=== PATIENT | female | born 1980 | race Caucasian/White ===

== ENCOUNTER 2019-04-22 10:36 | Inpatient (IN) ==
--- OUTSIDE RECORDS SUMMARY | 2019-04-22 10:40 | External Medical Summary | Continuity of Care Document ---
:1980 Author Name Diaz Law, Provider Address Unavailable Unavailable , Care Team Providers Name Role Phone Unavailable Unavailable Unavailable CHARMAINE ACRTAGENA Unavailable Unavailable Unavailable Unavailable Unavailable Assessments Assessed Problems:Atrial septal defect Problems Atrial septal defect (745.5) (Q21.1) Hypothyroidism (244.9) (E03.9) Allergies and Adverse Reactions PHENobarbital TABS (Allergy) Medications Levothyroxine Sodium 25 MCG Oral Tablet; TAKE 1 TABLET Every other day , M.D. Refills: 0 Keppra 500 MG Oral Tablet; 1250MG TWICE A DAY , M.D. Refills: 0 Levothyroxine Sodium 50 MCG Oral Tablet; 1 TABLET EVERYOTHER DAY ALTERNATING WITH THE 25MG , M.D. Refills: 0 Procedures History of Hernia Repair Status: Complet ed History of Brain Surgery Status: Complet ed Immunizations Immunizations not documented Family History Unknown Family Member Family history of Breast Cancer (V16.3) Status: Active Comments: Family History Family history of Skin Cancer (V16.8) Status: Active Co mments: Family History Family history of Pacemaker Placement Status: Active Co mments: Family History Family history of CABG Status: Active Comments: Family History Family history of Dyslipidemia Status: Active Comments: Family History Family history of Stroke Syndrome (V17.1) Status: Active Comments: Family History Family history of Asthma (V17.5) Status: Active Comment s: Family History Family history of Diabetes Mellitus (V18.0) Status: Active Comments: Family History Social History - Smoking Status Never smoker Interventions Follow-ups/ReferralsFollow-up visit in 3 months Plan of Treatment Planned Observations Planned Goals not documented Results No Known Results Results not documented
--- NOTE | 2019-04-22 12:33 | Emergency Department Note ---
History of Present Illness General Chief complaint: Neuro Symptoms/Deficit Stated complaint: LOSSING HER BALANCE, FALLING- HX BRAIN TUMOR Time Seen by Provider: 04/22/19 11:03 History of Present Illness Maximum Pain Intensity: 0 This patient is a 39-year-old female who presents to the emergency department for evaluation of multiple falls over the last several weeks. The patient has a history of a brain tumor and mental delay. Most of the history is taken from the patient's parents were present at the bedside. They report that she has had intermittent difficulty with her gait. She had a fall 4 days ago. The patient was evaluated by her doctor. She was told that she had one rib fracture. At that visit, they also checked blood work, which was reportedly normal. The patient's parents note some increased agitated behavior where the patient has bitten herself. They also explained that she has been very manipulative, and acts out when she does not want to do something such as chores. They voiced concerns about her safety at home as they have multiple steps and are concerned that she may have a significant fall. The patient currently has no complaints. Home Medications Home Medications Medication Instructions Recorded Confirmed Type ascorbic acid (vitamin C) 500 mg PO DAILY 04/22/19 04/22/19 History gemfibrozil 600 mg PO BID 04/22/19 04/22/19 History lamotrigine 25 mg PO BID 04/22/19 04/22/19 History lamotrigine 150 mg PO BID 04/22/19 04/22/19 History levothyroxine 25 mcg PO DAILYBB 04/22/19 04/22/19 History magnesium oxide 400 mg PO DAILY 04/22/19 04/22/19 History megestrol 20 mg PO DAILY 04/22/19 04/22/19 History sodium chloride 1,000 mg PO BID 04/22/19 04/22/19 History Allergies Allergy/AdvReac Type Severity Reaction Status Date / Time phenobarbital Allergy Mild . Verified 04/22/19 11:16 omeprazole AdvReac Unknown red face Verified 04/22/19 11:16 Past Med/Surg History Medical History Brain tumor Cognitive developmental delay H/O astrocytoma Laceration of trachea Seizure disorder Surgical History H/O brain surgery History of umbilical hernia repair S/P cholecystectomy Family History Mother Diabetes Grandfather (Paternal) Coronary heart disease Uncle Coronary heart disease Social History Preferred Language: Bengali Communication Ability: Effective Hearing Ability: Normal Loan Review Officer Required: No Beliefs That Will Affect Care: Restorationism Restorationism Beliefs: Mandaen marital status: Single Current Living Situation: Family Other Information That Helps Us Care for You: Yes (wobbly when walking) Feels Safe at Home: Yes Safety Concerns: Feels Safe At This Time Smoking Status: Never smoker Hx Alcohol Use: No Hx Substance Use: No Review of Systems A total of 10 systems reviewed and were otherwise negative Physical Exam Vital Signs Vital Signs - 24 hr 04/22/19 10:43 04/22/19 13:04 04/22/19 14:30 Temperature 36.7 C Temperature Source Oral Sepsis Recent Fever Within 48 Hours No Sepsis Action Taken by Nursing No Action Required Pulse Rate 96 H Pulse Rate [Left Finger] 80 66 Respiratory Rate 20 20 18 Respiratory Effort / Characteristics Non-Labored Non-Labored Non-Labored Respiratory Depth Normal Normal Normal Respiratory Pattern Regular Regular Blood Pressure 106/66 Blood Pressure [Right Arm] 123/69 98/59 L Blood Pressure Mean 79 Blood Pressure Mean [Right Arm] 87 72 Pulse Oximetry 100 99 99 Oxygen Delivery Method Room Air Room Air Room Air 04/22/19 15:00 04/22/19 16:02 Temperature Temperature Source Sepsis Recent Fever Within 48 Hours Sepsis Action Taken by Nursing Pulse Rate Pulse Rate [Left Finger] 78 90 Respiratory Rate 18 20 Respiratory Effort / Characteristics Non-Labored Non-Labored Respiratory Depth Normal Normal Respiratory Pattern Regular Regular Blood Pressure Blood Pressure [Right Arm] 126/69 116/63 Blood Pressure Mean Blood Pressure Mean [Right Arm] 88 80 Pulse Oximetry 100 99 Oxygen Delivery Method Room Air Room Air Constitutional WD/WN, vitals as above Eyes EOM intact bilaterally ENMT external ear and nose normal, oropharynx normal Neck trachea midline Respiratory normal respiratory effort, lungs clear to auscultation Cardiovascular Systolic murmur noted. Regular rate. Gastrointestinal (Abdomen) normal bowel sounds, soft, nontender, no hepatosplenomegaly Musculoskeletal no cyanosis or clubbing, extremities motor strength 5/5 Skin no rashes, warm and dry Neurologic Alert and oriented x3. No focal motor deficits. Psychiatric Acting appropriately. No suicidal or homicidal thoughts. Course Patient was seen and examined Vital signs including blood pressure were reviewed medications list was verified with patient Labs were obtained, and a saline lock was established We attempted to get records from [facility] where the patient was seen yesterday. Imaging was performed and reviewed The patient was evaluated by the psychiatric liaison. The case was discussed with my supervising physician who personally reviewed her records. I reviewed the patient's records from [facility]. The patient was reassessed and sleeping. I discussed the results of the work-up with the patient's parents. They voiced understanding. I spoke with neurosurgery at [facility] The case was subsequently discussed with case management and [place] [facility] [place]. They kindly agreed to evaluate the patient for possible inpatient management. The patient's family was updated numerous times at the bedside. They were in agreement with the plan. Consultations Consultation #1: Dr. Ness-neurosurgery [facility] Consultation #2: Dr. Arreola Medical Decision Making Medical Records Attestation: I reviewed the patient's medical records. Home Medications Current Medication List: was personally reviewed by me Laboratory Data Attestation: I reviewed the patient's lab results. Result diagrams: 04/22/19 17:14 04/22/19 12:35 Lab Results 04/22/19 04/22/19 04/22/19 Range/Units 11:59 12:35 12:55 WBC (4.8-10.8) K/uL RBC (4.2-5.4) M/uL Hgb (12.0-16.0) g/dL Hct (37-47) % MCV (80-100) fL MCH (25-34) pg MCHC (32-36) g/dL RDW Std Deviation (36.4-46.3) fL RDW Coeff of [place] (11.5-14.5) % Plt Count (130-400) K/uL Immature Gran % (Auto) % Neut % (Auto) % Lymph % (Auto) % [place] % (Auto) % Eos % (Auto) % Baso % (Auto) % Immature Gran # (Auto) (0.00-0.02) K/uL Neut # (Auto) (1.4-6.5) K/uL Lymph # (Auto) (1.2-3.4) K/uL [place] # (Auto) (0.11-0.59) K/uL Eos # (Auto) (0-0.5) K/uL Baso # (Auto) (0-0.2) K/uL Platelet Estimate (Normal) Echinocytes Sodium 140 (136-145) mmol/L Potassium 3.7 (3.5-5.1) mmol/L Chloride 105 (98-107) mmol/L Carbon Dioxide 30 (21-32) mmol/L Anion Gap 5.0 (3-11) BUN 23 H (7-18) mg/dl Creatinine 1.34 H (0.6-1.2) mg/dl Est Cr Clr Drug Dosing Not Reportable Est GFR ( Amer) 57.3 Est GFR (Non-Af Amer) 49.4 BUN/Creatinine Ratio 17.0 (10-20) Glucose 84 (70-99) mg/dl POC Glucose 89 (70-99) Calcium 9.6 (8.5-10.1) mg/dl TSH 0.271 L (0.300-4.500) uIu/ml Urine Color Urine Appearance (Clear) Urine pH (4.5-7.5) Ur Specific [place] (1.000-1.030) Urine Protein (Negative) Urine Glucose (UA) (Negative) Urine Ketones (Negative) Urine Blood (Negative) Urine Nitrite (Negative) Urine Bilirubin (Negative) Urine Urobilinogen (Negative) Ur Leukocyte Esterase (Negative) Urine WBC (Auto) (0-5) /hpf Urine RBC (Auto) (0-4) /hpf U Hyaline Cast (Auto) (0-5) /lpf U Epithel Cells (Auto) (0-5) /lpf Urine Bacteria (Auto) (Negative) Ur Renal Epithelial Cell Urine Test (Negative) Urine Opiates Screen Neg (Neg) Ur Methadone, Qual Neg (Neg) Urine Barbiturates Neg (Neg) Ur Phencyclidine (PCP) Neg (Neg) U Amphetamin/Meth Scrn Neg (Neg) MDMA (Ecstasy) Screen Neg (Neg) U Benzodiazepines Scrn Neg (Neg) Ur Cocaine Metabolite Neg (Neg) U Marijuana (THC) Screen Neg (Neg) 04/22/19 04/22/19 04/22/19 Range/Units 12:55 12:55 14:51 WBC 3.13 L (4.8-10.8) K/uL RBC 3.49 L (4.2-5.4) M/uL Hgb 10.3 L (12.0-16.0) g/dL Hct 31.1 L (37-47) % MCV 89.1 (80-100) fL MCH 29.5 (25-34) pg MCHC 33.1 (32-36) g/dL RDW Std Deviation 47.9 H (36.4-46.3) fL RDW Coeff of [place] 14.8 H (11.5-14.5) % Plt Count 3 L* (130-400) K/uL Immature Gran % (Auto) 1.0 % Neut % (Auto) 40.3 % Lymph % (Auto) 52.7 % [place] % (Auto) 3.8 % Eos % (Auto) 1.9 % Baso % (Auto) 0.3 % Immature Gran # (Auto) 0.03 H (0.00-0.02) K/uL Neut # (Auto) 1.26 L (1.4-6.5) K/uL Lymph # (Auto) 1.65 (1.2-3.4) K/uL [place] # (Auto) 0.12 (0.11-0.59) K/uL Eos # (Auto) 0.06 (0-0.5) K/uL Baso # (Auto) 0.01 (0-0.2) K/uL Platelet Estimate SIGNIFIC DECREASED (Normal) Echinocytes 1+ Sodium (136-145) mmol/L Potassium (3.5-5.1) mmol/L Chloride (98-107) mmol/L Carbon Dioxide (21-32) mmol/L Anion Gap (3-11) BUN (7-18) mg/dl Creatinine (0.6-1.2) mg/dl Est Cr Clr Drug Dosing Est GFR ( Amer) Est GFR (Non-Af Amer) BUN/Creatinine Ratio (10-20) Glucose (70-99) mg/dl POC Glucose (70-99) Calcium (8.5-10.1) mg/dl TSH (0.300-4.500) uIu/ml Urine Color Yellow Urine Appearance Clear (Clear) Urine pH 8.0 H (4.5-7.5) Ur Specific [place] 1.022 (1.000-1.030) Urine Protein Negative (Negative) Urine Glucose (UA) Negative (Negative) Urine Ketones Negative (Negative) Urine Blood Negative (Negative) Urine Nitrite Negative (Negative) Urine Bilirubin Negative (Negative) Urine Urobilinogen Negative (Negative) Ur Leukocyte Esterase Trace H (Negative) Urine WBC (Auto) 5-10 H (0-5) /hpf Urine RBC (Auto) 0-4 (0-4) /hpf U Hyaline Cast (Auto) 1-5 (0-5) /lpf U Epithel Cells (Auto) >30 H (0-5) /lpf Urine Bacteria (Auto) Negative (Negative) Ur Renal Epithelial Cell Not Reportable Urine Test Negative (Negative) Urine Opiates Screen (Neg) Ur Methadone, Qual (Neg) Urine Barbiturates (Neg) Ur Phencyclidine (PCP) (Neg) U Amphetamin/Meth Scrn (Neg) MDMA (Ecstasy) Screen (Neg) U Benzodiazepines Scrn (Neg) Ur Cocaine Metabolite (Neg) U Marijuana (THC) Screen (Neg) Imaging Data Attestation: I personally reviewed and interpreted this imaging study as follows: Radiologist's Impression: CT head without contrast IMPRESSION: 1. Increasing small bifrontal extra-axial fluid collections consistent with chronic bilateral subdural hygromas/hematomas 2. The examination remains otherwise unchanged from the preceding study. Electronically signed by: Manolo Francois M.D. 04/22/2019 1:05 PM Dictated: 04/22/19 1256 Transcribed: 04/22/19 1256 Blood Pressure Blood Pressure Findings: Normal blood pressure MDM Narrative Differential diagnosis: Intracranial abnormality, electrolyte abnormality, adverse drug reaction, psychiatric disorder, dehydration, among others This patient is a 39-year-old female presents to the emergency department for evaluation of gait dysfunction. On exam, she was neurologically intact. The patient has a history of mental delay. The patient's parents were concerned that this is possibly a psychiatric disorder, and they did not feel comfortable taking the patient home. They were highly concerned about her fall risk. I reviewed outpatient records. She had blood work performed at [facility] yesterday. There were no significant abnormalities noted. A CT scan was performed. This was concerning for an increasing hematoma/hygroma in the frontal area. The case was discussed with neurosurgery at [place]. They felt that her symptoms were likely chronic in nature and unrelated to her CT findings. [facility]. Due to her gait dysfunction, she was a significant fall risk. For this reason, she will likely stay in the hospital for inpatient management and disposition planning. The patient's parents were in agreement with the plan. Impression & Plan Ambulatory dysfunction, Acute kidney insufficiency Discharge Plan Visit Data *Final* Discharge Date/Time: 04/22/19 17:12 Chief Complaint: Neuro Symptoms/Deficit Stated Complaint: LOSSING HER BALANCE, FALLING- HX BRAIN TUMOR ED Provider: Lito Rojas ED Midlevel Provider: Liana Chin Discharge Problem: Ambulatory dysfunction, Acute kidney insufficiency Patient Disposition: Admitted As Inpatient Condition: Fair Discharge Instructions Interventions: ED Discharge Assessment Last Done: 04/22/19 17:12
--- NOTE | 2019-04-22 13:06 | CT Scan Report ---
CT head/brain wo con CLINICAL HISTORY: frequent falls COMPARISON STUDY: 08/31/2015 TECHNIQUE: Axial CT of the brain is performed from the vertex to the skull base. IV contrast was not administered for this examination. A dose lowering technique was utilized adhering to the principles of ALARA. CT DOSE: 537.48 mGy.cm FINDINGS: There are postsurgical changes involving the right temporal lobe with right temporal lobe encephaloma lacia. There is no CT evidence of acute cortical infarction. There is no midline shift. There is no a cute hemorrhage. There are patchy white matter hypodensities. There is a cyst versus old lacunar infarct within the le ft frontal lobe and right basal ganglia. 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 There is basal ganglia and cerebellar calcification. This could indicate a metabolic disorder or lan erasmo familial brain calcification. There is no evidence of pathologic ventricular dilatation. There are increasing bifrontal extra-axial fluid collections, consistent with chronic bilateral subdu ral hygromas/hematomas. There is a chronic right mastoid effusion. IMPRESSION: 1. Increasing small bifrontal extra-axial fluid collections consistent with chronic bilateral subdura l hygromas/hematomas 2. The examination remains otherwise unchanged from the preceding study. Electronically signed by: Manolo Francois M.D. 04/22/2019 1:05 PM
[2019-04-22 13:22] LABS: Appearance Urine Clear (Clear); Bacteria Urine Automated Negative (Negative); Bilirubin Urine Negative (Negative); Blood Urine Negative (Negative); Color Urine Yellow; Epithelial Cell Urine Auto >30 /lpf (0-5); Glucose Urine UA Negative (Negative); Ketones Urine Negative (Negative); Leukocyte Esterase Urine Trace (Negative); Nitrite Urine Negative (Negative); RBC Urine Automated 0-4 /hpf (0-4); Specific Gravity Urine 1.022 (1.000-1.030); Urobilinogen Urine Negative (Negative)
[2019-04-22 13:33] LABS: Pregnancy Test, Urine Negative (Negative)
[2019-04-22 13:37] LABS: Amphetamines+Metham, Urine Neg (Neg); Barbiturates, Urine Neg (Neg); Benzodiazepine, Urine Neg (Neg); Cocaine, Urine Neg (Neg); MDMA (Ecstacy), Urine Neg (Neg); Methadone, Urine Neg (Neg); Opiate, Urine Neg (Neg); Phencyclidine, Urine Neg (Neg)
[2019-04-22 13:48] LABS: Protein Urine Negative (Negative); Sulfosalicylic Acid Urine Negative (Negative)
[2019-04-22 15:31] LABS: Blood Urea Nitrogen 23 mg/dl (7-18); Calcium 9.6 mg/dl (8.5-10.1); Carbon Dioxide 30 mmol/L (21-32); Chloride 105 mmol/L (98-107); Est GFR (African American) 57.3; Est GFR (Non-African American) 49.4; Glucose 84 mg/dl (70-99); Potassium 3.7 mmol/L (3.5-5.1); Sodium 140 mmol/L (136-145)
[2019-04-22 15:40] LABS: Thyroid Stimulating Hormone 0.271 uIu/ml (0.300-4.500)
--- NOTE | 2019-04-22 15:55 | History & Physical Report ---
Date of Service April 22, 2019 Assessment & Plan (1) Multiple falls: Uncertain etiology with possibilities including but not limited to somatic manifestation of stress as timing of ambulatory dysfunction coincided perfectly with parents leaving town and leaving her behind with a friend, possible seizure activity, new stroke with known h/o vascular disease (she is notably not on aspirin or statin therapy for secondary prophylaxis, however, ASA likely contraindicated in setting of hygromas), return of brain tumor (less likely with no new tumor seen on CT imaging), adverse medication reaction to increased dose of lamictal-increased 4 weeks ago, or other underlying metabolic cause that is not clear. Urine tox screen and UPT are negative. CXR pending. CT head reveals chronic strokes and chronic hygromas with no acute intracranial event. Labwork reveals an CYNTHIA which may be contributing and she has missed at least two days of her Lamictal last week when staying with a friend. Parents describe patient's behaviors as consistent with "having attitude" about the possibility of moving into a longterm situation. She was sent to stay with a friend last week where there was another teenager in the house, and defiant behaviors were observed, including missing medications. Parents deny that she uses alcohol. Will order MRI brain with and without contrast and consult Neurology to evaluate. PT/OT also consulted. IVF now and repeat BMP in am. Encourage PO intake and nutrition consult. Monitor on telemetry to ensure no underlying arrythmia as a cause for falls. Echo to evaluate heart murmur. (2) Epilepsy: Seizure precautions, cont lamictal at 175mg PO BID (3) H/O astrocytoma: MRI pending (4) Thrush: Likely from poor oral hygiene with dentures in place, Nystatin QID. Teach/encourage proper denture maintenance. (5) CYNTHIA (acute kidney injury): Uncertain baseline as records are unavailable. Parents report poor PO intake and dehydration regularly. IVF overnight and repeat in am. (6) Hypothyroidism: TSH is low. Would repeat when she is feeling better. She has been on a stable dose of Synthroid for a long time. (7) Cognitive developmental delay: 2/2 brain surgery at young age. Patient cannot live independently. Recent ongoing conversations between patient and her parents who are looking into a longterm situation, to which she is currently opposed. (8) Subdural hygroma: Images reviewed by Neurosurgery who would like her to follow-up in the office with them next week for evaluation. No acute changes resulting from falls seen on imaging. (9) Heart murmur: Echo-uncertain chronicity. (10) DVT prophylaxis: SCDs-chemoprophylaxis contraindicated in setting of hygromas Full Code Dispo-uncertain at this time. Pending further Neuro workup and recommendations. Pending PT/OT input. Eri Arreola DO [facility] Hospitalist History of Present Illness Chief Complaint: multiple falls at home Primary Care Provider: Randy Begum 39 yo F with h/o astrocytoma removal around age 4 and subsequent mental delay presented with her parents out of concern for multiple falls at home. Her parents are concerned about managing her at home as in the last two weeks, she has fallen multiple times and cannot tell anyone why she is falling. Two weeks ago her parents went out of town and left her with a friend who has a teenager. Eliane's developmental age is thought to be around the same age as the teenager living in this home. Parents report that there was an uptick in behavioral issues during this time and the falls began happening around then. There have been behavioral issues noted with Eliane in the past, especially while she was on Keppra for control of her epilepsy. But this resolved when her neurologist switched her to Lamictal. She was seen in the Neurology office on 03/17/19 and her Lamictal was increased from 150 BID to 175 BID. Parents say that she was doing well on this increased dosage. Eliane denies any lightheadedness, dizziness, headaches, changes in her vision, difficulty swallowing. She does report difficulty walking but doesn't know why. She cannot recall if she is passing out, and answers that her dad typically finds her and picks her up off the floor. She reports a broken rib recently after falling in the bathtub, but states it doesn't hurt her. Mom says she has been giving her Aleve pretty consistently. Eliane is described as defiant and "having attitude" by her parents recently. She gives me no issues on my interview with her and is compliant with all answers and examination instructions. Her parents are concerned about their own mortality and the care and welfare of their daughter who is unable to live independently. They presented to [facility] yesterday and were offered placement in a assisted and assistance with home health for nursing, both of which were declined by her parents. Xrays were performed of her chest revealing a healed posterior right 5th rib fracture, and a possible new right 8th rib fracture without complication. A CT head revealed atrophy, and chronic infarcts in the left frontal lobe, right basal ganglia, and right temporal lobe. There are basal ganglia and dentate nuclei calcifications present bilaterally. No acute intracranial hemorrhage or infarct was seen. A maxillofacial CT was also performed revealing no evidence of fracture and some opacification of the mastoid cells. Today, she continues to have ambulatory dysfunction, needing assistance to get around. ER nurse, notes two person assist when ambulating to the bathroom today. Workup reveals increased small bifrontal extra-axial fluid collections consistent with chronic bilateral subdural hygromas/hematomas. Neurosurgery in [facility] reviewed the images and agreed with the chronic hygromas. Allergies Allergy/AdvReac Type Severity Reaction Status Date / Time phenobarbital Allergy Mild . Verified 04/22/19 11:16 omeprazole AdvReac Unknown red face Verified 04/22/19 11:16 Home Medications Home Medications Medication Instructions Recorded Confirmed Type ascorbic acid (vitamin C) 500 mg PO DAILY 04/22/19 04/22/19 History gemfibrozil 600 mg PO BID 04/22/19 04/22/19 History lamotrigine 25 mg PO BID 04/22/19 04/22/19 History lamotrigine 150 mg PO BID 04/22/19 04/22/19 History levothyroxine 25 mcg PO DAILYBB 04/22/19 04/22/19 History magnesium oxide 400 mg PO DAILY 04/22/19 04/22/19 History megestrol 20 mg PO DAILY 04/22/19 04/22/19 History sodium chloride 1,000 mg PO BID 04/22/19 04/22/19 History Past Med/Surg History Medical History Brain tumor Cognitive developmental delay H/O astrocytoma Laceration of trachea Seizure disorder Surgical History H/O brain surgery History of umbilical hernia repair S/P cholecystectomy Family History Mother Diabetes Grandfather (Paternal) Coronary heart disease Uncle Coronary heart disease Social History Preferred Language: Macedonian Communication Ability: Effective Hearing Ability: Normal marital status: Single Current Living Situation: Family Feels Safe at Home: Yes Smoking Status: Never smoker Hx Alcohol Use: No Hx Substance Use: No Review of Systems Review of Systems: All systems reviewed & are unremarkable except as noted in HPI & below Physical Exam Physical Exam: CONSTITUTIONAL: WNWD, vitals as above, generally well- appearing EYES: EOMI bilaterally, PERRL, normal conjunctivae, no scleral icterus ENT: external ear and nose normal, oropharynx clear, whitish plaque noted on lateral edges of tongue, dentures in place. TM clear-no effusion. NECK: trachea midline RESPIRATORY: clear to auscultation bilaterally, no crackles, rales or wheezes, normal respiratory effort CARDIOVASCULAR: regular rate and rhythm, 3/6 DREA, no gallops or rubs, no JVD, no peripheral edema GASTROINTESTINAL: normal bowel sounds, soft, nontender, nondistended MUSCULOSKELETAL: strength 5/5 throughout, head is normocephalic and atraumatic, gait not assessed SKIN: warm and dry NEUROLOGIC: patellar DTR 2+ bilat. PERRL, EOMI, no facial palsy, no dysarthria. CN 2-12 grossly intact, no sensory deficit, normal cognition, normal speech, no tremor PSYCHIATRIC: alert cooperative and oriented to person, place and time. Euthymic mood, makes good eye contact, language grossly intact Results & Data Vital Signs (Past 12 Hours) Vital Signs Temp Pulse Pulse Resp BP BP Pulse Ox 04/22/19 15:00 78 18 126/69 100 04/22/19 14:30 66 18 98/59 L 99 04/22/19 13:04 80 20 123/69 99 04/22/19 10:43 36.7 C 96 H 20 106/66 100 Laboratory Results Short CBC 04/22/19 Range/Units 14:51 WBC 3.13 L (4.8-10.8) K/uL Hgb 10.3 L (12.0-16.0) g/dL Hct 31.1 L (37-47) % Plt Count 3 L* (130-400) K/uL BMP 04/22/19 12:35 Sodium 140 Potassium 3.7 Chloride 105 Carbon Dioxide 30 BUN 23 H Creatinine 1.34 H Glucose 84 Calcium 9.6 Urine 04/22/19 Range/Units 12:55 Urine Color Yellow Urine Appearance Clear (Clear) Urine pH 8.0 H (4.5-7.5) Ur Specific [place] 1.022 (1.000-1.030) Urine Protein Negative (Negative) Urine Glucose (UA) Negative (Negative) Diagnostic Findings CT head/brain wo con FINDINGS: There are postsurgical changes involving the right temporal lobe with right temporal lobe encephalomalacia. There is no CT evidence of acute cortical infarction. There is no midline shift. There is no acute hemorrhage. There are patchy white matter hypodensities. There is a cyst versus old lacunar infarct within the left frontal lobe and right basal ganglia. 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 There is basal ganglia and cerebellar calcification. This could indicate a metabolic disorder or primary familial brain calcification. There is no evidence of pathologic ventricular dilatation. There are increasing bifrontal extra-axial fluid collections, consistent with chronic bilateral subdural hygromas/hematomas. There is a chronic right mastoid effusion. IMPRESSION: 1. Increasing small bifrontal extra-axial fluid collections consistent with chronic bilateral subdural hygromas/hematomas 2. The examination remains otherwise unchanged from the preceding study. Medications Administered NO MEDS GIVEN IN THE ER Code Status & VTE Plan Code Status Full VTE Prophylaxis Plan VTE Prophylaxis will be ordered: Yes Reason for no VTE drug order: Contraindicated Critical Care Time Critical Care Time: No
[2019-04-22 16:31] LABS: Platelet Count 3 K/uL (130-400)
[2019-04-22 16:34] LABS: Hematocrit (blood only) 31.1 % (37-47); Hemoglobin 10.3 g/dL (12.0-16.0); Mean Corpuscular Hemoglobin 29.5 pg (25-34); Mean Corpuscular Hgb Conc 33.1 g/dL (32-36); Mean Corpuscular Volume 89.1 fL (80-100); RDW Coefficient of Variation 14.8 % (11.5-14.5); RDW Standard Deviation 47.9 fL (36.4-46.3); Red Blood Count 3.49 M/uL (4.2-5.4); White Blood Count 3.13 K/uL (4.8-10.8)
[2019-04-22 16:35] LABS: Basophils # (auto) 0.01 K/uL (0-0.2); Basophils % (auto) 0.3 %; Echinocytes 1+; Eosinophils # (auto) 0.06 K/uL (0-0.5); Eosinophils % (auto) 1.9 %; Immature Granulocytes # (auto) 0.03 K/uL (0.00-0.02); Lymphocytes # (auto) 1.65 K/uL (1.2-3.4); Lymphocytes % (auto) 52.7 %; Monocytes # (auto) 0.12 K/uL (0.11-0.59); Monocytes % (auto) 3.8 %; Neutrophils # (auto) 1.26 K/uL (1.4-6.5); Neutrophils % (auto) 40.3 %; Platelet Estimate SIGNIFIC DECREASED (Normal)
[2019-04-22 17:38] LABS: Hematocrit (blood only) 31.3 % (37-47); Hemoglobin 10.5 g/dL (12.0-16.0); Mean Corpuscular Hemoglobin 29.6 pg (25-34); Mean Corpuscular Hgb Conc 33.5 g/dL (32-36); Mean Corpuscular Volume 88.2 fL (80-100); Mean Platelet Volume 10.5 fL (7.4-10.4); Platelet Count 318 K/uL (130-400); RDW Coefficient of Variation 14.5 % (11.5-14.5); RDW Standard Deviation 47.1 fL (36.4-46.3); Red Blood Count 3.55 M/uL (4.2-5.4); White Blood Count 5.36 K/uL (4.8-10.8)
[2019-04-22 17:39] LABS: Basophils # (auto) 0.05 K/uL (0-0.2); Basophils % (auto) 0.9 %; Eosinophils # (auto) 0.17 K/uL (0-0.5); Eosinophils % (auto) 3.2 %; Immature Granulocytes # (auto) 0.14 K/uL (0.00-0.02); Immature Granulocytes % (auto) 2.6 %; Lymphocytes # (auto) 1.88 K/uL (1.2-3.4); Lymphocytes % (auto) 35.1 %; Monocytes # (auto) 0.37 K/uL (0.11-0.59); Monocytes % (auto) 6.9 %; Neutrophils # (auto) 2.75 K/uL (1.4-6.5); Neutrophils % (auto) 51.3 %
[2019-04-22] MEDS ORDERED: ACETAMINOPHEN 325 MG TAB PO PRN (18:25)
[2019-04-22] MEDS ORDERED: ONDANSETRON INJ 2 MG/ML 2 ML VIAL IV PRN (18:25)
[2019-04-22] MEDS: SODIUM CHLORIDE 0.9% 1000ML 1,000 ML IV SCH (18:57)
[2019-04-22] MEDS: lamoTRIgine 100 MG TAB PO SCH (20:55)
[2019-04-22] MEDS: NYSTATIN SUSP 500,000 U/5 ML UDC PO SCH (20:58)
[2019-04-22] MEDS: lamoTRIgine 25 MG TAB PO SCH (20:58)
[2019-04-22] MEDS: SODIUM CHLORIDE 1 GM TABLET PO SCH (20:59)
[2019-04-22] MEDS: GEMFIBROZIL 600 MG TAB PO SCH (20:59)
[2019-04-23] MEDS: SODIUM CHLORIDE 0.9% 1000ML 1,000 ML IV SCH (02:45)
[2019-04-23] MEDS: LEVOTHYROXINE SODIUM 25 MCG TABLET PO SCH (06:24)
[2019-04-23 07:06] LABS: Hematocrit (blood only) 30.6 % (37-47); Hemoglobin 10.2 g/dL (12.0-16.0); Mean Corpuscular Hemoglobin 29.6 pg (25-34); Mean Corpuscular Hgb Conc 33.3 g/dL (32-36); Mean Corpuscular Volume 88.7 fL (80-100); Mean Platelet Volume 10.4 fL (7.4-10.4); Platelet Count 288 K/uL (130-400); RDW Coefficient of Variation 14.8 % (11.5-14.5); RDW Standard Deviation 47.6 fL (36.4-46.3); Red Blood Count 3.45 M/uL (4.2-5.4); White Blood Count 4.09 K/uL (4.8-10.8)
[2019-04-23 07:37] LABS: BUN Creatinine Ratio 19.2 (10-20); Calcium 8.1 mg/dl (8.5-10.1); Creatinine Clr Calc Pharmacy 34.7 ml/min; Est GFR (African American) 71.9; Est GFR (Non-African American) 62.1; Magnesium 2.4 mg/dl (1.8-2.4); Potassium 3.6 mmol/L (3.5-5.1)
--- NOTE | 2019-04-23 07:43 | Hospitalist Progress Note ---
Date of Service April 23, 2019 Assessment & Plan (1) Multiple falls: Patient is a 39-year-old female with history of astrocytoma removal around 4, subsequent mental delay, came with her parents out of concern for multiple falls at home for last 2 weeks since she was left at a friend's home with the teenagers daughter. Did have some behavioral issues recently which resolved with increase in Lamictal dose from 150 twice daily to 175 twice daily. Reports difficulty walking, does not know why, no loss of consciousness. Per patient, she admitted in front of her mother that few falls were on purpose to catch their attention and fact that she is upset about them thinking of [place]. Parents describe patient's behaviors as consistent with "having attitude" about the possibility of moving [place] a [place] situation. She was sent to stay with a friend last week where there was another teenager in the house, and defiant behaviors were observed, including missing medications. She is known to have manipulative behavior. -Recently dose of Lamictal increased from 150 twice daily to 175 twice daily for behavioral issues which has helped, No signs of infection -Work up - CT headincreasing small bifrontal extra axial fluid collections consistent with chronic bilateral subdural hygromas/hematomas. 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 No acute intracranial hemorrhage. Basal ganglia and dentate nuclei calcifications present bilaterally. CT maxillofacial shows no fracture and some opacification of mastoid cells. -MRI Brain -interval progression of bilateral subdural hygromas of cerebral hemispheres bilaterally, stable right temporal encephalomalacia, stable bilateral chronic small vessel change, no acute changes. -Urine tox screen and UPT are negative. Labwork reveals an CYNTHIA which may be contributing and she has missed at least two days of her Lamictal last week when staying with a friend. Parents deny that she uses alcohol. -PT/OT ordered -IV fluids --> ok to discontinue -Neurology consulted (2) Epilepsy: -Seizure precautions, cont lamictal at 175mg PO BID (recently increased as had some behavioral issues) (3) H/O astrocytoma: -Removed at the age of 4 -MRI brain- No new tumor (4) Thrush: -Likely from poor oral hygiene with dentures in place, Nystatin QID. -Teach/encourage proper denture maintenance. (5) CYNTHIA (acute kidney injury): -Uncertain baseline as records are unavailable. Presented with creatinine of 1.34, now trending down -Parents report poor PO intake and dehydration regularly. -IVF fluids--> Ok to discontinue -Monitor trend (6) Hypothyroidism: TSH is low. -Would repeat when she is feeling better. She has been on a stable dose of Synthroid for a long time. (7) Cognitive developmental delay: -2/2 brain surgery at young age. Patient cannot live independently. Recent ongoing conversations between patient and her parents who are [place] situation, to which she is currently opposed. (8) Subdural hygroma: -Images reviewed by Neurosurgery- [facility] who would like her to follow-up in the office with them next week for evaluation. -MRI Brain-interval progression of bilateral subdural hygromas of cerebral hemispheres -No acute changes resulting from falls seen on imaging. (9) Heart murmur: -Echo-uncertain chronicity. (10) DVT prophylaxis: SCDs-chemoprophylaxis contraindicated in setting of hygromas Full Code Disposition -uncertain at this time. Pending further Neuro workup and recommendations. Pending PT/OT input. Updated mother at bedside Subjective Patient came back from MRI. She is having her lunch. Mother by bedside. Having a conversation with her about going [place] the [place] which is making her upset and emotional. She admits that at times she falls on purpose to catch their attention and the fact that she is upset about them [place]. Last fall in the bathroom was an accident as she slipped in the tub and fractured her rib. Denies any pain, headache, dizziness, nausea, vomiting, chest pain, shortness of breath, cough, fever, chills. Physical Exam Physical Exam: CONSTITUTIONAL: Awake, alert, oriented to place, person. Not in acute distress, delayed mental development RESPIRATORY: clear to auscultation bilaterally, no crackles, rales or wheezes, normal respiratory effort CARDIOVASCULAR: regular rate and rhythm, 3/6 DREA, no gallops or rubs, no JVD, no peripheral edema GASTROINTESTINAL: normal bowel sounds, soft, nontender, nondistended NEUROLOGIC: Awake, alert, oriented to place, person, cranial nerves intact, power5/5 all extremities. Normal speech. PSYCHIATRIC: alert cooperative and oriented to person, place and time. Euthymic mood, makes good eye contact, language grossly intact Results & Data Vital Signs (Past 12 Hours) Vital Signs Temp Pulse Pulse Resp BP Pulse Ox 04/23/19 06:59 36.8 C 78 18 108/69 98 04/23/19 03:29 36.2 C L 79 18 94/60 L 95 04/23/19 00:42 78 04/22/19 23:00 37.3 C 75 18 104/69 100
[2019-04-23] MEDS: ASCORBIC ACID 500 MG TAB PO SCH (07:57)
[2019-04-23] MEDS: MEGESTROL ACETATE 40 MG TAB PO SCH (07:57)
[2019-04-23] MEDS: NYSTATIN SUSP 500,000 U/5 ML UDC PO SCH ×4 (07:57→21:01)
[2019-04-23] MEDS: SODIUM CHLORIDE 1 GM TABLET PO SCH ×2 (07:58→21:07)
[2019-04-23] MEDS: MAGNESIUM OXIDE 400 MG TAB PO SCH (07:58)
[2019-04-23] MEDS: GEMFIBROZIL 600 MG TAB PO SCH ×2 (08:21→21:06)
[2019-04-23] MEDS: lamoTRIgine 100 MG TAB PO SCH ×2 (08:21→21:02)
[2019-04-23] MEDS: lamoTRIgine 25 MG TAB PO SCH (08:22)
[2019-04-23] MEDS ORDERED: GADOBUTROL 7.5ML VIAL IV PRN (12:54)
--- NOTE | 2019-04-23 13:10 | Magnetic Resonance Report ---
MR brain seizure wo/w con CLINICAL HISTORY: multiple recent falls, h/o astrocytoma mental status change COMPARISON STUDY: 09/05/2015 TECHNIQUE: Utilizing a 1.5 Karime magnet and dedicated coil, multiplanar, multiecho imaging of the br ain was performed pre and postcontrast administration. IV administration of 4 mL of Gadavist contras t was uneventful. Thin cut coronal T2 imaging was performed according to seizure protocol. FINDINGS: Slightly progressive atrophy and prominent CSF spaces compared to the prior study. Right temporal encephalomalacia similar. Foci of increased signal in the cerebral hemispheres bilaterally are stable. The ventricular system remains midline. There is a component of chronic small vessel change. The incr ease in CSF space over the cerebral hemispheres is suggestive of small bilateral subdural hygromas. T his is slightly increased from the prior exam. There is moderate mucosal thickening and/or opacification of the right mastoid air cells. IMPRESSION: 1. Stable right temporal encephalomalacia. 2. interval progression of bilateral subdural hygromas of the cerebral hemispheres bilaterally. 3. No evidence for abnormal postcontrast enhancement. 4. Stable bilateral chronic small vessel change 5. No evidence for an acute ischemic event. The above report was generated using voice recognition software. It may contain grammatical, syntax or spelling errors. Electronically signed by: Marques Benitez M.D. 04/23/2019 1:09 PM
--- NOTE | 2019-04-23 15:20 | Consultation Report ---
DATE OF CONSULTATION: 04/23/2019 REASON FOR CONSULTATION: Falls. HISTORY OF PRESENT ILLNESS: Eliane is a 39-year-old female with a history of what is said to be an astrocytoma removal at age 4. This presented with seizure. She had a subsequent full developmental disabilities related to the resection and radiation. Her mother indicates that her only bout with seizures which sound as if they were partial complex or when she presented, she did require intubation which ruptured her trachea. She apparently had seizures several years ago as well, but they were partial complex. There have been issues related to irritability from anticonvulsants, and several years ago Keppra was discontinued and Lamictal started. By report in February, the Lamictal dose was increased to 175 b.i.d. because of behaviors. There have been some ongoing behavioral issues that have been well documented in Dr. Damon's note. She has been on appetite stimulants in the past. She has had admissions for severe dehydration. As a baseline, the patient is said to have a mentation of approximately 13-year-old. The patient's mother indicates that she stayed with her family friends last week and was very resistant and seemed to mimic the behavior of a disabled teenager. This included some self-injurious behavior with biting, refusal to walk. On two days, apparently, she missed her Lamictal dosing. The patient typically self administers. Mother has been monitoring that more closely since and no medications have been missed. They have noted that she has fallen approximately 5 times over the last 1 month. One event occurred while she was getting out of the shower and she fractured ribs on the left side. The other episodes have been witnessed by a mother and her mother indicates that she just seems to crumble. She almost looked up at her mother first and then fall. There is no real commonality with the falls. There is no relationship to meals, medications. She is not sweaty, shaky, pale. She does not have any complaints of lightheadedness. No seizures have been noted. As far as her mother knows, her weight has been stable. She has been more irritable and resistant over the last several weeks. She does note that she tends to have lost her balance when walking forward. In terms of how she has done globally over the last number of months, there may have been some mild decline in gait. Cognitive function appears intact. She is very independent and that she does chores around the house, bakes, and is able to do those things readily. Radiographically, her CT of the head shows increasing but small bifrontal extraaxial fluid collections consistent with chronic bilateral subdural hygromas. There are post-surgical changes in the right temporal lobe with right temporal lobe encephalomalacia. There are patchy white matter hypodensities, cyst versus old lacunar infarction, left frontal, right basal ganglia and old deep white matter infarct in the left frontal lobe, basal ganglia and cerebellar calcification. This could represent a metabolic disorder from ileal brain calcification. Her blood work was notable for mild anemia with white count being mildly low. Her chemistry profile is notable for chloride of 114, BUN 21, calcium 8.1. Toxicology negative. Lamictal pending. TSH mildly low at 0.271. PAST MEDICAL HISTORY: Astrocytoma, status post radiation and spinal irradiation as the patient and mother indicates they were metastases. Status post chemotherapy. History of thrush, hypothyroidism, developmental delay, subdural hygroma. Parenthetically images reviewed by neurosurgery, would like to followup in the office. History of murmur. Laceration of the trachea. SURGICAL HISTORY: Repair of laceration of the trachea, resection of astrocytoma, umbilical hernia repair, cholecystectomy. FAMILY HISTORY: Noncontributory. SOCIAL HISTORY: Does not smoke or drink. ALLERGIES: PHENOBARBITAL, OMEPRAZOLE. PHYSICAL EXAMINATION: VITAL SIGNS: 109/72, 82, 18, 36.7, 97%. GENERAL: The patient is awake and alert. She is mildly impulsive. NECK: There are no carotid bruits. HEART: There is a systolic murmur heard best over the aortic area. NEUROLOGIC: The patient appears to be mildly cushingoid. There is micrognathia Her pupils are equal. Optic nerves are difficult to visualize. There is normal motility. There is mild flattening of the left nasolabial fold and voices, both mildly high pitched and mildly dysarthric. No facial anesthesia is noted. Tongue is midline. There is no resting tremor or cogwheel rigidity. There is full strength, decreased left rapid alternating movements. Symmetric reflexes. Downgoing toes. [id number] is mildly clumsy on the left. [id number] is normal. She is mildly impulsive. No obvious hemiparesis. Gait is mildly wide based, it is not parkinsonian. There is some minor postural instability. IMPRESSION: This patient is status post resection of by report astrocytoma, status post chemotherapy and radiation therapy. She has experienced a functional decline, query anticonvulsant toxicity, I have decreased.Lamictal back to baseline dose, query post radiation encephalopathy. Labs for other treatable causes of imbalance. No obvious evidence of seizure; however, prior seizures sounds as if they have been subtle, recommend EEG, MRI, labs including B12, folate, thiamine. We will check orthostatics as well as labs for pituitary function including cortisol. We will follow with you. MTDD
[2019-04-23] MEDS ORDERED: Nursing to Pharmacy Communication ONE (16:48)
[2019-04-24] MEDS: LEVOTHYROXINE SODIUM 25 MCG TABLET PO SCH (06:30)
[2019-04-24] MEDS: GEMFIBROZIL 600 MG TAB PO SCH (08:58)
[2019-04-24] MEDS: MAGNESIUM OXIDE 400 MG TAB PO SCH (08:58)
[2019-04-24] MEDS: SODIUM CHLORIDE 1 GM TABLET PO SCH (08:58)
[2019-04-24] MEDS: MEGESTROL ACETATE 40 MG TAB PO SCH (08:59)
[2019-04-24] MEDS: ASCORBIC ACID 500 MG TAB PO SCH (08:59)
[2019-04-24] MEDS: NYSTATIN SUSP 500,000 U/5 ML UDC PO SCH ×2 (08:59→12:18)
[2019-04-24] MEDS: lamoTRIgine 100 MG TAB PO SCH (09:00)
[2019-04-24 09:56] LABS: Folate (Folic Acid) 20.64 ng/ml (>5.38)
--- NOTE | 2019-04-24 12:00 | Hospitalist Progress Note ---
Date of Service April 24, 2019 Assessment & Plan (1) Multiple falls: Patient is a 39-year-old female with history of astrocytoma removal around 4, subsequent mental delay, came with her parents out of concern for multiple falls at home for last 2 weeks since she was left at a friend's home with the teenagers daughter. Did have some behavioral issues recently which resolved with increase in Lamictal dose from 150 twice daily to 175 twice daily. Reports difficulty walking, does not know why, no loss of consciousness. Per patient, she admitted in front of her mother that few falls were on purpose to catch their attention and fact that she is upset about them thinking of sending her to a fpc. Parents describe patient's behaviors as consistent with "having attitude" about the possibility of moving into a fpc situation. She was sent to stay with a friend last week where there was another teenager in the house, and defiant behaviors were observed, including missing medications. She is known to have manipulative behavior. -Recently dose of Lamictal increased from 150 twice daily to 175 twice daily for behavioral issues which has helped but could be contributing. Lamictal dose was decreased to 150 mg BID by neurology -Work up - CT headincreasing small bifrontal extra axial fluid collections consistent with chronic bilateral subdural hygromas/hematomas. 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 No acute intracranial hemorrhage. Basal ganglia and dentate nuclei calcifications present bilaterally. CT maxillofacial shows no fracture and some opacification of mastoid cells. -MRI Brain -interval progression of bilateral subdural hygromas of cerebral hemispheres bilaterally, stable right temporal encephalomalacia, stable bilateral chronic small vessel change, no acute changes. -Urine tox screen and UPT are negative. 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 -Teach/encourage proper denture maintenance. (5) CYNTHIA (acute kidney injury): -Uncertain baseline as records are unavailable. Presented with creatinine of 1.34, now trending down -Parents report poor PO intake and dehydration regularly. -IVF fluids--> Discontinued -Monitor trend (6) Hypothyroidism: TSH is low. -Would repeat when she is feeling better. She has been on a stable dose of Synthroid for a long time. -Monitor TSH (7) Cognitive developmental delay: -2/2 brain surgery at young age. Patient cannot live independently. Recent ongoing conversations between patient and her parents who are looking into a fpc situation, to which she is currently opposed. (8) Subdural hygroma: -Images reviewed by Neurosurgery- [facility] who would like her to follow-up in the office with them next week for evaluation. -MRI Brain-interval progression of bilateral subdural hygromas of cerebral hemispheres -No acute changes resulting from falls seen on imaging. (9) Heart murmur: -Echo-uncertain chronicity. (10) DVT prophylaxis: SCDs-chemoprophylaxis contraindicated in setting of hygromas Full Code Disposition - PT/OT recommends rehab Ok to discharge from medical point of view, awaiting rehab placement. Updated mother at bedside Subjective Patient is feeling better. Denies any new complaints She admits that at times she falls on purpose to catch their attention and the fact that she is upset about them thinking about sending her to fpc. Last fall in the bathroom was an accident as she slipped in the tub and fractured her rib. Denies any pain, headache, dizziness, nausea, vomiting, chest pain, shortness of breath, cough, fever, chills. Physical Exam Physical Exam: CONSTITUTIONAL: Awake, alert, oriented to place, person. Not in acute distress, delayed mental development RESPIRATORY: clear to auscultation bilaterally, no crackles, rales or wheezes, normal respiratory effort CARDIOVASCULAR: regular rate and rhythm, 3/6 DREA, no gallops or rubs, no JVD, no peripheral edema GASTROINTESTINAL: normal bowel sounds, soft, nontender, nondistended NEUROLOGIC: Awake, alert, oriented to place, person, cranial nerves intact, power5/5 all extremities. Normal speech. PSYCHIATRIC: alert cooperative and oriented to person, place and time. Euthymic mood, makes good eye contact, language grossly intact
--- NOTE | 2019-04-24 12:47 | Discharge Summary ---
Date of Service April 24, 2019 Admission HPI Per Admitting Provider 39 yo F with h/o astrocytoma removal around age 4 and subsequent mental delay presented with her parents out of concern for multiple falls at home. Her parents are concerned about managing her at home as in the last two weeks, she has fallen multiple times and cannot tell anyone why she is falling. Two weeks ago her parents went out of town and left her with a friend who has a teenager. Eliane's developmental age is thought to be around the same age as the teenager living in this home. Parents report that there was an uptick in behavioral issues during this time and the falls began happening around then. There have been behavioral issues noted with Eliane in the past, especially while she was on Keppra for control of her epilepsy. But this resolved when her neurologist switched her to Lamictal. She was seen in the Neurology office on 03/17/19 and her Lamictal was increased from 150 BID to 175 BID. Parents say that she was doing well on this increased dosage. Eliane denies any lightheadedness, dizziness, headaches, changes in her vision, difficulty swallowing. She does report difficulty walking but doesn't know why. She cannot recall if she is passing out, and answers that her dad typically finds her and picks her up off the floor. She reports a broken rib recently after falling in the bathtub, but states it doesn't hurt her. Mom says she has been giving her Aleve pretty consistently. Eliane is described as defiant and "having attitude" by her parents recently. She gives me no issues on my interview with her and is compliant with all answers and examination instruct ions. Her parents are concerned about their own mortality and the care and welfare of their daughter who is unable to live independently. They presented to [facility] yesterday and were offered placement in a alf and assistance with home health for nursing, both of which were declined by her parents. Xrays were performed of her chest revealing a healed posterior right 5th rib fracture, and a possible new right 8th rib fracture without complication. A CT head revealed atrophy, and chronic infarcts in the left frontal lobe, right basal ganglia, and right temporal lobe. There are basal ganglia and dentate nuclei calcifications present bilaterally. No acute intracranial hemorrhage or infarct was seen. A maxillofacial CT was also performed revealing no evidence of fracture and some opacification of the mastoid cells. Today, she continues to have ambulatory dysfunction, needing assistance to get around. ER nurse, notes two person assist when ambulating to the bathroom today. Workup reveals increased small bifrontal extra-axial fluid collections consistent with chronic bilateral subdural hygromas/hematomas. Neurosurgery in [facility] reviewed the images and agreed with the chronic hygromas. Principal Diagnosis 1. Multiple falls 2. Mild CYNTHIA 3. Thrush Secondary diagnoses on discharge 1. Epilepsy 2. History of astrocytoma status post removal 3. Hypothyroidism 4. Cognitive developmental delay 5. Chronic subdural hygromas, interval progression Discharge Exam CONSTITUTIONAL: Awake, alert, oriented to place, person. Not in acute distress, delayed mental development RESPIRATORY: clear to auscultation bilaterally, no crackles, rales or wheezes, normal respiratory effort CARDIOVASCULAR: regular rate and rhythm, 3/6 DREA, no gallops or rubs, no JVD, no peripheral edema GASTROINTESTINAL: normal bowel sounds, soft, nontender, nondistended NEUROLOGIC: Awake, alert, oriented to place, person, cranial nerves intact, power5/5 all extremities. Normal speech. PSYCHIATRIC: alert cooperative and oriented to person, place and time. Euthymic mood, makes good eye contact, language grossly intact Discharge Data Allergies Allergy/AdvReac Type Severity Reaction Status Date / Time phenobarbital Allergy Mild . Verified 04/22/19 11:16 omeprazole AdvReac Unknown red face Verified 04/22/19 11:16 Consultations 04/22/19 16:13 ED Decision to Admit Stat 04/22/19 18:25 Consult Case Management - Discharge Planning Routine Consult Health Information Management Routine Consult Neurology Routine Ordered Studies 04/22/19 11:36 CT head/brain wo con Stat 04/23/19 18:25 MR brain seizure wo/w con Urgent Hospital Course (1) Multiple falls: Patient is a 39-year-old female with history of astrocytoma removal around 4, subsequent mental delay, came with her parents out of concern for multiple falls at home for last 2 weeks since she was left at a friend's home with the teenagers daughter. Did have some behavioral issues recently which resolved with increase in Lamictal dose from 150 twice daily to 175 twice daily. Reports difficulty walking, does not know why, no loss of consciousness. Per patient, she admitted in front of her mother that few falls were on purpose to catch their attention and fact that she is upset about them thinking of sending her to a fdc. Parents describe patient's behaviors as consistent with "having attitude" about the possibility of moving into a fdc situation. She was sent to stay with a friend last week where there was another teenager in the house, and defiant behaviors were observed, including missing medications. She is known to have manipulative behavior. -Recently dose of Lamictal increased from 150 twice daily to 175 twice daily for behavioral issues which has helped but could be contributing. Lamictal dose was decreased to 150 mg BID by neurology -Work up - CT headincreasing small bifrontal extra axial fluid collections consistent with chronic bilateral subdural hygromas/hematomas. 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 No acute intracranial hemorrhage. Basal ganglia and dentate nuclei calcifications present bilaterally. CT maxillofacial shows no fracture and some opacification of mastoid cells. -MRI Brain -interval progression of bilateral subdural hygromas of cerebral hemispheres bilaterally, stable right temporal encephalomalacia, stable bilateral chronic small vessel change, no acute changes. -Urine tox screen and UPT are negative. 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 -Teach/encourage proper denture maintenance. (5) CYNTHIA (acute kidney injury): -Uncertain baseline as records are unavailable. Presented with creatinine of 1.34, now trending down -Parents report poor PO intake and dehydration regularly. -IVF fluids--> Discontinued -Monitor trend (6) Hypothyroidism: TSH is low. -Would repeat when she is feeling better. She has been on a stable dose of Synthroid for a long time. -Monitor TSH (7) Cognitive developmental delay: -2/2 brain surgery at young age. Patient cannot live independently. Recent ongoing conversations between patient and her parents who are looking into a fdc situation, to which she is currently opposed. (8) Subdural hygroma: -Images reviewed by Neurosurgery- [facility] who would like her to follow-up in the office with them next week for evaluation. -MRI Brain-interval progression of bilateral subdural hygromas of cerebral hemispheres -No acute changes resulting from falls seen on imaging. (9) Heart murmur: -Echo-EF 55 to 60%, moderate focal calcification of right coronary cusp of aortic valve with resultant reduced excursion, mild valvular left ear, mild MR (10) DVT prophylaxis: SCDs-chemoprophylaxis contraindicated in setting of hygromas Full Code Disposition - PT/OT recommends rehab Okay to discharge to [facility]. Mother will be transporting her. Updated mother at bedside Total Time Total Time Spent Total Time Spent (In Minutes): 38 minutes Discharge Plan Discharge Items Patient Disposition: Transfer Inpatient Rehab Fac Reason For Visit: MULTIPLE FALLS Discharge Diagnosis: Multiple falls, acute conditions ruled out Condition: Fair Discharge Goals: Decrease discomfort Activity: Resume your previous activity Activity Comment: PT/OT recommended Non-emergency contact: Primary Care Provider Call non-emergency contact if: your symptoms worsen Follow-up/Referrals: Randy Begum [Primary Care Provider] - Diet: Regular Addtl Provider Instructions: MEDICATION CHANGES Decreased dose of Lamictal to 150 mg p.o. twice daily from 175 mg p.o. twice daily. Follow up : Vitamin B1 levels (sent out) Prescriptions: New nystatin 100,000 unit/mL Suspension 5 ml PO QID 12 Days Qty: 240 RF: 0 Continued lamotrigine 150 mg tablet 150 mg PO BID RF: 0 ascorbic acid (vitamin C) 500 mg Tablet 500 mg PO DAILY RF: 0 gemfibrozil 600 mg tablet 600 mg PO BID RF: 0 megestrol 20 mg tablet 20 mg PO DAILY RF: 0 sodium chloride 1 gram Tablet 1,000 mg PO BID RF: 0 levothyroxine 25 mcg Tablet 25 mcg PO DAILYBB RF: 0 magnesium oxide 400 mg magnesium Tablet 400 mg PO DAILY RF: 0 Discontinued lamotrigine 25 mg tablet 25 mg PO BID RF: 0 Stand-Alone Forms: [facility] Discharge Orders: Discharge Order (Routine); Ordered 04/24/19 Ordered By: Patricia Schmitz Skilled Items Patient informed of condition?: Yes DNR: No Discharge Level of Care: Acute rehab Communicable Disease: No Discharge Prognosis: Stable Admission Data Admit Date/Time: 04/22/19 16:23 Attending Provider: Patricia Schmitz Admit Provider: Eri Arreola Primary Care Provider: Randy Begum Other Providers: Eri Arreola ; Lucila Thomson Service: Medical Other Pending Studies at Discharge: Yes (Follow up Vitamin B1 levels)
--- NOTE | 2019-04-24 16:23 | Electroencephalogram ---
EEG Procedure Note Date of Service April 24, 2019 Start / End Times Start Time: 0800 End Time: 830 Referring Physician Lucila Thomson MD History Seizure disorder Home Medication List Home Medications Medication Instructions Recorded Confirmed Type ascorbic acid (vitamin C) 500 mg PO DAILY 04/22/19 04/22/19 History gemfibrozil 600 mg PO BID 04/22/19 04/22/19 History lamotrigine 150 mg PO BID 04/22/19 04/22/19 History levothyroxine 25 mcg PO DAILYBB 04/22/19 04/22/19 History magnesium oxide 400 mg PO DAILY 04/22/19 04/22/19 History megestrol 20 mg PO DAILY 04/22/19 04/22/19 History sodium chloride 1,000 mg PO BID 04/22/19 04/22/19 History nystatin 5 ml PO QID 12 Days #240 ml 04/24/19 Rx Inpatient Medication List Discontinued Medications Ascorbic Acid (Vitamin C) 500 mg PO DAILY GABI Stop: 05/23/19 08:59 Last Admin: 04/24/19 08:59 Dose: 500 mg Documented by: [id number] Admin: 04/23/19 07:57 Dose: 500 mg Documented by: [id number] Gadobutrol (Gadavist 7.5ml) 4 ml IV ONCE PRN PRN Reason: Interaction Checking Stop: 04/27/19 12:53 Last Admin: 04/23/19 12:54 Dose: 4 ml Documented by: [id number] Gemfibrozil (Lopid) 600 mg PO BID GABI Stop: 05/22/19 20:59 Last Admin: 04/24/19 08:58 Dose: 600 mg Documented by: [id number] Admin: 04/23/19 21:06 Dose: 600 mg Documented by: [id number] Admin: 04/23/19 08:21 Dose: 600 mg Documented by: [id number] Admin: 04/22/19 20:59 Dose: 600 mg Documented by: [id number] Sodium Chloride (Nss 1000ml) 1,000 mls @ 125 mls/hr IV .Q8H GABI Stop: 04/23/19 10:24 Last Infusion: 04/23/19 10:49 Dose: 0 mls/hr Documented by: [id number] Admin: 04/23/19 02:45 Dose: 125 mls/hr Documented by: [id number] Infusion: 04/23/19 02:45 Dose: 125 mls/hr Documented by: [id number] Admin: 04/22/19 18:57 Dose: 125 mls/hr Documented by: [id number] Lamotrigine (Lamictal) 150 mg PO BID GABI Stop: 05/22/19 20:59 Last Admin: 04/24/19 09:00 Dose: 150 mg Documented by: [id number] Admin: 04/23/19 21:02 Dose: 150 mg Documented by: [id number] Admin: 04/23/19 08:21 Dose: 150 mg Documented by: [id number] Admin: 04/22/19 20:55 Dose: 150 mg Documented by: [id number] Lamotrigine (Lamictal) 25 mg PO BID GABI Stop: 05/22/19 20:59 Last Admin: 04/23/19 08:22 Dose: 25 mg Documented by: [id number] Admin: 04/22/19 20:58 Dose: 25 mg Documented by: [id number] Levothyroxine Sodium (Synthroid) 25 mcg PO DAILYBB GABI Stop: 05/23/19 06:29 Last Admin: 04/24/19 06:30 Dose: 25 mcg Documented by: [id number] Admin: 04/23/19 06:24 Dose: 25 mcg Documented by: [id number] Magnesium Oxide (Mag-Ox) 400 mg PO DAILY GABI Stop: 05/23/19 08:59 Last Admin: 04/24/19 08:58 Dose: 400 mg Documented by: [id number] Admin: 04/23/19 07:58 Dose: 400 mg Documented by: [id number] Megestrol Acetate (Megace) 20 mg PO DAILY GABI Stop: 05/23/19 08:59 Last Admin: 04/24/19 08:59 Dose: 20 mg Documented by: [id number] Admin: 04/23/19 07:57 Dose: 20 mg Documented by: [id number] Nystatin (Mycostatin) 5 ml PO QID GABI Stop: 05/02/19 20:59 Last Admin: 04/24/19 12:18 Dose: 5 ml Documented by: [id number] Admin: 04/24/19 08:59 Dose: 5 ml Documented by: [id number] Admin: 04/23/19 21:01 Dose: 5 ml Documented by: [id number] Admin: 04/23/19 17:35 Dose: 5 ml Documented by: [id number] Admin: 04/23/19 13:00 Dose: 5 ml Documented by: [id number] Admin: 04/23/19 07:57 Dose: 5 ml Documented by: [id number] Admin: 04/22/19 20:58 Dose: 5 ml Documented by: [id number] Sodium Chloride (Sodium Chloride) 1 gm PO BID GABI Stop: 05/22/19 20:59 Last Admin: 04/24/19 08:58 Dose: 1 gm Documented by: [id number] Admin: 04/23/19 21:07 Dose: 1 gm Documented by: [id number] Admin: 04/23/19 07:58 Dose: 1 gm Documented by: [id number] Admin: 04/22/19 20:59 Dose: 1 gm Documented by: [id number] Description This is a 21 electrode EEG with a single channel dedicated to limited EKG. The electrodes were placed in accordance with the International 10-20 system. This eeg is done at the bedside during wakefulness with photic stimulation only There is a background alpha rhythm in posterior head regions which si symmetrical and of low normal voltage and of up to 9 hz in frequency Theta activity is seen in the central regions whihc is of modest voltage but is in the very lower limits of normal in terms of frequency Beta activity is seen bifrontally Photic stimulation induces no significant changes No potentially epileptigonic activity is seen Interpretation This eeg is essentially normal during wakefulness Clinical Correlation Normal eeg during wakefulness with no evidence for potentially epileptiogenic activity Lito Damon MD
--- NOTE | 2019-04-26 11:50 | Coding Query ---
CODING QUERY To promote full compliance with coding requirements relating to patient care, provider participation is requested in all cases of game author uncertainty. Please assist us with the question(s) below: Coding Question(s): Patient admitted after repeated falls. History of astrocytoma removal at age 4. Subdural hygroma present. Please document, if known or suspected, the diagnosis responsible for repeat falls. Thank you ! Sergio Wellington SEWING MACHINE OPERATOR [facility] Physician's Response(s): Principal Diagnosis: "that condition established after study, to be chiefly responsible for occasioning the admission of the patient to the hospital for care." Co-Existing Principal Diagnosis: "when two or more diagnoses equally meet the criteria for principal diagnosis as determined by the circumstances of admission, diagnostic work up, and/or therapy provided, and the Alphabetic Index, Tabular List, or another coding guideline does not provide sequencing direction, any one of the diagnoses may be sequenced first." "When the physician has documented what appears to be a current diagnosis in the body of the record, but has not included the diagnosis in the final diagnostic statement, the physician should be asked whether the diagnosis should be added." (Source Coding [facility] 2 QTR90. p3-4) FERNANDO
--- NOTE | 2019-06-12 14:48 | Coding Query ---
CODING QUERY To promote full compliance with coding requirements relating to patient care, provider participation is requested in all cases of capital equipment specialist uncertainty. Please assist us with the question(s) below: Coding Question(s): Patient admitted after Repeat Falls. History of astrocytoma, removal at age 4. Subdural hygromas present. Please document, if known or suspected, the diagnosis responsible for the Repeat Falls. Thanks for your help! Sergio Wellington ALUMINUM POOL INSTALLER [facility] Physician's Response(s): Principal Diagnosis: "that condition established after study, to be chiefly responsible for occasioning the admission of the patient to the hospital for care." Co-Existing Principal Diagnosis: "when two or more diagnoses equally meet the criteria for principal diagnosis as determined by the circumstances of admission, diagnostic work up, and/or therapy provided, and the Alphabetic Index, Tabular List, or another coding guideline does not provide sequencing direction, any one of the diagnoses may be sequenced first." "When the physician has documented what appears to be a current diagnosis in the body of the record, but has not included the diagnosis in the final diagnostic statement, the physician should be asked whether the diagnosis should be added." (Source Coding Clinic 2 QTR90. p3-4) FERNANDO
== END 2019-04-24 15:00 | DRG 92 ==
LOC: ED 10:36 → SUATTDRO 16:23 → 2N 16:23

== ENCOUNTER 2020-02-08 13:29 | Inpatient (IN) ==
--- NOTE | 2020-02-08 14:12 | Emergency Department Note ---
Impression & Plan Dizziness, Subdural hygroma, Subdural hematoma, Hyponatremia ED Provider Note NAME: THOMAS MCLAIN AGE: 39 SEX: F ARRIVES VIA: Walk-In INFORMANT: [Patient] mother ED PROVIDER(S): Lito Rojas MD CHIEF COMPLAINT: Abnormal lab PLAN: Disposition: Admitted Condition: [Good] MEDICAL DECISION MAKING: The patient presented with concerns for abnormal labs. She had laboratory testing performed. Due to her history of subdural hematoma CT imaging was performed as well because of the dizziness complaints. She had subtle hyponatremia noted but there was resolution of the significant hyponatremia noted on outpatient labs. The patient was hydrated. CT imaging of the head revealed possible mixed attenuation appearance to the left subdural. No significant change in size. Radiology cannot exclude interval bleed from last imaging. I did discuss the case with Dr. Talley of [facility] neurosurgery. He recommended 6-hour CT imaging and observation. If the patient does well she can be discharged for outpatient follow-up. If there are any issues with the imaging or patient's condition they would be happy to accept her in transfer. The mother preferred to stay here and I discussed being watched by our hospital service and repeat imaging. The mother felt very comfortable with this plan. I did discuss the case with Dr. Grigsby of the [facility] hospitalist service. He evaluated the patient in the ER admit her for further treatment. Triage Nursing notes reviewed and agree them. [Additional history obtained from] patient's mother [Prior medical records reviewed] prior visit was for a subdural hematoma. Patient was transferred to [facility]. Vital Signs: reviewed and remarkable for [no significant abnormalities] Differential diagnosis: Infection, dehydration, metabolic abnormality, hypo/hyperglycemia, electrolyte disturbance, anemia, hypoxia, cardiac sources, intracerebral event, toxicologic, neurologic, as well as other pathologies. ER treatment provided: Saline hydration Diagnostics interpreted by me: Laboratory studies: [See below] unremarkable CBC chemistry panel for very subtle hyponatremia. Imaging studies: Comparison: 11/11/2019 Findings: The paranasal sinuses and mastoid air cells are clear. Unchanged fracture of the right temporal parietal bone region. 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 This may indicate a minimal partial rebleed given the time interval from the prior exam. A right subdural hygroma is unchanged. Ventricular system is midline. Calcification of the basal ganglia as well as te ntorium. Findings of postoperative encephalomalacia and/or posttraumatic encephalomalacia primarily the right temporal lobes appear similar. Impression: 1. No major change compared to the prior study. 2. Mixed density left subdural collection unchanged in overall volume although the persistent increase in density potentially suggest a partial interval rebleed. 3. All remaining components of the study are unchanged Consultation(s): Dr. Talley [facility] neurosurgery [place] Dr. Grigsby, [facility] service HPI: 39/F arrives for evaluation of abnormal labs. The patient has a history of hyponatremia and has been on salt supplementation. Mother notes the PCP recently decreased her salt tablets and had lab work done 2 days ago. Vani arently the patient had a sodium of 129. The patient has a history of seizures as well brain tumor. 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 She also had a traumatic subdural hematoma this year from a fall. Mother was concerned as she has had seizures with hyponatremia before. Mother does note the child has been more off balance. Patient denies any pain. She had a minor fall but mother does not think that she struck her head. Mother has been orally hydrating the patient but states the patient has been taking less than usual. The patient/parent denies LOC, headache, fevers, chills, visual complaints, neck pain/limited ROM, sore throat, difficulty with swallowing, chest pain, breathing difficulties, vomiting, back pain, abdominal pain, melena, hematochezia, urinary symptoms, lymphadenopathy, rash, joint tenderness/swelling, mood/behavioral disturbances, or other complaints.. ROS: See above HPI for pertinent positives & negatives. A total of [10] systems reviewed and were otherwise negative. PAST MEDICAL HISTORY:[See Below] subdural hematoma, tracheal laceration, astrocytoma PAST SURGICAL HISTORY:[See Below]brain tumor resection FAMILY HISTORY:[See Below] SOCIAL HISTORY:[See Below] lives with family HOME MEDICATIONS:[See Below] ALLERGIES:[See Below] VITALS:[See Below] PHYSICAL EXAMINATION: GENERAL: Awake, alert, tired appearing, in no distress HENT: Atraumatic. Oropharynx unremarkable. EYES: Normal conjunctiva. Sclera non-icteric. PERRLA. EOMI. NECK: Inspection normal. Non-tender. Supple. No nuchal rigidity. FROM. No masses. RESPIRATORY: Clear to auscultation. No wheezes. No rales. Normal respiratory effort. CARDIAC: Normal rate. Normal rhythm. No murmurs. No rubs. Extremities warm and well perfused. Pulses equal. No JVD. GI: Soft, non-distended. No tenderness to palpation. No rebound or guarding. No masses. RECTAL: Deferred. MUSCULOSKELETAL: Atraumatic. Chest examination reveals no tenderness. The back is symmetrical on inspection without obvious abnormality. There is no CVA tenderness to palpation. No joint edema. LOWER EXTREMITIES: Calves are equal size bilaterally and non-tender. No edema. No discoloration. NEURO: Cognitive delay but otherwise sensorium. No focal sensory or motor deficits noted. SKIN: No rash or jaundice noted. ED COURSE: [Critical Care:] [None] Lito Rojas MD Past Med/Surg History Social History Preferred Language: Latvian Communication Ability: Effective Hearing Ability: Normal Vp Client Services Required: No Beliefs That Will Affect Care: Congregation Congregation Beliefs: Cheondoism marital status: Single Current Living Situation: Family Feels Safe at Home: Yes Smoking Status: Never smoker Hx Alcohol Use: No Hx Substance Use: No Allergies Allergies Allergy/AdvReac Type Severity Reaction Status Date / Time phenobarbital Allergy Mild . Verified 02/08/20 14:58 omeprazole AdvReac Unknown red face Verified 02/08/20 14:58 Home Meds Home Medications Medication Instructions Recorded Confirmed ascorbic acid (vitamin C) 500 mg PO BID 04/22/19 02/08/20 lamotrigine 150 mg PO Q12H 04/22/19 02/08/20 levothyroxine 37.5 mcg PO QAM 04/22/19 02/08/20 magnesium oxide 400 mg PO BID 04/22/19 02/08/20 megestrol 20 mg PO QAM 02/08/20 02/08/20 polysaccharide iron complex 150 mg PO QAM 02/08/20 02/08/20 [iFerex 150] sodium chloride 1 g PO BID 02/08/20 02/08/20 Results & Data (ED) Vital Signs Vital Signs - 24 hr 02/08/20 13:34 02/08/20 14:00 02/08/20 16:00 Temperature 36.8 C Temperature Source Oral Pulse Rate 97 H 98 H Pulse Rate [Apical] 98 H 85 Pulse Rhythm Regular Pulse Rhythm [Apical] Regular Pulse Strength [Apical] Normal Respiratory Rate 20 20 20 Respiratory Effort / Characteristics Non-Labored Spontaneous Respiratory Depth Normal Respiratory Pattern Regular Blood Pressure 123/76 Blood Pressure [Right Arm] 125/77 129/74 Blood Pressure Mean 91 Blood Pressure Mean [Right Arm] 93 92 Blood Pressure Position [Right Arm] Lying Pulse Oximetry 99 98 Oxygen Delivery Method Room Air Room Air Sepsis Recent Fever Within 48 Hours No Sepsis New/Unexplained Change in Mental Status No Sepsis Action Taken by Nursing No Action Required 02/08/20 18:00 Temperature Temperature Source Pulse Rate Pulse Rate [Apical] 88 Pulse Rhythm Pulse Rhythm [Apical] Pulse Strength [Apical] Respiratory Rate 24 Respiratory Effort / Characteristics Respiratory Depth Respiratory Pattern Blood Pressure Blood Pressure [Right Arm] 131/83 Blood Pressure Mean Blood Pressure Mean [Right Arm] 99 Blood Pressure Position [Right Arm] Pulse Oximetry 100 Oxygen Delivery Method Room Air Sepsis Recent Fever Within 48 Hours Sepsis New/Unexplained Change in Mental Status Sepsis Action Taken by Nursing Laboratory Data Result diagrams: 02/08/20 15:30 02/08/20 17:12 Lab Results 02/08/20 02/08/20 02/08/20 Range/Units 15:30 15:30 17:12 WBC 5.96 (4.8-10.8) K/uL RBC 4.20 (4.2-5.4) M/uL Hgb 12.3 (12.0-16.0) g/dL Hct 35.8 L (37-47) % MCV 85.2 (80-100) fL MCH 29.3 (25-34) pg MCHC 34.4 (32-36) g/dL RDW Std Deviation 39.9 (36.4-46.3) fL RDW Coeff of [place] 13.0 (11.5-14.5) % Plt Count 318 (130-400) K/uL MPV 9.0 (7.4-10.4) fL Immature Gran % (Auto) 0.5 % Neut % (Auto) 51.1 % Lymph % (Auto) 34.1 % [place] % (Auto) 9.4 % Eos % (Auto) 4.4 % Baso % (Auto) 0.5 % Immature Gran # (Auto) 0.03 H (0.00-0.02) K/uL Neut # (Auto) 3.05 (1.4-6.5) K/uL Lymph # (Auto) 2.03 (1.2-3.4) K/uL [place] # (Auto) 0.56 (0.11-0.59) K/uL Eos # (Auto) 0.26 (0-0.5) K/uL Baso # (Auto) 0.03 (0-0.2) K/uL Sodium 133 L (136-145) mmol/L Potassium 4.3 (3.5-5.1) mmol/L Chloride 100 (98-107) mmol/L Carbon Dioxide 27 (21-32) mmol/L Anion Gap 6.0 (3-11) BUN 10 (7-18) mg/dl Creatinine 0.90 (0.6-1.2) mg/dl Est Cr Clr Drug Dosing Not Reportable Est GFR ( Amer) 92.7 Est GFR (Non-Af Amer) 80.0 BUN/Creatinine Ratio 11.4 (10-20) Glucose 80 (70-99) mg/dl Calcium 9.2 (8.5-10.1) mg/dl Total Bilirubin 0.4 (0.2-1) mg/dl AST 28 (15-37) U/L ALT 25 (12-78) U/L Alkaline Phosphatase 90 (45-117) U/L Total Protein 7.4 (6.4-8.2) gm/dl Albumin 3.7 (3.4-5.0) gm/dl Globulin 3.7 (2.5-4.0) gm/dl Albumin/Globulin Ratio 1.0 (0.9-2) Lipase 82 (73-393) U/L Administered Medications Sodium Chloride (Nss) 500 mls @ 80 mls/hr IV .Q6H15M GABI Stop: 03/09/20 13:59 Last Infusion: 02/08/20 18:14 Dose: 0 mls/hr Documented by: [id number] Admin: 02/08/20 15:40 Dose: 80 mls/hr Documented by: [id number] Discharge Plan Visit Data Chief Complaint: Abnormal Labs/Diagnostic Testing Stated Complaint: BRAIN INJURY IN DEC,ABNORMAL LAB ED Provider: Lito Rojas Discharge Problem: Dizziness, Subdural hygroma, Subdural hematoma, Hyponatremia Discharge Instructions Interventions: ED Discharge Assessment Last Done: 02/08/20 19:08
[2020-02-08] MEDS: SODIUM CHLORIDE 0.9% 500 ML IV SCH ×2 (15:40→20:15)
[2020-02-08 15:43] LABS: Basophils # (auto) 0.03 K/uL (0-0.2); Basophils % (auto) 0.5 %; Eosinophils # (auto) 0.26 K/uL (0-0.5); Eosinophils % (auto) 4.4 %; Hematocrit (blood only) 35.8 % (37-47); Hemoglobin 12.3 g/dL (12.0-16.0); Immature Granulocytes # (auto) 0.03 K/uL (0.00-0.02); Immature Granulocytes % (auto) 0.5 %; Lymphocytes # (auto) 2.03 K/uL (1.2-3.4); Lymphocytes % (auto) 34.1 %; Mean Corpuscular Hemoglobin 29.3 pg (25-34); Mean Corpuscular Hgb Conc 34.4 g/dL (32-36); Mean Corpuscular Volume 85.2 fL (80-100); Monocytes # (auto) 0.56 K/uL (0.11-0.59); Monocytes % (auto) 9.4 %; Neutrophils # (auto) 3.05 K/uL (1.4-6.5); Neutrophils % (auto) 51.1 %; Platelet Count 318 K/uL (130-400); RDW Standard Deviation 39.9 fL (36.4-46.3); White Blood Count 5.96 K/uL (4.8-10.8)
--- NOTE | 2020-02-08 16:07 | CT Scan Report ---
CT head/brain wo con CT DOSE: 1277.12 mGycm HISTORY: Mental status change balance disturbance, hx of SDH, brain surgery TECHNIQUE: Multiaxial CT images of the head were performed without the use of intravenous contrast. A dose lowering technique was utilized adhering to the principles of ALARA. Comparison: 11/11/2019 Findings: The paranasal sinuses and mastoid air cells are clear. Unchanged fracture of the right temp oral parietal bone region. 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 This may indicate a minimal partial rebleed given the time interval from the prior exam. A right subdural hygroma is unchanged. Ventricular system is midline. Calcification of the basal ganglia as well as tentorium. Findings of p ostoperative encephalomalacia and/or posttraumatic encephalomalacia primarily the right temporal lobe s appear similar. Impression: 1. No major change compared to the prior study. 2. Mixed density left subdural collection unchanged in overall volume although the persistent increas e in density potentially suggest a partial interval rebleed. 3. All remaining components of the study are unchanged ACT 112: Negative or not required by law. The above report was generated using voice recognition software. It may contain grammatical, syntax or spelling errors. Electronically signed by: Marques Benitez M.D. 02/08/2020 4:05 PM
[2020-02-08 16:19] LABS: Alanine Aminotransferase 25 U/L (12-78); Albumin Level 3.7 gm/dl (3.4-5.0); Alkaline Phosphatase 90 U/L (45-117); BUN Creatinine Ratio 11.4 (10-20); Bilirubin,Total 0.4 mg/dl (0.2-1); Blood Urea Nitrogen 10 mg/dl (7-18); Calcium 9.2 mg/dl (8.5-10.1); Carbon Dioxide 27 mmol/L (21-32); Chloride 100 mmol/L (98-107); Est GFR (African American) 92.7; Globulin 3.7 gm/dl (2.5-4.0); Glucose 80 mg/dl (70-99); Lipase 82 U/L (73-393); Sodium 133 mmol/L (136-145); Total Protein 7.4 gm/dl (6.4-8.2)
[2020-02-08 17:32] LABS: Potassium 4.3 mmol/L (3.5-5.1)
[2020-02-08 20:09] LABS: Appearance Urine Cloudy (Clear); Bacteria Urine Automated 4+ (Negative); Bilirubin Urine Negative (Negative); Blood Urine Trace (Negative); Color Urine Yellow; Glucose Urine UA Negative (Negative); Ketones Urine Negative (Negative); Leukocyte Esterase Urine 3+ (Negative); Nitrite Urine Negative (Negative); Protein Urine Negative (Negative); Specific Gravity Urine 1.012 (1.000-1.030); Urobilinogen Urine Negative (Negative); WBC Urine Automated >30 /hpf (0-5); pH Urine 8.5 (4.5-7.5)
[2020-02-08 20:21] LABS: RBC Urine Automated 0-4 /hpf (0-4)
[2020-02-08] MEDS: lamoTRIgine 100 MG TAB PO SCH (20:24)
[2020-02-08] MEDS: SODIUM CHLORIDE 1 GM TABLET PO SCH (20:25)
[2020-02-08] MEDS: MAGNESIUM OXIDE 400 MG TAB PO SCH (20:26)
[2020-02-08] MEDS: ASCORBIC ACID 500 MG TAB PO SCH (20:26)
--- NOTE | 2020-02-08 23:19 | History & Physical Report ---
Date of Service February 08, 2020 Assessment & Plan (1) Hyponatremia: 39-year-old female with history of astrocytoma, status post resection, developmental delay, Epilepsy, chronic hyponatremia, recent subdural hemorrhage, presenting with low sodium level and weakness. Acute on chronic hyponatremia Sodium level drawn last Wednesday was 129, today is 133 Per patient's mother, sodium tablet was decreased from 2 g twice a day to 1 g twice a day recently Also, patient apparently has breakthrough seizures if sodium level is below 130 Baseline sodium is usually 135 according to patient's mother For now, increase sodium tablets to 2 g twice a day Repeat sodium level tomorrow Beauty Operator Apprentice consulted Weakness and fall Likely secondary to #1 Patient's mother, the patient walks with 1 person assistance Recent subdural hematoma, skull fracture Was admitted to [facility] last November, managed conservatively Emergency room physician discussed with [facility] neurosurgery service, CT head done on admission felt to be similar to the ones from her admission last November Repeat CT head this evening recommended by [facility] neurosurgery service, pending Epilepsy Continue Lamictal History of astrocytoma resection DVT prophylaxis SCDs for now Disposition Anticipate discharge to home medically stable Plan of care discussed in detail and at length with patient's mother Bonnie at the bedside Fall questions were answered She is understanding, agreeable, comfortable with the plan of care Admission and Anticipated Discharge Date Admission Date: February 08, 2020 History of Present Illness 39-year-old female with history of astrocytoma, status post resection, Chronic hyponatremia, epilepsy, recent subdural hemorrhage, presenting with Low sodium level and weakness. History obtained from patient's mother Bonnie in light of patient's cognitive status. Patient was recently admitted to [facility] last November for subdural hemorrhage and parietal skull fracture after a fall. She was managed conservatively and ultimately was discharged to home. Mother Bonnie is her primary caregiver. According to Bonnie, the patient has chronic hyponatremia and her primary care physician has been managing her salt tablets. Recently her salt tablets were decreased from 2 g twice a day to 1 g twice a day. She had a repeat blood work on Wednesday and today she was told that it is 129. She was also noticing that her daughter has been weak the past few days, and was also noted to have fallen last Wednesday, landing on her buttocks, because she was unsteady while walking. Her mother is concerned that when patient sodium level is below 130, she develops breakthrough seizures. At the ER, patient's sodium is 133. CT head was also performed which showed possible interval increase in the subdural hematoma on the left side. ER physician discussed the case with [facility]'s neurosurgical service, CT head or compared from previous ones and was felt that the subdural hematoma is stable. They do recommend that the patient have a repeat CT head this evening around 9 PM to follow-up and to rule out progression of the subdural hematoma. On exam, patient's mother was at the bedside throughout encounter. Patient's mother reports that the patient is mostly back to her baseline. Patient denies having any headache, dizziness, nausea, shortness of breath, chest pain, abdominal pain or any other symptoms. She is eager to go back home. Primary Care Provider: Randy Begum Allergies Allergy/AdvReac Type Severity Reaction Status Date / Time phenobarbital Allergy Mild . Verified 02/08/20 14:58 omeprazole AdvReac Unknown red face Verified 02/08/20 14:58 Home Medications Home Medications Medication Instructions Recorded Confirmed Type ascorbic acid (vitamin C) 500 mg PO BID 04/22/19 02/08/20 History lamotrigine 150 mg PO Q12H 04/22/19 02/08/20 History levothyroxine 37.5 mcg PO QAM 04/22/19 02/08/20 History magnesium oxide 400 mg PO BID 04/22/19 02/08/20 History megestrol 20 mg PO QAM 02/08/20 02/08/20 History polysaccharide iron complex 150 mg PO QAM 02/08/20 02/08/20 History [iFerex 150] sodium chloride 1 g PO BID 02/08/20 02/08/20 History Past Med/Surg History Social History Preferred Language: Irish Communication Ability: Impaired Hearing Ability: Normal Laminate Floor Installer Required: No Beliefs That Will Affect Care: None marital status: Single Current Living Situation: Family Other Information That Helps Us Care for You: No Feels Safe at Home: Yes Safety Concerns: Feels Safe At This Time Smoking Status: Never smoker Hx Alcohol Use: No Hx Substance Use: No Review of Systems Review of Systems: All systems reviewed & are unremarkable except as noted in HPI & below Physical Exam Physical Exam: General- oriented x 2, not in distress, speaks in sentences with no effort or accessory muscle use Head- atraumatic Eyes- PERRL, EOMI, anicteric ENT- oropharynx clear Neck- supple, no JVD, no adenopathy, no thyromegaly; carotids +2/2, no bruits appreciated Lungs- clear to auscultation bilaterally, no rales/wheezes Heart- normal rate, regular rhythm; no murmur, no gallop, no rub appreciated Abdomen- normal bowel sounds, nondistended, soft, nontender, no masses or hepatosplenomegaly Extremities- no pretibial edema, no calf tenderness; peripheral pulses intact Neuro- alert, oriented x 2; CN 2-12 grossly intact; motor 5/5 bilaterally;sensation 100% on all extremities; no other gross focal neurologic deficits Skin- warm & dry Results & Data Results & Data ([facility]) Vital Signs (Past 12 Hours) Vital Signs Temp Pulse Pulse Resp BP BP Pulse Ox 02/08/20 20:06 96 H 02/08/20 19:59 36.9 C 99 H 20 135/35 L 100 02/08/20 19:08 85 18 113/67 02/08/20 18:00 88 24 131/83 100 02/08/20 16:00 85 20 129/74 02/08/20 14:00 98 H 98 H 20 125/77 98 02/08/20 13:34 36.8 C 97 H 20 123/76 99 Laboratory Results Laboratory Results - last 24 hr 02/08/20 02/08/20 02/08/20 15:30 15:30 17:12 WBC 5.96 RBC 4.20 Hgb 12.3 Hct 35.8 L MCV 85.2 MCH 29.3 MCHC 34.4 RDW Std Deviation 39.9 RDW Coeff of [place] 13.0 Plt Count 318 MPV 9.0 Immature Gran % (Auto) 0.5 Neut % (Auto) 51.1 Lymph % (Auto) 34.1 [place] % (Auto) 9.4 Eos % (Auto) 4.4 Baso % (Auto) 0.5 Immature Gran # (Auto) 0.03 H Neut # (Auto) 3.05 Lymph # (Auto) 2.03 [place] # (Auto) 0.56 Eos # (Auto) 0.26 Baso # (Auto) 0.03 Sodium 133 L Potassium 4.3 Chloride 100 Carbon Dioxide 27 Anion Gap 6.0 BUN 10 Creatinine 0.90 Est Cr Clr Drug Dosing Not Reportable Est GFR ( Amer) 92.7 Est GFR (Non-Af Amer) 80.0 BUN/Creatinine Ratio 11.4 Glucose 80 Calcium 9.2 Total Bilirubin 0.4 AST 28 ALT 25 Alkaline Phosphatase 90 Total Protein 7.4 Albumin 3.7 Globulin 3.7 Albumin/Globulin Ratio 1.0 Lipase 82 Urine Color Urine Appearance Urine pH Ur Specific [place] Urine Protein Urine Glucose (UA) Urine Ketones Urine Blood Urine Nitrite Urine Bilirubin Urine Urobilinogen Ur Leukocyte Esterase Urine WBC (Auto) Urine RBC (Auto) U Hyaline Cast (Auto) U Epithel Cells (Auto) Urine Bacteria (Auto) Urine Yeast 02/08/20 Unknown WBC RBC Hgb Hct MCV MCH MCHC RDW Std Deviation RDW Coeff of [place] Plt Count MPV Immature Gran % (Auto) Neut % (Auto) Lymph % (Auto) [place] % (Auto) Eos % (Auto) Baso % (Auto) Immature Gran # (Auto) Neut # (Auto) Lymph # (Auto) [place] # (Auto) Eos # (Auto) Baso # (Auto) Sodium Potassium Chloride Carbon Dioxide Anion Gap BUN Creatinine Est Cr Clr Drug Dosing Est GFR ( Amer) Est GFR (Non-Af Amer) BUN/Creatinine Ratio Glucose Calcium Total Bilirubin AST ALT Alkaline Phosphatase Total Protein Albumin Globulin Albumin/Globulin Ratio Lipase Urine Color Yellow Urine Appearance Cloudy A Urine pH 8.5 H Ur Specific [place] 1.012 Urine Protein Negative Urine Glucose (UA) Negative Urine Ketones Negative Urine Blood Trace H Urine Nitrite Negative Urine Bilirubin Negative Urine Urobilinogen Negative Ur Leukocyte Esterase 3+ H Urine WBC (Auto) >30 H Urine RBC (Auto) 0-4 U Hyaline Cast (Auto) 1-5 U Epithel Cells (Auto) 5-10 H Urine Bacteria (Auto) 4+ H Urine Yeast Not Reportable Code Status & VTE Plan Code Status Full code VTE Prophylaxis Plan VTE Prophylaxis will be ordered: Yes
[2020-02-09] MEDS: SODIUM CHLORIDE 0.9% 500 ML IV SCH ×2 (02:36→08:47)
[2020-02-09] MEDS: LEVOTHYROXINE SODIUM 25 MCG TABLET PO SCH (05:47)
--- NOTE | 2020-02-09 07:20 | CT Scan Report ---
HEAD CT NONCONTRAST CT DOSE: 537.48 mGy.cm HISTORY: ff up, r/o progression of subdural hematoma TECHNIQUE: Multiaxial CT images of the head were performed without the use of intravenous contrast. A utomated exposure control was utilized for this study. A dose lowering technique was utilized adheri ng to the principles of ALARA. Comparison: Head CT 02/08/2020. Findings: The paranasal sinuses and mastoid air cells are clear. No significant change compared to th e prior study. Bilateral subdural hematomas are again noted. No change in the right temporoparietal n ondisplaced skull fracture. Calcifications within the basal ganglia and cerebellum persist. Minimal l eft midline shift remains unchanged. Encephalomalacia within the right temporal lobe is stable. The v entricles remain normal in size. Mild mass effect along the frontal lobes from the subdural hematomas . 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 Impression: No significant change in the mixed density bilateral subdural hematomas. Right temporoparietal nondis placed skull fracture is also unchanged. ACT 112: Negative or not required by law. Electronically signed by: Surjit Malik M.D. 02/09/2020 7:19 AM
[2020-02-09 07:59] LABS: Basophils # (auto) 0.02 K/uL (0-0.2); Basophils % (auto) 0.4 %; Eosinophils # (auto) 0.28 K/uL (0-0.5); Eosinophils % (auto) 5.3 %; Hematocrit (blood only) 32.3 % (37-47); Immature Granulocytes # (auto) 0.02 K/uL (0.00-0.02); Immature Granulocytes % (auto) 0.4 %; Lymphocytes # (auto) 1.88 K/uL (1.2-3.4); Lymphocytes % (auto) 35.5 %; Mean Corpuscular Hemoglobin 29.2 pg (25-34); Mean Corpuscular Hgb Conc 34.1 g/dL (32-36); Mean Corpuscular Volume 85.7 fL (80-100); Mean Platelet Volume 9.2 fL (7.4-10.4); Monocytes # (auto) 0.37 K/uL (0.11-0.59); Neutrophils # (auto) 2.72 K/uL (1.4-6.5); Neutrophils % (auto) 51.4 %; Platelet Count 337 K/uL (130-400); RDW Standard Deviation 40.6 fL (36.4-46.3); Red Blood Count 3.77 M/uL (4.2-5.4); White Blood Count 5.29 K/uL (4.8-10.8)
[2020-02-09 08:30] LABS: BUN Creatinine Ratio 11.7 (10-20); Calcium 8.8 mg/dl (8.5-10.1); Creatinine Clr Calc Pharmacy 52.8 ml/min; Est GFR (African American) 115.6; Est GFR (Non-African American) 99.7; Potassium 3.8 mmol/L (3.5-5.1)
[2020-02-09] MEDS: cefTRIAXone SODIUM 1,000 MG in DEXTROSE 5% 50 ML IV SCH (08:38)
[2020-02-09] MEDS: IRON POLYSACCHARIDE COMPLEX 150 MG CAPSULE PO SCH (08:39)
[2020-02-09] MEDS: lamoTRIgine 100 MG TAB PO SCH ×2 (08:39→20:39)
[2020-02-09] MEDS: MEGESTROL ACETATE 40 MG TAB PO SCH (08:39)
[2020-02-09] MEDS: ASCORBIC ACID 500 MG TAB PO SCH ×2 (08:40→20:40)
[2020-02-09] MEDS: SODIUM CHLORIDE 1 GM TABLET PO SCH ×2 (08:40→20:40)
[2020-02-09] MEDS: MAGNESIUM OXIDE 400 MG TAB PO SCH ×2 (08:40→20:39)
--- NOTE | 2020-02-09 10:57 | Nephrology Consultation ---
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 She appears euvolemic. We do not have urine studies. I discussed the pathophysiology of hyponatremia with the mother. Fortunately sodium has improv ed to 134. Recommend -Stop IV fluids -Fluid restriction of 40 ounces daily. -Continue salt tablets 2 g twice daily -We will check urine osmolality, urine sodium and serum osmolality. -Monitor sodium daily (2) UTI (urinary tract infection): Due to gram-negative bacilli. Continue ceftriaxone per primary team. 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 Patient does not give much history but the mother who is a full-time caregiver providing history. Patient has had multiple hospitalizations since August 2019 when she had falls and subdural hematomas status post drainage. At the time she developed hyponatremia and has been taking salt tablets 2 g twice daily. Baseline sodium in the low 130s. Mother reports that patient gets seizures if her sodium drops below 130. 2 weeks ago her salt tablets were reduced to 1 g twice daily by the PCP. Sodium checked on Wednesday was 129. On admission sodium was 133. Patient was on normal saline overnight and sodium was 134 this morning. Patient also found to have gram-negative UTI and receiving ceftriaxone. She reports to be feeling fine. She drinks about 64 ounces of fluids daily at home. She has urinary frequency. Allergies Allergy/AdvReac Type Severity Reaction Status Date / Time phenobarbital Allergy Mild . Verified 02/08/20 14:58 omeprazole AdvReac Unknown red face Verified 02/08/20 14:58 Home Medications Home Medications Medication Instructions Recorded Confirmed Type ascorbic acid (vitamin C) 500 mg PO BID 04/22/19 02/08/20 History lamotrigine 150 mg PO Q12H 04/22/19 02/08/20 History levothyroxine 37.5 mcg PO QAM 04/22/19 02/08/20 History magnesium oxide 400 mg PO BID 04/22/19 02/08/20 History megestrol 20 mg PO QAM 02/08/20 02/08/20 History polysaccharide iron complex 150 mg PO QAM 02/08/20 02/08/20 History [iFerex 150] sodium chloride 1 g PO BID 02/08/20 02/08/20 History Patient History Social History Preferred Language: Nepali Communication Ability: Impaired Hearing Ability: Normal 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 Beliefs That Will Affect Care: None marital status: Single Current Living Situation: Family Other Information That Helps Us Care for You: No Feels Safe at Home: Yes Safety Concerns: Feels Safe At This Time Smoking Status: Never smoker Hx Alcohol Use: No Hx Substance Use: No Review of Systems Review of Systems: All systems reviewed & are unremarkable except as noted in HPI & below Physical Exam Physical Exam: General exam: Appears comfortable, no acute distress HEENT: Pupils are equal and reactive to light Neck: No JVD, neck is supple trachea is midline Respiratory system: Clear breath sounds bilaterally. Gastrointestinal: Abdomen is soft, non distended, non tender, bowel sounds are p resent CVS: Regular rate and rhythm. No murmurs, rubs or gallops Musculoskeletal: No joint or muscle tenderness Extremities: Non tender, no edema, peripheral pulses are present Neuro: Oriented, no tremors Skin: No rashes Results & Data Vital Signs (Past 12 Hours) Vital Signs Temp Pulse Pulse Resp BP BP Pulse Ox 02/09/20 07:56 36.7 C 86 18 128/68 96 02/09/20 07:04 84 02/09/20 03:12 37.3 C 88 18 101/67 95 02/08/20 23:50 88 02/08/20 23:20 37 C 85 16 106/62 98 Laboratory Results 02/09/20 07:08 02/08/20 02/08/20 02/09/20 15:30 15:30 07:08 WBC 5.96 5.29 RBC 4.20 3.77 L MCV 85.2 85.7 MCH 29.3 29.2 MCHC 34.4 34.1 RDW Std Deviation 39.9 40.6 RDW Coeff of [place] 13.0 13.0 Plt Count 318 337 MPV 9.0 9.2 Albumin 3.7
--- NOTE | 2020-02-09 17:17 | Hospitalist Progress Note ---
Date of Service February 09, 2020 Assessment & Plan (1) Hyponatremia: Patient is a 39 yr female with H/O Astrocytoma S/P resection, developmental delay, Epilepsy, chronic hyponatremia, recent subdural hemorrhage, presenting with low sodium level and weakness. Acute on chronic hyponatremia Likely SIADH Serum osmolality 278 Urine osmolality, urine sodium pending Sodium levels: 129 (outpatient)>>133>>134 Received gentle IV fluids Continue salt tablets Appreciate nephrology input Continue fluid restriction: 40 ounces daily. Monitor sodium levels UTI:POA Urine Cx: Gram-negative Continue Rocephin empirically Day #1 Weakness and fall Likely secondary to UTI/Hyponatremia Fall precautions Recent subdural hematoma, skull fracture Was admitted to [facility] last November, managed conservatively No head trauma prior to admission as per family CT head reviewed with [facility] Neurosurgery Dr.Andrew [address] on 02/09/20 No surgical intervention or further investigations needed as per Neurosurgery Epilepsy Continue Lamictal H/O Astrocytoma S/P resection DVT Px: SCDs Disposition Anticipate discharge to home medically stable Admission and Anticipated Discharge Date Admission Date: February 08, 2020 Subjective Patient is seen and examined at bedside Most of the history is obtained from patient's mother History is limited secondary to history of short-term memory issues Denies any chest pain, shortness of breath, dizziness, nausea, abdominal pain Sodium levels improved Urine culture growing gram-negative bacilli Family at bedside Review of Systems Review of Systems: All systems reviewed & are unremarkable except as noted in HPI & below Physical Exam Physical Exam: Physical Exam: Vitals signs as noted above General Appearance:Moderately built and nourished, no apparent distress Head: normocephalic, Atraumatic Eyes: normal inspection, EOMI Neck: supple, Trachea midline Respiratory/Chest: Normal breath sounds, CTA Cardiovascular: S1, S2, +Systolic murmur Abdomen/GI:Soft, Non tender, Bowel sounds present Extremities/Musculoskelatal:normal inspection, no edema Neurologic/Psych:AAOX2, grossly no focal neurological deficits Skin: normal color, warm Results & Data Results & Data ([facility]) Vital Signs (Past 12 Hours) Vital Signs Temp Pulse Pulse Pulse Resp BP Pulse Ox 02/09/20 15:50 83 02/09/20 15:45 93 H 102/68 99 02/09/20 11:50 37.0 C 87 16 115/70 99 02/09/20 07:56 36.7 C 86 18 128/68 96 02/09/20 07:04 84 Laboratory Results Short CBC 02/09/20 Range/Units 07:08 WBC 5.29 (4.8-10.8) K/uL Hgb 11.0 L (12.0-16.0) g/dL Hct 32.3 L (37-47) % Plt Count 337 (130-400) K/uL BMP 02/08/20 02/09/20 17:12 07:08 Sodium 134 L Potassium 4.3 3.8 Chloride 105 Carbon Dioxide 22 BUN 9 Creatinine 0.75 Glucose 80 Calcium 8.8 Liver Function 02/08/20 Range/Units 17:12 AST 28 (15-37) U/L Urine 02/08/20 Range/Units Unknown Urine Color Yellow Urine Appearance Cloudy A (Clear) Urine pH 8.5 H (4.5-7.5) Ur Specific [place] 1.012 (1.000-1.030) Urine Protein Negative (Negative) Urine Glucose (UA) Negative (Negative)
[2020-02-10] MEDS: LEVOTHYROXINE SODIUM 25 MCG TABLET PO SCH (05:43)
[2020-02-10] MEDS: cefTRIAXone SODIUM 1,000 MG in DEXTROSE 5% 50 ML IV SCH (07:40)
[2020-02-10] MEDS: ASCORBIC ACID 500 MG TAB PO SCH (07:41)
[2020-02-10] MEDS: IRON POLYSACCHARIDE COMPLEX 150 MG CAPSULE PO SCH (07:41)
[2020-02-10] MEDS: MEGESTROL ACETATE 40 MG TAB PO SCH (07:41)
[2020-02-10] MEDS: SODIUM CHLORIDE 1 GM TABLET PO SCH (07:42)
[2020-02-10] MEDS: lamoTRIgine 100 MG TAB PO SCH (07:42)
[2020-02-10] MEDS: MAGNESIUM OXIDE 400 MG TAB PO SCH (07:42)
[2020-02-10 08:03] LABS: BUN Creatinine Ratio 10.8 (10-20); Calcium 9.1 mg/dl (8.5-10.1); Creatinine Clr Calc Pharmacy 48.9 ml/min; Est GFR (African American) 105.3; Est GFR (Non-African American) 90.8; Potassium 3.9 mmol/L (3.5-5.1)
[2020-02-10] MEDS ORDERED: FUROSEMIDE 20 MG TAB PO SCH (09:15)
--- NOTE | 2020-02-10 13:11 | Hospitalist Progress Note ---
Date of Service February 10, 2020 Assessment & Plan (1) Hyponatremia: Patient is a 39 yr female with H/O Astrocytoma S/P resection, developmental delay, Epilepsy, chronic hyponatremia, recent subdural hemorrhage, presenting with low sodium level and weakness. Acute on chronic hyponatremia Likely SIADH Serum osmolality 278 Urine osmolality, urine sodium pending Sodium levels: 129 (outpatient)>>133>>134 Received gentle IV fluids Continue salt tablets Appreciate nephrology input Continue fluid restriction: 40 ounces daily. Monitor sodium levels Added lasix 20mg daily UTI:POA Urine Cx: Klebsiella Continue Rocephin Day #2 Plan to discharge oral Abx Weakness and fall Likely secondary to UTI/Hyponatremia Fall precautions Recent subdural hematoma, skull fracture Was admitted to [facility] last November, managed conservatively No head trauma prior to admission as per family CT head reviewed with [facility] Neurosurgery Dr.Andrew [address] on 02/09/20 No surgical intervention or further investigations needed as per Neurosurgery Epilepsy Continue Lamictal H/O Astrocytoma S/P resection DVT Px: SCDs Disposition Plan to discharge home today Admission and Anticipated Discharge Date Admission Date: February 08, 2020 Subjective Patient is seen and examined at bedside States feeling tired No other complaints History is limited secondary to history of short-term memory issues Denies any chest pain, shortness of breath, dizziness, nausea, abdominal pain Sodium levels improved Urine culture growing Klebsiella Family at bedside Review of Systems Review of Systems: All systems reviewed & are unremarkable except as noted in HPI & below Physical Exam Physical Exam: Physical Exam: Vitals signs as noted above General Appearance:Moderately built and nourished, no apparent distress Head: normocephalic, Atraumatic Eyes: normal inspection, EOMI Neck: supple, Trachea midline Respiratory/Chest: Normal breath sounds, CTA Cardiovascular: S1, S2, +Systolic murmur Abdomen/GI:Soft, Non tender, Bowel sounds present Extremities/Musculoskelatal:normal inspection, no edema Neurologic/Psych:AAOX2, grossly no focal neurological deficits Skin: normal color, warm Results & Data Results & Data ([facility]) Vital Signs (Past 12 Hours) Vital Signs Temp Pulse Resp BP BP Pulse Ox 02/10/20 07:28 36.9 C 81 16 109/73 99 02/10/20 04:15 36.5 C 80 18 122/66 95 Laboratory Results [facility] 02/10/20 06:41 Sodium 134 L Potassium 3.9 Chloride 101 Carbon Dioxide 25 BUN 9 Creatinine 0.81 Glucose 78 Calcium 9.1
--- NOTE | 2020-02-10 13:40 | Discharge Summary ---
Date of Service February 10, 2020 Admission HPI Per Admitting Provider 39-year-old female with history of astrocytoma, status post resection, Chronic hyponatremia, epilepsy, recent subdural hemorrhage, presenting with Low sodium level and weakness. History obtained from patient's mother Bonnie in light of patient's cognitive status. Patient was recently admitted to [facility] last November for subdural hemorrhage and parietal skull fracture after a fall. She was managed conservatively and ultimately was discharged to home. Mother Bonnie is her primary caregiver. According to Bonnie, the patient has chronic hyponatremia and her primary care physician has been managing her salt tablets. Recently her salt tablets were decreased from 2 g twice a day to 1 g twice a day. She had a repeat blood work on Wednesday and today she was told that it is 129. She was also noticing that her daughter has been weak the past few days, and was also noted to have fallen last Wednesday, landing on her buttocks, because she was unsteady while walking. Her mother is concerned that when patient sodium level is below 130, she develops breakthrough seizures. At the ER, patient's sodium is 133. CT head was also performed which showed possible interval increase in the subdural hematoma on the left side. ER physician discussed the case with [facility]'s neurosurgical service, CT head or compared from previous ones and was felt that the subdural hematoma is stable. They do recommend that the patient have a repeat CT head this evening around 9 PM to follow-up and to rule out progression of the subdural hematoma. On exam, patient's mother was at the bedside throughout encounter. Patient's mother reports that the patient is mostly back to her baseline. Patient denies having any headache, dizziness, nausea, shortness of breath, chest pain, abdominal pain or any other symptoms. She is eager to go back home. Admission Exam Per Admitting Provider Physical Exam Physical Exam: General- oriented x 2, not in distress, speaks in sentences with no effort or accessory muscle use Head- atraumatic Eyes- PERRL, EOMI, anicteric ENT- oropharynx clear Neck- supple, no JVD, no adenopathy, no thyromegaly; carotids +2/2, no bruits appreciated Lungs- clear to auscultation bilaterally, no rales/wheezes Heart- normal rate, regular rhythm; no murmur, no gallop, no rub appreciated Abdomen- normal bowel sounds, nondistended, soft, nontender, no masses or hepatosplenomegaly Extremities- no pretibial edema, no calf tenderness; peripheral pulses intact Neuro- alert, oriented x 2; CN 2-12 grossly intact; motor 5/5 bilaterally;sensation 100% on all extremities; no other gross focal neurologic deficits Skin- warm & dry Principal Diagnosis Hyponatremia Urinary tract infection Discharge Data Allergies Allergy/AdvReac Type Severity Reaction Status Date / Time phenobarbital Allergy Mild . Verified 02/08/20 14:58 omeprazole AdvReac Unknown red face Verified 02/08/20 14:58 Consultations 02/08/20 18:01 ED Decision to Admit Stat 02/08/20 20:02 Consult Nephrology Routine Procedures Performed CT head: 1. No major change compared to the prior study. 2. Mixed density left subdural collection unchanged in overall volume although the persistent increase in density potentially suggest a partial interval rebleed. 3. All remaining components of the study are unchanged Ordered Studies 02/08/20 13:55 CT head/brain wo con Stat 02/08/20 22:50 CT head/brain wo con Urgent Hospital Course (1) Hyponatremia: Patient is a 39 yr female with H/O Astrocytoma S/P resection, developmental delay, Epilepsy, chronic hyponatremia, recent subdural hemorrhage, presenting with low sodium level and weakness. Acute on chronic hyponatremia Likely SIADH Serum osmolality 278 Urine osmolality, urine sodium pending Sodium levels: 129 (outpatient)>>133>>134 Received gentle IV fluids Continue salt tablets Appreciate nephrology input Continue fluid restriction: 40 ounces daily. Monitor sodium levels Added lasix 20mg daily UTI:POA Urine Cx: Klebsiella Continue Rocephin Day #2 Plan to discharge oral Abx Weakness and fall Likely secondary to UTI/Hyponatremia Fall precautions Recent subdural hematoma, skull fracture Was admitted to [facility] last November, managed conservatively No head trauma prior to admission as per family CT head reviewed with [facility] Neurosurgery Dr.Andrew Way on 02/09/20 No surgical intervention or further investigations needed as per Neurosurgery Epilepsy Continue Lamictal H/O Astrocytoma S/P resection DVT Px: SCDs Disposition Plan to discharge home today Total Time Total Time Spent Total Time Spent (In Minutes): 39 minutes Total Time Includes: Examination of the Patient, Discharge Planning, Medication Reconciliation, Communication With Other Providers and Other Discharge Plan Discharge Items Patient Disposition: Home - Self-Care Reason For Visit: HYPONATREMIA Discharge Diagnosis: Hyponatremia Urinary tract infection Activity: Resume your previous activity Exercise/Sports: Gradually increase as tolerated Non-emergency contact: Primary Care Provider and Nuclear Criticality Safety Engineer Call non-emergency contact if: you have any medication questions, your symptoms worsen, your pain is not controlled, your pain is worsening, your pain is unusual for you, your pain is concerning for you and you have a fever Follow-up/Referrals: Randy Begum [Primary Care Provider] - Diet: Regular Fluids: 1200ml (5 cups) Diet Texture: Mechanical soft (ground) Ambulatory Orders: Basic Metabolic Panel (Routine) Timeframe: 1 Week Location: Determined by Patient Ordered By: Angel Crawley Attending Provider Instructions: Follow up with your PCP in 1 week Follow up with your Nuclear Criticality Safety Engineer as needed Get blood test( Basic Metabolic panel) in 1 week and follow up with your physician. Complete the antibiotic course Cefdinir 300mg Twice a day for 5 days to complete antibiotic course for urinary tract infection. Seek immediate medical attention if your symptoms reoccur or worsen Pending Studies at Discharge: No Stand-Alone Forms: My [email or web address], Smoking Cessation Medications and DC Order Prescriptions: New sodium chloride 1 gram Tablet 2 g PO BID 30 Days Qty: 120 RF: 0 furosemide 20 mg Tablet 20 mg PO QAM Qty: 30 RF: 0 cefdinir 300 mg capsule 300 mg PO BID 5 Days Qty: 10 RF: 0 Continued lamotrigine 150 mg tablet 150 mg PO Q12H RF: 0 ascorbic acid (vitamin C) 500 mg Tablet 500 mg PO BID RF: 0 levothyroxine 25 mcg Tablet 37.5 mcg PO QAM RF: 0 magnesium oxide 400 mg magnesium Tablet 400 mg PO BID RF: 0 polysaccharide iron complex [iFerex 150] 150 mg iron capsule 150 mg PO QAM RF: 0 megestrol 20 mg tablet 20 mg PO QAM RF: 0 Discontinued sodium chloride 1 gram tablet 1 g PO BID RF: 0 Discharge Orders: Discharge Order (Routine); Ordered 02/10/20 Ordered By: Angel Gray Admission Data Admit Date/Time: 02/08/20 18:30 Attending Provider: Angel Gray Admit Provider: Chas Grigsby Primary Care Provider: Randy Begum Other Providers: Chas Grigsby ; Wood Santiago Other Interventions: Discharge Summary Assessment (RN) Last Done: 02/10/20 13:50 DC Date/Time DO NOT enter until pt leaves facility: 02/10/20 14:20
--- NOTE | 2020-02-10 16:10 | Nephrology Progress Note ---
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 She appears euvolemic. We do not have urine studies. I discussed the pathophysiology of hyponatremia with the mother. Fortunately sodium has improved to 134. Recommend -Lasix 20mg po daily -Fluid restriction of 40 ounces daily. -Continue salt tablets 2 g twice daily -If discharged will need BMP next week and PCP follow up. PCP can refer to nephrology if needed (2) UTI (urinary tract infection): Due to gram-negative bacilli. Continue ceftriaxone per primary team. Admission and Anticipated Discharge Date Admission Date: February 08, 2020 Subjective Seen in the morning with mother at bed side. No complaints. Na better at 134. Review of Systems Review of Systems: All systems reviewed & are unremarkable except as noted in HPI & below Physical Exam Physical Exam: General exam: Appears comfortable, no acute distress HEENT: Pupils are equal and reactive to light Neck: No JVD, neck is supple trachea is midline Respiratory system: Clear breath sounds bilaterally. Gastrointestinal: Abdomen is soft, non distended, non tender, bowel sounds are present CVS: Regular rate and rhythm. No murmurs, rubs or gallops Musculoskeletal: No joint or muscle tenderness Extremities: Non tender, no edema, peripheral pulses are present Neuro: Oriented, no tremors, Skin: No rashes Results & Data ([facility]) Vital Signs (Past 12 Hours) Vital Signs Temp Pulse Pulse Resp BP BP Pulse Ox 02/10/20 13:50 36.9 C 87 81 16 109/73 122/66 99 02/10/20 07:28 36.9 C 81 16 109/73 99 02/10/20 04:15 36.5 C 80 18 122/66 95 Laboratory Results 02/10/20 06:41
== END 2020-02-10 14:20 | disposition home or self-care (01) | DRG 644 ==
LOC: ED 13:29 → 2N 18:30 → SUATTDRO 18:30 → 2N 19:08

== ENCOUNTER 2020-10-31 13:05 | Inpatient (IN) ==
[2020-10-31] MEDS ORDERED: SODIUM CHLORIDE 0.9% 1000ML 500 ML IV ONE (14:07)
--- NOTE | 2020-10-31 14:41 | Emergency Department Note ---
Impression & Plan Weakness, Subdural hygroma, Acute hyponatremia, Hypomagnesemia ED Provider Note NAME: THOMAS MCLAIN AGE: 40 SEX: F : 1980 ARRIVES VIA: Walk-In INFORMANT: Patient, the patient's mother ED PROVIDER(S): Vinay Gonzales DO CHIEF COMPLAINT: Dehydration HPI: The patient is a 40-year-old female who presented to the emergency department with her mother for an evaluation of dehydration. The patient apparently has a history of dehydration in the past. She dehydrates very quickly because she sometimes will stop eating and drinking. She also has a history of a head injury in the past. She was seen in our facility after a fall at a personal [place] [facility] and did have a brain bleed. She also has a history of a brain tumor at a very early age which was treated surgically. According to her mother she has had no episodes of chest pain nausea or vomiting. She does have a chronic cough that is been evaluated previously and apparently the cough is been ongoing for approximately 1 year. There is been no fever. The patient recently was treated for urinary tract infection with Keflex and finish the entire antibiotic regimen. She has had no cloudy urine over the last 24 hours. She is had no back pain. She has no abdominal pain. She is had no lower extremity swelling more than usual. She was seen at the primary care physician's office and then sent to the emergency department for laboratory studies and treatment of dehydration. ROS: See above HPI for pertinent positives & negatives. A total of 10 systems reviewed and were otherwise negative. PAST MEDICAL HISTORY: See Below PAST SURGICAL HISTORY: See Below FAMILY HISTORY: See Below SOCIAL HISTORY: See Below HOME MEDICATIONS: See Below ALLERGIES: See Below VITALS: See Below PHYSICAL EXAMINATION: GENERAL: The patient is awake and alert. She is nonanxious appearing. EYES: The conjunctivae are clear. Left pupil slightly larger than the right. Both are reactive. EARS, NOSE, MOUTH AND THROAT: The nose is without any evidence of any deformity. Mucous membranes are moist. NECK: The neck is nontender and supple. RESPIRATORY: Diminished breath sounds are noted in the left lung field. There were no rales rhonchi or wheezing. There was no tachypnea or conversational dyspnea. CARDIOVASCULAR: Regular rate and rhythm noted there no murmurs rubs or gallops normal S1 normal S2. GASTROINTESTINAL: The abdomen is soft. Abdomen is nontender. MUSCULOSKELETAL/EXTREMITIES: There is no evidence of gross deformity full range of motion is noted in the hips and shoulders. SKIN: There is no obvious evidence of any rash. Skin is warm and dry. Trace pedal edema was noted bilaterally. NEUROLOGIC: Patient is awake alert and oriented to person place and situation. She recognizes her mother. She moves all extremities well. MEDICAL DECISION MAKING: The patient is a 40-year-old female who presented to the emergency department with her mother for an evaluation of generalized weakness. The patient has had decreased p.o. intake over the course the last few weeks. The patient's mother states that the patient recently was treated for urinary tract infection. She did have an entire course of antibiotic and according to her mother symptoms seem to improve. She was following up today with the primary care physician and was referred to the emergency department for further evaluation of generalized weakness and with the mother was describing as "just not acting right". The p atient is a history of hyponatremia. Her mother has been trying to get her to eat and drink more because she feels she is dehydrated but I do not feel this is psychogenic in nature. The patient was treated with a small fluid bolus as well as magnesium replacement. I discussed the patient's laboratory and radiographic studies with her and her mother. Given the patient's findings I discussed this case with the on-call [facility] group. They have agreed to evaluate the patient in the emergency department for further management and disposition. Triage Nursing notes reviewed. Prior medical records reviewed Vital Signs: reviewed and remarkable for no significant abnormalities Differential diagnosis: Infection, dehydration, metabolic abnormality, hypo/hyperglycemia, electrolyte disturbance, anemia, hypoxia, cardiac sources, intracerebral event, toxicologic, neurologic, as well as other pathologies. ER treatment provided: See below Diagnostics interpreted by me: ECG: EKG was obtained in the emergency department. My interpretation is normal sinus rhythm at 91 bpm. There was no ectopy. Anterior T wave inversions were noted. This was compared to a tracing from May 122019. No significant changes were noted. Cardiac Monitoring: An order was placed for continuous cardiac monitoring. The monitor shows a rate of 85 bpm with sinus rhythm. Laboratory studies: As stated above and show below. Imaging studies: See below Consultation(s): I discussed this case with Alicja Matthews who is on-call for the [facility] hospitalist group. Past Med/Surg History Medical History (Updated 10/31/20 @ 19:22 by Vinay Gonzales DO) Brain tumor Cognitive developmental delay H/O astrocytoma Laceration of trachea Seizure disorder Surgical History H/O brain surgery History of umbilical hernia repair S/P cholecystectomy Family History Mother Diabetes Grandfather (Paternal) Coronary heart disease Uncle Coronary heart disease Social History Smoking Status: Never smoker Hx Alcohol Use: No Hx Substance Use: No Preferred Language: Greek Communication Ability: Impaired Hearing Ability: Normal Supervisor [place] Department Required: No Beliefs That Will Affect Care: None marital status: Single Current Living Situation: Family Feels Safe at Home: Yes Assistive Devices: Denture - Upper and Denture - Lower Allergies Allergies Allergy/AdvReac Type Severity Reaction Status Date / Time phenobarbital Allergy Mild . Verified 10/31/20 14:51 omeprazole AdvReac Unknown red face Verified 10/31/20 14:51 Home Meds Home Medications Medication Instructions Recorded Confirmed lamotrigine 150 mg PO Q12H 04/22/19 10/31/20 levothyroxine 37.5 mcg PO QAM 04/22/19 10/31/20 magnesium oxide 400 mg PO BID 04/22/19 10/31/20 megestrol 20 mg PO QAM 02/08/20 10/31/20 polysaccharide iron complex 150 mg PO HS 02/08/20 10/31/20 [iFerex 150] cefuroxime axetil 250 mg PO BID 10/31/20 10/31/20 sennosides [Senna Lax] 8.6 mg PO DAILY PRN 10/31/20 10/31/20 sodium chloride 1 g PO BID 10/31/20 10/31/20 Results & Data (ED) Vital Signs Vital Signs - 24 hr 10/31/20 13:19 10/31/20 13:44 10/31/20 14:05 Temperature 36.3 C L Temperature Source Temporal Artery Scan Pulse Rate 66 94 H Pulse Rate from SpO2 Sensor 95 H Respiratory Rate 16 21 Respiratory Effort / Characteristics Non-Labored Spontaneous Respiratory Depth Normal Blood Pressure 137/61 152/74 H Blood Pressure Mean 86 100 Blood Pressure Position Sitting Pulse Oximetry 97 99 98 Oxygen Delivery Method Room Air Room Air Sepsis Recent Fever Within 48 Hours No Sepsis New/Unexplained Change in Mental Status No Sepsis Action Taken by Nursing No Action Required 10/31/20 15:22 10/31/20 15:43 10/31/20 16:00 Temperature Temperature Source Pulse Rate 101 H 83 Pulse Rate from SpO2 Sensor 101 H 83 Respiratory Rate 22 19 Respiratory Effort / Characteristics Respiratory Depth Blood Pressure 144/81 H 148/69 H Blood Pressure Mean 102 95 Blood Pressure Position Pulse Oximetry 100 100 Oxygen Delivery Method Room Air Sepsis Recent Fever Within 48 Hours Sepsis New/Unexplained Change in Mental Status Sepsis Action Taken by Nursing 10/31/20 16:30 10/31/20 17:00 10/31/20 17:30 Temperature Temperature Source Pulse Rate 82 87 84 Pulse Rate from SpO2 Sensor 81 88 84 Respiratory Rate 20 21 20 Respiratory Effort / Characteristics Respiratory Depth Blood Pressure 131/74 145/89 H 121/71 Blood Pressure Mean 93 107 87 Blood Pressure Position Pulse Oximetry 100 100 99 Oxygen Delivery Method Sepsis Recent Fever Within 48 Hours Sepsis New/Unexplained Change in Mental Status Sepsis Action Taken by Nursing 10/31/20 18:00 10/31/20 18:30 10/31/20 19:00 Temperature Temperature Source Pulse Rate 83 79 78 Pulse Rate from SpO2 Sensor 83 79 79 Respiratory Rate 24 19 17 Respiratory Effort / Characteristics Respiratory Depth Blood Pressure 129/79 117/74 128/85 Blood Pressure Mean 95 88 99 Blood Pressure Position Pulse Oximetry 98 98 98 Oxygen Delivery Method Sepsis Recent Fever Within 48 Hours Sepsis New/Unexplained Change in Mental Status Sepsis Action Taken by [facility] Medications Current Medication List: was personally reviewed by me Laboratory Data Attestation: I reviewed the patient's lab results. Result diagrams: 10/31/20 14:29 10/31/20 14:29 Lab Results 10/31/20 10/31/20 10/31/20 Range/Units 14:20 14:29 14:29 WBC 6.63 (4.8-10.8) K/uL RBC 3.55 L (4.2-5.4) M/uL Hgb 11.2 L (12.0-16.0) g/dL Hct 31.4 L (37-47) % MCV 88.5 (80-100) fL MCH 31.5 (25-34) pg MCHC 35.7 (32-36) g/dL RDW Std Deviation 42.6 (36.4-46.3) fL RDW Coeff of [place] 13.1 (11.5-14.5) % Plt Count 340 (130-400) K/uL MPV 10.1 (7.4-10.4) fL Immature Gran % (Auto) 1.7 % Neut % (Auto) 61.0 % Lymph % (Auto) 29.1 % Nolan % (Auto) 3.2 % Eos % (Auto) 4.5 % Baso % (Auto) 0.5 % Neut # (Auto) 4.05 (1.4-6.5) K/uL Lymph # (Auto) 1.93 (1.2-3.4) K/uL Nolan # (Auto) 0.21 (0.11-0.59) K/uL Eos # (Auto) 0.30 (0-0.5) K/uL Baso # (Auto) 0.03 (0-0.2) K/uL Immature Gran # (Auto) 0.11 H (0.00-0.02) K/uL PT 10.3 (9.0-12.0) Seconds INR 1.0 (0.9-1.1) APTT 29.3 (21.0-31.0) Seconds PTT Ratio 1.1 Sodium (136-145) mmol/L Potassium (3.5-5.1) mmol/L Chloride (98-107) mmol/L Carbon Dioxide (21-32) mmol/L Anion Gap (3-11) BUN (7-18) mg/dl Creatinine (0.6-1.2) mg/dl Est Cr Clr Drug Dosing ml/min Est GFR ( Amer) Est GFR (Non-Af Amer) BUN/Creatinine Ratio (10-20) Glucose (70-99) mg/dl Osmolality 268 L (280-300) mOsm/kg Calcium (8.5-10.1) mg/dl Magnesium (1.8-2.4) mg/dl Total Bilirubin (0.2-1) mg/dl AST (15-37) U/L ALT (12-78) U/L Alkaline Phosphatase (45-117) U/L Troponin I (0-0.045) ng/ml Total Protein (6.4-8.2) gm/dl Albumin (3.4-5.0) gm/dl Globulin (2.5-4.0) gm/dl Albumin/Globulin Ratio (0.9-2) TSH (0.300-4.500) uIu/ml Free T4 (0.8-1.6) ng/dl Urine Color Urine Appearance (Clear) Urine pH (4.5-7.5) Ur Specific [place] (1.000-1.030) Urine Protein (Negative) Urine Glucose (UA) (Negative) Urine Ketones (Negative) Urine Blood (Negative) Urine Nitrite (Negative) Urine Bilirubin (Negative) Urine Urobilinogen (Negative) Ur Leukocyte Esterase (Negative) Urine Osmolality (500-800) mOsm/kg Ur Random Sodium mmol/L COVID-19 Eval Order SARS-CoV-2, RNA, NAAT (NEGATIVE) 10/31/20 10/31/20 10/31/20 Range/Units 14:29 14:29 15:45 WBC (4.8-10.8) K/uL RBC (4.2-5.4) M/uL Hgb (12.0-16.0) g/dL Hct (37-47) % MCV (80-100) fL MCH (25-34) pg MCHC (32-36) g/dL RDW Std Deviation (36.4-46.3) fL RDW Coeff of [place] (11.5-14.5) % Plt Count (130-400) K/uL MPV (7.4-10.4) fL Immature Gran % (Auto) % Neut % (Auto) % Lymph % (Auto) % Nolan % (Auto) % Eos % (Auto) % Baso % (Auto) % Neut # (Auto) (1.4-6.5) K/uL Lymph # (Auto) (1.2-3.4) K/uL Nolan # (Auto) (0.11-0.59) K/uL Eos # (Auto) (0-0.5) K/uL Baso # (Auto) (0-0.2) K/uL Immature Gran # (Auto) (0.00-0.02) K/uL PT (9.0-12.0) Seconds INR (0.9-1.1) APTT (21.0-31.0) Seconds PTT Ratio Sodium 128 L (136-145) mmol/L Potassium 3.3 L (3.5-5.1) mmol/L Chloride 92 L (98-107) mmol/L Carbon Dioxide 30 (21-32) mmol/L Anion Gap 6.0 (3-11) BUN 11 (7-18) mg/dl Creatinine 0.87 (0.6-1.2) mg/dl Est Cr Clr Drug Dosing 54.9 ml/min Est GFR ( Amer) 95.9 Est GFR (Non-Af Amer) 82.7 BUN/Creatinine Ratio 12.5 (10-20) Glucose 103 H (70-99) mg/dl Osmolality (280-300) mOsm/kg Calcium 9.8 (8.5-10.1) mg/dl Magnesium 1.6 L (1.8-2.4) mg/dl Total Bilirubin 0.4 (0.2-1) mg/dl AST 174 H (15-37) U/L ALT 88 H (12-78) U/L Alkaline Phosphatase 107 (45-117) U/L Troponin I < 0.015 (0-0.045) ng/ml Total Protein 7.8 (6.4-8.2) gm/dl Albumin 4.1 (3.4-5.0) gm/dl Globulin 3.7 (2.5-4.0) gm/dl Albumin/Globulin Ratio 1.1 (0.9-2) TSH 7.680 H (0.300-4.500) uIu/ml Free T4 0.40 L (0.8-1.6) ng/dl Urine Color Yellow Urine Appearance Clear (Clear) Urine pH >= 9.0 H (4.5-7.5) Ur Specific [place] 1.018 (1.000-1.030) Urine Protein Negative (Negative) Urine Glucose (UA) Negative (Negative) Urine Ketones Negative (Negative) Urine Blood Negative (Negative) Urine Nitrite Negative (Negative) Urine Bilirubin Negative (Negative) Urine Urobilinogen Negative (Negative) Ur Leukocyte Esterase Negative (Negative) Urine Osmolality 454 L (500-800) mOsm/kg Ur Random Sodium mmol/L COVID-19 Eval Order SARS-CoV-2, RNA, NAAT (NEGATIVE) 10/31/20 10/31/20 10/31/20 Range/Units 15:45 16:55 16:55 WBC (4.8-10.8) K/uL RBC (4.2-5.4) M/uL Hgb (12.0-16.0) g/dL Hct (37-47) % MCV (80-100) fL MCH (25-34) pg MCHC (32-36) g/dL RDW Std Deviation (36.4-46.3) fL RDW Coeff of [place] (11.5-14.5) % Plt Count (130-400) K/uL MPV (7.4-10.4) fL Immature Gran % (Auto) % Neut % (Auto) % Lymph % (Auto) % Nolan % (Auto) % Eos % (Auto) % Baso % (Auto) % Neut # (Auto) (1.4-6.5) K/uL Lymph # (Auto) (1.2-3.4) K/uL Nolan # (Auto) (0.11-0.59) K/uL Eos # (Auto) (0-0.5) K/uL Baso # (Auto) (0-0.2) K/uL Immature Gran # (Auto) (0.00-0.02) K/uL PT (9.0-12.0) Seconds INR (0.9-1.1) APTT (21.0-31.0) Seconds PTT Ratio Sodium (136-145) mmol/L Potassium (3.5-5.1) mmol/L Chloride (98-107) mmol/L Carbon Dioxide (21-32) mmol/L Anion Gap (3-11) BUN (7-18) mg/dl Creatinine (0.6-1.2) mg/dl Est Cr Clr Drug Dosing ml/min Est GFR ( Amer) Est GFR (Non-Af Amer) BUN/Creatinine Ratio (10-20) Glucose (70-99) mg/dl Osmolality (280-300) mOsm/kg Calcium (8.5-10.1) mg/dl Magnesium (1.8-2.4) mg/dl Total Bilirubin (0.2-1) mg/dl AST (15-37) U/L ALT (12-78) U/L Alkaline Phosphatase (45-117) U/L Troponin I (0-0.045) ng/ml Total Protein (6.4-8.2) gm/dl Albumin (3.4-5.0) gm/dl Globulin (2.5-4.0) gm/dl Albumin/Globulin Ratio (0.9-2) TSH (0.300-4.500) uIu/ml Free T4 (0.8-1.6) ng/dl Urine Color Urine Appearance (Clear) Urine pH (4.5-7.5) Ur Specific [place] (1.000-1.030) Urine Protein (Negative) Urine Glucose (UA) (Negative) Urine Ketones (Negative) Urine Blood (Negative) Urine Nitrite (Negative) Urine Bilirubin (Negative) Urine Urobilinogen (Negative) Ur Leukocyte Esterase (Negative) Urine Osmolality (500-800) mOsm/kg Ur Random Sodium 171 mmol/L COVID-19 Eval [facility] SARS-CoV-2, RNA, NAAT NEGATIVE (NEGATIVE) Administered Medications Discontinued Medications Sodium Chloride (Nss 1000ml) 500 mls @ 999 mls/hr IV .Q31M ONE Stop: 10/31/20 14:37 Last Infusion: 10/31/20 15:35 Dose: 0 mls/hr Documented by: [id number] Admin: 10/31/20 14:39 Dose: 999 mls/hr Documented by: [id number] Magnesium Sulfate/Dextrose (Magnesium Sulfate / D5w) 1 gm in 100 mls @ 100 mls/hr IV Q1H GABI Stop: 10/31/20 17:14 Last Infusion: 10/31/20 19:00 Dose: 0 mls/hr Documented by: [id number] Admin: 10/31/20 17:31 Dose: 100 mls/hr Documented by: [id number] Infusion: 10/31/20 16:49 Dose: 100 mls/hr Documented by: [id number] Admin: 10/31/20 15:49 Dose: 100 mls/hr Documented by: [id number] Promethazine HCl (Phenergan) 12.5 mg in 50.5 mls @ 202 mls/hr IV NOW STA Stop: 10/31/20 18:50 Last Admin: 10/31/20 19:00 Dose: Not Given Documented by: [id number] Potassium Chloride (Potassium Chloride Crtab 20 Meq Tabcr) 40 meq PO NOW STA Stop: 10/31/20 18:00 Last Admin: 10/31/20 19:00 Dose: Not Given Documented by: [id number] Potassium Chloride (Potassium Chloride Pwd 20 Meq Pack) 40 meq PO ONE ONE Stop: 10/31/20 18:46 Last Admin: 10/31/20 19:00 Dose: 40 meq Documented by: [id number] Imaging Data Radiologist's Impression: Patient: THOMAS MCLAIN Admit Date: 10/31/20 MR#: [id number] Address1: [address] Acct ID:[id number] Address2: Date: 1980 [facility] Zip: [place] [address] Age: 40 Location: ED Sex: F Room/Bed: Att Phy: Diagnosis: DEHYDRATED, NOT FEELING WELL Chrystal Phy: Randy Begum M.D. Service Date: 10/31/20 Fam Phy: Interpreting Phy: Manolo Francois MD Admit Phy: Ordering Phy: Vinay Gonzales DO cc: ~ CT head/brain wo con CLINICAL HISTORY: weakness DIFFICULTY AMBULATING. COMPARISON STUDY: 02/08/2020 TECHNIQUE: Axial CT of the brain is performed from the vertex to the skull base. IV contrast was not administered for this examination. A dose lowering technique was utilized adhering to the principles of ALARA. CT DOSE: 537.48 mGy.cm FINDINGS: The study is mildly compromised due to motion artifact. There are stable basal ganglia and cerebellar calcifications. This a nonspecific finding which can be seen in Fahr syndrome area There is right temporal encephalomalacia. There are mixed attenuation bilateral subdural hematomas measuring approximately 1 cm bilaterally. There is an old 1 cm deep white matter left frontal infarct. There are patchy white matter hypodensities likely on a small vessel basis. There is no evidence of pathologic ventricular dilatation. There is a chronic right mastoid effusion. There is an old right parietal skull fracture. The study is mildly motion compromised IMPRESSION: 1. Bilateral mixed attenuation subdural hematomas similar to the preceding study 2. No change in the appearance of the nondepressed right parietal skull fracture 3. 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 4. Stable right temporal lobe encephalomalacia 5. Stable basal ganglia and cerebellar calcifications 6. Chronic right mastoid effusion ACT 112: Negative or not required by law. Electronically signed by: Manolo Francois M.D. 10/31/2020 3:39 PM Dictated: 10/31/20 153 Transcribed: 10/31/201530 Patient: THOMAS MCLAIN Admit Date: 10/31/20 MR#: [id number] Address1: [address] Acct ID:[id number] Address2: Date: 1980 [facility] Zip: [place] [id number] Age: 40 Location: ED Sex: F Room/Bed: Att Phy: Diagnosis: DEHYDRATED, NOT FEELING WELL Chrystal Phy: Randy Begum M.D. Service Date: 10/31/20 [facility] Phy: Interpreting Phy: Peng Escobar MD Admit Phy: Ordering Phy: Vinay Gonzales, cc: ~ SINGLE VIEW CHEST CLINICAL HISTORY: Generalized weakness. FINDINGS: An AP, portable, upright chest radiograph is compared to study dated 05/12/2020. The cardiomediastinal silhouette is unremarkable noting atherosclerotic calcification of the thoracic aorta. There are low lung volumes with bibasilar atelectasis. No airspace consolidation or large pleural effusion is identified. No pneumothorax is seen. There are healed right-sided rib fractures. Cholecystectomy clips are noted in the right upper quadrant. IMPRESSION: No active disease in the chest. ACT 112: Negative or not required by law. Electronically signed by: Peng Escobar M.D. 10/31/2020 4:19 PM Dictated: 10/31/201617 Transcribed: 10/31/201617 Blood Pressure Blood Pressure Findings: Normal blood pressure Discharge Plan Visit Data Chief Complaint: Dehydration Stated Complaint: DEHYDRATED, NOT FEELING WELL ED Provider: Vinay Gonzales Discharge Problem: Weakness, Subdural hygroma, Acute hyponatremia, Hypomagnesemia Patient Disposition: Being Evaluated by Hospitalist Condition: Good Forms Stand Alone Forms: My [facility] [employer] Prescriptions Prescriptions: No Action lamotrigine 150 mg tablet 150 mg PO Q12H RF: 0 levothyroxine 25 mcg Tablet 37.5 mcg PO QAM RF: 0 magnesium oxide 400 mg magnesium Tablet 400 mg PO BID RF: 0 polysaccharide iron complex [iFerex 150] 150 mg iron capsule 150 mg PO HS RF: 0 megestrol 20 mg tablet 20 mg PO QAM RF: 0 cefuroxime axetil 250 mg tablet 250 mg PO BID RF: 0 sodium chloride 1 gram tablet 1 g PO BID RF: 0 sennosides [Senna Lax] 8.6 mg tablet 8.6 mg PO DAILY PRN (Reason: Constipation) RF: 0 Referrals Referrals: Randy Begum [Primary Care Provider] -
[2020-10-31 15:00] LABS: Appearance Urine Clear (Clear); Bilirubin Urine Negative (Negative); Blood Urine Negative (Negative); Color Urine Yellow; Glucose Urine UA Negative (Negative); Ketones Urine Negative (Negative); Leukocyte Esterase Urine Negative (Negative); Nitrite Urine Negative (Negative); Protein Urine Negative (Negative); Specific Gravity Urine 1.018 (1.000-1.030); Urobilinogen Urine Negative (Negative); pH Urine >= 9.0 (4.5-7.5)
[2020-10-31 15:03] LABS: Basophils # (auto) 0.03 K/uL (0-0.2); Basophils % (auto) 0.5 %; Eosinophils % (auto) 4.5 %; Hematocrit (blood only) 31.4 % (37-47); Hemoglobin 11.2 g/dL (12.0-16.0); Immature Granulocytes # (auto) 0.11 K/uL (0.00-0.02); Immature Granulocytes % (auto) 1.7 %; Lymphocytes # (auto) 1.93 K/uL (1.2-3.4); Lymphocytes % (auto) 29.1 %; Mean Corpuscular Hemoglobin 31.5 pg (25-34); Mean Corpuscular Hgb Conc 35.7 g/dL (32-36); Mean Corpuscular Volume 88.5 fL (80-100); Mean Platelet Volume 10.1 fL (7.4-10.4); Monocytes # (auto) 0.21 K/uL (0.11-0.59); Monocytes % (auto) 3.2 %; Neutrophils # (auto) 4.05 K/uL (1.4-6.5); Platelet Count 340 K/uL (130-400); RDW Coefficient of Variation 13.1 % (11.5-14.5); RDW Standard Deviation 42.6 fL (36.4-46.3); Red Blood Count 3.55 M/uL (4.2-5.4); White Blood Count 6.63 K/uL (4.8-10.8)
[2020-10-31 15:12] LABS: Alanine Aminotransferase 88 U/L (12-78); Albumin Level 4.1 gm/dl (3.4-5.0); Aspartate Aminotransferase 174 U/L (15-37); BUN Creatinine Ratio 12.5 (10-20); Blood Urea Nitrogen 11 mg/dl (7-18); Calcium 9.8 mg/dl (8.5-10.1); Carbon Dioxide 30 mmol/L (21-32); Chloride 92 mmol/L (98-107); Creatinine Clr Calc Pharmacy 54.9 ml/min; Est GFR (African American) 95.9; Est GFR (Non-African American) 82.7; Glucose 103 mg/dl (70-99); Magnesium 1.6 mg/dl (1.8-2.4); Partial Thromboplastin Ratio 1.1; Partial Thromboplastin Time 29.3 Seconds (21.0-31.0); Potassium 3.3 mmol/L (3.5-5.1); Prothrombin Time 10.3 Seconds (9.0-12.0); Sodium 128 mmol/L (136-145)
[2020-10-31 15:22] LABS: Albumin Globulin Ratio 1.1 (0.9-2); Alkaline Phosphatase 107 U/L (45-117); Bilirubin,Total 0.4 mg/dl (0.2-1); Globulin 3.7 gm/dl (2.5-4.0); Total Protein 7.8 gm/dl (6.4-8.2); Troponin I < 0.015 ng/ml (0-0.045)
--- NOTE | 2020-10-31 15:40 | CT Scan Report ---
CT head/brain wo con CLINICAL HISTORY: weakness DIFFICULTY AMBULATING. COMPARISON STUDY: 02/08/2020 TECHNIQUE: Axial CT of the brain is performed from the vertex to the skull base. IV contrast was not administered for this examination. A dose lowering technique was utilized adhering to the principles of ALARA. CT DOSE: 537.48 mGy.cm FINDINGS: The study is mildly compromised due to motion artifact. There are stable basal ganglia and cerebellar calcifications. This a nonspecific finding which can be seen in Fahr syndrome area There is right te mporal encephalomalacia. There are mixed attenuation bilateral subdural hematomas measuring approxima tely 1 cm bilaterally. There is an old 1 cm deep white matter left frontal infarct. There are patchy white matter hypodensities likely on a small vessel basis. There is no evidence of pathologic ventricular dilatation. There is a chronic right mastoid effusion. There is an old right parietal skull fracture. The study is mildly motion compromised IMPRESSION: 1. Bilateral mixed attenuation subdural hematomas similar to the preceding study 2. No change in the appearance of the nondepressed right parietal skull fracture 3. 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 4. Stable right temporal lobe encephalomalacia 5. Stable basal ganglia and cerebellar calcifications 6. Chronic right mastoid effusion ACT 112: Negative or not required by law. Electronically signed by: Manolo Francois M.D. 10/31/2020 3:39 PM
[2020-10-31] MEDS: MAGNESIUM SULFATE / D5W 1 GM/100 ML BAG IV SCH ×3 (15:49→23:13)
--- NOTE | 2020-10-31 16:20 | XRay Report ---
SINGLE VIEW CHEST CLINICAL HISTORY: Generalized weakness. FINDINGS: An AP, portable, upright chest radiograph is compared to study dated 05/12/2020. The cardiome diastinal silhouette is unremarkable noting atherosclerotic calcification of the thoracic aorta. Ther e are low lung volumes with bibasilar atelectasis. No airspace consolidation or large pleural effusio n is identified. No pneumothorax is seen. There are healed right-sided rib fractures. Cholecystectomy clips are noted in the right upper quadrant. IMPRESSION: No active disease in the chest. ACT 112: Negative or not required by law. Electronically signed by: Peng Escobar M.D. 10/31/2020 4:19 PM
--- NOTE | 2020-10-31 16:59 | Electrocardiogram Report ---
Test Reason : Blood Pressure : / mmHG Vent. Rate : 091 BPM Atrial Rate : 091 BPM P-R Int : 150 ms QRS Dur : 074 ms QT Int : 366 ms P-R-T Axes : 043 021 026 degrees QTc Int : 450 ms Poor data quality, interpretation may be adversely affected Normal sinus rhythm Normal ECG When compared with ECG of 12-MAY-2020 13:42, No significant change was found Confirmed by Shaheed Flanagan ([id number]) on 10/31/2020 4:58:57 PM Referred By: Randy Begum Confirmed By:Oleg Flanagan
--- NOTE | 2020-10-31 17:35 | History & Physical Report ---
Date of Service October 31, 2020 Assessment & Plan (1) Dehydration: Chronically poor PO intake. Recent antibiotic course for a UTI, last dose today and mom reports 3 episodes of loose stools today. Screen for c-diff if diarrhea continues as this is higher risk with recent cefuroxime use. Patient denies any nausea. No further UTI symptoms per patient. IVF overnight. She reports being hungry-encourage PO intake. (2) Acute hyponatremia: Hypovolemic, hypotonic hyponatremia likely related to dehydration from poor PO intake and recent infection. IVF overnight with close monitoring. (3) Weakness: Expect this to improve with fluids and lyte replacement. PT/OT ordered. (4) Electrolyte abnormality: Hypomagnesemia and Hypokalemia in addition to low sodium above. This is consistent with her picture of dehydration and some loose stools reported today. Replete and repeat in am. (5) Transaminitis: Recently stopped Lopid last week and also used cefuroxime which can cause elevated LFTs. She is off these now. Expect this to improve. (6) Heart murmur: known per history (7) Cognitive developmental delay: chronic post operative state since childhood. (8) Hypothyroidism: Cont Synthroid per home regimen. (9) DVT prophylaxis: Heparin Full Code Dispo-inpatient stay to correct electrolytes and help her convalesce after correcting her dehydration. Monitor for further diarrhea and encourage PO intake. Moisture Conditioner Operator to perform calorie assessments to better identify what she may be lacking. Eri Arreola DO [place] [facility]ist History of Present Illness Chief Complaint: fatigue, lethargy Primary Care Provider: Randy Begum This is a 40yo F with a PMH of childhood astrocytoma s/p resection, chronic hyponatremia, epilepsy, history of subdural hemorrhage and skull fracture after fall in 2019 presenting with weakness, dehydration and concern for low sodium. History primarily obtained from patient's mother Bonnie at bedside due to patient's cognitive status. Patient recently completed 7-day course of cefuroxime for UTI. Took last dose of antibiotic this morning. Has been having decreased urinary output and incontinence for the past 3 weeks, which is not her baseline. Over the past few days, patient has seemed listless with more significant staggering with walking (has some abnormality to gait at baseline). Has also noticed more pronounced swelling of face over the past 2 days than usual. Patient taking all medications as prescribed, including sodium chloride pills twice a day. Recently underwent hematology work-up for abnormal CBC and immune sure granulocytes with Dr. Crocker. Peripheral blood smear from 10/25/20 with few myelocytes that are likely reactive. No blasts. Red cells normocytic and normochromic without anemia. Recent CBC from 10/23/20 with sodium of 141. Allergies Allergy/AdvReac Type Severity Reaction Status Date / Time phenobarbital Allergy Mild . Verified 10/31/20 14:51 omeprazole AdvReac Unknown red face Verified 10/31/20 14:51 Home Medications Medication Instructions Recorded Confirmed Type lamotrigine 150 mg PO Q12H 04/22/19 10/31/20 History levothyroxine 37.5 mcg PO QAM 04/22/19 10/31/20 History magnesium oxide 400 mg PO BID 04/22/19 10/31/20 History megestrol 20 mg PO QAM 02/08/20 10/31/20 History polysaccharide iron complex 150 mg PO HS 02/08/20 10/31/20 History [iFerex 150] cefuroxime axetil 250 mg PO BID 10/31/20 10/31/20 History sennosides [Senna Lax] 8.6 mg PO DAILY PRN 10/31/20 10/31/20 History sodium chloride 1 g PO BID 10/31/20 10/31/20 History Past Med/Surg History Medical History (Updated 10/31/20 @ 21:11 by Eri Arreola, ) Brain tumor Cognitive developmental delay H/O astrocytoma Laceration of trachea Seizure disorder Surgical History H/O brain surgery History of umbilical hernia repair S/P cholecystectomy Family History Mother Diabetes Grandfather (Paternal) Coronary heart disease Uncle Coronary heart disease Social History Smoking Status: Never smoker Hx Alcohol Use: No Hx Substance Use: No Preferred Language: Azeri Communication Ability: Effective Hearing Ability: Normal Cadd Drafter Required: No Beliefs That Will Affect Care: None marital status: Single Current Living Situation: Parent and Family Other Information That Helps Us Care for You: No Feels Safe at Home: Yes Safety Concerns: Feels Safe At This Time Assistive Devices: Denture - Upper, Denture - Lower, Walker and Wheelchair Review of Systems Review of Systems: At least ten systems reviewed and negative except as noted in the HPI. Physical Exam Physical Exam: General Appearance: WD/WN, vitals as above, NAD, sitting up in bed, pleasant, appears younger than stated age Head: normocephalic, atraumatic, + symmetric facial edema Eyes: normal inspection, PERRL, conjunctivae normal, anicteric sclerae ENT: external ear and nose normal, oropharynx normal, dentures in place Neck: normal visual inspection, trachea midline, no thyromegaly Respiratory: normal respiratory effort, lungs clear to auscultation, no wheeze, rales, rhonchi. No accessory muscle use Cardiovascular: regular rate, rhythm, + systolic murmur, normal peripheral pulses, trace BLE edema. Vessels: no JVD Chest: normal inspection of chest Abdomen/GI: normal bowel sounds, soft, nontender, no hepatosplenomegaly Extremities/Musculoskeletal: no cyanosis or clubbing, extremities motor strength 5/5 Neurologic: PERRL, EOMI, accommodation nl, no face palsy, no dysarthria, CN's II-XI intact bilaterally and moves all extremities Psychiatric: A+Ox3, euthymic affect Skin: no rashes, normal color, warm/dry Results & Data Results & Data ([facility]) Vital Signs (Past 12 Hours) Vital Signs Temp Pulse Resp BP Pulse Ox 10/31/20 16:00 83 19 148/69 H 100 10/31/20 15:43 101 H 22 144/81 H 100 10/31/20 14:05 98 10/31/20 13:44 94 H 21 152/74 H 99 10/31/20 13:19 36.3 C L 66 16 137/61 97 Laboratory Results Short CBC 10/31/20 Range/Units 14:29 WBC 6.63 (4.8-10.8) K/uL Hgb 11.2 L (12.0-16.0) g/dL Hct 31.4 L (37-47) % Plt Count 340 (130-400) K/uL BMP 10/31/20 14:29 Sodium 128 L Potassium 3.3 L Chloride 92 L Carbon Dioxide 30 BUN 11 Creatinine 0.87 Glucose 103 H Calcium 9.8 Cardiac Enzymes 10/31/20 Range/Units 14:29 Troponin I < 0.015 (0-0.045) ng/ml Liver Function 10/31/20 Range/Units 14:29 Total Bilirubin 0.4 (0.2-1) mg/dl AST 174 H (15-37) U/L ALT 88 H (12-78) U/L Alkaline Phosphatase 107 (45-117) U/L Albumin 4.1 (3.4-5.0) gm/dl Urine 10/31/20 Range/Units 14:29 Urine Color Yellow Urine Appearance Clear (Clear) Urine pH >= 9.0 H (4.5-7.5) Ur Specific [place] 1.018 (1.000-1.030) Urine Protein Negative (Negative) Urine Glucose (UA) Negative (Negative) Diagnostic Findings Head CT: IMPRESSION: 1. Bilateral mixed attenuation subdural hematomas similar to the preceding study 2. No change in the appearance of the nondepressed right parietal skull fracture 3. 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 4. Stable right temporal lobe encephalomalacia 5. Stable basal ganglia and cerebellar calcifications 6. Chronic right mastoid effusion CXR: IMPRESSION: No active disease in the chest.
[2020-10-31] MEDS ORDERED: POTASSIUM CHLORIDE CRTAB 20 MEQ TABCR PO STA ×2 (17:59→19:16)
[2020-10-31] MEDS ORDERED: SENNA 8.6 MG TAB PO PRN (18:13)
[2020-10-31] MEDS ORDERED: PROMETHAZINE 12.5 MG/50.5 ML BAG IV STA (18:36)
[2020-10-31] MEDS ORDERED: POTASSIUM CHLORIDE PWD 20 MEQ PACK PO ONE (18:45)
[2020-10-31] MEDS ORDERED: ONDANSETRON INJ 2 MG/ML 2 ML VIAL IV PRN (21:52)
[2020-10-31] MEDS ORDERED: ACETAMINOPHEN 325 MG TAB PO PRN (21:52)
[2020-10-31] MEDS ORDERED: POLYETHYLENE (MIRALAX) 17 GM PACK PO PRN (21:52)
[2020-10-31] MEDS ORDERED: ONDANSETRON INJ 2 MG/ML 2 ML VIAL IV ONE (21:52)
[2020-10-31] MEDS: SODIUM CHLORIDE 0.9% 1000ML 1,000 ML IV SCH (22:02)
[2020-10-31] MEDS: lamoTRIgine 100 MG TAB PO SCH (22:03)
[2020-10-31] MEDS: lamoTRIgine 25 MG TAB PO SCH (22:04)
[2020-10-31] MEDS: MAGNESIUM OXIDE 400 MG TAB PO SCH (22:05)
[2020-10-31 22:48] LABS: BUN Creatinine Ratio 11.9 (10-20); Calcium 9.2 mg/dl (8.5-10.1); Creatinine Clr Calc Pharmacy 71.6 ml/min; Est GFR (African American) 116.6; Est GFR (Non-African American) 100.6; Potassium 3.7 mmol/L (3.5-5.1)
[2020-10-31] MEDS: HEPARIN SOD 5,000 UNIT/0.5 ML VIAL SQ SCH (23:35)
[2020-10-31] MEDS: IRON POLYSACCHARIDE COMPLEX 150 MG CAPSULE PO SCH (23:35)
[2020-11-01] MEDS: MAGNESIUM SULFATE / D5W 1 GM/100 ML BAG IV SCH (01:20)
[2020-11-01] MEDS: LEVOTHYROXINE SODIUM 25 MCG TABLET PO SCH (05:36)
[2020-11-01 07:33] LABS: Basophils # (auto) 0.03 K/uL (0-0.2); Basophils % (auto) 0.4 %; Eosinophils % (auto) 4.5 %; Hemoglobin 10.3 g/dL (12.0-16.0); Immature Granulocytes % (auto) 1.5 %; Lymphocytes # (auto) 1.69 K/uL (1.2-3.4); Lymphocytes % (auto) 25.3 %; Mean Corpuscular Hemoglobin 31.1 pg (25-34); Mean Corpuscular Hgb Conc 35.5 g/dL (32-36); Mean Corpuscular Volume 87.6 fL (80-100); Mean Platelet Volume 9.8 fL (7.4-10.4); Monocytes # (auto) 0.35 K/uL (0.11-0.59); Monocytes % (auto) 5.2 %; Neutrophils # (auto) 4.22 K/uL (1.4-6.5); Neutrophils % (auto) 63.1 %; Platelet Count 344 K/uL (130-400); RDW Coefficient of Variation 13.3 % (11.5-14.5); RDW Standard Deviation 43.2 fL (36.4-46.3); Red Blood Count 3.31 M/uL (4.2-5.4); White Blood Count 6.69 K/uL (4.8-10.8)
[2020-11-01 07:58] LABS: Albumin Level 3.5 gm/dl (3.4-5.0); BUN Creatinine Ratio 9.6 (10-20); Calcium 8.9 mg/dl (8.5-10.1); Est GFR (African American) 106.1; Est GFR (Non-African American) 91.6; Magnesium 2.9 mg/dl (1.8-2.4); Potassium 3.4 mmol/L (3.5-5.1)
[2020-11-01 08:01] LABS: Albumin Globulin Ratio 1.1 (0.9-2); Bilirubin,Total 0.4 mg/dl (0.2-1); Globulin 3.2 gm/dl (2.5-4.0); Total Protein 6.7 gm/dl (6.4-8.2)
[2020-11-01] MEDS: lamoTRIgine 100 MG TAB PO SCH ×2 (08:12→20:59)
[2020-11-01] MEDS: lamoTRIgine 25 MG TAB PO SCH ×2 (08:12→20:58)
[2020-11-01] MEDS: MAGNESIUM OXIDE 400 MG TAB PO SCH ×2 (08:13→20:59)
[2020-11-01] MEDS: HEPARIN SOD 5,000 UNIT/0.5 ML VIAL SQ SCH ×2 (08:14→20:57)
[2020-11-01] MEDS: SODIUM CHLORIDE 0.9% 1000ML 1,000 ML IV SCH ×2 (09:11→22:31)
[2020-11-01] MEDS: MEGESTROL ACETATE 40 MG TAB PO SCH (12:55)
[2020-11-01] MEDS: SODIUM CHLORIDE 1 GM TABLET PO SCH ×2 (12:55→20:58)
--- NOTE | 2020-11-01 18:04 | Hospitalist Progress Note ---
Date of Service November 01, 2020 Assessment & Plan (1) Dehydration: Chronically poor PO intake. Recently completed antibiotic course for UTI, no further urinary symptoms. Still with some loose stools but not jeff diarrhea. Patient denies any nausea. cont IVF, encourage PO intake. (2) Acute hyponatremia: Hypovolemic, hypotonic hyponatremia likely related to dehydration from poor PO intake and recent infection. Cont IVF, restart home salt tabs. (3) Weakness: Expect this to improve with fluids and lyte replacement. PT/OT ordered. (4) Electrolyte abnormality: Improved with replacement. BMP in am. (5) Transaminitis: Recently stopped Lopid last week and also used cefuroxime which can cause elevated LFTs. She is off these now. Expect this to improve. (6) Heart murmur: known per history (7) Cognitive developmental delay: chronic post operative state since childhood. (8) Hypothyroidism: Cont Synthroid per home regimen. (9) DVT prophylaxis: Heparin Full Code Dispo-to home in next few days Eri Arreola DO [facility] Hospitalist Admission and Anticipated Discharge Date Admission Date: October 31, 2020 Subjective 40 yo F presented with fatigue and dehydration Eliane is fatigued and sleepy today, reporting that she hasn't had much sleep overnight Mom corroborates that she hasn't slept much in recent days and she knows she needs the sleep She is eating but not much. She is denying nausea and reports overall feeling better today. Review of Systems Review of Systems: All systems reviewed & are unremarkable except as noted in Subjective Physical Exam Physical Exam: CONSTITUTIONAL: WNWD, vitals as above, generally well-a ppearing EYES: normal conjunctivae, no scleral icterus ENT: external ear and nose normal, oropharynx clear, MMM RESPIRATORY: clear to auscultation bilaterally, no crackles, rales or wheezes, normal respiratory effort CARDIOVASCULAR: regular rate and rhythm, S1 and 2 heard without murmurs, gallops or rubs, no JVD, no peripheral edema GASTROINTESTINAL: soft, nontender, nondistended, no guarding MUSCULOSKELETAL: generalized weakness, head is normocephalic and atraumatic, SKIN: warm and dry NEUROLOGIC: CN 2-12 grossly intact, no sensory deficit, normal cognition, normal speech, no tremor. No gross focal deficits. PSYCHIATRIC: alert cooperative and oriented to person, place and time. Results & Data Results & Data ([facility]) Vital Signs (Past 12 Hours) Vital Signs Temp Pulse Pulse Resp BP Pulse Ox 11/01/20 17:20 80 11/01/20 15:20 37.1 C 86 18 106/71 95 11/01/20 14:47 78 11/01/20 07:00 36.8 C 79 20 122/77 99 Laboratory Results Short CBC 11/01/20 Range/Units 06:34 WBC 6.69 (4.8-10.8) K/uL Hgb 10.3 L (12.0-16.0) g/dL Hct 29.0 L (37-47) % Plt Count 344 (130-400) K/uL BMP 10/31/20 11/01/20 22:13 06:34 Sodium 128 L 128 L Potassium 3.7 3.4 L Chloride 94 L 93 L Carbon Dioxide 24 27 BUN 9 8 Creatinine 0.74 0.80 Glucose 94 84 Calcium 9.2 8.9 Liver Function 11/01/20 Range/Units 06:34 Total Bilirubin 0.4 (0.2-1) mg/dl AST 165 H (15-37) U/L ALT 80 H (12-78) U/L Alkaline Phosphatase 104 (45-117) U/L Albumin 3.5 (3.4-5.0) gm/dl Medications Administered Current Inpatient Medications Acetaminophen (Acetaminophen 325 Mg Tab) 650 mg PO Q4H PRN PRN Reason: Pain or Fever Stop: 11/30/20 21:51 Heparin Sodium (Porcine) (Heparin Sod 5,000 Unit/0.5 Ml Vial) 5,000 units SQ BID GABI Stop: 11/30/20 21:51 Last Admin: 11/01/20 08:14 Dose: 5,000 units Documented by: Sodium Chloride (Nss 1000ml) 1,000 mls @ 80 mls/hr IV .[id number] GABI Stop: 11/30/20 20:59 Last Admin: 11/01/20 09:11 Dose: 80 mls/hr Documented by: Lamotrigine (Lamotrigine 100 Mg Tab) 100 mg PO Q12 GABI Stop: 11/30/20 20:59 Last Admin: 11/01/20 08:12 Dose: 100 mg Documented by: Lamotrigine (Lamotrigine 25 Mg Tab) 50 mg PO Q12 GABI Stop: 11/30/20 20:59 Last Admin: 11/01/20 08:12 Dose: 50 mg Documented by: Levothyroxine Sodium (Levothyroxine Sodium 25 Mcg Tablet) 37.5 mcg PO DAILYBB GABI Stop: 12/01/20 06:29 Last Admin: 11/01/20 05:36 Dose: 37.5 mcg Documented by: Magnesium Oxide (Magnesium Oxide 400 Mg Tab) 400 mg PO BID GABI Stop: 11/30/20 20:59 Last Admin: 11/01/20 08:13 Dose: 400 mg Documented by: Megestrol Acetate (Megestrol Acetate 40 Mg Tab) 20 mg PO QAM [facility] Stop: 12/01/20 11:59 Last Admin: 11/01/20 12:55 Dose: 20 mg Documented by: Ondansetron HCl (Ondansetron Inj 2 Mg/Ml 2 Ml Vial) 4 mg IV Q6H PRN PRN Reason: Nausea Stop: 11/30/20 21:51 Polyethylene Glycol (Polyethylene (Miralax) 17 Gm Pack) 17 gm PO DAILY PRN PRN Reason: Constipation Stop: 11/30/20 21:51 Polysaccharide Iron Complex (Iron Polysaccharide Complex 150 Mg Capsule) 150 mg PO HS [facility] Stop: 11/30/20 20:59 Last Admin: 10/31/20 23:35 Dose: 150 mg Documented by: Sennosides (Senna 8.6 Mg Tab) 8.6 mg PO DAILY PRN PRN Reason: Constipation Stop: 11/30/20 18:12 Sodium Chloride (Sodium Chloride 1 Gm Tablet) 1 gm PO BID [facility] Stop: 12/01/20 11:59 Last Admin: 11/01/20 12:55 Dose: 1 gm Documented by:
[2020-11-01 19:25] LABS: Calcium 8.2 mg/dl (8.5-10.1); Creatinine Clr Calc Pharmacy 61.6 ml/min; Est GFR (African American) 95.9; Est GFR (Non-African American) 82.7; Potassium 3.4 mmol/L (3.5-5.1)
[2020-11-01] MEDS: IRON POLYSACCHARIDE COMPLEX 150 MG CAPSULE PO SCH (20:59)
[2020-11-02] MEDS: LEVOTHYROXINE SODIUM 25 MCG TABLET PO SCH (05:56)
[2020-11-02 06:15] LABS: BUN Creatinine Ratio 7.6 (10-20); Calcium 8.1 mg/dl (8.5-10.1); Creatinine Clr Calc Pharmacy 65.7 ml/min; Est GFR (African American) 101.5; Est GFR (Non-African American) 87.6; Potassium 4.6 mmol/L (3.5-5.1)
[2020-11-02] MEDS: SODIUM CHLORIDE 0.9% 1000ML 1,000 ML IV SCH (08:16)
[2020-11-02] MEDS: lamoTRIgine 100 MG TAB PO SCH ×2 (08:17→20:16)
[2020-11-02] MEDS: HEPARIN SOD 5,000 UNIT/0.5 ML VIAL SQ SCH ×2 (08:17→20:16)
[2020-11-02] MEDS: lamoTRIgine 25 MG TAB PO SCH ×2 (08:17→20:17)
[2020-11-02] MEDS: SODIUM CHLORIDE 1 GM TABLET PO SCH ×2 (08:17→20:18)
[2020-11-02] MEDS: MAGNESIUM OXIDE 400 MG TAB PO SCH ×2 (08:17→20:17)
[2020-11-02] MEDS: MEGESTROL ACETATE 40 MG TAB PO SCH (08:17)
--- NOTE | 2020-11-02 08:59 | Hospitalist Progress Note ---
Date of Service November 02, 2020 Assessment & Plan (1) Dehydration: Appears to be rescheduled. Chronically poor PO intake. Recently completed antibiotic course for UTI, no further urinary symptoms. Still with some loose stools. Checking cdiff and stool culture (2) Acute hyponatremia: Hypovolemic, hypotonic hyponatremia likely related to dehydration from poor PO intake and recent infection. Cont IVF, restart home salt tabs. (3) Weakness: resolved. She ambulated independently around the roldan with PT this morning. (4) Electrolyte abnormality: Repleted. (5) Transaminitis: Recently stopped Lopid last week and also used cefuroxime which can cause elevated LFTs. She is off these now. Expect this to improve. Would recheck as outpatient. (6) Heart murmur: known per history (7) Cognitive developmental delay: chronic post operative state since childhood. (8) Hypothyroidism: Cont Synthroid per home regimen. (9) DVT prophylaxis: Heparin Full Code Dispo-as long as cdiff is negative and diarrhea is not profuse putting her at continued risk for severe dehydration with her tendency to poor PO intake, she can go home today. Will await stool studies and continue to watch for diarrhea trend. Eri [facility] and Anticipated Discharge Date Admission Date: October 31, 2020 Subjective 40 yo F presented with fatigue and dehydration Eliane is sitting in her chair at bedside and is upset about not having her bed made because she is tired and wants to lay down. She appears brighter today but she is very focused on getting back into bed Her answers to questions continue to go back to that. Nurse reports frequent loose BMs this morning Review of Systems Review of Systems: All systems reviewed & are unremarkable except as noted in Subjective Physical Exam Physical Exam: CONSTITUTIONAL: WNWD, vitals as above, generally well- appearing EYES: normal conjunctivae, no scleral icterus ENT: external ear and nose normal, oropharynx clear, MMM RESPIRATORY: clear to auscultation bilaterally, no crackles, rales or wheezes, normal respiratory effort CARDIOVASCULAR: regular rate and rhythm, S1 and 2 heard, 3/6 DREA, gallops or rubs, no JVD, no peripheral edema GASTROINTESTINAL: soft, nontender, nondistended, no guarding MUSCULOSKELETAL: generalized weakness, head is normocephalic and atraumatic SKIN: warm and dry NEUROLOGIC: CN 2-12 grossly intact, no sensory deficit, normal cognition, n ormal speech, no tremor. No gross focal deficits. PSYCHIATRIC: alert cooperative and oriented to person, place and time. Results & Data Results & Data ([facility]) Vital Signs (Past 12 Hours) Vital Signs Temp Pulse Pulse Resp BP Pulse Ox 11/02/20 07:00 37 C 78 20 131/77 95 11/02/20 04:00 37.5 C 81 18 135/80 96 11/02/20 00:00 83 11/01/20 23:00 37.5 C 89 18 142/85 H 96 Laboratory Results BMP 11/01/20 11/02/20 18:40 05:25 Sodium 129 L 135 L Potassium 3.4 L 4.6 D Chloride 97 L 105 Carbon Dioxide 25 25 BUN 9 6 L Creatinine 0.87 0.83 Glucose 135 H 88 Calcium 8.2 L 8.1 L Medications Administered Current Inpatient Medications Acetaminophen (Acetaminophen 325 Mg Tab) 650 mg PO Q4H PRN PRN Reason: Pain or Fever Stop: 11/30/20 21:51 Heparin Sodium (Porcine) (Heparin Sod 5,000 Unit/0.5 Ml Vial) 5,000 units SQ BID GABI Stop: 11/30/20 21:51 Last Admin: 11/02/20 08:17 Dose: 5,000 units Documented by: Sodium Chloride (Nss 1000ml) 1,000 mls @ 80 mls/hr IV .[id number] GABI Stop: 11/30/20 20:59 Last Admin: 11/02/20 08:16 Dose: 80 mls/hr Documented by: Lamotrigine (Lamotrigine 100 Mg Tab) 100 mg PO Q12 GABI Stop: 11/30/20 20:59 Last Admin: 11/02/20 08:17 Dose: 100 mg Documented by: Lamotrigine (Lamotrigine 25 Mg Tab) 50 mg PO Q12 GABI Stop: 11/30/20 20:59 Last Admin: 11/02/20 08:17 Dose: 50 mg Documented by: Levothyroxine Sodium (Levothyroxine Sodium 25 Mcg Tablet) 37.5 mcg PO DAILYBB [facility] Stop: 12/01/20 06:29 Last Admin: 11/02/20 05:56 Dose: 37.5 mcg Documented by: Magnesium Oxide (Magnesium Oxide 400 Mg Tab) 400 mg PO BID GABI Stop: 11/30/20 20:59 Last Admin: 11/02/20 08:17 Dose: 400 mg Documented by: Megestrol Acetate (Megestrol Acetate 40 Mg Tab) 20 mg PO QAM [facility]ABI Stop: 12/01/20 11:59 Last Admin: 11/02/20 08:17 Dose: 20 mg Documented by: Ondansetron HCl (Ondansetron Inj 2 Mg/Ml 2 Ml Vial) 4 mg IV Q6H PRN PRN Reason: Nausea Stop: 11/30/20 21:51 Polyethylene Glycol (Polyethylene (Miralax) 17 Gm Pack) 17 gm PO DAILY PRN PRN Reason: Constipation Stop: 11/30/20 21:51 Polysaccharide Iron Complex (Iron Polysaccharide Complex 150 Mg Capsule) 150 mg PO HS GABI Stop: 11/30/20 20:59 Last Admin: 11/01/20 20:59 Dose: 150 mg Documented by: Sennosides (Senna 8.6 Mg Tab) 8.6 mg PO DAILY PRN PRN Reason: Constipation Stop: 11/30/20 18:12 Sodium Chloride (Sodium Chloride 1 Gm Tablet) 1 gm PO BID GABI Stop: 12/01/20 11:59 Last Admin: 11/02/20 08:17 Dose: 1 gm Documented by:
[2020-11-02 12:47] LABS: Cdiff Antigen Positive
[2020-11-02 12:48] LABS: Cdiff Toxin A+B Positive Cdiff Toxin (Negative)
[2020-11-02] MEDS: VANCOMYCIN HCL 125 MG/2.5ML SOLN PO SCH ×2 (17:37→23:45)
[2020-11-02] MEDS: RASPBERRY SYRUP 5 ML UDP PO SCH ×2 (17:38→23:44)
[2020-11-02] MEDS: IRON POLYSACCHARIDE COMPLEX 150 MG CAPSULE PO SCH (20:18)
[2020-11-03] MEDS: VANCOMYCIN HCL 125 MG/2.5ML SOLN PO SCH ×4 (05:48→23:03)
[2020-11-03] MEDS: RASPBERRY SYRUP 5 ML UDP PO SCH ×4 (05:48→23:03)
[2020-11-03] MEDS: LEVOTHYROXINE SODIUM 25 MCG TABLET PO SCH (05:49)
[2020-11-03] MEDS: lamoTRIgine 100 MG TAB PO SCH ×2 (07:22→20:15)
[2020-11-03] MEDS: lamoTRIgine 25 MG TAB PO SCH ×2 (07:22→20:15)
[2020-11-03] MEDS: SODIUM CHLORIDE 1 GM TABLET PO SCH ×2 (07:23→20:15)
[2020-11-03] MEDS: MAGNESIUM OXIDE 400 MG TAB PO SCH ×2 (07:24→20:15)
[2020-11-03] MEDS: MEGESTROL ACETATE 40 MG TAB PO SCH (07:24)
[2020-11-03] MEDS: HEPARIN SOD 5,000 UNIT/0.5 ML VIAL SQ SCH ×2 (07:25→20:15)
[2020-11-03 09:23] LABS: BUN Creatinine Ratio 9.1 (10-20); Creatinine Clr Calc Pharmacy 54.5 ml/min; Est GFR (Non-African American) 69.9; Magnesium 1.8 mg/dl (1.8-2.4); Potassium 3.7 mmol/L (3.5-5.1)
--- NOTE | 2020-11-03 12:15 | Hospitalist Progress Note ---
Date of Service November 03, 2020 Assessment & Plan (1) C. difficile diarrhea: recent abx use. Diarrhea improved/resolved overnight with vancomycin started yesterday. Cont supportive care. (2) Dehydration: Appears to be rescheduled. Chronically poor PO intake. Recently completed antibiotic course for UTI, no further urinary symptoms. Found to be c-diff positive. Cont vancomycin started 11/02. Patient tolerating well and appears to be responding well to therapy. (3) Acute hyponatremia: Hypovolemic, hypotonic hyponatremia likely related to dehydration from poor PO intake and diarrhea. Intermittent IVF as needed for poor PO intake. (4) Weakness: resolved. She is ambulating independently. (5) Electrolyte abnormality: Repleted. Cont to monitor BMp with ongoing c-diff infection. (6) Transaminitis: Recently stopped Lopid last week and also used cefuroxime which can cause elevated LFTs. She is off these now. Expect this to improve. Would recheck as outpatient. (7) Heart murmur: known per history (8) Cognitive developmental delay: chronic post operative state since childhood. (9) Hypothyroidism: Cont Synthroid per home regimen. (10) DVT prophylaxis: Heparin Full Code Dispo-likely to home in am as long as diarrhea is still not present (seems to have resolved overnight) and electrolytes are stable. Eri Arreola DO [facility] Hospitalist Admission and Anticipated Discharge Date Admission Date: October 31, 2020 Subjective 40 yo F presented with fatigue and dehydration, found to have c-difficile diarrhea infection Pt tolerating vancomycin and diarrhea has subsided She is tolerating food better and appears to be improved She is reporting fatigue and is again focused on getting back into bed. I updated mother on her labwork and the plan at bedside. Review of Systems Review of Systems: All systems reviewed & are unremarkable except as noted in Subjective Physical Exam Physical Exam: CONSTITUTIONAL: WNWD, vitals as above, generally well- appearing EYES: normal conjunctivae, no scleral icterus ENT: external ear and nose normal, oropharynx clear, MMM RESPIRATORY: clear to auscultation bilaterally, no crackles, rales or wheezes, normal respiratory effort CARDIOVASCULAR: regular rate and rhythm, S1 and 2 heard, 3/6 DREA, gallops or rubs, no JVD, no peripheral edema GASTROINTESTINAL: soft, nontender, nondistended, no guarding MUSCULOSKELETAL: generalized weakness, head is normocephalic and atraumatic SKIN: warm and dry NEUROLOGIC: CN 2-12 grossly intact, no sensory deficit, normal cognition, normal speech, no tremor. No gross focal deficits. PSYCHIATRIC: alert cooperative and oriented to person, place and time. Results & Data Results & Data ([facility]) Vital Signs (Past 12 Hours) Vital Signs Temp Pulse Resp BP Pulse Ox 11/03/20 07:31 37.3 C 80 20 118/74 98 Laboratory Results [facility] 11/03/20 08:50 Sodium 132 L Potassium 3.7 D Chloride 100 Carbon Dioxide 26 BUN 9 Creatinine 1.00 Glucose 104 H Calcium 10.0 D Medications Administered Current Inpatient Medications Acetaminophen (Acetaminophen 325 Mg Tab) 650 mg PO Q4H PRN PRN Reason: Pain or Fever Stop: 11/30/20 21:51 Heparin Sodium (Porcine) (Heparin Sod 5,000 Unit/0.5 Ml Vial) 5,000 units SQ BID [facility]I Stop: 11/30/20 21:51 Last Admin: 11/03/20 07:25 Dose: 5,000 units Documented by: Lamotrigine (Lamotrigine 100 Mg Tab) 100 mg PO Q12 GABI Stop: 11/30/20 20:59 Last Admin: 11/03/20 07:22 Dose: 100 mg Documented by: Lamotrigine (Lamotrigine 25 Mg Tab) 50 mg PO Q12 [facility]I Stop: 11/30/20 20:59 Last Admin: 11/03/20 07:22 Dose: 50 mg Documented by: Levothyroxine Sodium (Levothyroxine Sodium 25 Mcg Tablet) 37.5 mcg PO DAILYBB [facility] Stop: 12/01/20 06:29 Last Admin: 11/03/20 05:49 Dose: 37.5 mcg Documented by: Magnesium Oxide (Magnesium Oxide 400 Mg Tab) 400 mg PO BID [facility]I Stop: 11/30/20 20:59 Last Admin: 11/03/20 07:24 Dose: 400 mg Documented by: Megestrol Acetate (Megestrol Acetate 40 Mg Tab) 20 mg PO QAM [facility]I Stop: 12/01/20 11:59 Last Admin: 11/03/20 07:24 Dose: 20 mg Documented by: Ondansetron HCl (Ondansetron Inj 2 Mg/Ml 2 Ml Vial) 4 mg IV Q6H PRN PRN Reason: Nausea Stop: 11/30/20 21:51 Polyethylene Glycol (Polyethylene (Miralax) 17 Gm Pack) 17 gm PO DAILY PRN PRN Reason: Constipation Stop: 11/30/20 21:51 Polysaccharide Iron Complex (Iron Polysaccharide Complex 150 Mg Capsule) 150 mg PO HS [facility] Stop: 11/30/20 20:59 Last Admin: 11/02/20 20:18 Dose: 150 mg Documented by: Raspberry (Raspberry Syrup 5 Ml Udp) 5 ml PO Q6 GABI Stop: 11/16/20 17:59 Last Admin: 11/03/20 05:48 Dose: 5 ml Documented by: Sennosides (Senna 8.6 Mg Tab) 8.6 mg PO DAILY PRN PRN Reason: Constipation Stop: 11/30/20 18:12 Sodium Chloride (Sodium Chloride 1 Gm Tablet) 1 gm PO BID [facility] Stop: 12/01/20 11:59 Last Admin: 11/03/20 07:23 Dose: 1 gm Documented by: Vancomycin HCl (Vancomycin Hcl 125 Mg/2.5ml Soln) 125 mg PO Q6 [facility]ABI Stop: 11/12/20 17:59 Last Admin: 11/03/20 05:48 Dose: 125 mg Documented by:
[2020-11-03] MEDS: IRON POLYSACCHARIDE COMPLEX 150 MG CAPSULE PO SCH (20:15)
[2020-11-04] MEDS: RASPBERRY SYRUP 5 ML UDP PO SCH ×4 (06:42→23:57)
[2020-11-04] MEDS: LEVOTHYROXINE SODIUM 25 MCG TABLET PO SCH (06:42)
[2020-11-04] MEDS: VANCOMYCIN HCL 125 MG/2.5ML SOLN PO SCH ×4 (06:42→23:57)
[2020-11-04] MEDS: HEPARIN SOD 5,000 UNIT/0.5 ML VIAL SQ SCH ×2 (08:08→20:45)
[2020-11-04] MEDS: MAGNESIUM OXIDE 400 MG TAB PO SCH ×2 (08:08→20:47)
[2020-11-04] MEDS: lamoTRIgine 25 MG TAB PO SCH ×2 (08:08→20:47)
[2020-11-04] MEDS: SODIUM CHLORIDE 1 GM TABLET PO SCH ×2 (08:08→20:49)
[2020-11-04] MEDS: lamoTRIgine 100 MG TAB PO SCH ×2 (08:08→20:46)
[2020-11-04] MEDS: MEGESTROL ACETATE 40 MG TAB PO SCH (08:08)
[2020-11-04 09:24] LABS: BUN Creatinine Ratio 11.8 (10-20); Calcium 9.5 mg/dl (8.5-10.1); Creatinine Clr Calc Pharmacy 59.9 ml/min; Est GFR (African American) 90.8; Est GFR (Non-African American) 78.4; Potassium 3.9 mmol/L (3.5-5.1)
--- NOTE | 2020-11-04 12:42 | Hospitalist Progress Note ---
Date of Service November 04, 2020 Assessment & Plan (1) C. difficile diarrhea: Did have recent antibiotic use. Continues to have diarrhea though at bedside. Hemodynamically doing okay appetite is improving with p.o. vancomycin. Continue with supportive management. Mother requesting to stay for 1 more day as she does not have any help available today. (2) Dehydration: Doing okay. Did have her breakfast today. Renal function at baseline and gap of 12, encouraged p.o. intake. (3) Acute hyponatremia: Resolved Milo secondary to decreased p.o. intake (4) Weakness: Resolved (5) Electrolyte abnormality: Resolved (6) Transaminitis: Recently stopped Lopid last week and also used cefuroxime which can cause elevated LFTs. She is off these now. Expect this to improve. Would recheck as outpatient. (7) Heart murmur: known per history (8) Cognitive developmental delay: chronic state since childhood. (9) Hypothyroidism: Cont Synthroid per home regimen. (10) DVT prophylaxis: Heparin full Code Mother does not have any help available today. Given ongoing diarrhea and mother situation, will keep her here for the night. Admission and Anticipated Discharge Date Admission Date: October 31, 2020 Subjective Patient is resting comfortably this morning. Just finished her breakfast. Mother is at bedside. She did have multiple bowel movements overnight. Does not appear to be in any distress. Admitted review of system given her mental status. Denies any chest pain, abdominal pain or any nausea and vomiting. Review of Systems Review of Systems: All systems reviewed & are unremarkable except as noted in HPI & below Physical Exam Physical Exam: General: Awake and alert, does not appear to be in any distress HENT: NCAT, MMM, EOMI Eyes: PERRLA Neck: Supple, normal range of motion CVS: normal rate and rhythm Resp: b/l breath sounds Abdomen: Soft, nontender Extremities: No c/c/e Neuro: Limited, patient is resting comfortably Skin: warm and dry, no rashes/lesions/errythema MSK: no joint swelling/erythema Results & Data Results & Data ([facility]) Vital Signs (Past 12 Hours) Vital Signs Temp Pulse Resp BP Pulse Ox 11/04/20 07:15 37.1 C 89 16 114/73 98
[2020-11-04] MEDS: IRON POLYSACCHARIDE COMPLEX 150 MG CAPSULE PO SCH (20:48)
[2020-11-05] MEDS: RASPBERRY SYRUP 5 ML UDP PO SCH ×2 (06:09→12:12)
[2020-11-05] MEDS: LEVOTHYROXINE SODIUM 25 MCG TABLET PO SCH (06:09)
[2020-11-05] MEDS: VANCOMYCIN HCL 125 MG/2.5ML SOLN PO SCH ×2 (06:09→12:12)
[2020-11-05 08:23] LABS: BUN Creatinine Ratio 16.9 (10-20); Calcium 9.5 mg/dl (8.5-10.1); Creatinine Clr Calc Pharmacy 53.5 ml/min; Est GFR (African American) 79.1; Est GFR (Non-African American) 68.3; Potassium 3.6 mmol/L (3.5-5.1)
[2020-11-05 08:26] LABS: Albumin Globulin Ratio 1.2 (0.9-2); Bilirubin,Total 0.5 mg/dl (0.2-1); Globulin 3.5 gm/dl (2.5-4.0); Total Protein 7.5 gm/dl (6.4-8.2)
[2020-11-05] MEDS: HEPARIN SOD 5,000 UNIT/0.5 ML VIAL SQ SCH (08:32)
[2020-11-05] MEDS: SODIUM CHLORIDE 1 GM TABLET PO SCH (08:33)
[2020-11-05] MEDS: lamoTRIgine 25 MG TAB PO SCH (08:33)
[2020-11-05] MEDS: MAGNESIUM OXIDE 400 MG TAB PO SCH (08:33)
[2020-11-05] MEDS: MEGESTROL ACETATE 40 MG TAB PO SCH (08:33)
[2020-11-05] MEDS: lamoTRIgine 100 MG TAB PO SCH (08:33)
--- NOTE | 2020-11-05 12:30 | Discharge Summary ---
Date of Service November 05, 2020 Admission HPI Per Admitting Provider This is a 40yo F with a PMH of childhood astrocytoma s/p resection, chronic hyponatremia, epilepsy, history of subdural hemorrhage and skull fracture after fall in 2019 presenting with weakness, dehydration and concern for low sodium. History primarily obtained from patient's mother Bonnie at bedside due to patient's cognitive status. Patient recently completed 7-day course of cefuroxime for UTI. Took last dose of antibiotic this morning. Has been having decreased urinary output and incontinence for the past 3 weeks, which is not her baseline. Over the past few days, patient has seemed listless with more signi ficant staggering with walking (has some abnormality to gait at baseline). Has also noticed more pronounced swelling of face over the past 2 days than usual. Patient taking all medications as prescribed, including sodium chloride pills twice a day. Recently underwent hematology work-up for abnormal CBC and immune sure granulocytes with Dr. Crocker. Peripheral blood smear from 10/25/20 with few myelocytes that are likely reactive. No blasts. Red cells normocytic and normochromic without anemia. Recent CBC from 10/23/20 with sodium of 141. Admission Exam Per Admitting Provider General Appearance: WD/WN, vitals as above, NAD, sitting up in bed, pleasant, appears younger than stated age Head: normocephalic, atraumatic, + symmetric facial edema Eyes: normal inspection, PERRL, conjunctivae normal, anicteric sclerae ENT: external ear and nose normal, oropharynx normal, dentures in place Neck: normal visual inspection, trachea midline, no thyromegaly Respiratory: normal respiratory effort, lungs clear to auscultation, no wheeze, rales, rhonchi. No accessory muscle use Cardiovascular: regular rate, rhythm, + systolic murmur, normal peripheral pulses, trace BLE edema. Vessels: no JVD Chest: normal inspection of chest Abdomen/GI: normal bowel sounds, soft, nontender, no hepatosplenomegaly Extremities/Musculoskeletal: no cyanosis or clubbing, extremities motor strength 5/5 Neurologic: PERRL, EOMI, accommodation nl, no face palsy, no dysarthria, CN's II-XI intact bilaterally and moves all extremities Psychiatric: A+Ox3, euthymic affect Skin: no rashes, normal color, warm/dry Principal Diagnosis c. diff acute hyponatremia Discharge Exam General: Awake and alert, does not appear to be in any distress HENT: NCAT, MMM, EOMI Eyes: PERRLA Neck: Supple, normal range of motion CVS: normal rate and rhythm Resp: b/l breath sounds Abdomen: Soft, nontender Extremities: No c/c/e Neuro: Limited, patient is resting comfortably Skin: warm and dry, no rashes/lesions/errythema MSK: no joint swelling/erythema Discharge Data Allergies Allergy/AdvReac Type Severity Reaction Status Date / Time phenobarbital Allergy Mild . Verified 10/31/20 14:51 omeprazole AdvReac Unknown red face Verified 10/31/20 14:51 Consultations 10/31/20 17:00 ED Decision to Admit Stat Ordered Studies 10/31/20 14:07 CT head/brain wo con Stat Hospital Course (1) C. difficile diarrhea: Presented with diarrhea in the setting of recent antibiotic use. Patient was found to be C. difficile positive. Patient started on vancomycin p.o. zulema ent was discharged on regimen to be completed for total of 14 days. Discharge patient was doing okay. Tolerating diet. Diarrhea improved. (2) Dehydration: Doing okay, good p.o. intake prior to discharge. (3) Acute hyponatremia: Resolved Milo secondary to decreased P.O. intake (4) Weakness: Resolved (5) Electrolyte abnormality: Resolved (6) Transaminitis: Recently stopped Lopid last week and also used cefuroxime which can cause elevated LFTs. Recommend CMP as an outpatient for follow-up. (7) Heart murmur: known per history (8) Cognitive developmental delay: chronic state since childhood. (9) Hypothyroidism: Cont Synthroid per home regimen. Total Time Total Time Spent Total Time Spent (In Minutes): 35 Discharge Plan Discharge Items Patient Disposition: Home - Home Health Services Reason For Visit: ELECTROLYTE ABN, THYROID ABD Discharge Diagnosis: c. Diff Condition on Discharge: Good Activity: Resume your previous activity Non-emergency contact: Primary Care Provider Call non-emergency contact if: your symptoms worsen Follow-up/Referrals: Randy Begum [Primary Care Provider] - 11/08/20 10:00 am (Appoint[facility] [place]. If you need to change the appointment, please call ) Diet: Regular Pending Studies at Discharge: No Stand-Alone Forms: My [facility], Smoking Cessation Medications and DC Order Prescriptions: New vancomycin 1,000 mg Recon Soln 125 mg PO Q6 Qty: 5 RF: 0 Continued lamotrigine 150 mg tablet 150 mg PO Q12H RF: 0 levothyroxine 25 mcg Tablet 37.5 mcg PO QAM RF: 0 magnesium oxide 400 mg magnesium Tablet 400 mg PO BID RF: 0 polysaccharide iron complex [iFerex 150] 150 mg iron capsule 150 mg PO HS RF: 0 megestrol 20 mg tablet 20 mg PO QAM RF: 0 sodium chloride 1 gram tablet 1 g PO BID RF: 0 sennosides [Senna Lax] 8.6 mg tablet 8.6 mg PO DAILY PRN (Reason: Constipation) RF: 0 Discontinued cefuroxime axetil 250 mg tablet 250 mg PO BID RF: 0 Discharge Orders: Discharge Order (Routine); Ordered 11/05/20 Ordered By: Nitza Alegre Admission Data Admit Date/Time: 10/31/20 17:49 Attending Provider: Nitza Alegre Admit Provider: Eri Arreola Primary Care Provider: Randy Begum Other Providers: Eri Arreola
== END 2020-11-05 13:30 | disposition home health service (06) ==
LOC: ED 13:05 → 2W 17:49 → SUATTDRO 17:49 → 2W 19:45

== ENCOUNTER 2020-12-26 00:30 | Inpatient (IN) ==
[2020-12-26] MEDS ORDERED: SODIUM CHLORIDE 0.9% 1000ML 1,000 ML IV ONE ×2 (00:42→10:11)
--- NOTE | 2020-12-26 01:02 | Emergency Department Note ---
Impression & Plan Fever ED Provider Note NAME: THOMAS MCLAIN AGE: 40 SEX: F ARRIVES VIA: Walk-In INFORMANT: Patient and patient's mother ED PROVIDER(S): Shilpi Allen DO CHIEF COMPLAINT: Weakness; urinary incontinence PLAN: Disposition: Admitted to the [facility] service Condition: Stable MEDICAL DECISION MAKING: This is a 40-year-old female patient who presents to the emergency department with weakness, ambulatory dysfunction and urinary incontinence. The patient was found to be tachycardic, tachypneic and febrile with an elevated D-dimer. We had difficulty obtaining IV access on this patient so we were unable to get a CT angiogram to rule out PE. There was no specific obvious source for the fever as the CT was negative for pulmonary consolidation and the urine was negative for infection. The patient had no significant signs of dehydration or hyponatremia as she does have a history of these. COVID-19 testing was negative. The patient does not complaining of any abdominal pain but we will need to rule out sepsis. Currently she has no significant leukocytosis and lactate was negative. [facility] for [facility] management. Triage Nursing notes reviewed and agree with them. Additional history obtained from mom who was at the bedside Prior medical records reviewed Vital Signs: reviewed and remarkable for tachycardia Differential diagnosis: UTI, dehydration, hyponatremia, anxiety, COVID-19, sepsis, pneumonia ER treatment provided: IV normal saline bolus Diagnostics interpreted by me: ECG: Sinus tachycardia at a rate of 127. There is no ST segment elevation or signs of ischemia. There is no ectopy. QTC is 427 ms. Cardiac Monitoring: Sinus tachycardia at 116 Laboratory studies: See below Radiographic studies: Chest x-ray: As interpreted by me-questionable opacities in the left lung with some hilar lymphadenopathy. No obvious pleural effusions or cardiomegaly. CT chest without contrast: As per stat rad -thoracic inlet, bilateral axilla, mediastinal and subhilar stations with no significant lymphadenopathy. Peripheral calcification of the aortic root. Upper abdomen: Mild diffuse fatty infiltration of liver. Status post cholecystectomy. Right posterior pleural plaque. Mild basilar atelectasis. Patent bilateral lung base calcifications HPI: 40/F arrives for evaluation of weakness and urinary incontinence. This is a 40-year-old female patient who presents to the emergency department with her mother for possible dehydration. The patient has an extensive history of dehydration, hyponatremia and UTIs. The family noticed she became increasingly weak throughout the day, seemed confused and mumbling and had some urinary incontinence. The mother states that she is not been drinking like she normally does. ROS: See above HPI for pertinent positives & negatives. A total of 10 systems reviewed and were otherwise negative. PAST MEDICAL HISTORY:See Below PAST SURGICAL HISTORY:See Below FAMILY HISTORY:See Below SOCIAL HISTORY:See Below HOME MEDICATIONS:See list ALLERGIES:See list VITALS:See Below PHYSICAL EXAMINATION: HEENT: Head - normocephalic and atraumatic Pupils are equal, round, and reactive to light. Extraocular eye muscles are intact, and sclera are anic teric. Nose - moist nasal mucosa without discharge. Mouth - moist buccal mucosa. Oropharynx is nonerythematous and there is no tonsillar exudate or edema noted. Neck: Supple; no JVD, nuchal rigidity, cervical lymphadenopathy. Heart: Tachycardic rate and regular. There is a normal S1 and S2 with no murmurs, clicks, or gallops appreciated. Lungs: Clear to auscultation bilaterally with no wheezes, rales, or rhonchi. Abdomen: Soft, completely nontender, nondistended, with good bowel sounds. Th ere are no palpable pulsatile masses or hepatosplenomegaly. There is no guarding, rigidity, or rebound noted. Extremities: No evidence of cyanosis, clubbing, or edema. There are easily palpable peripheral pulses. Skin: warm and dry with good turgor and no rashes. ED COURSE: Times/Reassessments: 0040: The patient was evaluated in room C9. A complete history and physical was performed. Previous electronic medical records were reviewed. An order was placed for continuous cardiac monitoring. The patient was in a sinus tachycardia at a rate of 116. An IV lock was initiated and labs were drawn as above. A twelve-lead EKG was obtained as described above. The patient was bolused with IV normal saline solution. She was catheterized for urine specimen and had a chest x-ray. She will go for CT scan of her chest. Unfortunately the patient's IV line blew and we were unable to get a CT angiogram to rule out PE. This patient was reevaluated on multiple occasions throughout her emergency department stay. Staff was able to get another small IV catheter and the patient to complete her IV normal saline bolus. She did spike a fever while here in the emergency department and was given oral Tylenol. A septic protocol was performed including blood cultures and a lactic acid. He remained tachycardic. A D-dimer was obtained and was significantly elevated. The patient will require lower extremity ultrasounds and further work-up to rule out a pulmonary embolus. [facility] and [facility] will [facility] for further management. Shilpi Allen, Past Med/Surg History Medical History Brain tumor Cognitive developmental delay Epilepsy H/O astrocytoma Hypothyroidism Laceration of trachea Seizure disorder Subdural hematoma Weakness Surgical History H/O brain surgery History of umbilical hernia repair S/P cholecystectomy Family History Mother Diabetes Grandfather (Paternal) Coronary heart disease Uncle Coronary heart disease Social History Smoking Status: Never smoker Hx Alcohol Use: No Hx Substance Use: No Preferred Language: Vietnamese Communication Ability: Impaired Communication Ability Comment: mother at bedside Hearing Ability: Normal [employer]er Required: No Beliefs That Will Affect Care: None marital status: Single Current Living Situation: Parent and Family Current Living Situation Comment: with mother and father How many Children do You have: 0 Other Information That Helps Us Care for You: No Feels Safe at Home: Yes Assistive Devices: Denture - Upper and Denture - Lower Allergies Allergies Allergy/AdvReac Type Severity Reaction Status Date / Time phenobarbital Allergy Mild Unknown Verified 12/26/20 00:57 omeprazole AdvReac Unknown red face Verified 12/26/20 00:57 Home Meds Home Medications Medication Instructions Recorded Confirmed lamotrigine 150 mg PO Q12H 04/22/19 12/26/20 levothyroxine 37.5 mcg PO QAM 04/22/19 12/26/20 megestrol 20 mg PO QAM 02/08/20 12/26/20 polysaccharide iron complex 150 mg PO DAILY 02/08/20 12/26/20 [iFerex 150] magnesium oxide 400 mg PO HS 12/02/20 12/26/20 furosemide 20 mg PO DAILY PRN 12/26/20 12/26/20 sodium chloride 1 g PO TID 12/26/20 12/26/20 Results & Data (ED) Vital Signs Vital Signs - 24 hr 12/26/20 02:45 12/26/20 03:00 12/26/20 03:21 Temperature Temperature Source Pulse Rate 129 H 125 H 110 H Pulse Rate from SpO2 Sensor 129 H 126 H Respiratory Rate 29 H 30 H Blood Pressure Blood Pressure Mean Pulse Oximetry 98 98 12/26/20 03:22 12/26/20 03:30 12/26/20 03:45 Temperature Temperature Source Pulse Rate 128 H 122 H 117 H Pulse Rate from SpO2 Sensor 127 H 122 H 117 H Respiratory Rate 29 H 33 H 31 H Blood Pressure 109/63 Blood Pressure Mean 78 Pulse Oximetry 98 98 97 12/26/20 04:00 12/26/20 04:15 12/26/20 04:23 Temperature 38.2 C H Temperature Source Oral Pulse Rate 118 H 119 H Pulse Rate from SpO2 Sensor 118 H 119 H Respiratory Rate 29 H 31 H Blood Pressure 118/63 Blood Pressure Mean 81 Pulse Oximetry 97 95 12/26/20 04:30 12/26/20 04:42 12/26/20 04:45 Temperature Temperature Source Pulse Rate 120 H 127 H 123 H Pulse Rate from SpO2 Sensor 120 H 128 H 125 H Respiratory Rate 30 H 29 H 32 H Blood Pressure 108/90 Blood Pressure Mean 96 Pulse Oximetry 96 98 97 12/26/20 05:00 12/26/20 05:11 12/26/20 05:15 Temperature Temperature Source Pulse Rate 120 H 120 H 117 H Pulse Rate from SpO2 Sensor 120 H 120 H 118 H Respiratory Rate 31 H 31 H 30 H Blood Pressure 104/63 Blood Pressure Mean 76 Pulse Oximetry 97 97 97 12/26/20 05:30 12/26/20 05:45 12/26/20 06:00 Temperature Temperature Source Pulse Rate 114 H 121 H 117 H Pulse Rate from SpO2 Sensor 114 H 121 H 117 H Respiratory Rate 30 H 22 30 H Blood Pressure 108/59 L Blood Pressure Mean 75 Pulse Oximetry 96 97 95 12/26/20 06:13 12/26/20 06:15 12/26/20 06:30 Temperature 37.5 C Temperature Source Oral Pulse Rate 113 H 116 H Pulse Rate from SpO2 Sensor 114 H 116 H Respiratory Rate 29 H 28 H Blood Pressure Blood Pressure Mean Pulse Oximetry 95 96 Laboratory Data Result diagrams: 12/26/20 01:21 12/26/20 02:59 Lab Results 12/26/20 12/26/20 12/26/20 Range/Units 01:20 01:21 01:21 WBC 9.67 (4.8-10.8) K/uL RBC 3.83 L (4.2-5.4) M/uL Hgb 12.0 (12.0-16.0) g/dL Hct 34.8 L (37-47) % MCV 90.9 (80-100) fL MCH 31.3 (25-34) pg MCHC 34.5 (32-36) g/dL RDW Std Deviation 48.0 H (36.4-46.3) fL RDW Coeff of [place] 14.4 (11.5-14.5) % Plt Count 283 (130-400) K/uL MPV 10.4 (7.4-10.4) fL Immature Gran % (Auto) 0.7 % Neut % (Auto) 82.1 % Lymph % (Auto) 11.4 % [place] % (Auto) 3.9 % Eos % (Auto) 1.6 % Baso % (Auto) 0.3 % Neut # (Auto) 7.94 H (1.4-6.5) K/uL Lymph # (Auto) 1.10 L (1.2-3.4) K/uL [place] # (Auto) 0.38 (0.11-0.59) K/uL Eos # (Auto) 0.15 (0-0.5) K/uL Baso # (Auto) 0.03 (0-0.2) K/uL Immature Gran # (Auto) 0.07 H (0.00-0.02) K/uL APTT (21.0-31.0) Seconds PTT Ratio D-Dimer (0-500) ug/L FEU Sodium 139 (136-145) mmol/L Potassium (3.5-5.1) mmol/L Chloride 106 (98-107) mmol/L Carbon Dioxide 29 (21-32) mmol/L Anion Gap 4.0 (3-11) BUN 13 (7-18) mg/dl Creatinine 0.90 (0.6-1.2) mg/dl Est Cr Clr Drug Dosing 53.1 ml/min Est GFR ( Amer) 92.0 Est GFR (Non-Af Amer) 79.4 BUN/Creatinine Ratio 14.9 (10-20) Glucose 122 H (70-99) mg/dl Lactate (0.4-2.0) mmol/L Calcium 8.9 (8.5-10.1) mg/dl Magnesium (1.8-2.4) mg/dl Total Bilirubin 0.8 (0.2-1) mg/dl AST (15-37) U/L ALT 77 (12-78) U/L Alkaline Phosphatase 182 H (45-117) U/L Total Protein 7.7 (6.4-8.2) gm/dl Albumin 3.8 (3.4-5.0) gm/dl Globulin 3.9 (2.5-4.0) gm/dl Albumin/Globulin Ratio 1.0 (0.9-2) Procalcitonin (0-0.5) ng/ml TSH 1.500 (0.300-4.500) uIu/ml Urine Color Yellow Urine Appearance Clear (Clear) Urine pH 5.0 (4.5-7.5) Ur Specific [place] 1.027 (1.000-1.030) Urine Protein Negative (Negative) Urine Glucose (UA) Negative (Negative) Urine Ketones Negative (Negative) Urine Blood Negative (Negative) Urine Nitrite Negative (Negative) Urine Bilirubin Negative (Negative) Urine Urobilinogen Negative (Negative) Ur Leukocyte Esterase Negative (Negative) Lyme Disease IgG Ab (Negative) Lyme Disease IgM Ab (Negative) COVID-19 Eval Order SARS-CoV-2 (PCR) (Negative) Influenza Type A (PCR) (Neg) Influenza Type B (PCR) (Neg) RSV (RT-PCR) (Neg) 12/26/20 12/26/20 12/26/20 Range/Units 02:59 03:00 03:00 WBC (4.8-10.8) K/uL RBC (4.2-5.4) M/uL Hgb (12.0-16.0) g/dL Hct (37-47) % MCV (80-100) fL MCH (25-34) pg MCHC (32-36) g/dL RDW Std Deviation (36.4-46.3) fL RDW Coeff of [place] (11.5-14.5) % Plt Count (130-400) K/uL MPV (7.4-10.4) fL Immature Gran % (Auto) % Neut % (Auto) % Lymph % (Auto) % [place] % (Auto) % Eos % (Auto) % Baso % (Auto) % Neut # (Auto) (1.4-6.5) K/uL Lymph # (Auto) (1.2-3.4) K/uL [place] # (Auto) (0.11-0.59) K/uL Eos # (Auto) (0-0.5) K/uL Baso # (Auto) (0-0.2) K/uL Immature Gran # (Auto) (0.00-0.02) K/uL APTT (21.0-31.0) Seconds PTT Ratio D-Dimer (0-500) ug/L FEU Sodium (136-145) mmol/L Potassium 3.8 (3.5-5.1) mmol/L Chloride (98-107) mmol/L Carbon Dioxide (21-32) mmol/L Anion Gap (3-11) BUN (7-18) mg/dl Creatinine (0.6-1.2) mg/dl Est Cr Clr Drug Dosing ml/min Est GFR ( Amer) Est GFR (Non-Af Amer) BUN/Creatinine Ratio (10-20) Glucose (70-99) mg/dl Lactate (0.4-2.0) mmol/L Calcium (8.5-10.1) mg/dl Magnesium (1.8-2.4) mg/dl Total Bilirubin (0.2-1) mg/dl AST 61 H (15-37) U/L ALT (12-78) U/L Alkaline Phosphatase (45-117) U/L Total Protein (6.4-8.2) gm/dl Albumin (3.4-5.0) gm/dl Globulin (2.5-4.0) gm/dl Albumin/Globulin Ratio (0.9-2) Procalcitonin (0-0.5) ng/ml TSH (0.300-4.500) uIu/ml Urine Color Urine Appearance (Clear) Urine pH (4.5-7.5) Ur Specific [place] (1.000-1.030) Urine Protein (Negative) Urine Glucose (UA) (Negative) Urine Ketones (Negative) Urine Blood (Negative) Urine Nitrite (Negative) Urine Bilirubin (Negative) Urine Urobilinogen (Negative) Ur Leukocyte Esterase (Negative) Lyme Disease IgG Ab (Negative) Lyme Disease IgM Ab (Negative) COVID-19 Eval Order CovFluRsv at [facility] SARS-CoV-2 (PCR) NEGATIVE (Negative) Influenza Type A (PCR) Negative (Neg) Influenza Type B (PCR) Negative (Neg) RSV (RT-PCR) Negative (Neg) 12/26/20 12/26/20 12/26/20 Range/Units 04:50 04:50 04:50 WBC (4.8-10.8) K/uL RBC (4.2-5.4) M/uL Hgb (12.0-16.0) g/dL Hct (37-47) % MCV (80-100) fL MCH (25-34) pg MCHC (32-36) g/dL RDW Std Deviation (36.4-46.3) fL RDW Coeff of [place] (11.5-14.5) % Plt Count (130-400) K/uL MPV (7.4-10.4) fL Immature Gran % (Auto) % Neut % (Auto) % Lymph % (Auto) % [place] % (Auto) % Eos % (Auto) % Baso % (Auto) % Neut # (Auto) (1.4-6.5) K/uL Lymph # (Auto) (1.2-3.4) K/uL [place] # (Auto) (0.11-0.59) K/uL Eos # (Auto) (0-0.5) K/uL Baso # (Auto) (0-0.2) K/uL Immature Gran # (Auto) (0.00-0.02) K/uL APTT 28.0 (21.0-31.0) Seconds PTT Ratio 1.1 D-Dimer 1910 H* (0-500) ug/L FEU Sodium (136-145) mmol/L Potassium (3.5-5.1) mmol/L Chloride (98-107) mmol/L Carbon Dioxide (21-32) mmol/L Anion Gap (3-11) BUN (7-18) mg/dl Creatinine (0.6-1.2) mg/dl Est Cr Clr Drug Dosing ml/min Est GFR ( Amer) Est GFR (Non-Af Amer) BUN/Creatinine Ratio (10-20) Glucose (70-99) mg/dl Lactate 1.3 (0.4-2.0) mmol/L Calcium (8.5-10.1) mg/dl Magnesium (1.8-2.4) mg/dl Total Bilirubin (0.2-1) mg/dl AST (15-37) U/L ALT (12-78) U/L Alkaline Phosphatase (45-117) U/L Total Protein (6.4-8.2) gm/dl Albumin (3.4-5.0) gm/dl Globulin (2.5-4.0) gm/dl Albumin/Globulin Ratio (0.9-2) Procalcitonin (0-0.5) ng/ml TSH (0.300-4.500) uIu/ml Urine Color Urine Appearance (Clear) Urine pH (4.5-7.5) Ur Specific [place] (1.000-1.030) Urine Protein (Negative) Urine Glucose (UA) (Negative) Urine Ketones (Negative) Urine Blood (Negative) Urine Nitrite (Negative) Urine Bilirubin (Negative) Urine Urobilinogen (Negative) Ur Leukocyte Esterase (Negative) Lyme Disease IgG Ab (Negative) Lyme Disease IgM Ab (Negative) COVID-19 Eval Order SARS-CoV-2 (PCR) (Negative) Influenza Type A (PCR) (Neg) Influenza Type B (PCR) (Neg) RSV (RT-PCR) (Neg) 12/26/20 12/26/20 12/26/20 Range/Units 04:50 04:50 04:50 WBC (4.8-10.8) K/uL RBC (4.2-5.4) M/uL Hgb (12.0-16.0) g/dL Hct (37-47) % MCV (80-100) fL MCH (25-34) pg MCHC (32-36) g/dL RDW Std Deviation (36.4-46.3) fL RDW Coeff of [place] (11.5-14.5) % Plt Count (130-400) K/uL MPV (7.4-10.4) fL Immature Gran % (Auto) % Neut % (Auto) % Lymph % (Auto) % [place] % (Auto) % Eos % (Auto) % Baso % (Auto) % Neut # (Auto) (1.4-6.5) K/uL Lymph # (Auto) (1.2-3.4) K/uL [place] # (Auto) (0.11-0.59) K/uL Eos # (Auto) (0-0.5) K/uL Baso # (Auto) (0-0.2) K/uL Immature Gran # (Auto) (0.00-0.02) K/uL APTT (21.0-31.0) Seconds PTT Ratio D-Dimer (0-500) ug/L FEU Sodium (136-145) mmol/L Potassium (3.5-5.1) mmol/L Chloride (98-107) mmol/L Carbon Dioxide (21-32) mmol/L Anion Gap (3-11) BUN (7-18) mg/dl Creatinine (0.6-1.2) mg/dl Est Cr Clr Drug Dosing ml/min Est GFR ( Amer) Est GFR (Non-Af Amer) BUN/Creatinine Ratio (10-20) Glucose (70-99) mg/dl Lactate (0.4-2.0) mmol/L Calcium (8.5-10.1) mg/dl Magnesium 1.8 (1.8-2.4) mg/dl Total Bilirubin (0.2-1) mg/dl AST (15-37) U/L ALT (12-78) U/L Alkaline Phosphatase (45-117) U/L Total Protein (6.4-8.2) gm/dl Albumin (3.4-5.0) gm/dl Globulin (2.5-4.0) gm/dl Albumin/Globulin Ratio (0.9-2) Procalcitonin 0.42 (0-0.5) ng/ml TSH (0.300-4.500) uIu/ml Urine Color Urine Appearance (Clear) Urine pH (4.5-7.5) Ur Specific [place] (1.000-1.030) Urine Protein (Negative) Urine Glucose (UA) (Negative) Urine Ketones (Negative) Urine Blood (Negative) Urine Nitrite (Negative) Urine Bilirubin (Negative) Urine Urobilinogen (Negative) Ur Leukocyte Esterase (Negative) Lyme Disease IgG Ab Negative (Negative) Lyme Disease IgM Ab Negative (Negative) COVID-19 Eval Order SARS-CoV-2 (PCR) (Negative) Influenza Type A (PCR) (Neg) Influenza Type B (PCR) (Neg) RSV (RT-PCR) (Neg) Administered Medications Acetaminophen (Acetaminophen 325 Mg Tab) 650 mg PO Q6H PRN PRN Reason: Fever Stop: 01/25/21 08:54 Last Admin: 12/26/20 13:22 Dose: 650 mg Documented by: [id number] Sodium Chloride (Nss 1000ml) 1,000 mls @ 75 mls/hr IV .[id number] [facility] Stop: 12/27/20 18:24 Last Admin: 12/27/20 00:48 Dose: 75 mls/hr Documented by: [id number] Lactobacillus Acidophilus (Lactobacillus Acidophilus 1 Gm Pack) 1 gm PO TIDM GABI Stop: 01/25/21 16:59 Last Admin: 12/26/20 17:35 Dose: 1 gm Documented by: [id number] Lamotrigine (Lamotrigine 100 Mg Tab) 150 mg PO BID [facility] Stop: 01/25/21 09:29 Last Admin: 12/26/20 20:16 Dose: 150 mg Documented by: [id number] Admin: 12/26/20 09:43 Dose: 150 mg Documented by: [id number] Levothyroxine Sodium (Levothyroxine Sodium 75 Mcg Tablet) 37.5 mcg PO DAILYBB GABI Stop: 01/25/21 09:29 Last Admin: 12/26/20 09:42 Dose: 37.5 mcg Documented by: [id number] Polysaccharide Iron Complex (Iron Polysaccharide Complex 150 Mg Capsule) 150 mg PO DAILY GABI Stop: 01/25/21 08:59 Last Admin: 12/26/20 09:43 Dose: 150 mg Documented by: [id number] Raspberry (Raspberry Syrup 5 Ml Udp) 5 ml PO Q6 GABI Stop: 01/09/21 11:59 Last Admin: 12/27/20 00:02 Dose: 5 ml Documented by: [id number] Admin: 12/26/20 17:35 Dose: 5 ml Documented by: [id number] Admin: 12/26/20 11:10 Dose: 5 ml Documented by: [id number] Sodium Chloride (Sodium Chloride 1 Gm Tablet) 1 gm PO TID GABI Stop: 01/25/21 08:59 Last Admin: 12/26/20 20:16 Dose: 1 gm Documented by: [id number] Admin: 12/26/20 13:22 Dose: 1 gm Documented by: [id number] Admin: 12/26/20 09:43 Dose: 1 gm Documented by: [id number] Vancomycin HCl (Vancomycin Hcl 125 Mg/2.5ml Soln) 125 mg PO Q6 GABI Stop: 01/05/21 11:59 Last Admin: 12/27/20 00:03 Dose: 125 mg Documented by: [id number] Admin: 12/26/20 17:36 Dose: 125 mg Documented by: [id number] Admin: 12/26/20 11:10 Dose: 125 mg Documented by: [id number] Discontinued Medications Acetaminophen (Acetaminophen Susp 325 Mg/10.15 Ml Udc) 650 mg PO NOW STA Stop: 12/26/20 04:25 Last Admin: 12/26/20 05:16 Dose: Not Given Documented by: [id number] Acetaminophen (Acetaminophen Susp 160 Mg/5 Ml Udc) Confirm Administered Dose 800 mg .ROUTE .STK-MED ONE Stop: 12/26/20 04:28 Last Admin: 12/26/20 04:32 Dose: 650 mg Documented by: [id number] Acetaminophen (Acetaminophen 325 Mg Tab) 650 mg PO NOW STA Stop: 12/26/20 04:29 Last Admin: 12/26/20 05:16 Dose: Not Given Documented by: [id number] Sodium Chloride (Nss 1000ml) 1,000 mls @ 999 mls/hr IV .[id number] ONE Stop: 12/26/20 01:42 Last Infusion: 12/26/20 02:52 Dose: 0 mls/hr Documented by: [id number] Admin: 12/26/20 01:22 Dose: 999 mls/hr Documented by: [id number] Sodium Chloride (Nss) 500 mls @ 125 mls/hr IV .Q4H GABI Stop: 01/25/21 05:59 Last Infusion: 12/26/20 09:29 Dose: 0 mls/hr Documented by: [id number] Infusion: 12/26/20 06:28 Dose: 125 mls/hr Documented by: [id number] Admin: 12/26/20 06:01 Dose: 125 mls/hr Documented by: [id number] Lactated Ringer's (Lr) 1,000 mls @ 250 mls/hr IV .Q4H ONE Stop: 12/26/20 10:08 Last Infusion: 12/26/20 11:16 Dose: 0 mls/hr Documented by: [id number] Admin: 12/26/20 06:27 Dose: 250 mls/hr Documented by: [id number] Magnesium Sulfate/Dextrose (Magnesium Sulfate / D5w) 1 gm in 100 mls @ 50 mls/hr IV ONE ONE Stop: 12/26/20 11:29 Last Infusion: 12/26/20 11:39 Dose: 0 mls/hr Documented by: [id number] Admin: 12/26/20 09:41 Dose: 50 mls/hr Documented by: [id number] Sodium Chloride (Nss 1000ml) 1,000 mls @ 75 mls/hr IV .[id number] ONE Stop: 12/26/20 23:30 Last Admin: 12/26/20 11:07 Dose: 75 mls/hr Documented by: [id number] Piperacillin Sod/Tazobactam (Sod 3.375 gm/ Dextrose) 115 mls @ 230 mls/hr IV NOW ONE; Protocol Stop: 12/26/20 10:59 Last Infusion: 12/26/20 11:39 Dose: 0 mls/hr Documented by: [id number] Admin: 12/26/20 11:11 Dose: 230 mls/hr Documented by: [id number] Potassium Chloride (Potassium Chloride Crtab 20 Meq Tabcr) 20 meq PO NOW STA Stop: 12/26/20 06:11 Last Admin: 12/26/20 06:27 Dose: 20 meq Documented by: [id number] Sodium Chloride (Sodium Chloride 0.9% Nebu Soln 3 Ml) 3 ml NEB NOW STA Stop: 12/26/20 08:56 Last Admin: 12/26/20 15:09 Dose: Not Given Documented by: [id number] Imaging Data Radiologist's Impression: Chest X-Ray 12/26/20 00:42 XR chest 1V portable CLINICAL HISTORY: weakness COMPARISON STUDY: Chest radiograph December 02, 2020. FINDINGS: Patient is mildly rotated. Old bilateral rib fractures are incidentally noted. Lung volumes are normal. Lungs are clear. There is no pneumothorax or pleural effusion. Cardiac size is normal. Mediastinal contours are normal. There is no evidence for pulmonary edema. IMPRESSION: No acute cardiopulmonary findings. ACT 112: Negative or not required by law. Electronically signed by: Jose Juan Troncoso M.D. 12/26/2020 6:[address] 12/26/20 02:19 CT chest diagnostic wo con CT DOSE: 237.89 mGy.cm HISTORY: Shortness of breath. TECHNIQUE: Multiaxial CT images of the chest were performed without contrast. A dose lowering technique was utilized adhering to the principles of ALARA. COMPARISON: None. FINDINGS: Respiratory motion artifact results in suboptimal evaluation of the chest. No pleural effusions. No pneumothorax. The central airways appear patent. No focal lung consolidations to suggest pneumonia. No evidence for pulmonary edema. Multiple healing left anterolateral rib fractures. There are old, healed right rib fractures. No mediastinal hilar lymphadenopathy. Small amount of debris within the distal esophagus which is nondilated. Hepatic steatosis. The visualized spleen and adrenal glands unremarkable. Prior cholecystectomy. No pericardial effusions. The heart is top normal in size. Mild calcified plaque within the normal caliber thoracic aorta. Right upper posterior calcified pleu ral plaque IMPRESSION: 1. No focal lung consolidations to suggest pneumonia. 2. Healing left-sided rib fractures. No pneumothorax. 3. Right upper calcified pleural plaque. 4. Hepatic steatosis.. 5. Prior cholecystectomy. ACT 112: Negative or not required by law. Electronically signed by: Surjit Malik M.D. 12/26/2020 7:37 AM Discharge Plan Visit Data Chief Complaint: Dehydration Stated Complaint: DEHYDRATION ED Provider: Shilpi Allen Discharge Problem: Fever Patient Disposition: Admitted As Inpatient Discharge Instructions Interventions: ED Discharge Assessment Last Done: 12/26/20 08:19 Discharge Problem: Fever Qualifiers: Fever type: unspecified Qualified Code(s): R50.9 - Fever, unspecified
[2020-12-26 01:48] LABS: Appearance Urine Clear (Clear); Bilirubin Urine Negative (Negative); Blood Urine Negative (Negative); Color Urine Yellow; Glucose Urine UA Negative (Negative); Ketones Urine Negative (Negative); Leukocyte Esterase Urine Negative (Negative); Nitrite Urine Negative (Negative); Protein Urine Negative (Negative); Specific Gravity Urine 1.027 (1.000-1.030); Urobilinogen Urine Negative (Negative)
[2020-12-26 02:10] LABS: Albumin Level 3.8 gm/dl (3.4-5.0); BUN Creatinine Ratio 14.9 (10-20); Calcium 8.9 mg/dl (8.5-10.1); Creatinine Clr Calc Pharmacy 53.1 ml/min; Est GFR (Non-African American) 79.4
[2020-12-26 02:28] LABS: Basophils # (auto) 0.03 K/uL (0-0.2); Basophils % (auto) 0.3 %; Eosinophils # (auto) 0.15 K/uL (0-0.5); Eosinophils % (auto) 1.6 %; Hematocrit (blood only) 34.8 % (37-47); Immature Granulocytes # (auto) 0.07 K/uL (0.00-0.02); Immature Granulocytes % (auto) 0.7 %; Lymphocytes % (auto) 11.4 %; Mean Corpuscular Hemoglobin 31.3 pg (25-34); Mean Corpuscular Hgb Conc 34.5 g/dL (32-36); Mean Corpuscular Volume 90.9 fL (80-100); Mean Platelet Volume 10.4 fL (7.4-10.4); Monocytes # (auto) 0.38 K/uL (0.11-0.59); Monocytes % (auto) 3.9 %; Neutrophils # (auto) 7.94 K/uL (1.4-6.5); Neutrophils % (auto) 82.1 %; Platelet Count 283 K/uL (130-400); RDW Coefficient of Variation 14.4 % (11.5-14.5); Red Blood Count 3.83 M/uL (4.2-5.4); White Blood Count 9.67 K/uL (4.8-10.8)
[2020-12-26 02:45] LABS: Bilirubin,Total 0.8 mg/dl (0.2-1); Globulin 3.9 gm/dl (2.5-4.0); Thyroid Stimulating Hormone 1.5 uIu/ml (0.300-4.500); Total Protein 7.7 gm/dl (6.4-8.2)
[2020-12-26 03:17] LABS: Potassium 3.8 mmol/L (3.5-5.1)
[2020-12-26 03:55] LABS: Influenza A virus by PCR Negative (Neg); Influenza B virus by PCR Negative (Neg); RSV by PCR Negative (Neg); SARS CoV2 RNA(COVID-19) InHosp NEGATIVE (Negative)
[2020-12-26] MEDS ORDERED: ACETAMINOPHEN SUSP 325 MG/10.15 ML UDC PO STA (04:24)
[2020-12-26] MEDS ORDERED: ACETAMINOPHEN SUSP 160 MG/5 ML UDC ONE (04:27)
[2020-12-26] MEDS ORDERED: ACETAMINOPHEN 325 MG TAB PO STA (04:28)
[2020-12-26 05:42] LABS: D Dimer 1910 ug/L FEU (0-500)
[2020-12-26] MEDS ORDERED: SODIUM CHLORIDE 0.9% 500 ML IV SCH (06:00)
[2020-12-26] MEDS ORDERED: LACTATED RINGER'S 1,000 ML IV ONE (06:09)
[2020-12-26] MEDS ORDERED: POTASSIUM CHLORIDE CRTAB 20 MEQ TABCR PO STA (06:10)
[2020-12-26 06:33] LABS: Partial Thromboplastin Ratio 1.1
--- NOTE | 2020-12-26 06:40 | XRay Report ---
XR chest 1V portable CLINICAL HISTORY: weakness COMPARISON STUDY: Chest radiograph December 02, 2020. FINDINGS: Patient is mildly rotated. Old bilateral rib fractures are incidentally noted. Lung volumes are normal. Lungs are clear. There is no pneumothorax or pleural effusion. Cardiac size is normal. M ediastinal contours are normal. There is no evidence for pulmonary edema. IMPRESSION: No acute cardiopulmonary findings. ACT 112: Negative or not required by law. Electronically signed by: Jose Juan Troncoso M.D. 12/26/2020 6:39 AM
--- NOTE | 2020-12-26 07:02 | History & Physical Report ---
Date of Service December 26, 2020 Assessment & Plan (1) Tachypnea: Secondary to fever secondary to mild clinical dehydration, ? Aspiration pneumonitis, history aspiration risk secondary to history of tracheal injury Rule out pulmonary thromboembolism given abnormal D-dimer astrocytoma status post surgery, chemoradiation hx traumatic subdural hematoma seizure disorder, stable as per patient mother mild aortic stenosis (TTE 2019) hypothyroidism, euthyroid as of recent TSH chronic hyponatremia, stable on sodium tablet regimen chronic anemia, hemoglobin better than baseline secondary to hemoconcentration (baseline hemoglobin 11) Medical telemetry IVF, hold off on antibiotics for possible aspiration pneumonitis unless with recurrent/persistent fever VQ scan, LE Dopplers for PE work-up (unable to do CT angio study given IV access issues ) May need vascular surgery consultation if PE work-up positive (anticoagulation contraindicated with history brain tumor, ICH) DVT prophylaxis. SCDs if no DVT on ultrasound RE hx traumatic ICH Full code Patient mother requesting updates for providers. Last Reyes, contact #[phone]. Text document was generated using [employer] voice recognition software. It may contain grammatical or spelling errors. Kindly contact undersigned for clarification of any documentation item in question. History of Present Illness Chief Complaint: Tired as per patient Primary Care Provider: Randy Begum History obtained from patient, family, and records. Patient is a fair historian. Medical history significant for astrocytoma status post surgery, chemoradiation, traumatic subdural hematoma, seizure disorder, mild aortic stenosis (TTE 2019), hypothyroidism, chronic hyponatremia, chronic anemia (baseline hemoglobin 11), history of tracheal injury, history of C. difficile, learning disability as per records. Last confinement November 2020 for hyponatremia and C. difficile diarrhea. Yesterday patient noted by mother to be increasingly weak and tired throughout the day. Some urinary incontinence. No witnessed seizures. As per mother. Mentation at baseline as per mother. Patient denies headache, chest pain, S OB, cough. History possible aspiration a few days ago as per mother. Patient brought to the ER for evaluation for possible dehydration as per mother. Medical History as above Surgical History : Tracheostomy, myocutaneous flap reconstruction, cholecystectomy, thoracotomy with exploration Family History : Asthma Personal/Social history : Non-smoker, no EtOH intake, disabled Allergies Allergy/AdvReac Type Severity Reaction Status Date / Time phenobarbital Allergy Mild Unknown Verified 12/26/20 00:57 omeprazole AdvReac Unknown red face Verified 12/26/20 00:57 Home Medications Medication Instructions Recorded Confirmed Type lamotrigine 150 mg PO Q12H 04/22/19 12/26/20 History levothyroxine 37.5 mcg PO QAM 04/22/19 12/26/20 History megestrol 20 mg PO QAM 02/08/20 12/26/20 History polysaccharide iron complex 150 mg PO DAILY 02/08/20 12/26/20 History [iFerex 150] magnesium oxide 400 mg PO HS 12/02/20 12/26/20 History furosemide 20 mg PO DAILY PRN 12/26/20 12/26/20 History sodium chloride 1 g PO TID 12/26/20 12/26/20 History Past Med/Surg History Medical History Brain tumor Cognitive developmental delay Epilepsy H/O astrocytoma Hypothyroidism Laceration of trachea Seizure disorder Subdural hematoma Weakness Surgical History H/O brain surgery History of umbilical hernia repair S/P cholecystectomy Family History Mother Diabetes Grandfather (Paternal) Coronary heart disease Uncle Coronary heart disease Social History Smoking Status: Never smoker Hx Alcohol Use: No Hx Substance Use: No Preferred Language: Turkish Communication Ability: Impaired Hearing Ability: Normal Image Editor Required: No Beliefs That Will Affect Care: None marital status: Single Current Living Situation: Parent Current Living Situation Comment: father Tino and mother How many Children do You have: 0 Feels Safe at Home: Yes Assistive Devices: Denture - Upper and Denture - Lower Review of Systems Review of Systems: As per HPI, all 10 systems reviewed, all other ROS negative Physical Exam Physical Exam: GENERAL: uncomfortable, some growth stunting, follows some commands, minimal respiratory distress SKIN: Pallor , warm HEENT: Pale palpebral conjunctivae, no ptosis, dry buccal mucosa NECK : Supple, short neck, no tenderness CHEST : Scattered expiratory wheezes, no tenderness HEART : Tachycardic, systolic murmur loudest over left sternal border ABDOMEN: Some distention, nontender EXTREMITIES : No LE swelling/tenderness, no other conspicuous deformities noted NEUROLOGIC : Coherent, follows some commands, no facial asymmetry, gait and stance not assessed Results & Data Results & Data ([facility]) Vital Signs (Past 12 Hours) Vital Signs Temp Pulse Resp BP Pulse Ox 12/26/20 06:30 116 H 28 H 96 12/26/20 06:15 113 H 29 H 95 12/26/20 06:13 37.5 C 12/26/20 06:00 117 H 30 H 108/59 L 95 12/26/20 05:45 121 H 22 97 12/26/20 05:30 114 H 30 H 96 12/26/20 05:15 117 H 30 H 97 12/26/20 05:11 120 H 31 H 104/63 97 12/26/20 05:00 120 H 31 H 97 12/26/20 04:45 123 H 32 H 97 12/26/20 04:42 127 H 29 H 108/90 98 12/26/20 04:30 120 H 30 H 96 12/26/20 04:23 38.2 C H 12/26/20 04:15 119 H 31 H 95 12/26/20 04:00 118 H 29 H 118/63 97 12/26/20 03:45 117 H 31 H 97 12/26/20 03:30 122 H 33 H 98 12/26/20 03:22 128 H 29 H 109/63 98 12/26/20 03:21 110 H 12/26/20 03:00 125 H 30 H 98 12/26/20 02:45 129 H 29 H 98 12/26/20 02:30 131 H 24 98 12/26/20 02:20 133 H 28 H 133/86 96 12/26/20 02:15 125 H 31 H 99 12/26/20 02:00 127 H 31 H 98 12/26/20 01:45 128 H 29 H 97 12/26/20 01:30 123 H 19 98 12/26/20 01:26 26 H 99 12/26/20 01:15 134 H 20 98 12/26/20 01:07 122 H 22 130/83 97 12/26/20 01:00 121 H 26 H 97 12/26/20 00:33 36.8 C 116 H 20 113/61 99 Laboratory Results Laboratory Results WBC 9.67 K/uL (4.8-10.8) 12/26/20 01: RBC 3.83 M/uL (4.2-5.4) L 12/26/20 01:21 Hgb 12.0 g/dL (12.0-16.0) 12/26/20 01: Hct 34.8 % (37-47) L 12/26/20 01: MCV 90.9 fL (80-100) 12/26/20 01: MCH 31.3 pg (25-34) 12/26/20 01: MCHC 34.5 g/dL (32-36) 12/26/20 01: RDW Std Deviation 48.0 fL (36.4-46.3) H 12/26/20 01: RDW Coeff of [place] 14.4 % (11.5-14.5) 12/26/20 01: Plt Count 283 K/uL (130-400) 12/26/20 01: MPV 10.4 fL (7.4-10.4) 12/26/20 01: Immature Gran % (Auto) 0.7 % 12/26/20 01: Neut % (Auto) 82.1 % 12/26/20 01: Lymph % (Auto) 11.4 % 12/26/20 01: [place] % (Auto) 3.9 % 12/26/20 01: Eos % (Auto) 1.6 % 12/26/20 01: Baso % (Auto) 0.3 % 12/26/20 01: Neut # (Auto) 7.94 K/uL (1.4-6.5) H 12/26/20 01: Lymph # (Auto) 1.10 K/uL (1.2-3.4) L 12/26/20 01: [place] # (Auto) 0.38 K/uL (0.11-0.59) 12/26/20 01: Eos # (Auto) 0.15 K/uL (0-0.5) 12/26/20 01: Baso # (Auto) 0.03 K/uL (0-0.2) 12/26/20 01: Immature Gran # (Auto) 0.07 K/uL (0.00-0.02) H 12/26/20 01:21 APTT 28.0 Seconds (21.0-31.0) 12/26/20 04:50 PTT Ratio 1.1 12/26/20 04:50 D-Dimer 1910 ug/L FEU (0-500) H* 12/26/20 04:50 Sodium 139 mmol/L (136-145) 12/26/20 01:21 Potassium 3.8 mmol/L (3.5-5.1) 12/26/20 02:59 Chloride 106 mmol/L (98-107) 12/26/20 01:21 Carbon Dioxide 29 mmol/L (21-32) 12/26/20 01:21 Anion Gap 4.0 (3-11) 12/26/20 01:21 BUN 13 mg/dl (7-18) 12/26/20 01:21 Creatinine 0.90 mg/dl (0.6-1.2) 12/26/20 01:21 Est Cr Clr Drug Dosing 53.1 ml/min 12/26/20 01:21 Est GFR ( Amer) 92.0 12/26/20 01:21 Est GFR (Non-Af Amer) 79.4 12/26/20 01:21 BUN/Creatinine Ratio 14.9 (10-20) 12/26/20 01:21 Glucose 122 mg/dl (70-99) H 12/26/20 01:21 Lactate 1.3 mmol/L (0.4-2.0) 12/26/20 04:50 Calcium 8.9 mg/dl (8.5-10.1) 12/26/20 01:21 Magnesium 1.8 mg/dl (1.8-2.4) 12/26/20 04:50 Total Bilirubin 0.8 mg/dl (0.2-1) 12/26/20 01:21 AST 61 U/L (15-37) H 12/26/20 02:59 ALT 77 U/L (12-78) 12/26/20 01:21 Alkaline Phosphatase 182 U/L (45-117) H 12/26/20 01:21 Total Protein 7.7 gm/dl (6.4-8.2) 12/26/20 01:21 Albumin 3.8 gm/dl (3.4-5.0) 12/26/20 01:21 Globulin 3.9 gm/dl (2.5-4.0) 12/26/20 01:21 Albumin/Globulin Ratio 1.0 (0.9-2) 12/26/20 01:21 TSH 1.500 uIu/ml (0.300-4.500) 12/26/20 01:21 Urine Color Yellow 12/26/20 01:20 Urine Appearance Clear (Clear) 12/26/20 01:20 Urine pH 5.0 (4.5-7.5) 12/26/20 01:20 Ur Specific [place] 1.027 (1.000-1.030) 12/26/20 01:20 Urine Protein Negative (Negative) 12/26/20 01:20 Urine Glucose (UA) Negative (Negative) 12/26/20 01:20 Urine Ketones Negative (Negative) 12/26/20 01:20 Urine Blood Negative (Negative) 12/26/20 01:20 Urine Nitrite Negative (Negative) 12/26/20 01:20 Urine Bilirubin Negative (Negative) 12/26/20 01:20 Urine Urobilinogen Negative (Negative) 12/26/20 01:20 Ur Leukocyte Esterase Negative (Negative) 12/26/20 01:20 COVID-19 Eval Order CovFluRsv at [facility] 12/26/20 03:00 SARS-CoV-2 (PCR) NEGATIVE (Negative) 12/26/20 03:00 Influenza Type A (PCR) Negative (Neg) 12/26/20 03:00 Influenza Type B (PCR) Negative (Neg) 12/26/20 03:00 RSV (RT-PCR) Negative (Neg) 12/26/20 03:00 Impressions Chest X-Ray 12/26/20 00:42 XR chest 1V portable CLINICAL HISTORY: weakness COMPARISON STUDY: Chest radiograph December 02, 2020. FINDINGS: Patient is mildly rotated. Old bilateral rib fractures are incidentally noted. Lung volumes are normal. Lungs are clear. There is no pneumothorax or pleural effusion. Cardiac size is normal. Mediastinal contours are normal. There is no evidence for pulmonary edema. IMPRESSION: No acute cardiopulmonary findings. ACT 112: Negative or not required by law. Electronically signed by: Jose Juan Troncoso M.D. 12/26/2020 6:[address] chest: 1. No focal lung consolidations to suggest pneumonia. 2. Healing left-sided rib fractures. No pneumothorax. 3. Right upper calcified pleural plaque. 4. Hepatic steatosis.. 5. Prior cholecystectomy. EKG as per my interpretation : Rate 125, sinus tachycardia, normal axis, no ischemia
--- NOTE | 2020-12-26 07:39 | CT Scan Report ---
CT chest diagnostic wo con CT DOSE: 237.89 mGy.cm HISTORY: Shortness of breath. TECHNIQUE: Multiaxial CT images of the chest were performed without contrast. A dose lowering techni que was utilized adhering to the principles of ALARA. COMPARISON: None. FINDINGS: Respiratory motion artifact results in suboptimal evaluation of the chest. No pleural effus ions. No pneumothorax. The central airways appear patent. No focal lung consolidations to suggest pne umonia. No evidence for pulmonary edema. Multiple healing left anterolateral rib fractures. There are old, healed right rib fractures. No mediastinal hilar lymphadenopathy. Small amount of debris within the distal esophagus which is nondilated. Hepatic steatosis. The visualized spleen and adrenal gland s unremarkable. Prior cholecystectomy. No pericardial effusions. The heart is top normal in size. Mil d calcified plaque within the normal caliber thoracic aorta. Right upper posterior calcified pleural plaque IMPRESSION: 1. No focal lung consolidations to suggest pneumonia. 2. Healing left-sided rib fractures. No pneumothorax. 3. Right upper calcified pleural plaque. 4. Hepatic steatosis.. 5. Prior cholecystectomy. ACT 112: Negative or not required by law. Electronically signed by: Surjit Malik M.D. 12/26/2020 7:37 AM
--- NOTE | 2020-12-26 08:44 | Ultrasound Report ---
US venous doppler LE BI CLINICAL HISTORY: Elevated d-dimer COMPARISON STUDY: No previous studies for comparison. FINDINGS: Real-time and color flow Doppler imaging were performed. Flow was seen within the femoral, popliteal and calf veins with no intraluminal thrombus demonstrated. The saphenous vein is patent. IMPRESSION: No evidence of lower extremity DVT. ACT 112: Negative or not required by law. Electronically signed by: Manolo Francois M.D. 12/26/2020 8:42 AM
[2020-12-26] MEDS ORDERED: oxyCODONE HCL IR 5 MG TAB (IMMEDIATE RELEASE) PO PRN (08:55)
[2020-12-26] MEDS ORDERED: SODIUM CHLORIDE 0.9% NEBU SOLN 3 ML NEB STA (08:55)
[2020-12-26] MEDS ORDERED: ACETAMINOPHEN 325 MG TAB PO PRN (08:55)
[2020-12-26] MEDS ORDERED: PROMETHAZINE HCL 12.5 MG in SODIUM CHLORIDE 0.9% 50 ML IV PRN (08:55)
[2020-12-26 09:03] LABS: Lyme Ab IgG w/WB Rflx Negative (Negative); Lyme Ab IgM w/WB Rflx Negative (Negative)
[2020-12-26] MEDS ORDERED: MAGNESIUM SULFATE / D5W 1 GM/100 ML BAG IV ONE (09:30)
[2020-12-26] MEDS: LEVOTHYROXINE SODIUM 75 MCG TABLET PO SCH (09:42)
[2020-12-26] MEDS: IRON POLYSACCHARIDE COMPLEX 150 MG CAPSULE PO SCH (09:43)
[2020-12-26] MEDS: lamoTRIgine 100 MG TAB PO SCH ×2 (09:43→20:16)
[2020-12-26] MEDS: SODIUM CHLORIDE 1 GM TABLET PO SCH ×3 (09:43→20:16)
[2020-12-26] MEDS ORDERED: CONSULT PHARMACY ONE (10:09)
[2020-12-26] MEDS ORDERED: PIPERACILL/TAZOBAC CONSULT ACTIVE PRN (10:19)
[2020-12-26] MEDS ORDERED: PIPERACILLIN/TAZOBACTAM 3.375 GM in DEXTROSE 5% 100 ML IV ONE (10:30)
[2020-12-26] MEDS: VANCOMYCIN HCL 125 MG/2.5ML SOLN PO SCH ×2 (11:10→17:36)
[2020-12-26] MEDS: RASPBERRY SYRUP 5 ML UDP PO SCH ×2 (11:10→17:35)
[2020-12-26 12:09] LABS: Cdiff Antigen Positive
[2020-12-26 12:11] LABS: Cdiff Toxin A+B Positive Cdiff Toxin (Negative)
--- NOTE | 2020-12-26 12:16 | Electrocardiogram Report ---
Test Reason : Blood Pressure : / mmHG Vent. Rate : 127 BPM Atrial Rate : 127 BPM P-R Int : 170 ms QRS Dur : 070 ms QT Int : 294 ms P-R-T Axes : 026 009 027 degrees QTc Int : 427 ms Sinus tachycardia Nonspecific ST abnormality Otherwise normal ECG When compared with ECG of 02-DEC-2020 20:20, No significant change was found Confirmed by Shaheed Flanagan ([id number]) on 12/26/2020 12:16:36 PM Referred By: REFERRED SELF Confirmed By:Oleg Flanagan
--- NOTE | 2020-12-26 12:55 | Nuclear Medicine Report ---
NUCLEAR MEDICINE PERFUSION SCAN CLINICAL HISTORY: Elevated D dimer, tachypnea. COMPARISON STUDY: Chest radiograph and chest CT performed earlier today. TECHNIQUE: Ventilation imaging could not be performed given Covid restrictions. 5.4 mCi of technetium 99m MAA was injected IV at 12:15 PM on December 26, 2020. Following injection, imaging of the chest was carried out in the typical projections. FINDINGS: No segmental defects are identified within the lungs. No perfusion defects are noted. No ve ntilation imaging could be performed. However, this study is low probability for pulmonary embolus. IMPRESSION: Low probability for pulmonary embolus. ACT 112: Negative or not required by law. Electronically signed by: Jose Juan Troncoso M.D. 12/26/2020 12:53 PM
[2020-12-26] MEDS ORDERED: PIPERACILLIN/TAZOBACTAM 3.375 GM in DEXTROSE 5% 100 ML IV SCH (15:00)
--- NOTE | 2020-12-26 15:50 | Hospitalist Progress Note ---
Date of Service December 26, 2020 Assessment & Plan (1) Tachypnea: Recurrent C diff Colitis SIRS Possible Sepsis CT Chest:No focal lung consolidations to suggest pneumonia. Healing left-sided rib fractures. No pneumothorax. Right upper calcified pleural plaque. Hepatic steatosis.. Prior cholecystectomy. Blood cultures pending Stool positive for C diff UA: Normal Normal procalcitonin, lactate levels Stated on PO Vancomycin Continue IV fluids Consider CT abdomen if no improvement Need Prolonged PO Vancomycin course Elevated D dimer Likely secondary to above Perfusion Scan: Low probability for pulmonary embolus. Venous Doppler:No evidence of lower extremity DVT. Saturating well on room air Will monitor D dimer and consider CTA if necessary Possible Aspiration H/O Tracheal injury Aspiration precautions Speech eval requested H/O Astrocytoma S/P surgery, chemoradiation H/O Traumatic subdural hematoma Seizure disorder Continue Hypothyroidism Continue levothyroxine Chronic hyponatremia Continue salt tablets Sodium levels within normal limits Monitor DVT Px: SCDs RE H/O ICH Code Status Full code Admission and Anticipated Discharge Date Admission Date: December 26, 2020 Subjective Patient is seen and examined at bedside Poor historian Most of the history is obtained from patient's mother and bedside Febrile today Denies any abdominal pain, nausea, vomiting, chest pain, dyspnea Has diarrhea Also has generalized weakness Review of Systems Review of Systems: All systems reviewed & are unremarkable except as noted in HPI & below Physical Exam Physical Exam: Physical Exam: Vitals signs as noted above General Appearance:Moderately built and nourished, no apparent distress Head: normocephalic, Atraumatic Eyes: normal inspection, EOMI Neck: supple, Trachea midline Respiratory/Chest: Normal breath sounds, CTA Cardiovascular: S1, S2, No murmur Abdomen/GI:Soft, Non tender, Bowel sounds present Extremities/Musculoskeletal:normal inspection, no edema Neurologic/Psych:Alert, awake, oriented to person, place, grossly no focal neurological deficits, Growth retardation Skin: normal color, warm Results & Data Results & Data ([facility]) Vital Signs (Past 12 Hours) Vital Signs Temp Pulse Pulse Resp BP BP BP 12/26/20 15:44 38.6 C H 85 16 96/61 L 12/26/20 15:14 104 H 12/26/20 14:34 116 H 12/26/20 13:20 39.8 C H 12/26/20 11:19 37.5 C 119 H 18 107/67 12/26/20 10:01 38.7 C H 115 H 22 110/70 12/26/20 09:58 112 H 12/26/20 07:20 38.4 C H 128 H 22 110/64 12/26/20 06:30 116 H 28 H 12/26/20 06:15 113 H 29 H 12/26/20 06:13 37.5 C 12/26/20 06:00 117 H 30 H 108/59 L 12/26/20 05:45 121 H 22 12/26/20 05:30 114 H 30 H 12/26/20 05:15 117 H 30 H 12/26/20 05:11 120 H 31 H 104/63 12/26/20 05:00 120 H 31 H 12/26/20 04:45 123 H 32 H 12/26/20 04:42 127 H 29 H 108/90 12/26/20 04:30 120 H 30 H 12/26/20 04:23 38.2 C H 12/26/20 04:15 119 H 31 H 12/26/20 04:00 118 H 29 H 118/63 Pulse Ox 12/26/20 15:44 94 12/26/20 15:14 12/26/20 14:34 12/26/20 13:20 12/26/20 11:19 98 12/26/20 10:01 96 12/26/20 09:58 12/26/20 07:20 97 12/26/20 06:30 96 12/26/20 06:15 95 12/26/20 06:13 12/26/20 06:00 95 12/26/20 05:45 97 12/26/20 05:30 96 12/26/20 05:15 97 12/26/20 05:11 97 12/26/20 05:00 97 12/26/20 04:45 97 12/26/20 04:42 98 12/26/20 04:30 96 12/26/20 04:23 12/26/20 04:15 95 12/26/20 04:00 97 Laboratory Results Short CBC 12/26/20 Range/Units 01:21 WBC 9.67 (4.8-10.8) K/uL Hgb 12.0 (12.0-16.0) g/dL Hct 34.8 L (37-47) % Plt Count 283 (130-400) K/uL BMP 12/26/20 12/26/20 01:21 02:59 Sodium 139 Potassium 3.8 Chloride 106 Carbon Dioxide 29 BUN 13 Creatinine 0.90 Glucose 122 H Calcium 8.9 Liver Function 12/26/20 12/26/20 Range/Units 01:21 02:59 Total Bilirubin 0.8 (0.2-1) mg/dl AST 61 H (15-37) U/L ALT 77 (12-78) U/L Alkaline Phosphatase 182 H (45-117) U/L Albumin 3.8 (3.4-5.0) gm/dl Urine 12/26/20 Range/Units 01:20 Urine Color Yellow Urine Appearance Clear (Clear) Urine pH 5.0 (4.5-7.5) Ur Specific [place] 1.027 (1.000-1.030) Urine Protein Negative (Negative) Urine Glucose (UA) Negative (Negative)
[2020-12-26] MEDS: LACTOBACILLUS ACIDOPHILUS 1 GM PACK PO SCH (17:35)
[2020-12-27] MEDS: RASPBERRY SYRUP 5 ML UDP PO SCH ×5 (00:02→22:56)
[2020-12-27] MEDS: VANCOMYCIN HCL 125 MG/2.5ML SOLN PO SCH ×5 (00:03→22:57)
[2020-12-27] MEDS: SODIUM CHLORIDE 0.9% 1000ML 1,000 ML IV SCH ×2 (00:48→13:15)
[2020-12-27] MEDS: LEVOTHYROXINE SODIUM 75 MCG TABLET PO SCH (06:36)
[2020-12-27] MEDS: lamoTRIgine 100 MG TAB PO SCH ×2 (07:54→21:34)
[2020-12-27] MEDS: IRON POLYSACCHARIDE COMPLEX 150 MG CAPSULE PO SCH (07:54)
[2020-12-27] MEDS: SODIUM CHLORIDE 1 GM TABLET PO SCH ×3 (07:54→21:34)
[2020-12-27] MEDS: LACTOBACILLUS ACIDOPHILUS 1 GM PACK PO SCH ×3 (07:54→17:23)
[2020-12-27] MEDS ORDERED: Nursing to Pharmacy Communication SCH (08:45)
[2020-12-27 09:17] LABS: Basophils # (auto) 0.02 K/uL (0-0.2); Basophils % (auto) 0.2 %; Eosinophils # (auto) 0.23 K/uL (0-0.5); Eosinophils % (auto) 2.1 %; Hematocrit (blood only) 29.2 % (37-47); Hemoglobin 9.8 g/dL (12.0-16.0); Immature Granulocytes % (auto) 0.9 %; Lymphocytes # (auto) 1.52 K/uL (1.2-3.4); Lymphocytes % (auto) 13.7 %; Mean Corpuscular Hemoglobin 30.6 pg (25-34); Mean Corpuscular Hgb Conc 33.6 g/dL (32-36); Mean Corpuscular Volume 91.3 fL (80-100); Mean Platelet Volume 9.9 fL (7.4-10.4); Monocytes # (auto) 0.53 K/uL (0.11-0.59); Monocytes % (auto) 4.8 %; Neutrophils # (auto) 8.69 K/uL (1.4-6.5); Neutrophils % (auto) 78.3 %; Platelet Count 275 K/uL (130-400); RDW Standard Deviation 50.8 fL (36.4-46.3); White Blood Count 11.09 K/uL (4.8-10.8)
[2020-12-27 09:39] LABS: D Dimer 3350 ug/L FEU (0-500)
[2020-12-27 09:53] LABS: Calcium 8.1 mg/dl (8.5-10.1); Creatinine Clr Calc Pharmacy 48.3 ml/min; Est GFR (Non-African American) 70.8; Magnesium 2.1 mg/dl (1.8-2.4); Potassium 3.6 mmol/L (3.5-5.1)
--- NOTE | 2020-12-27 19:24 | Hospitalist Progress Note ---
Date of Service December 27, 2020 Assessment & Plan (1) Tachypnea: Recurrent C diff Colitis SIRS Possible Sepsis CT Chest:No focal lung consolidations to suggest pneumonia. Healing left-sided rib fractures. No pneumothorax. Right upper calcified pleural plaque. Hepatic steatosis.. Prior cholecystectomy. Blood cultures: Negative to date Stool positive for C diff UA: Normal Normal procalcitonin, lactate levels Continue PO Vancomycin Continue IV fluids Consider CT abdomen if no improvement Need Prolonged PO Vancomycin course Continue current management Afebrile today Elevated D dimer Likely secondary to above Perfusion Scan: Low probability for pulmonary embolus. Venous Doppler:No evidence of lower extremity DVT. Saturating well on room air Will obtain CTA Possible Aspiration H/O Tracheal injury Aspiration precautions Speech eval requested H/O Astrocytoma S/P surgery, chemoradiation H/O Traumatic subdural hematoma Seizure disorder Continue Hypothyroidism Continue levothyroxine Chronic hyponatremia Continue salt tablets Sodium levels within normal limits Monitor DVT Px: SCDs RE H/O ICH Code Status Full code Admission and Anticipated Discharge Date Admission Date: December 27, 2020 Subjective Patient is seen and examined at bedside Poor historian Most of the history is obtained from patient's mother and bedside States feeling a lot better today Had 4 loose bowel movements overnight Afebrile today Tolerating diet Denies any abdominal pain, nausea, vomiting, chest pain, dyspnea Review of Systems Review of Systems: All systems reviewed & are unremarkable except as noted in HPI & below Physical Exam Physical Exam: Physical Exam: Vitals signs as noted above General Appearance:Moderately built and nourished, no apparent distress Head: normocephalic, Atraumatic Eyes: normal inspection, EOMI Neck: supple, Trachea midline Respiratory/Chest: Normal breath sounds, CTA Cardiovascular: S1, S2, No murmur Abdomen/GI:Soft, Non tender, Bowel sounds present Extremities/Musculoskeletal:normal inspection, no edema Neurologic/Psych:Alert, awake, oriented to person, place, grossly no focal neurological deficits, Growth retardation Skin: normal color, warm Results & Data Results & Data ([facility]) Vital Signs (Past 12 Hours) Vital Signs Temp Pulse Pulse Resp BP Pulse Ox 12/27/20 16:00 100 H 12/27/20 12:05 36.9 C 104 H 18 109/68 94 12/27/20 08:46 107 H 12/27/20 07:48 37.3 C 105 H 18 101/68 96 Laboratory Results Short CBC 12/27/20 Range/Units 09:05 WBC 11.09 H (4.8-10.8) K/uL Hgb 9.8 L (12.0-16.0) g/dL Hct 29.2 L (37-47) % Plt Count 275 (130-400) K/uL BMP 12/27/20 09:05 Sodium 140 Potassium 3.6 Chloride 111 H Carbon Dioxide 22 BUN 12 Creatinine 0.99 Glucose 107 H Calcium 8.1 L
[2020-12-28] MEDS: VANCOMYCIN HCL 125 MG/2.5ML SOLN PO SCH ×4 (05:25→22:50)
[2020-12-28] MEDS: RASPBERRY SYRUP 5 ML UDP PO SCH ×4 (05:25→22:35)
[2020-12-28] MEDS: LEVOTHYROXINE SODIUM 75 MCG TABLET PO SCH (05:25)
[2020-12-28 06:33] LABS: Hematocrit (blood only) 27.3 % (37-47); Hemoglobin 9.2 g/dL (12.0-16.0); Mean Corpuscular Hemoglobin 30.8 pg (25-34); Mean Corpuscular Hgb Conc 33.7 g/dL (32-36); Mean Corpuscular Volume 91.3 fL (80-100); Mean Platelet Volume 9.6 fL (7.4-10.4); Platelet Count 288 K/uL (130-400); RDW Coefficient of Variation 14.9 % (11.5-14.5); RDW Standard Deviation 50.1 fL (36.4-46.3); Red Blood Count 2.99 M/uL (4.2-5.4); White Blood Count 9.83 K/uL (4.8-10.8)
[2020-12-28 07:14] LABS: BUN Creatinine Ratio 8.9 (10-20); Calcium 8.4 mg/dl (8.5-10.1); Creatinine Clr Calc Pharmacy 53.7 ml/min; Est GFR (African American) 93.3; Est GFR (Non-African American) 80.5; Magnesium 1.8 mg/dl (1.8-2.4); Potassium 3.3 mmol/L (3.5-5.1)
[2020-12-28] MEDS ORDERED: POTASSIUM CHLORIDE PWD 20 MEQ PACK PO ONE (10:45)
[2020-12-28] MEDS: lamoTRIgine 100 MG TAB PO SCH ×2 (12:16→22:34)
[2020-12-28] MEDS: IRON POLYSACCHARIDE COMPLEX 150 MG CAPSULE PO SCH (12:16)
[2020-12-28] MEDS: LACTOBACILLUS ACIDOPHILUS 1 GM PACK PO SCH ×3 (12:17→17:32)
[2020-12-28] MEDS: SODIUM CHLORIDE 1 GM TABLET PO SCH ×3 (12:17→22:35)
--- NOTE | 2020-12-28 19:54 | Hospitalist Progress Note ---
Date of Service December 28, 2020 Assessment & Plan (1) Tachypnea: Recurrent C diff Colitis SIRS Possible Sepsis CT Chest:No focal lung consolidations to suggest pneumonia. Healing left-sided rib fractures. No pneumothorax. Right upper calcified pleural plaque. Hepatic steatosis.. Prior cholecystectomy. Blood cultures: Negative to date Stool positive for C diff UA: Normal Normal procalcitonin, lactate levels Continue PO Vancomycin Received IV fluids Consider CT abdomen if no improvement Need Prolonged PO Vancomycin course Continue current management Elevated D dimer Likely secondary to above Perfusion Scan: Low probability for pulmonary embolus. Venous Doppler:No evidence of lower extremity DVT. Saturating well on room air Will obtain CTA as able--Has IV access issues Possible Aspiration H/O Tracheal injury Aspiration precautions Speech eval requested H/O Astrocytoma S/P surgery, chemoradiation H/O Traumatic subdural hematoma Seizure disorder Continue Hypothyroidism Continue levothyroxine Chronic hyponatremia Continue salt tablets Sodium levels within normal limits Monitor DVT Px: SCDs RE H/O ICH Code Status Full code Admission and Anticipated Discharge Date Admission Date: December 27, 2020 Subjective Patient is seen and examined at bedside Poor historian Most of the history is obtained from patient's mother and bedside Remains afebrile Diarrhea slowly improving No new complaints Tolerating diet Denies nausea, vomiting, abdominal pain, chest pain, dyspnea Review of Systems Review of Systems: All systems reviewed & are unremarkable except as noted in HPI & below Physical Exam Physical Exam: Physical Exam: Vitals signs as noted above General Appearance:Moderately built and nourished, no apparent distress Head: normocephalic, Atraumatic Eyes: normal inspection, EOMI Neck: supple, Trachea midline Respiratory/Chest: Normal breath sounds, CTA Cardiovascular: S1, S2, No murmur Abdomen/GI:Soft, Non tender, Bowel sounds present Extremities/Musculoskeletal:normal inspection, no edema Neurologic/Psych:Alert, awake, oriented to person, place, grossly no focal neurological deficits, Growth retardation Skin: normal color, warm Results & Data Results & Data ([facility]) Vital Signs (Past 12 Hours) Vital Signs Temp Pulse Pulse Resp BP Pulse Ox 12/28/20 19:48 36.8 C 101 H 18 116/72 97 12/28/20 15:56 91 H 12/28/20 14:55 36.8 C 97 H 20 100/63 96 12/28/20 11:12 36.9 C 104 H 20 110/73 93 12/28/20 07:57 37.1 C 105 H 20 114/73 93 Laboratory Results Short CBC 12/28/20 Range/Units 06:22 WBC 9.83 (4.8-10.8) K/uL Hgb 9.2 L (12.0-16.0) g/dL Hct 27.3 L (37-47) % Plt Count 288 (130-400) K/uL BMP 12/28/20 06:22 Sodium 140 Potassium 3.3 L Chloride 111 H Carbon Dioxide 22 BUN 8 Creatinine 0.89 Glucose 92 Calcium 8.4 L
[2020-12-29] MEDS: LEVOTHYROXINE SODIUM 75 MCG TABLET PO SCH (06:49)
[2020-12-29] MEDS: VANCOMYCIN HCL 125 MG/2.5ML SOLN PO SCH ×2 (06:50→14:00)
[2020-12-29] MEDS: RASPBERRY SYRUP 5 ML UDP PO SCH ×2 (06:50→14:00)
[2020-12-29] MEDS: lamoTRIgine 100 MG TAB PO SCH (08:01)
[2020-12-29] MEDS: SODIUM CHLORIDE 1 GM TABLET PO SCH ×2 (08:01→15:20)
[2020-12-29] MEDS: IRON POLYSACCHARIDE COMPLEX 150 MG CAPSULE PO SCH (08:02)
[2020-12-29] MEDS: LACTOBACILLUS ACIDOPHILUS 1 GM PACK PO SCH ×2 (08:02→12:00)
[2020-12-29 08:03] LABS: Hematocrit (blood only) 31.8 % (37-47); Hemoglobin 10.8 g/dL (12.0-16.0); Mean Corpuscular Hemoglobin 30.5 pg (25-34); Mean Corpuscular Volume 89.8 fL (80-100); Mean Platelet Volume 10.1 fL (7.4-10.4); Platelet Count 288 K/uL (130-400); RDW Coefficient of Variation 14.6 % (11.5-14.5); RDW Standard Deviation 48.7 fL (36.4-46.3); Red Blood Count 3.54 M/uL (4.2-5.4); White Blood Count 6.21 K/uL (4.8-10.8)
[2020-12-29 08:29] LABS: BUN Creatinine Ratio 12.4 (10-20); Calcium 9.4 mg/dl (8.5-10.1); Creatinine Clr Calc Pharmacy 48.8 ml/min; Est GFR (Non-African American) 71.6; Magnesium 1.6 mg/dl (1.8-2.4); Potassium 3.8 mmol/L (3.5-5.1)
[2020-12-29] MEDS ORDERED: MAGNESIUM SULFATE / D5W 1 GM/100 ML BAG IV ONE (10:30)
--- NOTE | 2020-12-29 14:16 | Hospitalist Progress Note ---
Date of Service December 29, 2020 Assessment & Plan (1) Tachypnea: Recurrent C diff Colitis SIRS Possible Sepsis CT Chest:No focal lung consolidations to suggest pneumonia. Healing left-sided rib fractures. No pneumothorax. Right upper calcified pleural plaque. Hepatic steatosis.. Prior cholecystectomy. Blood cultures: Negative to date Stool positive for C diff UA: Normal Normal procalcitonin, lactate levels Continue PO Vancomycin Received IV fluids Consider CT abdomen if no improvement Need Prolonged PO Vancomycin course Plan to discharge home today Elevated D dimer Likely secondary to above Perfusion Scan: Low probability for pulmonary embolus. Venous Doppler:No evidence of lower extremity DVT. Saturating well on room air Possible Aspiration H/O Tracheal injury Aspiration precautions Speech eval requested H/O Astrocytoma S/P surgery, chemoradiation H/O Traumatic subdural hematoma Seizure disorder Continue Hypothyroidism Continue levothyroxine Chronic hyponatremia Continue salt tablets Sodium levels within normal limits Monitor DVT Px: SCDs RE H/O ICH Code Status Full code Admission and Anticipated Discharge Date Admission Date: December 27, 2020 Subjective Patient is seen and examined at bedside Most of the history is obtained from patient's mother and bedside due to patient's mental condition Patient is doing much better today Minimal diarrhea No new complaints Saturating well on room air Denies nausea, vomiting, abdominal pain, chest pain, dyspnea Review of Systems Review of Systems: All systems reviewed & are unremarkable except as noted in HPI & below Physical Exam Physical Exam: Physical Exam: Vitals signs as noted above General Appearance:Moderately built and nourished, no apparent distress Head: normocephalic, Atraumatic Eyes: normal inspection, EOMI Neck: supple, Trachea midline Respiratory/Chest: Normal breath sounds, CTA Cardiovascular: S1, S2, No murmur Abdomen/GI:Soft, Non tender, Bowel sounds present Extremities/Musculoskeletal:normal inspection, no edema Neurologic/Psych:Alert, awake, oriented to person, place, grossly no focal neurological deficits, Growth retardation Skin: normal color, warm Results & Data Results & Data ([facility]) Vital Signs (Past 12 Hours) Vital Signs Temp Pulse Pulse Resp BP Pulse Ox 12/29/20 11:19 37.0 C 88 20 103/70 97 12/29/20 07:58 36.9 C 92 H 20 128/81 98 12/29/20 07:36 88 12/29/20 04:00 36.9 C 92 H 18 109/67 96 Laboratory Results Short CBC 12/29/20 Range/Units 07:41 WBC 6.21 (4.8-10.8) K/uL Hgb 10.8 L (12.0-16.0) g/dL Hct 31.8 L (37-47) % Plt Count 288 (130-400) K/uL BMP 12/29/20 07:41 Sodium 138 Potassium 3.8 D Chloride 108 H Carbon Dioxide 24 BUN 12 Creatinine 0.98 Glucose 92 Calcium 9.4
--- NOTE | 2020-12-29 15:16 | Discharge Summary ---
Date of Service December 29, 2020 Admission HPI Per Admitting Provider Chief Complaint: Tired as per patient Primary Care Provider: Randy Begum History obtained from patient, family, and records. Patient is a fair historian. Medical history significant for astrocytoma status post surgery, chemoradiation, traumatic subdural hematoma, seizure disorder, mild aortic stenosis (TTE 2019), hypothyroidism, chronic hyponatremia, chronic anemia (baseline hemoglobin 11), history of tracheal injury, history of C. difficile, learning disability as per records. Last confinement November 2020 for hyponatremia and C. difficile diarrhea. Yesterday patient noted by mother to be increasingly weak and tired throughout the day. Some urinary incontinence. No witnessed seizures. As per mother. Mentation at baseline as per mother. Patient denies headache, chest pain, S OB, cough. History possible aspiration a few days ago as per mother. Patient brought to the ER for evaluation for possible dehydration as per mother. Admission Exam Per Admitting Provider Physical Exam Physical Exam: GENERAL: uncomfortable, some growth stunting, follows some commands, minimal respiratory distress SKIN: Pallor , warm HEENT: Pale palpebral conjunctivae, no ptosis, dry buccal mucosa NECK : Supple, short neck, no tenderness CHEST : Scattered expiratory wheezes, no tenderness HEART : Tachycardic, systolic murmur loudest over left sternal border ABDOMEN: Some distention, nontender EXTREMITIES : No LE swelling/tenderness, no other conspicuous deformities noted NEUROLOGIC : Coherent, follows some commands, no facial asymmetry, gait and stance not assessed Principal Diagnosis Recurrent C. difficile colitis Elevated D-dimer Discharge Data Allergies Allergy/AdvReac Type Severity Reaction Status Date / Time phenobarbital Allergy Mild Unknown Verified 12/26/20 00:57 omeprazole AdvReac Unknown red face Verified 12/26/20 00:57 Consultations 12/26/20 05:54 ED Decision to Admit Stat Procedures Performed CT Chest:No focal lung consolidations to suggest pneumonia. Healing left-sided rib fractures. No pneumothorax. Right upper calcified pleural plaque. Hepatic steatosis.. Prior cholecystectomy. Ordered Studies 12/26/20 02:19 CT chest diagnostic wo con Urgent 12/26/20 07:02 US venous doppler LE Urgent Hospital Course (1) Tachypnea: Recurrent C diff Colitis SIRS Possible Sepsis CT Chest:No focal lung consolidations to suggest pneumonia. Healing left-sided rib fractures. No pneumothorax. Right upper calcified pleural plaque. Hepatic steatosis.. Prior cholecystectomy. Blood cultures: Negative to date Stool positive for C diff UA: Normal Normal procalcitonin, lactate levels Continue PO Vancomycin Received IV fluids Consider CT abdomen if no improvement Need Prolonged PO Vancomycin course Plan to discharge home today Elevated D dimer Likely secondary to above Perfusion Scan: Low probability for pulmonary embolus. Venous Doppler:No evidence of lower extremity DVT. Saturating well on room air Possible Aspiration H/O Tracheal injury Aspiration precautions Speech eval requested H/O Astrocytoma S/P surgery, chemoradiation H/O Traumatic subdural hematoma Seizure disorder Continue Hypothyroidism Continue levothyroxine Chronic hyponatremia Continue salt tablets Sodium levels within normal limits Monitor DVT Px: SCDs RE H/O ICH Code Status Full code I certify that this patient is under my care and that I, or a physicians store assistant working with me, had a face to-face encounter that meets the home health [id number] encounter requirements with this patient. The encounter with the patient was in whole, or in part, for the following medical condition, which is the primary reason for home health care (list medical condition): I certify that, based on my findings, the following services are medically necessary home health services: My clinical findings support the need for the above services because: Further, I certify that my clinical findings support that this patient is homebound (i.e. absences from home require considerable and taxing effort and are for medical reasons or tenriism services or infrequently or of short duration when for other reasons) because: Certification for Home Health Services: Based on the above findings, I certify that this patient is confined to the home and needs intermittent [facility] care, physical therapy and/or speech therapy or continues to need occupational therapy. The patient is under my care, and I have initiated the establishment of the plan of care. This patient will be followed by a physician who will periodically review the plan of care. Total Time Total Time Spent Total Time Spent (In Minutes): 48 minutes Total Time Includes: Examination of the Patient, Discharge Planning, Medication Reconciliation, Communication With Other Providers and Other Discharge Plan Discharge Items Patient Disposition: Home - Home Health Services Reason For Visit: TACHYPNEA Discharge Diagnosis: Recurrent C. difficile colitis Elevated D-dimer Activity: Per Instructions section Exercise/Sports: Gradually increase as tolerated Non-emergency contact: Primary Care Provider Call non-emergency contact if: you have any medication questions, your symptoms worsen, your pain is not controlled, your pain is concerning for you and you have a fever Follow-up/Referrals: Randy Begum [Primary Care Provider] - Diet: Regular Diet Texture: Mechanical soft (ground) Addtl Attending Provider Instructions: Follow-up with your primary care physician in 1 week Complete antibiotic course as advised. Start taking vancomycin 125mg orally every 6 hours for 2 weeks, and then twice a day for 1 week, then once daily for 1 week and then 1 capsule every 3 days for 2 weeks and STOP. Your final blood cultures are pending at the time of discharge. Follow-up with your physician for results. Seek immediate medical attention if your symptoms reoccur or worsen Pending Studies at Discharge: Yes Studies:: Blood Cultures Stand-Alone Forms: My [facility] [employer], Smoking Cessation Medications and DC Order Prescriptions: New Floranex 100 million cell Granules In Packet 1 g PO TIDM Qty: 90 RF: 0 vancomycin 125 mg capsule 125 mg PO UD Qty: 100 RF: 0 Continued lamotrigine 150 mg tablet 150 mg PO Q12H RF: 0 levothyroxine 25 mcg Tablet 37.5 mcg PO QAM RF: 0 polysaccharide iron complex [iFerex 150] 150 mg iron capsule 150 mg PO DAILY RF: 0 megestrol 20 mg tablet 20 mg PO QAM RF: 0 sodium chloride 1 gram tablet 1 g PO TID RF: 0 furosemide 20 mg tablet 20 mg PO DAILY PRN (Reason: Fluid Retention) RF: 0 magnesium oxide 400 mg magnesium tablet 400 mg PO HS RF: 0 Discharge Orders: Discharge Order (Routine); Ordered 12/29/20 Ordered By: Angel Gray Admission Data Admit Date/Time: 12/27/20 08:05 Attending Provider: Angel Gray Admit Provider: Roc Caldera Primary Care Provider: Randy Begum Other Providers: Roc Caldera Other Interventions: Discharge Summary Assessment (RN) Last Done: 12/29/20 15:00
== END 2020-12-29 17:30 | disposition home health service (06) | DRG 371 ==
LOC: 2N 00:30 → ED 00:30 → 2N 08:19 → 2W 14:23

== ENCOUNTER 2021-01-31 14:27 | Inpatient (IN) ==
[2021-01-31 15:35] LABS: Basophils # (auto) 0.03 K/uL (0-0.2); Basophils % (auto) 0.4 %; Eosinophils # (auto) 0.24 K/uL (0-0.5); Eosinophils % (auto) 3.5 %; Hematocrit (blood only) 33.7 % (37-47); Hemoglobin 11.4 g/dL (12.0-16.0); Immature Granulocytes # (auto) 0.04 K/uL (0.00-0.02); Immature Granulocytes % (auto) 0.6 %; Lymphocytes # (auto) 1.94 K/uL (1.2-3.4); Mean Corpuscular Hemoglobin 30.5 pg (25-34); Mean Corpuscular Hgb Conc 33.8 g/dL (32-36); Mean Corpuscular Volume 90.1 fL (80-100); Mean Platelet Volume 9.1 fL (7.4-10.4); Monocytes # (auto) 0.37 K/uL (0.11-0.59); Monocytes % (auto) 5.3 %; Neutrophils # (auto) 4.32 K/uL (1.4-6.5); Neutrophils % (auto) 62.2 %; Platelet Count 352 K/uL (130-400); RDW Coefficient of Variation 14.5 % (11.5-14.5); RDW Standard Deviation 48.2 fL (36.4-46.3); Red Blood Count 3.74 M/uL (4.2-5.4); White Blood Count 6.94 K/uL (4.8-10.8)
--- NOTE | 2021-01-31 15:36 | Emergency Department Note ---
Impression & Plan Hyponatremia ED Provider Note INFORMANT: Patient and mother ED PROVIDER(S): Lito Rojas MD CHIEF COMPLAINT: Abnormal labs PLAN: Disposition: Admitted Condition: Good Outpatient prescription management: none Referral: None MEDICAL DECISION MAKING: Patient presented because of hyponatremia. Mother notes that she does not do well when she is below the normal range. The patient had repeat blood work obtained. An IV was established. She was found to be mildly hyponatremic. Pre viously the mother notes in the past she has been admitted for these values and treated. The patient was hydrated with normal saline. Consultation was made with the [facility]. The patient was evaluated in the ER for further management. Triage Nursing notes reviewed and agree them. Vital Signs: reviewed and remarkable for no significant abnormalities Differential diagnosis: Hyponatremia, Infection, dehydration, metabolic abnormality, hypo/hyperglycemia, electrolyte disturbance, anemia, hypoxia, cardiac sources, intracerebral event, toxicologic, neurologic, as well as other pathologies. Diagnostics interpreted by me: ECG: Rate:91 Rhythm:Normal sinus [place]:Normal QRS:Normal ST segements:No elevation or depression Other:No PACs or PVCs Cardiac Monitoring: Cardiac monitoring ordered by me: The patient was placed on continuous cardiac monitoring and observed. It revealed a normal sinus rhythm at 93 beats per minute without ectopy or evidence of dysrhythmia. Imaging studies: Deferred HPI: The patient is a 40 year old female who presents to the Emergency Room with her mother noting abnormal labs. The patient has hyponatremia with a sodium of 131 on outpatient labs. The mother states that after she goes below 135-136 she becomes weak. She has balance issues. This was found today during routine hematology labs. The mother states that she frequently is admitted for sodium issues at this range. She is taking 3 salt tablets a day. Patient denies any pain pt denies LOC, headache, fevers, chills, diaphoresis, visual changes, neck pain, chest pain, breathing difficulties, nausea, vomiting, abdominal pain, back pain, diarrhea, urinary symptoms, numbness, lymphadenopathy, rash, or other complaints. ROS: See above HPI for pertinent positives & negatives. A total of 10 systems reviewed and were otherwise negative. PAST MEDICAL HISTORY:See Below , seizure disorder, C. difficile diarrhea, astrocytoma PAST SURGICAL HISTORY:See Below, FAMILY HISTORY:See Below SOCIAL HISTORY:See Below, lives with mother HOME MEDICATIONS:See Below ALLERGIES:See Below VITALS:See Below PHYSICAL EXAMINATION: GENERAL: Awake, alert, small for age appearing, in no distress HENT: atraumatic. Oropharynx unremarkable. EYES: Normal conjunctiva. Sclera non-icteric. NECK: Inspection normal. Non-tender. Supple. No nuchal rigidity. FROM. No masses. RESPIRATORY: Clear to auscultation. No wheezes. No rales. Normal respiratory effort. CARDIAC: Normal rate. Normal rhythm. Holosystolic murmur. No rubs. Extremities warm and well perfused. Pulses equal. No JVD. GI: Soft, non-distended. No tenderness to palpation. No rebound or guarding. No masses. MUSCULOSKELETAL: Atraumatic. Chest examination reveals no tenderness. The back is symmetrical on inspection without obvious abnormality. There is no CVA tenderness to palpation. No joint edema. LOWER EXTREMITIES: Calves are equal size bilaterally and non-tender. No edema. No discoloration. NEURO: Normal sensorium. No sensory or motor deficits noted. SKIN: No rash or jaundice noted. Lito Rojas MD Past Med/Surg History Medical History (Updated 01/31/21 @ 17:59 by Kateryna Craven PA-C) Brain tumor C. difficile diarrhea Cognitive developmental delay Epilepsy H/O astrocytoma Hypothyroidism Laceration of trachea Seizure disorder Subdural hematoma Weakness Surgical History H/O brain surgery History of umbilical hernia repair S/P cholecystectomy Family History Mother Diabetes Grandfather (Paternal) Coronary heart disease Uncle Coronary heart disease Social History Smoking Status: Never smoker Hx Alcohol Use: No Hx Substance Use: No Preferred Language: Malay Communication Ability: Impaired Hearing Ability: Normal Hospital Receptionist Required: No Beliefs That Will Affect Care: None marital status: Single Current Living Situation: Parent Current Living Situation Comment: Lives with mother who is caregiver How many Children do You have: 0 Other Information That Helps Us Care for You: No Feels Safe at Home: Yes Safety Concerns: Feels Safe At This Time Assistive Devices: Denture - Upper and Denture - Lower Allergies Allergies Allergy/AdvReac Type Severity Reaction Status Date / Time phenobarbital Allergy Mild Unknown Verified 01/31/21 17:15 omeprazole AdvReac Unknown red face Verified 01/31/21 17:15 Home Meds Home Medications Medication Instructions Recorded Confirmed lamotrigine 150 mg PO Q12H 04/22/19 01/31/21 levothyroxine 37.5 mcg PO QAM 04/22/19 01/31/21 megestrol 20 mg PO QAM 02/08/20 01/31/21 polysaccharide iron complex 150 mg PO DAILY 02/08/20 01/31/21 [iFerex 150] magnesium oxide 400 mg PO HS 12/02/20 01/31/21 furosemide 20 mg PO DAILY PRN 12/26/20 01/31/21 sodium chloride 1 g PO TID 12/26/20 01/31/21 Previous Rx's Medication Instructions Recorded vancomycin 125 mg PO UD #100 cap 12/29/20 Results & Data (ED) Vital Signs Vital Signs - 24 hr 01/31/21 14:32 01/31/21 16:58 Temperature 36.2 C L Temperature Source Temporal Artery Scan Pulse Rate 93 H 92 H Pulse Rate [Right Finger] 87 Respiratory Rate 20 16 Respiratory Effort / Characteristics Non-Labored Respiratory Depth Normal Blood Pressure 140/82 Blood Pressure [Right Arm] 125/86 Blood Pressure Mean 101 Blood Pressure Mean [Right Arm] 99 Pulse Oximetry 100 98 Oxygen Delivery Method Room Air Room Air Sepsis Recent Fever Within 48 Hours No Sepsis New/Unexplained Change in Mental Status N/A Sepsis Action Taken by Nursing No Action Required Laboratory Data Result diagrams: 01/31/21 15:28 01/31/21 15:28 Lab Results 01/31/21 01/31/21 01/31/21 Range/Units 15:28 15:28 15:40 WBC 6.94 (4.8-10.8) K/uL RBC 3.74 L (4.2-5.4) M/uL Hgb 11.4 L (12.0-16.0) g/dL Hct 33.7 L (37-47) % MCV 90.1 (80-100) fL MCH 30.5 (25-34) pg MCHC 33.8 (32-36) g/dL RDW Std Deviation 48.2 H (36.4-46.3) fL RDW Coeff of [place] 14.5 (11.5-14.5) % Plt Count 352 (130-400) K/uL MPV 9.1 (7.4-10.4) fL Immature Gran % (Auto) 0.6 % Neut % (Auto) 62.2 % Lymph % (Auto) 28.0 % [place] % (Auto) 5.3 % Eos % (Auto) 3.5 % Baso % (Auto) 0.4 % Neut # (Auto) 4.32 (1.4-6.5) K/uL Lymph # (Auto) 1.94 (1.2-3.4) K/uL [place] # (Auto) 0.37 (0.11-0.59) K/uL Eos # (Auto) 0.24 (0-0.5) K/uL Baso # (Auto) 0.03 (0-0.2) K/uL Immature Gran # (Auto) 0.04 H (0.00-0.02) K/uL Sodium 131 L (136-145) mmol/L Potassium 3.6 (3.5-5.1) mmol/L Chloride 95 L (98-107) mmol/L Carbon Dioxide 29 (21-32) mmol/L Anion Gap 7.0 (3-11) BUN 8 (7-18) mg/dl Creatinine 0.93 (0.6-1.2) mg/dl Est Cr Clr Drug Dosing Not Reportable Est GFR ( Amer) 88.5 ml/min Est GFR (Non-Af Amer) 76.3 ml/min BUN/Creatinine Ratio 8.6 L (10-20) Glucose 98 (70-99) mg/dl Calcium 9.5 (8.5-10.1) mg/dl Magnesium 1.6 L (1.8-2.4) mg/dl Total Bilirubin 0.5 (0.2-1) mg/dl AST 57 H (15-37) U/L ALT 46 (12-78) U/L Alkaline Phosphatase 118 H (45-117) U/L Total Protein 8.1 (6.4-8.2) gm/dl Albumin 4.2 (3.4-5.0) gm/dl Globulin 3.9 (2.5-4.0) gm/dl Albumin/Globulin Ratio 1.1 (0.9-2) TSH 2.490 (0.300-4.500) uIu/ml Urine Color Yellow Urine Appearance Clear (Clear) Urine pH 7.0 (4.5-7.5) Ur Specific [place] 1.008 (1.000-1.030) Urine Protein Negative (Negative) Urine Glucose (UA) Negative (Negative) Urine Ketones Negative (Negative) Urine Blood Negative (Negative) Urine Nitrite Negative (Negative) Urine Bilirubin Negative (Negative) Urine Urobilinogen Negative (Negative) Ur Leukocyte Esterase Negative (Negative) COVID-19 Eval Order SARS-CoV-2 (PCR) (Negative) 01/31/21 01/31/21 Range/Units 16:53 16:53 WBC (4.8-10.8) K/uL RBC (4.2-5.4) M/uL Hgb (12.0-16.0) g/dL Hct (37-47) % MCV (80-100) fL MCH (25-34) pg MCHC (32-36) g/dL RDW Std Deviation (36.4-46.3) fL RDW Coeff of [place] (11.5-14.5) % Plt Count (130-400) K/uL MPV (7.4-10.4) fL Immature Gran % (Auto) % Neut % (Auto) % Lymph % (Auto) % [place] % (Auto) % Eos % (Auto) % Baso % (Auto) % Neut # (Auto) (1.4-6.5) K/uL Lymph # (Auto) (1.2-3.4) K/uL [place] # (Auto) (0.11-0.59) K/uL Eos # (Auto) (0-0.5) K/uL Baso # (Auto) (0-0.2) K/uL Immature Gran # (Auto) (0.00-0.02) K/uL Sodium (136-145) mmol/L Potassium (3.5-5.1) mmol/L Chloride (98-107) mmol/L Carbon Dioxide (21-32) mmol/L Anion Gap (3-11) BUN (7-18) mg/dl Creatinine (0.6-1.2) mg/dl Est Cr Clr Drug Dosing Est GFR ( Amer) ml/min Est GFR (Non-Af Amer) ml/min BUN/Creatinine Ratio (10-20) Glucose (70-99) mg/dl Calcium (8.5-10.1) mg/dl Magnesium (1.8-2.4) mg/dl Total Bilirubin (0.2-1) mg/dl AST (15-37) U/L ALT (12-78) U/L Alkaline Phosphatase (45-117) U/L Total Protein (6.4-8.2) gm/dl Albumin (3.4-5.0) gm/dl Globulin (2.5-4.0) gm/dl Albumin/Globulin Ratio (0.9-2) TSH (0.300-4.500) uIu/ml Urine Color Urine Appearance (Clear) Urine pH (4.5-7.5) Ur Specific [place] (1.000-1.030) Urine Protein (Negative) Urine Glucose (UA) (Negative) Urine Ketones (Negative) Urine Blood (Negative) Urine Nitrite (Negative) Urine Bilirubin (Negative) Urine Urobilinogen (Negative) Ur Leukocyte Esterase (Negative) COVID-19 Eval Order Covid19 at [facility] SARS-CoV-2 (PCR) NEGATIVE (Negative) Administered Medications Sodium Chloride (Nss 1000ml) 1,000 mls @ 75 mls/hr IV .[id number] Stop: 02/01/21 08:45 Last Admin: 01/31/21 19:32 Dose: 75 mls/hr Documented by: [id number] Discontinued Medications Sodium Chloride (Nss 1000ml) 1,000 mls @ 75 mls/hr IV .[id number] Stop: 02/01/21 06:02 Last Infusion: 01/31/21 19:32 Dose: 0 mls/hr Documented by: [id number] Admin: 01/31/21 17:00 Dose: 75 mls/hr Documented by: [id number] Discharge Plan Visit Data Chief Complaint: Abnormal Labs/Diagnostic Testing Stated Complaint: SODIUM REALLY LOW ED Provider: Lito Rojas Discharge Problem: Hyponatremia Discharge Instructions Interventions: ED Discharge Assessment Last Done: 01/31/21 18:55
[2021-01-31 15:55] LABS: Alanine Aminotransferase 46 U/L (12-78); Albumin Level 4.2 gm/dl (3.4-5.0); Aspartate Aminotransferase 57 U/L (15-37); BUN Creatinine Ratio 8.6 (10-20); Blood Urea Nitrogen 8 mg/dl (7-18); Calcium 9.5 mg/dl (8.5-10.1); Carbon Dioxide 29 mmol/L (21-32); Chloride 95 mmol/L (98-107); Est GFR (African American) 88.5 ml/min; Est GFR (Non-African American) 76.3 ml/min; Glucose 98 mg/dl (70-99); Potassium 3.6 mmol/L (3.5-5.1); Sodium 131 mmol/L (136-145)
--- NOTE | 2021-01-31 15:56 | Electrocardiogram Report ---
Test Reason : Blood Pressure : / mmHG Vent. Rate : 091 BPM Atrial Rate : 091 BPM P-R Int : 168 ms QRS Dur : 082 ms QT Int : 364 ms P-R-T Axes : 026 008 019 degrees QTc Int : 447 ms Normal sinus rhythm Normal ECG When compared with ECG of 31-DEC-2020 18:25, No significant change was found Confirmed by Vinay Santillan ([id number]) on 01/31/2021 3:56:03 PM Referred By: ED Confirmed By:Vinay Santillan
[2021-01-31 15:58] LABS: Albumin Globulin Ratio 1.1 (0.9-2); Alkaline Phosphatase 118 U/L (45-117); Bilirubin,Total 0.5 mg/dl (0.2-1); Globulin 3.9 gm/dl (2.5-4.0); Total Protein 8.1 gm/dl (6.4-8.2)
[2021-01-31 16:26] LABS: Appearance Urine Clear (Clear); Bilirubin Urine Negative (Negative); Blood Urine Negative (Negative); Color Urine Yellow; Glucose Urine UA Negative (Negative); Ketones Urine Negative (Negative); Leukocyte Esterase Urine Negative (Negative); Nitrite Urine Negative (Negative); Protein Urine Negative (Negative); Specific Gravity Urine 1.008 (1.000-1.030); Urobilinogen Urine Negative (Negative)
[2021-01-31] MEDS ORDERED: SODIUM CHLORIDE 0.9% 1000ML 1,000 ML IV STA (16:43)
--- NOTE | 2021-01-31 17:55 | History & Physical Report ---
Date of Service January 31, 2021 Assessment & Plan (1) Hyponatremia: This is a 40 yr old F who has a significant PMH of history of childhood astrocytoma status post resection, chemo and radiation at age 4, status post fall with SDH and skull fracture in 2019, epilepsy with no known recent seizure, cognitive delay, hypothyroidism, frequent UTIs, history of recent C. difficile infection, hyponatremia who presents to ED secondary to abnormal labs drawn a hematology appointment today. Pt has been taking lasix 20mg daily x 1 per PCP with increased urinary outpt. Likely etiology of low sodium. Pt is not excessively drinking fluids ~ 4 ( 8-12oz daily). check urine osm, urine na, serum osm continue NACL tabs will consult nephrology continue NSS 75cc/hr x 1 L repeat bmp at 2200 and in am (2) History of Clostridioides difficile infection: formed stool, no need for isolation pt finishing vanco taper currently on 125mg daily until 02/04 then 125mg q72hr (3) Epilepsy: continue lamictal no recent seizure (4) Hypothyroidism: continue levothyroxine check tsh (5) Ambulatory dysfunction: consult PT/OT (6) H/O astrocytoma: (7) Cognitive developmental delay: s/p resection, chemo and XRT with resultant developmental delay continue lamotrigine (8) DVT prophylaxis: SQ Lovenox Dispo: med tele PCP: Dr. Randy Begum FULL CODE Pt was seen and examined in collaboration with Dr. Reddy, please see addendum History of Present Illness Chief Complaint: Abnormal labs/hyponatremia drawn at hematology appt today. Referred to ED. Primary Care Provider: Randy Begum This is a 40 yr old F who has a significant PMH of history of childhood astrocytoma status post resection, chemo and radiation at age 4, status post fall with SDH and skull fracture in 2019, epilepsy with no known recent seizure, cognitive delay, hypothyroidism, frequent UTIs, history of recent C. difficile infection, hyponatremia who presents to ED secondary to abnormal labs drawn a hematology appointment today. Mother is at bedside who provides history. She states yesterday she started staggering and having difficulty with gait as well as increasing weakness. Her normal serum sodium was approximately 1 35-1 36 and when it drops below that she becomes extremely symptomatic. In hematology clini c today lab work was drawn which revealed a serum sodium of 131 and she was referred to ED. Patient denies any current complaints except increased urinary frequency and states that she is "peeing herself all the time." Per patient's mother PCP started her on Lasix 20 mg daily approximately 1 week ago secondary to her being, "puffy." She also is currently receiving treatment for C. difficile. 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 She will finish up her 125 mg daily this week and then begin 125 mg every 72 hours. Her last bowel movement was today and although large was formed. Mother denies any melena or hematochezia. She further denies any fever, chills, sweats, lightheadedness, dizziness, recent fall, chest pain, shortness of breath, URI symptoms, nausea, vomiting, abdominal pain. She does complain of urinary frequency but denies any dysuria or hematuria. Overall patient's appetite has been improved per mother and she is actually gained 12 pounds in the past 4 months. She states she is currently drinking four 8 to 12 ounce liquid a day. Pt denies excessive thirst. History limited from pt. In ED patient made hemodynamically stable. BP 120s over 80s during my evaluation. Lab work confirms serum sodium of 131 and hypochloremia at 95, renal function WNL, AST 57. Urinalysis negative. Patient has not yet been vaccinated for COVID-19. Allergies Allergy/AdvReac Type Severity Reaction Status Date / Time phenobarbital Allergy Mild Unknown Verified 01/31/21 17:15 omeprazole AdvReac Unknown red face Verified 01/31/21 17:15 Home Medications Medication Instructions Recorded Confirmed Type lamotrigine 150 mg PO Q12H 04/22/19 01/31/21 History levothyroxine 37.5 mcg PO QAM 04/22/19 01/31/21 History megestrol 20 mg PO QAM 02/08/20 01/31/21 History polysaccharide iron complex 150 mg PO DAILY 02/08/20 01/31/21 History [iFerex 150] magnesium oxide 400 mg PO HS 12/02/20 01/31/21 History furosemide 20 mg PO DAILY PRN 12/26/20 01/31/21 History sodium chloride 1 g PO TID 12/26/20 01/31/21 History vancomycin 125 mg PO UD #100 cap 12/29/20 01/31/21 Rx Past Med/Surg History Medical History (Updated 01/31/21 @ 17:59 by Kateryna Craven PA-C) Brain tumor C. difficile diarrhea Cognitive developmental delay Epilepsy H/O astrocytoma Hypothyroidism Laceration of trachea Seizure disorder Subdural hematoma Weakness Surgical History H/O brain surgery History of umbilical hernia repair S/P cholecystectomy Family History Mother Diabetes Grandfather (Paternal) Coronary heart disease Uncle Coronary heart disease Social History Smoking Status: Never smoker Hx Alcohol Use: No Hx Substance Use: No Preferred Language: Pashto Communication Ability: Impaired Hearing Ability: Normal Bobbin Stripper Required: No Beliefs That Will Affect Care: None marital status: Single Current Living Situation: Parent Current Living Situation Comment: Lives with mother who is caregiver How many Children do You have: 0 Other Information That Helps Us Care for You: No Feels Safe at Home: Yes Safety Concerns: Feels Safe At This Time Assistive Devices: Denture - Upper and Denture - Lower Review of Systems Review of Systems: All systems reviewed & are unremarkable except as noted in HPI & below Physical Exam Physical Exam: Constitutional: Chronically ill appearing, petite, female, vitals as above, NAD, sitting up in bed, answer simple yes/no questions Head: Normocephalic, Atraumatic Eyes: PERRL, conjunctivae normal, anicteric sclerae ENMT: external ear and nose normal, oropharynx normal Neck: trachea midline, no thyromegaly normal visual inspection Respiratory: normal respiratory effort, lungs clear to auscultation, no wheeze, rales, rhonchi. Normal insp/exp effort, no accessory muscle use Cardiovascular: RRR, 2/6 DREA at RUSB, no edema Vessels: no JVD or carotid bruit Chest: normal inspection of chest Abdomen: normal bowel sounds, soft, nontender, no hepatosplenomegaly Musculoskeletal: no cyanosis or clubbing, active range of motion x4 Skin: no rashes, warm and dry normal turgor Neurologic: PERRL, EOMI, accommodation nl, no face palsy, no dysarthria CN's II-XI intact bilaterally and moves all extremities Psychiatric: A+O to self only, euthymic affect Lymphatic: no cervical or axillary lymphadenopathy : deferred Results & Data Results & Data ([facility]) Vital Signs (Past 12 Hours) Vital Signs Temp Pulse Pulse Resp BP BP Pulse Ox 01/31/21 17:04 87 20 171/119 H 97 01/31/21 16:58 92 H 87 16 125/86 98 01/31/21 14:32 36.2 C L 93 H 20 140/82 100 Medications Administered Medication List Sodium Chloride (Nss 1000ml) 1,000 mls @ 75 mls/hr IV .[id number] STA Stop: 02/01/21 06:02 Last Admin: 01/31/21 17:00 Dose: 75 mls/hr Documented by: [id number] ECG Rate (beats per minute): 91 Rhythm: normal sinus COVID-19 Results Results COVID-19 Adm Lab Results: RBC 3.69 M/uL (4.2-5.4) L 02/01/21 WBC 6.72 K/uL (4.8-10.8) 02/01/21 Hgb 11.2 g/dL (12.0-16.0) L 02/01/21 Hct 32.9 % (37-47) L 02/01/21 Plt Count 356 K/uL (130-400) 02/01/21 Neutrophils (%) (Auto) 62.2 % 01/31/21 Lymphocytes (%) (Auto) 28.0 % 01/31/21 Monocytes # (Auto) 0.37 K/uL (0.11-0.59) 01/31/21 Eosinophils # (Auto) 0.24 K/uL (0-0.5) 01/31/21 Immature Granulocyte % (Auto) 0.6 % 01/31/21 Neutrophils # (Auto) 4.32 K/uL (1.4-6.5) 01/31/21 Lymphocytes # (Auto) 1.94 K/uL (1.2-3.4) 01/31/21 Monocytes # (Auto) 0.37 K/uL (0.11-0.59) 01/31/21 Eosinophils # (Auto) 0.24 K/uL (0-0.5) 01/31/21 Basophils # (Auto) 0.03 K/uL (0-0.2) 01/31/21 Immature Granulocyte # (Auto) 0.04 K/uL (0.00-0.02) H 01/31/21 Na 132 mmol/L (136-145) L 02/01/21 K 3.9 mmol/L (3.5-5.1) 02/01/21 Cl 98 mmol/L (98-107) 02/01/21 CO2 26 mmol/L (21-32) 02/01/21 Anion Gap 7.0 (3-11) 02/01/21 BUN 8 mg/dl (7-18) 02/01/21 Creatinine 0.89 mg/dl (0.6-1.2) 02/01/21 BUN/Creatinine Ratio 9.1 (10-20) L 02/01/21 Glucose Level 80 mg/dl (70-99) 02/01/21 Ca 8.6 mg/dl (8.5-10.1) 02/01/21 Total Bilirubin 0.5 mg/dl (0.2-1) 01/31/21 AST/SGOT 57 U/L (15-37) H 01/31/21 ALT/SGPT 46 U/L (12-78) 01/31/21 Alkaline Phosphatase 118 U/L (45-117) H 01/31/21 Total Protein 8.1 gm/dl (6.4-8.2) 01/31/21 Albumin 4.2 gm/dl (3.4-5.0) 01/31/21 Globulin 3.9 gm/dl (2.5-4.0) 01/31/21 Albumin/Globulin Ratio 1.1 (0.9-2) 01/31/21 COVID-19 PCR NEGATIVE (Negative) 01/31/21 Code Status & VTE Plan Code Status FULL CODE VTE Prophylaxis Plan VTE Prophylaxis will be ordered: Yes Supervising Physician Co-Signing Physician Notes Attending addendum: 40-year-old female with history of astrocytoma on chemo treatment, history of chronic sedative on chronic taper vancomycin: Sent from heme-onc office for hyponatremia. Patient does not have any symptoms of weakness, lethargy, Recently started on Lasix for possible volume overload Hyponatremia: Possible secondary to Lasix, diuretics kept on hold Patient will be given gentle hydration Continue home medication of sodium chloride Repeat BMP in a.m., History of recurrent C. difficile infection: Continue on chronic taper vancomycin dose No ongoing diarrhea normal white count, no active issue Maine Reddy MD
[2021-01-31 18:28] LABS: Magnesium 1.6 mg/dl (1.8-2.4)
[2021-01-31 18:50] LABS: Pregnancy Test, Serum Negative (Negative)
[2021-01-31] MEDS ORDERED: ALUMINUM/MAGNESIUM SUSP 30 ML UDC PO PRN (19:26)
[2021-01-31] MEDS ORDERED: ONDANSETRON INJ 2 MG/ML 2 ML VIAL IV PRN (19:26)
[2021-01-31] MEDS ORDERED: ACETAMINOPHEN 325 MG TAB PO PRN (19:26)
[2021-01-31] MEDS ORDERED: POLYETHYLENE (MIRALAX) 17 GM PACK PO PRN (19:26)
[2021-01-31] MEDS ORDERED: MAGNESIUM HYDROXIDE SUSP 30 ML UDC PO PRN (19:26)
[2021-01-31] MEDS ORDERED: SODIUM CHLORIDE 0.9% 1000ML 1,000 ML IV SCH (19:26)
[2021-01-31] MEDS: MAGNESIUM OXIDE 400 MG TAB PO SCH (21:10)
[2021-01-31] MEDS: lamoTRIgine 100 MG TAB PO SCH (21:10)
[2021-01-31] MEDS: SODIUM CHLORIDE 1 GM TABLET PO SCH (21:11)
[2021-01-31] MEDS: ENOXAPARIN INJ 40 MG/0.4 ML SYR SQ SCH (21:11)
[2021-01-31 23:07] LABS: BUN Creatinine Ratio 8.9 (10-20); Calcium 8.8 mg/dl (8.5-10.1); Creatinine Clr Calc Pharmacy 53.7 ml/min; Est GFR (African American) 93.3 ml/min; Est GFR (Non-African American) 80.5 ml/min; Potassium 3.5 mmol/L (3.5-5.1)
[2021-02-01] MEDS: LEVOTHYROXINE SODIUM 25 MCG TABLET PO SCH (06:21)
[2021-02-01 08:30] LABS: Hematocrit (blood only) 32.9 % (37-47); Hemoglobin 11.2 g/dL (12.0-16.0); Mean Corpuscular Hemoglobin 30.4 pg (25-34); Mean Corpuscular Volume 89.2 fL (80-100); Platelet Count 356 K/uL (130-400); RDW Coefficient of Variation 14.4 % (11.5-14.5); RDW Standard Deviation 47.7 fL (36.4-46.3); Red Blood Count 3.69 M/uL (4.2-5.4); White Blood Count 6.72 K/uL (4.8-10.8)
[2021-02-01 08:45] LABS: BUN Creatinine Ratio 9.1 (10-20); Calcium 8.6 mg/dl (8.5-10.1); Creatinine Clr Calc Pharmacy 53.7 ml/min; Est GFR (African American) 93.3 ml/min; Est GFR (Non-African American) 80.5 ml/min; Magnesium 1.5 mg/dl (1.8-2.4); Potassium 3.9 mmol/L (3.5-5.1)
[2021-02-01] MEDS: lamoTRIgine 100 MG TAB PO SCH ×2 (08:46→21:27)
[2021-02-01] MEDS: RASPBERRY SYRUP 5 ML UDP PO SCH (08:47)
[2021-02-01] MEDS: IRON POLYSACCHARIDE COMPLEX 150 MG CAPSULE PO SCH (08:47)
[2021-02-01] MEDS: SODIUM CHLORIDE 1 GM TABLET PO SCH ×3 (08:47→21:28)
[2021-02-01] MEDS: MEGESTROL ACETATE 40 MG TAB PO SCH (08:47)
[2021-02-01] MEDS: VANCOMYCIN HCL 125 MG/2.5ML SOLN PO SCH (08:59)
--- NOTE | 2021-02-01 15:50 | Consultation Report ---
DATE OF CONSULTATION: 02/01/2021 NEPHROLOGY CONSULTATION NOTE REASON FOR CONSULT: Hyponatremia. HISTORY OF PRESENT ILLNESS: The patient is a 40-year-old female with history of childhood astrocytoma, status post resection, chemo and radiation at age 4, status post fall with subdural hematoma and skull fracture in 2019, longstanding history of seizure disorder as well as cognitive delay, frequent UTIs, history of recent C. diff infection and chronic hyponatremia. She presented to the Emergency Department yesterday because of abnormal and difficult gait as well as increasing weakness. She has a history of chronic hyponatremia and she gets very symptomatic when the serum sodium drops even a slightest amount; as per her mother who is at the bedside, when her serum sodium gets less than 132, the patient gets very symptomatic. It appears she was drinking a lot; based on the rough calculation, she is drinking at least 120 ounce per day. She was also on Lasix to avoid cerebral edema, but she has not seen a kidney doctor for the hyponatremia problem. The patient is unable to give me a history and it was obtained from the ____. ALLERGIES: Reviewed. HOME MEDICATIONS: List includes lamotrigine, levothyroxine, Megace, iron tablet, magnesium oxide, Lasix 20 mg daily as needed, sodium chloride 1 gram 3 times a day, vancomycin. PAST MEDICAL HISTORY: Brain tumor, cognitive development delay, ____, history of astrocytoma, hypothyroidism, seizure disorder, subdural hematoma, chronic hyponatremia. PAST SURGICAL HISTORY: Brain surgery, umbilical hernia repair, status post cholecystectomy. FAMILY HISTORY: Positive for diabetes in mother. SOCIAL HISTORY: She has significant cognitive delay. She is single. She lives with her parents. No smoking, no alcohol. REVIEW OF SYSTEMS: Unable to obtain secondary to her cognitive decline status, but no other acute symptoms noted as per her mother. PHYSICAL EXAMINATION: GENERAL: Chronically ill appearing, petite female who is not in any respiratory distress. HEENT: Mucous membrane is moist. NECK: Supple. No jugular venous distention. CHEST: Bilaterally clear to auscultation. CARDIOVASCULAR: S1, S2, regular. Soft systolic murmur heard. ABDOMEN: Soft, nontender. EXTREMITIES: Show no edema. VITAL SIGNS: Show blood pressure 97/65, pulse rate 76, temperature 37.1, 98% on room air. LABORATORY TESTS: Serum sodium this morning 132, potassium 3.9, chloride 98, BUN 8, creatinine 0.89, magnesium 1.5. Urine osmolality 383. Urine sodium 162. No imaging done. ASSESSMENT AND PLAN: A 40-year-old female with significant neurological issue including cognitive delay and chronic mild hyponatremia, presenting with hyponatremia. Hyponatremia: This is euvolemic hyponatremia caused by syndrome of inappropriate antidiuretic hormone. To make matters worse, the patient was drinking a lot more liquid to avoid episodes of dehydration, although there is no objective evidence that the patient actually is getting dehydrated. Also, it is very hard to believe that somebody can be so symptomatic with a serum sodium of 132. In any case, we will try to get the serum sodium more than 135. RECOMMENDATIONS: 1. BMP every 12 hours. 2. Free fluid restriction to 1500 mL per day. It appears she is drinking close to 120-140 ounce of liquid per day. 3. Continue salt tablet 1 gram t.i.d. 4. No need of Lasix at this time.
[2021-02-01] MEDS: MAGNESIUM SULFATE / D5W 1 GM/100 ML BAG IV SCH ×2 (16:30→18:25)
--- NOTE | 2021-02-01 17:00 | Hospitalist Progress Note ---
Date of Service February 01, 2021 Assessment & Plan (1) Hyponatremia: This is a 40 yr old F who has a significant PMH of history of childhood astrocytoma status post resection, chemo and radiation at age 4, status post fall with SDH and skull fracture in 2019, epilepsy with no known recent seizure, cognitive delay, hypothyroidism, frequent UTIs, history of recent C. difficile infection, hyponatremia who presents to ED secondary to abnormal labs drawn a hematology appointment today. Na level improved gradually appreciate input from Nephrology recommends to cont NACL tabs fluid restriction 1500ml/day repeat BMP in am Low mg : replaced (2) History of Clostridioides difficile infection: formed stool, no need for isolation pt finishing vanco taper currently on 125mg daily until 02/04 then 125mg q72hr (3) Epilepsy: continue lamictal no recent seizure (4) Hypothyroidism: continue levothyroxine (5) Ambulatory dysfunction: consult PT/OT (6) H/O astrocytoma: (7) Cognitive developmental delay: s/p resection, chemo and XRT with resultant developmental delay continue lamotrigine (8) DVT prophylaxis: SQ Lovenox PCP: Dr. Randy Begum FULL CODE Disposition : expected to be discharged home when medically stable plan of care updated to mother at bedside Admission and Anticipated Discharge Date Admission Date: January 31, 2021 Subjective Follow up visit for hyponatremia : seen at bedside , no sign of distress denies of any abdominal pain , no N/V no fever or chills Na level improving gradually Review of Systems Review of Systems: Unobtainable due to cognitive status Physical Exam Physical Exam: Physical exam: General: No acute distress, HEENT : non icteric sclera Heart: Regular S1-S2, Lungs: Clear to auscultate, no wheeze or rales Abdomen: Soft nontender, no organomegaly Extremity: Neuro: No focal neurological deficit normal speech,baseline intellectual disability Results & Data Results & [facility] ([facility]) Vital Signs (Past 12 Hours) Vital Signs Temp Pulse Pulse Resp BP Pulse Ox 02/01/21 16:09 36.8 C 87 18 106/70 02/01/21 11:53 37.1 C 76 20 97/65 L 98 02/01/21 08:30 89 02/01/21 07:53 36.9 C 83 20 113/73 96
[2021-02-01] MEDS: ENOXAPARIN INJ 40 MG/0.4 ML SYR SQ SCH (21:26)
[2021-02-01] MEDS: MAGNESIUM OXIDE 400 MG TAB PO SCH (21:28)
[2021-02-02] MEDS: LEVOTHYROXINE SODIUM 25 MCG TABLET PO SCH (05:58)
[2021-02-02 07:47] LABS: BUN Creatinine Ratio 12.3 (10-20); Calcium 9.3 mg/dl (8.5-10.1); Creatinine Clr Calc Pharmacy 55.6 ml/min; Est GFR (African American) 97.3 ml/min; Est GFR (Non-African American) 83.9 ml/min; Magnesium 2.2 mg/dl (1.8-2.4); Potassium 3.7 mmol/L (3.5-5.1)
[2021-02-02] MEDS: IRON POLYSACCHARIDE COMPLEX 150 MG CAPSULE PO SCH (08:56)
[2021-02-02] MEDS: lamoTRIgine 100 MG TAB PO SCH ×2 (08:56→21:27)
[2021-02-02] MEDS: SODIUM CHLORIDE 1 GM TABLET PO SCH ×3 (08:57→21:28)
[2021-02-02] MEDS: MEGESTROL ACETATE 40 MG TAB PO SCH (08:57)
[2021-02-02] MEDS: RASPBERRY SYRUP 5 ML UDP PO SCH (08:57)
[2021-02-02] MEDS: VANCOMYCIN HCL 125 MG/2.5ML SOLN PO SCH (09:00)
--- NOTE | 2021-02-02 14:00 | Hospitalist Progress Note ---
Date of Service February 02, 2021 Assessment & Plan (1) Hyponatremia: Improved, sodium 134 after fluid restriction Appreciate input from nephrology recommends to cont NACL tabs Continue fluid restriction 1500ml/day Low mg : Corrected (2) History of Clostridioides difficile infection: formed stool, no need for isolation pt finishing vanco taper currently on 125mg daily until 02/04 then 125mg q72hr (3) Epilepsy: continue lamictal no recent seizure (4) Hypothyroidism: continue levothyroxine (5) Ambulatory dysfunction: consult PT/OT (6) H/O astrocytoma: (7) Cognitive developmental delay: s/p resection, chemo and XRT with resultant developmental delay continue lamotrigine (8) DVT prophylaxis: SQ Lovenox PCP: Dr. Randy Begum FULL CODE Disposition : expected to be discharged home next 1 to 2 days if sodium remains stable To be discharged on fluid restriction, outpatient BMP every week to reassess electrolytes level plan of care updated to mother at bedside , in agreement with plan Admission and Anticipated Discharge Date Admission Date: February 02, 2021 Subjective Follow up visit for hyponatremia : Patient continues to do well, no confusion or lethargy, able to answer simple questions Mother present at bedside, No fever or chills vitals stable, no shortness of breath or cough no fever chills Review of Systems Review of Systems: Unobtainable due to cognitive status Physical Exam Physical Exam: Physical exam: General: No acute distress, HEENT : non icteric sclera Heart: Regular S1-S2, Lungs: Clear to auscultate, no wheeze or rales Abdomen: Soft nontender, no organomegaly Neuro: No focal neurological deficit normal speech,baseline intellectual disability Results & Data Results & Data ([facility]) Vital Signs (Past 12 Hours) Vital Signs Temp Pulse Pulse Pulse Resp BP BP 02/02/21 11:00 36.7 C 93 H 18 133/78 02/02/21 07:32 36.7 C 87 16 127/78 02/02/21 03:33 37.6 C H 91 H 14 97/61 L 02/02/21 02:38 87 Pulse Ox 02/02/21 11:00 97 02/02/21 07:32 97 02/02/21 03:33 95 02/02/21 02:38
[2021-02-02] MEDS: ENOXAPARIN INJ 40 MG/0.4 ML SYR SQ SCH (21:26)
[2021-02-02] MEDS: MAGNESIUM OXIDE 400 MG TAB PO SCH (21:28)
[2021-02-03] MEDS: LEVOTHYROXINE SODIUM 25 MCG TABLET PO SCH (05:59)
[2021-02-03 07:29] LABS: BUN Creatinine Ratio 16.7 (10-20); Calcium 9.4 mg/dl (8.5-10.1); Creatinine Clr Calc Pharmacy 59.8 ml/min; Est GFR (African American) 106.1 ml/min; Est GFR (Non-African American) 91.6 ml/min; Magnesium 1.7 mg/dl (1.8-2.4); Potassium 3.6 mmol/L (3.5-5.1)
[2021-02-03] MEDS: IRON POLYSACCHARIDE COMPLEX 150 MG CAPSULE PO SCH (08:43)
[2021-02-03] MEDS: lamoTRIgine 100 MG TAB PO SCH ×2 (08:43→19:54)
[2021-02-03] MEDS: MEGESTROL ACETATE 40 MG TAB PO SCH (08:43)
[2021-02-03] MEDS: SODIUM CHLORIDE 1 GM TABLET PO SCH ×3 (08:43→19:55)
[2021-02-03] MEDS: RASPBERRY SYRUP 5 ML UDP PO SCH (08:44)
[2021-02-03] MEDS: VANCOMYCIN HCL 125 MG/2.5ML SOLN PO SCH (08:47)
[2021-02-03] MEDS: MAGNESIUM OXIDE 400 MG TAB PO SCH ×2 (08:47→19:55)
--- NOTE | 2021-02-03 11:47 | Hospitalist Progress Note ---
Date of Service February 03, 2021 Assessment & Plan (1) Hyponatremia: Sodium level 137 after starting on fluid restriction Patient is continued with salt tab: Home medication Appreciate input from nephrology Plan to discharge home tomorrow, with fluid restriction of 1500 mL a day Plan of care discussed with patient's mother in agreement Patient will have weekly BMP check to assess electrolytes and kidney function Low mg : Corrected (2) History of Clostridioides difficile infection: formed stool, no need for isolation pt finishing vanco taper currently on 125mg daily until 02/04 then 125mg q72hr (3) Epilepsy: continue lamictal no recent seizure (4) Hypothyroidism: continue levothyroxine (5) Ambulatory dysfunction: consult PT/OT (6) H/O astrocytoma: (7) Cognitive developmental delay: s/p resection, chemo and XRT with resultant developmental delay continue lamotrigine (8) DVT prophylaxis: SQ Lovenox PCP: Dr. Randy Begum FULL CODE Disposition : Plan for discharge home tomorrow To be discharged on fluid restriction, outpatient BMP every week to reassess electrolytes level plan of care updated to mother at bedside , in agreement with plan Admission and Anticipated Discharge Date Admission Date: February 02, 2021 Subjective Follow up visit for hyponatremia : Patient has been doing well, tolerating fluid restrictions Mother present at bedside Awake and alert conversing, was able to walk in the hallway today has been sitting up in chair Hoping to be discharged home tomorrow Review of Systems Review of Systems: All systems reviewed & are unremarkable except as noted in Subjective Physical Exam Physical Exam: Physical exam: General: No acute distress, HEENT : non icteric sclera Heart: Regular S1-S2, Lungs: Clear to auscultate, no wheeze or rales Abdomen: Soft nontender, no organomegaly Neuro: No focal neurological deficit normal speech,baseline intellectual disability Awake and alert, able to participate in conversation Results & Data Results & Data ([facility]) Vital Signs (Past 12 Hours) Vital Signs Temp Pulse Resp BP Pulse Ox 02/03/21 11:41 36.8 C 101 H 16 100/58 L 99 02/03/21 07:38 37.0 C 93 H 16 111/73 97
[2021-02-03] MEDS: ENOXAPARIN INJ 40 MG/0.4 ML SYR SQ SCH (19:55)
[2021-02-04] MEDS: LEVOTHYROXINE SODIUM 25 MCG TABLET PO SCH (05:35)
[2021-02-04] MEDS: lamoTRIgine 100 MG TAB PO SCH (08:13)
[2021-02-04] MEDS: MAGNESIUM OXIDE 400 MG TAB PO SCH (08:13)
[2021-02-04] MEDS: SODIUM CHLORIDE 1 GM TABLET PO SCH (08:13)
[2021-02-04] MEDS: IRON POLYSACCHARIDE COMPLEX 150 MG CAPSULE PO SCH (08:14)
[2021-02-04] MEDS: MEGESTROL ACETATE 40 MG TAB PO SCH (08:14)
[2021-02-04] MEDS: RASPBERRY SYRUP 5 ML UDP PO SCH (08:15)
[2021-02-04] MEDS: VANCOMYCIN HCL 125 MG/2.5ML SOLN PO SCH (10:30)
[2021-02-04 10:47] LABS: BUN Creatinine Ratio 17.2 (10-20); Calcium 8.8 mg/dl (8.5-10.1); Creatinine Clr Calc Pharmacy 51.4 ml/min; Est GFR (African American) 88.5 ml/min; Est GFR (Non-African American) 76.3 ml/min; Potassium 3.7 mmol/L (3.5-5.1)
--- NOTE | 2021-02-04 14:21 | Discharge Summary ---
Date of Service February 04, 2021 Admission HPI Per Admitting Provider This is a 40 yr old F who has a significant PMH of history of childhood astrocytoma status post resection, chemo and radiation at age 4, status post fall with SDH and skull fracture in 2019, epilepsy with no known recent seizure, cognitive delay, hypothyroidism, frequent UTIs, history of recent C. difficile infection, hyponatremia who presents to ED secondary to abnormal labs drawn a hematology appointment today. Mother is at bedside who provides history. She states yesterday she started staggering and having difficulty with gait as well as increasing weakness. Her normal serum sodium was approximately 1 35-1 36 and when it drops below that she becomes extremely symptomatic. In hematology clinic today lab work was drawn which revealed a serum sodium of 131 and she was referred to ED. Patient denies any current complaints except increased urinary frequency and states that she is "peeing herself all the time." Per patient's mother PCP started her on Lasix 20 mg daily approximately 1 week ago secondary to her being, "puffy." She also is currently receiving treatment for C. difficile. 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 She will finish up her 125 mg daily this week and then begin 125 mg every 72 hours. Her last bowel movement was today and although large was formed. Mother denies any melena or hematochezia. She further denies any fever, chills, sweats, lightheadedness, dizziness, recent fall, chest pain, shortness of breath, URI symptoms, nausea, vomiting, abdominal pain. She does complain of urinary frequency but denies any dysuria or hematuria. Overall patient's appetite has been improved per mother and she is actually gained 12 pounds in the past 4 months. She states she is currently drinking four 8 to 12 ounce liquid a day. Pt denies excessive thirst. History limited from pt. In ED patient made hemodynamically stable. BP 120s over 80s during my evaluation. Lab work confirms serum sodium of 131 and hypochloremia at 95, renal function WNL, AST 57. Urinalysis negative. Patient has not yet been vaccinated for COVID-19. Principal Diagnosis HYPONATREMIA SIADH HX OF ASTROCYTOMA Discharge Exam General: Awake and alert, does not appear to be in any distress HENT: NCAT, MMM, EOMI Eyes: PERRLA Neck: Supple, normal range of motion CVS: normal rate and rhythm Resp: b/l breath sounds Abdomen: Soft, nontender Extremities: No c/c/e Neuro: Limited, patient is resting comfortably Psych: Alert and awake, oriented to person only Baseline intellectual disability Skin: warm and dry, no rashes/lesions/errythema MSK: no joint swelling/erythema Discharge Data Allergies Allergy/AdvReac Type Severity Reaction Status Date / Time phenobarbital Allergy Mild Unknown Verified 01/31/21 17:15 omeprazole AdvReac Unknown red face Verified 01/31/21 17:15 Consultations 01/31/21 17:04 ED Decision to Admit Stat 01/31/21 19:26 Consult Nephrology Routine Hospital Course (1) SIAD (syndrome of inappropriate antidiuresis): Patient admitted with hyponatremia, euvolemic status. Sodium 131, with low urine osm Appreciate input from nephrology Possible SIADH given patient's history of brain tumor/astrocytoma Placed on fluid restriction Sodium level gradually improved fluid restriction only, Labs show sodium 138, Patient's mental status is back to baseline Plan of care discussed with patient's mother present at bedside in detail, Patient will be discharged home with fluid restriction 1800 mL a day BMP checked in a week, and then every week for next 4-6 weeks to assess electrolytes and kidney function Patient is prescribed to take Lasix 20 mg as needed for leg swelling, Mother is explained to use judicial dose of Lasix while patient is on fluid restriction to prevent dehydration Weekly lab draw also will be helpful to assess sodium level and renal function (2) Hyponatremia: Secondary to above: SIADH Sodium level improved with fluid restriction only Patient is continued with salt tab Repeat BMP in a week as an outpatient (3) Hypothyroidism: Continue levothyroxine (4) Cognitive developmental delay: Parents are the primary caregivers Chronic C. difficile colitis: On tapered dose of vancomycin No diarrhea, or loose stool (5) H/O astrocytoma: Status post chemo: Stable Disposition: Patient is discharged home in stable condition Plan of care discussed in detail with patient's mother, answered all questions Total Time Total Time Spent Total Time Spent (In Minutes): 35 minutes Total Time Includes: Discharge Planning and Medication Reconciliation Discharge Plan Discharge Items Patient Disposition: Home - Self-Care Reason For Visit: HYPONATREMIA Discharge Diagnosis: HYPONATREMIA SIADH HX OF ASTROCYTOMA Activity: Resume your previous activity Non-emergency contact: Primary Care Provider Call non-emergency contact if: you have any medication questions Follow-up/Referrals: Randy Begum [Primary Care Provider] - (office will call with appointment ) Diet: Regular Fluids: 1800ml (7 cups) Ambulatory Orders: Basic Metabolic Panel (Routine) Timeframe: 1 Week Location: Determined by Patient Ordered By: Maine Reddy Basic Metabolic Panel (Routine) Timeframe: 20210218 Location: Determined by Patient Ordered By: Maine Reddy Basic Metabolic Panel (Routine) Timeframe: 20210225 Location: Determined by Patient Ordered By: Maine Crawley Attending Provider Instructions: Please take all medications as instructed on discharge list below. It is recommended that you follow-up with your primary care physician within 1-2 weeks of hospital discharge to ensure you are still doing well. Please call if you have any questions or problems. You can reach a [facility] hospitalist on duty at [facility] 24 hours a day by calling [phone] Denisa Underground Truck Operator Provider Instructions: Continue fluid restriction 1800 mL / 1.8 L daily: Includes all of her beverages: Water/Gatorade - lab work : Basic Metabolic panel in a week then continue weekly lab check for at least 6 weeks to assess electrolytes and renal function . Take Lasix 20 mg as needed only for ankle swelling Daily use of Lasix can lead to severe dehydration Please notify your family physician with any question or concern. Pending Studies at Discharge: No Stand-Alone Forms: My [facility], Smoking Cessation Medications and DC Order Prescriptions: Continued lamotrigine 150 mg tablet 150 mg PO Q12H RF: 0 levothyroxine 25 mcg Tablet 37.5 mcg PO QAM RF: 0 polysaccharide iron complex [iFerex 150] 150 mg iron capsule 150 mg PO DAILY RF: 0 megestrol 20 mg tablet 20 mg PO QAM RF: 0 sodium chloride 1 gram tablet 1 g PO TID RF: 0 vancomycin 125 mg capsule 125 mg PO UD Qty: 100 RF: 0 furosemide 20 mg tablet 20 mg PO DAILY PRN (Reason: edema) Qty: 0 RF: 0 magnesium oxide 400 mg magnesium tablet 400 mg PO HS RF: 0 Discharge Orders: Discharge Order (Routine); Ordered 06/01/21 Ordered By: Maine Reddy Admission Data Admit Date/Time: 02/02/21 09:54 Attending Provider: Maine Reddy Admit Provider: Maine Reddy Primary Care Provider: Randy Begum Other Providers: Maine Reddy ; Jose D Ardon Other Interventions: Discharge Summary Assessment (RN) Last Done: 02/04/21 11:17
[2021-02-05] MEDS ORDERED: VANCOMYCIN HCL 125 MG/2.5ML SOLN PO SCH (09:00)
[2021-02-05] MEDS ORDERED: RASPBERRY SYRUP 5 ML UDP PO SCH (09:00)
--- NOTE | 2021-02-18 13:32 | Communication Note ---
Date of Service: February 18, 2021 out patient lab work result received : on 02/13/21 : Na was [address] Ardon : recommended to continue fluid restriction , no change in meds needed weekly lab today : 02/18/21 : Na level 127 , Called patient's mother, updated regarding a lab value, Patient is already at ER at [facility], Mother states after her last lab work sodium was 131, she was instructed by patient's family physician to drink more fluids, patient was given increased amount of sports drink, Mother noticed patient being more weak and lethargic, Brought her to the ER, Patient will need hospital admission, will be admitted under [facility] service, on-call nephrology Dr. Ardon updated as well Maine Reddy MD
== END 2021-02-04 13:47 | disposition home or self-care (01) | DRG 645 ==
LOC: ED 14:27 → 2W 14:27

== ENCOUNTER 2021-02-18 14:11 | Inpatient (IN) ==
[2021-02-18] MEDS ORDERED: ACETAMINOPHEN 325 MG TAB PO PRN (14:22)
[2021-02-18] MEDS ORDERED: ONDANSETRON INJ 2 MG/ML 2 ML VIAL IV PRN (14:22)
[2021-02-18] MEDS ORDERED: ALUMINUM/MAGNESIUM SUSP 30 ML UDC PO PRN (14:22)
[2021-02-18] MEDS ORDERED: POLYETHYLENE (MIRALAX) 17 GM PACK PO PRN (14:22)
[2021-02-18] MEDS ORDERED: MAGNESIUM HYDROXIDE SUSP 30 ML UDC PO PRN (14:22)
[2021-02-18] MEDS ORDERED: FUROSEMIDE 20 MG TAB PO PRN (14:25)
--- NOTE | 2021-02-18 14:28 | History & Physical Report ---
Date of Service February 18, 2021 Assessment & Plan (1) SIAD (syndrome of inappropriate antidiuresis): History of SIADH, on salt tabs 1 g p.o. 3 times daily, Recent admissions with hyponatremia, mostly secondary to failure to implement fluid restriction. Discharged on February 04, 2021, with restriction 1800 mL a day Gradual drop of sodium noted,in out patient lab , Mother was instructed by Family physician to increase fluid intake , which caused worsening of hyponatremia with worsening of weakness , fatigue Discussed with Dr. Jose D Ardon , recommends inpatient admission with fluid restriction 1500 mL a day. Avoid NSS IV Fluid-will cause further drop in Na Keep the current dose of salt tab 1 g p.o. 3 times daily Family will be counseled and given detailed instructions regarding ongoing fluid restriction Will need to establish with nephrology as an outpatient as well Appointment will be scheduled with nephrology Dr. Ardon before discharge. (2) Hyponatremia: As per above No evidence of dehydration, no nausea vomiting abdominal pain Patient needs to be on a strict fluid restriction Patient had a BMP done today at 10:51 AM. Sodium 127 Potassium 4.3 Chloride 95 Carbon dioxide 24 BUN 11 Creatinine 0.9 Glucose 115 Calcium 8.29 except for hyponatremia rest of the lab work remains stable, Continue fluid restriction 1500 mL a day, patient will be continued with salt tab Repeat BMP at 6 PM today, and then daily Nephrology consulted (3) Hypothyroidism: cont levothyroxine (4) History of Clostridioides difficile infection: last dose of PO Vancomycin 125 mg today -ordered no diarrhea or loose stool (5) Epilepsy: on Lamictal (6) Cognitive developmental delay: patient has significant cognitive disability /mental retardation complete care by her parents pt's Mother is the primary healthcare interpreter to limit pt's agitation /to provide adequate care -Mother needs to be at bedside clinical supervisor advertising dispatch clerks updated Full code status DVT Prophylaxis : sub q heparin Disposition : expected to be discharged home with parents when medically stable (7) H/O astrocytoma: Admission and Anticipated Discharge Date Admission Date: February 18, 2021 History of Present Illness Chief Complaint: , hyponatremia , weakness Primary Care Provider: Randy Begum This is a 40 yr old F who has a significant PMH of history of cognitive developmental delay, lives with her parents childhood astrocytoma status post resection, chemo and radiation at age 4, History of seizure disorder, hypothyroidism History of recurrent C. difficile infection on December 2020, currently on taper dose of prolonged vancomycin 125 mg every 72 hours. history of chronic hyponatremia with SIADH. History obtained patient's mother only, patient unable to provide any meaningful history Patient was recently admitted to [facility] for hyponatremia lethargy, sodium level improved with fluid restrictions only, Discharged to home on 02/04/2021. Sodium level was 137 on date of discharge Outpatient weekly lab work: Basic metabolic panel ordered Nephrology Dr. Ardon spoke with mother at length regarding importance of fluid restrictions to keep sodium level normalized. Was discharged with fluid restriction 1800 mL/day Mother was explained that 1800 mL a day includes her all fluid/beverage intake. Outside lab: On 02/13/2021: Showed a sodium 131 Patient's mother was instructed by family physician to increase fluid intake. Repeat labs today showed sodium level dropped to 127 Family also noticed patient becoming more weak, poorly responsive, increased fatigue. Brought to hospital, As patient is already very well known to our service, and a.m. lab showed hyponatremia only renal function stable Patient is directly admitted to [facility] medical floor Dr. Ardon updated regarding patient's admission Per patient's mother, no report of fever chills no abdominal pain no cough, no diarrhea no nausea vomiting Allergies Allergy/AdvReac Type Severity Reaction Status Date / Time phenobarbital Allergy Mild Unknown Verified 01/31/21 17:15 omeprazole AdvReac Unknown red face Verified 01/31/21 17:15 Home Medications Medication Instructions Recorded Confirmed Type lamotrigine 150 mg PO Q12H 04/22/19 02/18/21 History levothyroxine 37.5 mcg PO QAM 04/22/19 02/18/21 History megestrol 20 mg PO QAM 02/08/20 02/18/21 History polysaccharide iron complex 150 mg PO DAILY 02/08/20 02/18/21 History [iFerex 150] magnesium oxide 400 mg PO HS 12/02/20 02/18/21 History sodium chloride 1 g PO TID 12/26/20 02/18/21 History Past Med/Surg History Medical History (Updated 02/04/21 @ 14:21 by Maine Reddy MD) Brain tumor C. difficile diarrhea Cognitive developmental delay Epilepsy H/O astrocytoma Hypothyroidism Laceration of trachea Seizure disorder Subdural hematoma Weakness Surgical History H/O brain surgery History of umbilical hernia repair S/P cholecystectomy Family History Mother Diabetes Grandfather (Paternal) Coronary heart disease Uncle Coronary heart disease Social History Smoking Status: Never smoker Hx Alcohol Use: No Hx Substance Use: No Preferred Language: Divehi Communication Ability: Impaired Hearing Ability: Normal Donor Support Technician Required: No Beliefs That Will Affect Care: None marital status: Single Current Living Situation: Family Current Living Situation Comment: Lives with mother who is caregiver How many Children do You have: 0 Other Information That Helps Us Care for You: No Feels Safe at Home: Yes Safety Concerns: Feels Safe At This Time Assistive Devices: Wheelchair Review of Systems Review of Systems: Unobtainable due to cognitive status Physical Exam Physical Exam: Physical exam: General: No acute distress, awake and alert, baseline mental retardation HEENT: Anicteric sclera Heart: Regular S1-S2, no carotid bruit, no JVD, no lower extremity edema Lungs: Clear to auscultate, no wheeze or rales Abdomen: Soft nontender, Extremity: Neuro: Unable to assess as patient not able to follow instructions, remains awake and alert oriented to person, no focal neurological deficit noted Psych: Alert awake /oriented to person, baseline intellectual disability Code Status & VTE Plan VTE Prophylaxis Plan VTE Prophylaxis will be ordered: Yes
[2021-02-18] MEDS ORDERED: PATIENT'S HEIGHT AND/OR WEIGHT NEEDED SCH (14:45)
--- NOTE | 2021-02-18 14:56 | Communication Note ---
Date of Service: February 18, 2021 pt has significant cognitive disability /mental retardation complete care by her mother , pt can do poorly without family members at bedside discussed with Clinical Co-ordinator /supervisor microbiology technologists : Mother or Father ( one parent) will be allowed to be at bedside all the time if needed Maine Reddy MD
[2021-02-18] MEDS: lamoTRIgine 100 MG TAB PO SCH ×3 (15:43→20:41)
[2021-02-18] MEDS: SODIUM CHLORIDE 1 GM TABLET PO SCH ×2 (15:44→20:41)
[2021-02-18 15:45] LABS: Hematocrit (blood only) 29.8 % (37-47); Hemoglobin 10.4 g/dL (12.0-16.0); Mean Corpuscular Hemoglobin 29.6 pg (25-34); Mean Corpuscular Hgb Conc 34.9 g/dL (32-36); Mean Corpuscular Volume 84.9 fL (80-100); Mean Platelet Volume 9.1 fL (7.4-10.4); Platelet Count 324 K/uL (130-400); RDW Coefficient of Variation 14.2 % (11.5-14.5); RDW Standard Deviation 44.3 fL (36.4-46.3); Red Blood Count 3.51 M/uL (4.2-5.4); White Blood Count 6.84 K/uL (4.8-10.8)
[2021-02-18 17:16] LABS: Appearance Urine Clear (Clear); Bilirubin Urine Negative (Negative); Blood Urine Negative (Negative); Color Urine Yellow; Glucose Urine UA Negative (Negative); Ketones Urine Negative (Negative); Leukocyte Esterase Urine Negative (Negative); Nitrite Urine Negative (Negative); Protein Urine Negative (Negative); Specific Gravity Urine 1.014 (1.000-1.030); Urobilinogen Urine Negative (Negative); pH Urine 8.5 (4.5-7.5)
[2021-02-18] MEDS ORDERED: RASPBERRY SYRUP 5 ML UDP PO STA (18:00)
[2021-02-18] MEDS ORDERED: VANCOMYCIN HCL 125 MG/2.5ML SOLN PO STA (18:00)
[2021-02-18 18:19] LABS: BUN Creatinine Ratio 13.5 (10-20); Calcium 8.5 mg/dl (8.5-10.1); Creatinine Clr Calc Pharmacy 62.8 ml/min; Est GFR (African American) 107.8 ml/min; Potassium 3.5 mmol/L (3.5-5.1)
[2021-02-18] MEDS: MAGNESIUM OXIDE 400 MG TAB PO SCH (20:41)
[2021-02-18] MEDS: HEPARIN SOD 5,000 UNIT/0.5 ML VIAL SQ SCH (20:44)
[2021-02-19] MEDS: LEVOTHYROXINE SODIUM 25 MCG TABLET PO SCH (05:55)
[2021-02-19 07:59] LABS: BUN Creatinine Ratio 12.7 (10-20); Creatinine Clr Calc Pharmacy 55.7 ml/min; Est GFR (African American) 104.6 ml/min; Est GFR (Non-African American) 90.2 ml/min; Potassium 3.9 mmol/L (3.5-5.1)
[2021-02-19] MEDS: MEGESTROL ACETATE 40 MG TAB PO SCH (08:31)
[2021-02-19] MEDS: IRON POLYSACCHARIDE COMPLEX 150 MG CAPSULE PO SCH (08:31)
[2021-02-19] MEDS: lamoTRIgine 100 MG TAB PO SCH ×2 (08:32→21:02)
[2021-02-19] MEDS: HEPARIN SOD 5,000 UNIT/0.5 ML VIAL SQ SCH ×2 (08:33→21:01)
[2021-02-19] MEDS: SODIUM CHLORIDE 1 GM TABLET PO SCH ×3 (09:19→21:01)
--- NOTE | 2021-02-19 18:57 | Hospitalist Progress Note ---
Date of Service February 19, 2021 Assessment & Plan (1) Hyponatremia: History of SIADH on salt tabs 1 g p.o. 3 times daily Recent admissions with hyponatremia Mostly secondary to failure to implement fluid restriction. Previous hospitalist team discussed with Dr. Jose D Ardon that recommended inpatient admission with fluid restriction 1500 mL a day. Avoid NSS IV Fluid-will cause further drop in Na Na 128 today Continue salt tab 1 g p.o. 3 times daily Continue IV fluid restriction Family will be counseled and given detailed instructions regarding ongoing fluid restriction Will need to establish with nephrology as an outpatient once discharge Consider nephrology consult if no improvement in Na Continue monitor BMP (2) Hypothyroidism: cont levothyroxine (3) History of Clostridioides difficile infection: last dose of PO Vancomycin 125 mg today -ordered no diarrhea or loose stool (4) Epilepsy: on Lamictal (5) Cognitive developmental delay: patient has significant cognitive disability /mental retardation complete care by her parents pt's Mother is the primary rn acute care to limit pt's agitation /to provide adequate care -Mother needs to be at bedside clinical roofing supervisor updated Full code status DVT Prophylaxis : sub q heparin Disposition : expected to be discharged home with parents when medically stable (6) H/O astrocytoma: Admission and Anticipated Discharge Date Admission Date: February 18, 2021 Subjective Patient was seen and examined for follow-up of low sodium Lying in bed with no distress sleeping with mother at bedside Patient said that she feels fine Denies any chest pain, palpitation, dizziness, shortness of breath Review of Systems Review of Systems: All systems reviewed & are unremarkable except as noted in Subjective Physical Exam Physical Exam: General- No acute distress Head- atraumatic Eyes- PERRL, EOMI, ENT- oropharynx clear Neck- supple, no JVD Lungs- clear to auscultation Heart- regular rhythm; no murmur Abdomen- normal bowel sounds, soft, nontender Extremities- no calf tenderness Neuro- alert, awake, able to feed herself, move extremity. Skin- warm & dryno pain Results & Data Results & Data ([facility]) Vital Signs (Past 12 Hours) Vital Signs Temp Pulse Pulse Pulse Pulse Resp BP 02/19/21 15:47 94 H 02/19/21 15:29 37.1 C 90 18 122/68 02/19/21 11:51 37.2 C 86 18 118/77 02/19/21 11:08 83 02/19/21 10:17 36.8 C 98 H 16 112/68 02/19/21 08:28 36.8 C 89 16 122/66 02/19/21 08:00 79 Pulse Ox 02/19/21 15:47 02/19/21 15:29 100 02/19/21 11:51 99 02/19/21 11:08 02/19/21 10:17 99 02/19/21 08:28 99 02/19/21 08:00
[2021-02-19] MEDS: MAGNESIUM OXIDE 400 MG TAB PO SCH (21:03)
[2021-02-20] MEDS: LEVOTHYROXINE SODIUM 25 MCG TABLET PO SCH (06:06)
[2021-02-20 09:23] LABS: BUN Creatinine Ratio 9.3 (10-20); Calcium 9.2 mg/dl (8.5-10.1); Creatinine Clr Calc Pharmacy 53.7 ml/min; Est GFR (African American) 100.1 ml/min; Est GFR (Non-African American) 86.3 ml/min; Potassium 4.4 mmol/L (3.5-5.1)
[2021-02-20] MEDS: lamoTRIgine 100 MG TAB PO SCH ×2 (09:28→20:51)
[2021-02-20] MEDS: IRON POLYSACCHARIDE COMPLEX 150 MG CAPSULE PO SCH (09:28)
[2021-02-20] MEDS: SODIUM CHLORIDE 1 GM TABLET PO SCH ×3 (09:28→20:51)
[2021-02-20] MEDS: MEGESTROL ACETATE 40 MG TAB PO SCH (09:29)
[2021-02-20] MEDS: HEPARIN SOD 5,000 UNIT/0.5 ML VIAL SQ SCH ×2 (09:29→20:51)
[2021-02-20] MEDS: UREA (UREA-NA) 15 GM PACK PO SCH ×2 (11:58→20:52)
[2021-02-20] MEDS: FUROSEMIDE 20 MG TAB PO SCH ×2 (11:58→17:16)
--- NOTE | 2021-02-20 12:35 | Consultation Report ---
NEPHROLOGY CONSULTATION NOTE DATE OF CONSULTATION: 02/20/2021 REASON FOR CONSULT: Hyponatremia. HISTORY OF PRESENT ILLNESS: The patient is a 40-year-old female who has congenital developmental delay with childhood astrocytoma, status post resection, chemo and radiation at age 4. She has a history of seizure disorder, hypothyroidism and is under total care of her parents. She was admitted because of hyponatremia. According to the mother, as soon as the serum sodium drops below 130, the patient gets very lethargic and weak and poorly responsive. Given this history, she was instructed to come to the hospital. It is worth noting that the patient was recently admitted to [facility] for hyponatremia with symptoms. Serum sodium improved essentially with fluid restrictions only. She was discharged to home on 02/04/2021 with a serum sodium level of 137. Once she got discharged from the hospital, the fluid intake was higher than what she was at in the hospital. She had blood work done at the outside lab on 02/13, which showed a serum sodium of 131, after which the patient was instructed by her PCP to increase fluid intake by drinking Gatorade and Pedialyte. This then dropped her serum sodium even lower to 127, after which the patient was brought to the hospital. Since being admitted, she has had fluid restriction of 1500 mL, and with that, serum sodium is only slightly high at around 128. She is otherwise hemodynamically stable. She continues to get the salt tablet. ALLERGIES: Reviewed. HOME MEDICATIONS: List was reviewed in detail and includes sodium chloride 1 g t.i.d., magnesium oxide, iron complex, Megace, levothyroxine, lamotrigine. PAST MEDICAL AND SURGICAL HISTORY: History of brain tumor astrocytoma, C. diff diarrhea, congenital developmental delay, history of seizure disorder, hypothyroidism, tracheal laceration, subdural hematoma, weakness, history of neurosurgery, umbilical hernia repair, cholecystectomy. FAMILY HISTORY: Negative for renal disease or dialysis. SOCIAL HISTORY: She has significant congenital developmental delay. She is single. She lives with her family. Her mother is a full-time caregiver for her. She uses wheelchair for ambulation. REVIEW OF SYSTEMS: Unobtainable due to cognitive status. PHYSICAL EXAMINATION: GENERAL: Chronically ill-appearing female. She is not in any overt respiratory distress. She is awake and alert, but has significant baseline cognitive deficit. Unable to get history from the patient. HEENT: Mucous membrane is moist. NECK: Supple. No jugular venous distention. CHEST: Bilaterally clear to auscultation. CARDIOVASCULAR: S1, S2 regular. ABDOMEN: Soft, nontender. EXTREMITIES: Show no edema. VITAL SIGNS: Show a blood pressure of 110/69, pulse rate 96, temperature 36.9, 100% on room air. LABORATORY TEST: Reviewed in detail. Serum sodium this morning was 128, potassium 4.4, BUN 8, creatinine 0.84. Urine osmolality when done in the previous admission was 513 and then 383. ASSESSMENT AND PLAN: A 40-year-old female with known chronic issue with hyponatremia, worsened with excessive fluid intake for which I have been consulted. Hyponatremia: This is a chronic ongoing problem. The only treatment she needs for hyponatremia is to limit fluid intake. It really does not matter whether you are drinking Gatorade or Pedialyte or water as far as the hyponatremia problem is concerned. Again explained in detail to the patient's mother that this is an ongoing issue. Sodium will improve in the hospital stay with fluid restriction and salt tablet. But given that she is in the hospital, to expedite the hospital discharge, I would use some Lasix as well as urea-NA, but we do not need to use the Lasix at home nor do we need to use urea. The only treatment she would need is sodium chloride 1 g t.i.d. and fluid restriction. As long as she maintains the fluid limit of around 6462-7487 mL per day, she should be able to maintain the serum sodium. Job ID: [id number] MTDD
--- NOTE | 2021-02-20 16:44 | Hospitalist Progress Note ---
Date of Service February 20, 2021 Assessment & Plan (1) Hyponatremia: History of SIADH on salt tabs 1 g p.o. 3 times daily Recent admissions with hyponatremia Mostly secondary to failure to implement fluid restriction. Previous hospitalist team discussed with Dr. Jose D Ardon that recommended inpatient admission with fluid restriction 1500 mL a day. Avoid NSS IV Fluid-will cause further drop in Na Na 128 today Continue salt tab 1 g p.o. 3 times daily Continue IV fluid restriction Family will be counseled and given detailed instructions regarding ongoing fluid restriction Nephrology on board Recommended to continue fluids restriction and Lasix 20mg BID added to help correcting the sodium quicker Continue monitor BMP (2) Hypothyroidism: cont levothyroxine (3) History of Clostridioides difficile infection: last dose of PO Vancomycin 125 mg today -ordered no diarrhea or loose stool (4) Epilepsy: on Lamictal (5) Cognitive developmental delay: patient has significant cognitive disability /mental retardation complete care by her parents pt's Mother is the primary care management specialist to limit pt's agitation /to provide adequate care -Mother needs to be at bedside clinical supervisor heading updated Full code status DVT Prophylaxis : sub q heparin Disposition : expected to be discharged home with parents when medically stable (6) H/O astrocytoma: Admission and Anticipated Discharge Date Admission Date: February 18, 2021 Subjective Patient was seen and examined for follow-up of low sodium Lying in bed with no distress sleeping Patient said that she feels fine Denies any chest pain, palpitation, dizziness, shortness of breath Review of Systems Review of Systems: All systems reviewed & are unremarkable except as noted in Subjective Physical Exam Physical Exam: General- No acute distress Head- atraumatic Eyes- PERRL, EOMI, ENT- oropharynx clear Neck- supple, no JVD Lungs- clear to auscultation Heart- regular rhythm; no murmur Abdomen- normal bowel sounds, soft, nontender Extremities- no calf tenderness Neuro- alert, awake, able to feed herself, move extremity. Skin- warm & dryno pain Results & Data Results & Data ([facility]) Vital Signs (Past 12 Hours) Vital Signs Temp Pulse Pulse Resp BP BP Pulse Ox 02/20/21 15:00 37.3 C 105 H 18 95/65 L 96 02/20/21 14:00 109 H 02/20/21 12:04 36.9 C 96 H 18 110/69 100 02/20/21 07:00 87 02/20/21 06:47 36.8 C 89 20 123/65 99
[2021-02-20] MEDS: MAGNESIUM OXIDE 400 MG TAB PO SCH (20:51)
[2021-02-21] MEDS: LEVOTHYROXINE SODIUM 25 MCG TABLET PO SCH (05:38)
[2021-02-21 08:37] LABS: BUN Creatinine Ratio 46.5 (10-20); Calcium 9.8 mg/dl (8.5-10.1); Est GFR (Non-African American) 71.6 ml/min
[2021-02-21] MEDS: MEGESTROL ACETATE 40 MG TAB PO SCH (09:01)
[2021-02-21] MEDS: SODIUM CHLORIDE 1 GM TABLET PO SCH ×3 (09:02→21:02)
[2021-02-21] MEDS: lamoTRIgine 100 MG TAB PO SCH ×2 (09:02→21:02)
[2021-02-21] MEDS: HEPARIN SOD 5,000 UNIT/0.5 ML VIAL SQ SCH ×2 (09:03→21:03)
[2021-02-21] MEDS: IRON POLYSACCHARIDE COMPLEX 150 MG CAPSULE PO SCH (09:03)
[2021-02-21] MEDS: FUROSEMIDE 20 MG TAB PO SCH (09:03)
[2021-02-21] MEDS: UREA (UREA-NA) 15 GM PACK PO SCH (09:04)
--- NOTE | 2021-02-21 09:33 | Nephrology Progress Note ---
Date of Service February 21, 2021 Assessment & Plan Admission and Anticipated Discharge Date Admission Date: February 18, 2021 Subjective No new issues. Na rising. PHYSICAL EXAMINATION: GENERAL: Chronically ill-appearing female. She is not in any overt respiratory distress. She is awake and alert, but has significant baseline cognitive deficit. Unable to get history from the patient. HEENT: Mucous membrane is moist. NECK: Supple. No jugular venous distention. CHEST: Bilaterally clear to auscultation. CARDIOVASCULAR: S1, S2 regular. ABDOMEN: Soft, nontender. EXTREMITIES: Show no edema. LABORATORY TEST: Reviewed in detail. Serum sodium this morning was 128, potassium 4.4, BUN 8, creatinine 0.84. Urine osmolality when done in the previous admission was 513 and then 383. ASSESSMENT AND PLAN: A 40-year-old female with known chronic issue with hyponatremia, worsened with excessive fluid intake for which I have been consulted. Hyponatremia: This is a chronic ongoing problem. The only treatment she needs for hyponatremia is to limit fluid intake. It really does not matter whether you are drinking Gatorade or Pedialyte or water as far as the hyponatremia problem is concerned. Again explained in detail to the patient's mother that this is an ongoing issue. Sodium will improve in the hospital stay with fluid restriction and salt tablet. But given that she is in the hospital, to expedite the hospital discharge, I would use some Lasix as well as urea tablet, but we do not need to use the Lasix at home nor do we need to use urea. The only treatment she would need is sodium chloride 1 g t.i.d. and fluid restriction. As long as she maintains the fluid limit of around 6199-8672 mL per day, she should be able to maintain the serum sodium. D/c Urea and D/c Salt tab. Hopefully we should be able to discharge her tomorrow. Results & Data ([facility]) Vital Signs (Past 12 Hours) Vital Signs Temp Pulse Pulse Resp BP Pulse Ox 02/21/21 08:07 37 C 100 H 18 103/70 98 02/21/21 07:09 101 H 02/21/21 02:57 37.1 C 113 H 20 111/74 97 02/20/21 23:03 37.0 C 106 H 18 116/78 96 02/20/21 22:20 105 H
--- NOTE | 2021-02-21 17:52 | Hospitalist Progress Note ---
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 3 times daily Recent admissions with hyponatremia Mostly secondary to failure to implement fluid restriction. Previous hospitalist team discussed with Dr. Jose D Ardon that recommended inpatient admission with fluid restriction 1500 mL a day. Avoid NSS IV Fluid-will cause further drop in Na Na 132 today Nephrology on board Continue salt tab 1 g p.o. 3 times daily Continue IV fluid restriction Lasix discontinued Family will be counseled and given detailed instructions regarding ongoing fluid restriction Nephrology on board Okay from nephrology standpoint discharge home Continue monitor BMP (2) Hypothyroidism: cont levothyroxine (3) History of Clostridioides difficile infection: last dose of PO Vancomycin 125 mg today -ordered no diarrhea or loose stool (4) Epilepsy: on Lamictal (5) Cognitive developmental delay: patient has significant cognitive disability /mental retardation complete care by her parents pt's Mother is the primary child care aide to limit pt's agitation /to provide adequate care -Mother needs to be at bedside clinical animal maintenance supervisor updated Full code status DVT Prophylaxis : sub q heparin Disposition : expected to be discharged home with parents when medically stable (6) H/O astrocytoma: Admission and Anticipated Discharge Date Admission Date: February 18, 2021 Subjective Patient was seen and examined for follow-up of low sodium Lying in bed with no distress sleeping Patient said that she feels fine Denies any chest pain, palpitation, dizziness, shortness of breath Review of Systems Review of Systems: All systems reviewed & are unremarkable except as noted in Subjective Physical Exam Physical Exam: General- No acute distress Head- atraumatic Eyes- PERRL, EOMI, ENT- oropharynx clear Neck- supple, no JVD Lungs- clear to auscultation Heart- regular rhythm; no murmur Abdomen- normal bowel sounds, soft, nontender Extremities- no calf tenderness Neuro- alert, awake, able to feed herself, move extremity. Skin- warm & dryno pain Results & Data Results & Data ([facility]) Vital Signs (Past 12 Hours) Vital Signs Temp Pulse Pulse Resp BP Pulse Ox 02/21/21 17:02 103 H 02/21/21 16:13 36.6 C 98 H 16 98/82 L 99 02/21/21 11:14 37 C 92 H 18 100/64 98 02/21/21 08:07 37 C 100 H 18 103/70 98 02/21/21 07:09 101 H
[2021-02-21] MEDS: MAGNESIUM OXIDE 400 MG TAB PO SCH (21:02)
[2021-02-22] MEDS: LEVOTHYROXINE SODIUM 25 MCG TABLET PO SCH (05:36)
[2021-02-22 07:49] LABS: BUN Creatinine Ratio 30.6 (10-20); Calcium 9.8 mg/dl (8.5-10.1); Creatinine Clr Calc Pharmacy 42.2 ml/min; Est GFR (African American) 74.7 ml/min; Est GFR (Non-African American) 64.4 ml/min; Potassium 3.8 mmol/L (3.5-5.1)
[2021-02-22] MEDS: HEPARIN SOD 5,000 UNIT/0.5 ML VIAL SQ SCH ×2 (08:54→20:44)
[2021-02-22] MEDS: IRON POLYSACCHARIDE COMPLEX 150 MG CAPSULE PO SCH (08:54)
[2021-02-22] MEDS: MEGESTROL ACETATE 40 MG TAB PO SCH (08:54)
[2021-02-22] MEDS: lamoTRIgine 100 MG TAB PO SCH ×2 (08:55→20:44)
[2021-02-22] MEDS: SODIUM CHLORIDE 1 GM TABLET PO SCH ×3 (08:55→20:45)
--- NOTE | 2021-02-22 18:41 | Hospitalist Progress Note ---
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 3 times daily Recent admissions with hyponatremia Mostly secondary to failure to implement fluid restriction. Previous hospitalist team discussed with Dr. Jose D Ardon that recommended inpatient admission with fluid restriction 1500 mL a day. Avoid NSS IV Fluid-will cause further drop in Na Na 134 today Nephrology on board Continue salt tab 1 g p.o. 3 times daily Continue fluid restriction to 1200ml Lasix was discontinued Family will be counseled and given detailed instructions regarding ongoing fluid restriction Nephrology on board Okay from nephrology standpoint discharge home Continue monitor BMP (2) Hypothyroidism: cont levothyroxine (3) History of Clostridioides difficile infection: last dose of PO Vancomycin 125 mg today -ordered no diarrhea or loose stool (4) Epilepsy: on Lamictal (5) Cognitive developmental delay: patient has significant cognitive disability /mental retardation complete care by her parents pt's Mother is the primary post acute care nurse practitioner to limit pt's agitation /to provide adequate care -Mother needs to be at bedside clinical picking crew supervisor updated Full code status DVT Prophylaxis : sub q heparin Disposition : Discharge home tomorrow (6) H/O astrocytoma: Admission and Anticipated Discharge Date Admission Date: February 18, 2021 Subjective Patient was seen and examined for follow-up of low sodium Lying in bed with no distress eating lunch Mother at bedside and provided with updates Denies any chest pain, palpitation, dizziness, shortness of breath Review of Systems Review of Systems: All systems reviewed & are unremarkable except as noted in Subjective Physical Exam Physical Exam: General- No acute distress Head- atraumatic Eyes- PERRL, EOMI, ENT- oropharynx clear Neck- supple, no JVD Lungs- clear to auscultation Heart- regular rhythm; no murmur Abdomen- normal bowel sounds, soft, nontender Extremities- no calf tenderness Neuro- alert, awake, able to feed herself, move extremity. Skin- warm & dryno pain Results & Data Results & Data ([facility]) Vital Signs (Past 12 Hours) Vital Signs Temp Pulse Pulse Resp BP Pulse Ox 02/22/21 14:57 102 H 02/22/21 14:52 36.8 C 98 H 20 120/76 91 02/22/21 11:23 37 C 104 H 20 115/70 94 02/22/21 07:11 37.1 C 110 H 20 110/68 94
[2021-02-22] MEDS: MAGNESIUM OXIDE 400 MG TAB PO SCH (20:44)
[2021-02-23] MEDS: LEVOTHYROXINE SODIUM 25 MCG TABLET PO SCH (05:54)
[2021-02-23] MEDS: lamoTRIgine 100 MG TAB PO SCH (08:47)
[2021-02-23] MEDS: IRON POLYSACCHARIDE COMPLEX 150 MG CAPSULE PO SCH (08:47)
[2021-02-23] MEDS: HEPARIN SOD 5,000 UNIT/0.5 ML VIAL SQ SCH (08:47)
[2021-02-23] MEDS: MEGESTROL ACETATE 40 MG TAB PO SCH (08:47)
[2021-02-23] MEDS: SODIUM CHLORIDE 1 GM TABLET PO SCH (08:48)
[2021-02-23 09:10] LABS: BUN Creatinine Ratio 25.1 (10-20); Creatinine Clr Calc Pharmacy 45.6 ml/min; Est GFR (Non-African American) 70.8 ml/min; Potassium 3.9 mmol/L (3.5-5.1)
--- NOTE | 2021-02-23 13:14 | Discharge Summary ---
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 history of chronic hyponatremia with SIADH. History obtained patient's mother only, patient unable to provide any meaningful history Patient was recently admitted to [facility] for hyponatremia lethargy, sodium level improved with fluid restrictions only, Discharged to home on 02/04/2021. Sodium level was 137 on date of discharge Outpatient weekly lab work: Basic metabolic panel ordered Nephrology Dr. Ardon spoke with mother at length regarding importance of fluid restrictions to keep sodium level normalized. Was discharged with fluid restriction 1800 mL/day Mother was explained that 1800 mL a day includes her all fluid/beverage intake. Outside lab: On 02/13/2021: Showed a sodium 131 Patient's mother was instructed by family physician to increase fluid intake. Repeat labs today showed sodium level dropped to 127 Family also noticed patient becoming more weak, poorly responsive, increased fatigue. Brought to hospital, As patient is already very well known to our service, and a.m. lab showed hyponatremia only renal function stable Patient is directly admitted to [facility] medical floor Dr. Ardon updated regarding patient's admission Per patient's mother, no report of fever chills no abdominal pain no cough, no diarrhea no nausea vomiting Admission Exam Per Admitting Provider General: No acute distress, awake and alert, baseline mental retardation HEENT: Anicteric sclera Heart: Regular S1-S2, no carotid bruit, no JVD, no lower extremity edema Lungs: Clear to auscultate, no wheeze or rales Abdomen: Soft nontender, Extremity: Neuro: Unable to assess as patient not able to follow instructions, remains awake and alert oriented to person, no focal neurological deficit noted Psych: Alert awake /oriented to person, baseline intellectual disability Principal Diagnosis Hyponatremia: History of SIADH Hypothyroidism: History of C-diff infection Epilepsy: Cognitive developmental delay: Discharge Exam General- No acute distress Head- atraumatic Eyes- PERRL, EOMI, ENT- oropharynx clear Neck- supple, no JVD Lungs- clear to auscultation Heart- regular rhythm; no murmur Abdomen- normal bowel sounds, soft, nontender Extremities- no calf tenderness Neuro- alert, awake, able to feed herself, move extremity. 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 3 times daily Recent admissions with hyponatremia Mostly secondary to failure to implement fluid restriction. Previous hospitalist team discussed with Dr. Jose D Ardon that recommended inpatient admission with fluid restriction 1500 mL a day. Avoid NSS IV Fluid-will cause further drop in Na Na 140 today Nephrology on board Continue salt tab 1 g p.o. 3 times daily Continue fluid restriction to 1200ml to 1500ml Lasix was discontinued Family will be counseled and given detailed instructions regarding ongoing fluid restriction Nephrology on board Okay from nephrology standpoint discharge home Continue monitor BMP (2) Hypothyroidism: cont levothyroxine (3) History of Clostridioides difficile infection: last dose of PO Vancomycin 125 mg today -ordered no diarrhea or loose stool (4) Epilepsy: on Lamictal (5) Cognitive developmental delay: patient has significant cognitive disability /mental retardation complete care by her parents pt's Mother is the primary palliative care coordinator to limit pt's agitation /to provide adequate care -Mother needs to be at bedside clinical supervisor public message service updated Full code status DVT Prophylaxis : sub q heparin Disposition : Discharge home today (6) H/O astrocytoma: Total Time Total Time Spent Total Time Spent (In Minutes): 35 minutes Total Time Includes: Examination of the Patient, Discharge Planning, Medication Reconciliation, Communication With Other Providers and Other Discharge Plan Discharge Items Patient Disposition: Home - Home Health Services Reason For Visit: HYPONATREMIA Discharge Diagnosis: Hyponatremia: History of SIADH Hypothyroidism: History of C-diff infection Epilepsy: Cognitive developmental delay: Activity: Resume your previous activity Non-emergency contact: Primary Care Provider Call non-emergency contact if: you have any medication questions Follow-up/Referrals: Randy Begum [Primary Care Provider] - Diet: Regular Fluids: 1200ml (5 cups) Addtl Attending Provider Instructions: Follow up with your primary care provider in 1 week Check BMP within 1 week to monitor your Sodium Continue fluid restriction to 1200ml to 1500 ml daily that including water, milk, juice, Gatorade, chocolate, .... Fall and seizure precaution Continue physical and occupational therapy Pending Studies at Discharge: No Stand-Alone Forms: My [facility], Smoking Cessation Medications and DC Order Prescriptions: Continued lamotrigine 150 mg tablet 150 mg PO Q12H RF: 0 levothyroxine 25 mcg Tablet 37.5 mcg PO QAM RF: 0 polysaccharide iron complex [iFerex 150] 150 mg iron capsule 150 mg PO DAILY RF: 0 megestrol 20 mg tablet 20 mg PO QAM RF: 0 sodium chloride 1 gram tablet 1 g PO TID RF: 0 magnesium oxide 400 mg magnesium tablet 400 mg PO HS RF: 0 Discharge Orders: Discharge Order (Routine); Ordered 02/23/21 Ordered By: Annette Forbes Admission Data Admit Date/Time: 02/18/21 14:18 Attending Provider: Annette Forbes Admit Provider: Maine Reddy Primary Care Provider: Randy Begum Other Providers: Maine Reddy ; Jose D Ardon Other Interventions: Discharge Summary Assessment (RN) Last Done: 02/23/21 11:34
== END 2021-02-23 14:04 | disposition home health service (06) | DRG 645 ==
LOC: SUATTDRO 14:18 → 2E 14:18 → 2W 02-19 10:16

== ENCOUNTER 2021-05-21 19:56 | Inpatient (IN) ==
[2021-05-22 01:12] LABS: Basophils # (auto) 0.01 K/uL (0-0.2); Basophils % (auto) 0.3 %; Eosinophils # (auto) 0.04 K/uL (0-0.5); Eosinophils % (auto) 1.2 %; Hematocrit (blood only) 31.7 % (37-47); Hemoglobin 10.1 g/dL (12.0-16.0); Immature Granulocytes # (auto) 0.02 K/uL (0.00-0.02); Immature Granulocytes % (auto) 0.6 %; Lymphocytes # (auto) 1.29 K/uL (1.2-3.4); Lymphocytes % (auto) 38.4 %; Mean Corpuscular Hemoglobin 29.4 pg (25-34); Mean Corpuscular Hgb Conc 31.9 g/dL (32-36); Mean Corpuscular Volume 92.4 fL (80-100); Neutrophils % (auto) 53.5 %; Platelet Count 183 K/uL (130-400); RDW Coefficient of Variation 15.9 % (11.5-14.5); RDW Standard Deviation 53.7 fL (36.4-46.3); Red Blood Count 3.43 M/uL (4.2-5.4); White Blood Count 3.36 K/uL (4.8-10.8)
--- NOTE | 2021-05-22 01:17 | Procedure Note ---
Procedure Note Date of Service May 22, 2021 Note INTERNAL JUGULAR CENTRAL LINE PROCEDURE NOTE: Procedure: Internal Jugular Central Line Placement Attending: Dr. Hall Provider: EMIL Potter Indication: Poor Venous Access, Multiple Lab Draws Necessary Anesthesia: Lidocaine 1% Consent was signed and placed on the chart prior to procedure. Indication, risks, and benefits were explained at length. A time-out was completed verifying correct patient, procedure, site, p ositioning, and implants(s) or special equipment if applicable. Patients right neck was cleansed and draped in the typical sterile fashion using Chloraprep. The Internal Jugular Vein and Carotid Artery were identified using ultrasound. The superficial tissue was anesthetized using 5 mL of 1% lidocaine without epinephrine under direct visualization with the ultrasound. After adequate anesthetization was achieved, the Internal Jugular vein was cannulated under direct ultrasound guidance using an introducer needle on a syringe. Good venous blood return was maintained prior to removal of syringe from introducer needle. Using Seldinger Technique, a guide wire was advanced through the introducer needle without resistance. The introducer needle was removed and ultrasound images were obtained of the guide wire within the Internal Jugular Vein and saved to the patients medical record. A small incision was made in penetrating fashion at the guide wire insertion site utilizing an 11 blade scalpel. The dilator was advanced to the vessel without resistance. The dilator was exchanged for the triple lumen catheter which was advanced into the vessel without resistance. The guide wire was removed intact from the catheter without issue. Claves were placed on each catheter tip with confirmation of good blood flow from each lumen. Each port was easily flushed with sterile saline. The catheter was placed at 15 cm and sutured in place. BioPatch was applied to the catheter and a sterile Tegaderm dressing was applied over the catheter with careful attention to sterility. Patient tolerated procedure well. No immediate complications were met. Post procedure x-ray was completed, placement was appropriate and no pneumothorax was noted. Procedural Ultrasound Guidance: Procedure Date: 05/22/2021 Indication: Central venous catheter insertion Attending: Dr. Hall Provider: EMIL Potter Artery AND Vein visualized: Yes Compressible Vein: Yes Guidewire or Short Catheter seen in vein prior to dilation: Yes Line confirmed in Vein with ultrasound: Yes I was not physically present for the central line. Coding CPT Codes Tubes, Drains, and Vasc Access - Tubes, Drains, and Vasc Access: [id number] Place catheter in vein superior or inferior vena cava ([id number]) Tubes, Drains, and Vasc Access - Tubes, Drains, and Vasc Access: [id number] Ultrasound Guidance For Vascular ([id number]) [facility] Procedure Codes (Charges) Tubes, Drains, and Vasc Access Procedure 1: Tubes, Drains, and Vasc Access: [id number] Place catheter in vein superior or inferior vena cava Procedure 2: Tubes, Drains, and Vasc Access: [id number] Ultrasound Guidance For Vascular
[2021-05-22 01:28] LABS: Albumin Level 3.4 gm/dl (3.4-5.0); BUN Creatinine Ratio 14.1 (10-20); Bilirubin Direct 0.2 mg/dl (0-0.2); Calcium 8.1 mg/dl (8.5-10.1); Creatinine Clr Calc Pharmacy 33.4 ml/min; Est GFR (African American) 70.9 ml/min; Est GFR (Non-African American) 61.2 ml/min; Magnesium 2.3 mg/dl (1.8-2.4); Potassium 2.7 mmol/L (3.5-5.1)
[2021-05-22 01:33] LABS: Bilirubin,Total 0.4 mg/dl (0.2-1); Total Protein 7.1 gm/dl (6.4-8.2); Troponin I 0.037 ng/ml (0-0.045)
--- NOTE | 2021-05-22 09:11 | XRay Report ---
XR chest 1V portable CLINICAL HISTORY: CVC insertion COMPARISON STUDY: May 21, 2021 FINDINGS: No pneumothorax. Minimal blunting of the left costophrenic angle is seen and could represent trace left pleural effusi on. Patchy airspace opacities are seen within left lower lung, not significantly changed since prior coul d represent pneumonia. The mediastinal silhouette is mildly enlarged, stable since prior. Vasculature is indistinct.. Osseous structures: Chronic fracture deformity of the right rib cage is again seen. Multiple linear densities at the anatomical region of the rib heads are again seen projecting to the right and left p aravertebral region likely representing linear sclerosis of bilateral rib heads that was also seen du ring CT of the chest performed on December 26, 2020. Interval placement of the right-sided IJ central venous catheter with tip projecting to the anatomica l region of inferior vena cava. Repositioning is recommended. IMPRESSION: 1. Interval placement of right-sided intravenous catheter with tip projecting to the anatomical tono on of inferior vena cava. Repositioning is recommended. 2. Redemonstration of airspace opacities within left lower lung likely representing pneumonia. 3. The rest of findings as above. ACT 112: Negative or not required by law. The above report was generated using voice recognition software. It may contain grammatical, syntax o r spelling errors. Electronically signed by: Mireya Forte DO 05/22/2021 9:10 AM
[2021-05-22 09:41] LABS: Basophils # (auto) 0.01 K/uL (0-0.2); Basophils % (auto) 0.4 %; Hematocrit (blood only) 29.6 % (37-47); Hemoglobin 9.5 g/dL (12.0-16.0); Immature Granulocytes # (auto) 0.03 K/uL (0.00-0.02); Immature Granulocytes % (auto) 1.1 %; Lymphocytes # (auto) 0.52 K/uL (1.2-3.4); Lymphocytes % (auto) 18.8 %; Mean Corpuscular Hgb Conc 32.1 g/dL (32-36); Mean Corpuscular Volume 90.2 fL (80-100); Mean Platelet Volume 10.2 fL (7.4-10.4); Monocytes # (auto) 0.02 K/uL (0.11-0.59); Monocytes % (auto) 0.7 %; Neutrophils # (auto) 2.18 K/uL (1.4-6.5); Platelet Count 184 K/uL (130-400); RDW Coefficient of Variation 15.6 % (11.5-14.5); RDW Standard Deviation 51.6 fL (36.4-46.3); Red Blood Count 3.28 M/uL (4.2-5.4); White Blood Count 2.76 K/uL (4.8-10.8)
[2021-05-22 10:04] LABS: BUN Creatinine Ratio 8.9 (10-20); Blood Urea Nitrogen 11 mg/dl (7-18); Calcium 7.5 mg/dl (8.5-10.1); Carbon Dioxide 21 mmol/L (21-32); Chloride 109 mmol/L (98-107); Est GFR (African American) 62.7 ml/min; Est GFR (Non-African American) 54.1 ml/min; Glucose 209 mg/dl (70-99); Magnesium 1.7 mg/dl (1.8-2.4); Potassium 3.4 mmol/L (3.5-5.1); Sodium 143 mmol/L (136-145)
[2021-05-22 10:22] LABS: Appearance Urine Clear (Clear); Bacteria Urine Automated 3+ (Negative); Bilirubin Urine Negative (Negative); Blood Urine Negative (Negative); Cast Urine Automated 0 /lpf (0-5); Color Urine Yellow; Glucose Urine UA Negative (Negative); Ketones Urine Negative (Negative); Leukocyte Esterase Urine Negative (Negative); Nitrite Urine Positive (Negative); Protein Urine Negative (Negative); Specific Gravity Urine 1.012 (1.000-1.030); Urobilinogen Urine Negative (Negative)
[2021-05-22] MEDS ORDERED: NITROGLYCERIN SL 0.4 MG/TAB TAB SL PRN (10:59)
[2021-05-22] MEDS ORDERED: ALBUTEROL HFA 8 GM INHALER INH PRN (11:12)
[2021-05-22] MEDS ORDERED: ONDANSETRON INJ 2 MG/ML 2 ML VIAL IV PRN (11:17)
[2021-05-22] MEDS ORDERED: SODIUM CHLORIDE 1 GM TABLET PO ONE (11:30)
[2021-05-22] MEDS ORDERED: ENOXAPARIN INJ 40 MG/0.4 ML SYR SQ ONE (11:30)
[2021-05-22] MEDS ORDERED: MAGNESIUM OXIDE 400 MG TAB PO ONE (11:30)
[2021-05-22] MEDS ORDERED: MEGESTROL ACETATE 40 MG TAB PO ONE (11:30)
[2021-05-22] MEDS ORDERED: IRON POLYSACCHARIDE COMPLEX 150 MG CAPSULE PO ONE (11:30)
[2021-05-22] MEDS ORDERED: LEVOTHYROXINE SODIUM 25 MCG TABLET PO ONE (11:45)
[2021-05-22] MEDS ORDERED: POTASSIUM CHLORIDE CRTAB 20 MEQ TABCR PO ONE (11:45)
[2021-05-22] MEDS ORDERED: SODIUM CHLORIDE 0.9% 500 ML IV SCH (11:45)
[2021-05-22] MEDS ORDERED: THIAMINE HCL 100 MG TAB PO ONE (11:45)
[2021-05-22] MEDS: lamoTRIgine 100 MG TAB PO SCH ×2 (12:11→21:05)
[2021-05-22] MEDS: FLUTICASONE FUROATE 100MCG 14 PUFFS/INHALER INH SCH (12:12)
[2021-05-22] MEDS: SODIUM CHLORIDE 1 GM TABLET PO SCH ×2 (15:46→21:05)
[2021-05-22] MEDS ORDERED: PIPERACILL/TAZOBAC CONSULT ACTIVE PRN (17:59)
[2021-05-22] MEDS ORDERED: PIPERACILLIN/TAZOBACTAM 3.375 GM in DEXTROSE 5% 100 ML IV ONE (18:18)
[2021-05-22] MEDS ORDERED: MIDAZOLAM HCL 5 MG/ML VIAL IV ONE (19:17)
[2021-05-22] MEDS ORDERED: KETAMINE HCL INJ 50 MG/ML 10 ML VIAL IV ONE (19:17)
[2021-05-22] MEDS ORDERED: fentaNYL citrate 100 MCG/2 ML VIAL IV ONE (19:17)
[2021-05-22] MEDS: SODIUM CHLORIDE 0.9% 1000ML 1,000 ML IV SCH (20:58)
[2021-05-22] MEDS: MAGNESIUM OXIDE 400 MG TAB PO SCH (21:05)
[2021-05-22] MEDS: PIPERACILLIN/TAZOBACTAM 3.375 GM in DEXTROSE 5% 100 ML IV SCH (23:24)
[2021-05-23] MEDS: SODIUM CHLORIDE 0.9% 1000ML 1,000 ML IV SCH (04:18)
[2021-05-23] MEDS: LEVOTHYROXINE SODIUM 25 MCG TABLET PO SCH (05:27)
[2021-05-23 06:28] LABS: Basophils # (auto) 0.01 K/uL (0-0.2); Basophils % (auto) 0.2 %; Hematocrit (blood only) 28.1 % (37-47); Hemoglobin 9.3 g/dL (12.0-16.0); Immature Granulocytes # (auto) 0.03 K/uL (0.00-0.02); Immature Granulocytes % (auto) 0.6 %; Lymphocytes # (auto) 0.91 K/uL (1.2-3.4); Lymphocytes % (auto) 19.3 %; Mean Corpuscular Hemoglobin 29.3 pg (25-34); Mean Corpuscular Hgb Conc 33.1 g/dL (32-36); Mean Corpuscular Volume 88.6 fL (80-100); Mean Platelet Volume 10.1 fL (7.4-10.4); Monocytes # (auto) 0.28 K/uL (0.11-0.59); Monocytes % (auto) 5.9 %; Neutrophils # (auto) 3.49 K/uL (1.4-6.5); Platelet Count 213 K/uL (130-400); RDW Coefficient of Variation 15.6 % (11.5-14.5); RDW Standard Deviation 50.8 fL (36.4-46.3); Red Blood Count 3.17 M/uL (4.2-5.4); White Blood Count 4.72 K/uL (4.8-10.8)
[2021-05-23 07:07] LABS: Albumin Level 2.7 gm/dl (3.4-5.0); BUN Creatinine Ratio 12.2 (10-20); Calcium 7.4 mg/dl (8.5-10.1); Creatinine Clr Calc Pharmacy 47.7 ml/min; Est GFR (African American) 108.7 ml/min; Est GFR (Non-African American) 93.8 ml/min; Magnesium 1.9 mg/dl (1.8-2.4); Potassium 4.1 mmol/L (3.5-5.1)
[2021-05-23 07:22] LABS: Albumin Globulin Ratio 0.9 (0.9-2); Bilirubin,Total 0.3 mg/dl (0.2-1); Globulin 3.1 gm/dl (2.5-4.0); Total Protein 5.8 gm/dl (6.4-8.2)
[2021-05-23] MEDS: lamoTRIgine 100 MG TAB PO SCH ×2 (08:17→20:48)
[2021-05-23] MEDS: IRON POLYSACCHARIDE COMPLEX 150 MG CAPSULE PO SCH (08:17)
[2021-05-23] MEDS: THIAMINE HCL 100 MG TAB PO SCH (08:18)
[2021-05-23] MEDS: dexAMETHasone 6 MG in SYRINGE 0 ML IV SCH (08:18)
[2021-05-23] MEDS: SODIUM CHLORIDE 1 GM TABLET PO SCH ×3 (08:18→20:48)
[2021-05-23] MEDS: MAGNESIUM OXIDE 400 MG TAB PO SCH ×2 (08:18→20:49)
[2021-05-23] MEDS: ENOXAPARIN INJ 40 MG/0.4 ML SYR SQ SCH (08:19)
[2021-05-23] MEDS: MEGESTROL ACETATE 40 MG TAB PO SCH (08:19)
[2021-05-23] MEDS: PIPERACILLIN/TAZOBACTAM 3.375 GM in DEXTROSE 5% 100 ML IV SCH (08:38)
[2021-05-23] MEDS ORDERED: SODIUM PHOSPHATE 3 MMOL/1 ML 5 ML VIAL IV STA (09:15)
[2021-05-23] MEDS ORDERED: SODIUM PHOSPHATE 30 MMOL in SODIUM CHLORIDE 0.9% 500 ML IV ONE (09:30)
[2021-05-23] MEDS: FLUTICASONE FUROATE 100MCG 14 PUFFS/INHALER INH SCH (10:46)
[2021-05-23] MEDS: REMDESIVIR 100 MG in SODIUM CHLORIDE 0.9% 230 ML IV SCH (11:51)
[2021-05-23] MEDS: SODIUM CHLORIDE 0.9% 10ML FLUSH IV SCH (12:53)
--- NOTE | 2021-05-23 16:13 | Hospitalist Progress Note ---
Date of Service May 23, 2021 Assessment & Plan (1) Pneumonia due to COVID-19 virus: Plan: She is not vaccinated Presented with cough and shortness of breath for the last couple of days and noted to have COVID-19 infection with pneumonia Presented with respiratory distress and desaturation Has been getting intravenous dexamethasone and remdesivir Clinically better today and is saturating normally on room air Severe electrolyte abnormality Noted to have very low phosphate Supplemented Initial lactic acid is high at 7.3 likely secondary to hypoxia Subsequently normalized (2) Acute respiratory distress: Plan: Secondary to COVID-19 pneumonia (3) Hyponatremia: Plan: History of SIADH with hyponatremia Sodium level has been normal during this admission (4) Ambulatory dysfunction: Plan: Chronic problem (5) Seizure disorder: Plan: Continue her current antiseizure medication (6) Cognitive developmental delay: Plan: No acute impairment History of childhood astrocytoma Status post surgery, chemo and radiation No acute issues DVT prophylaxis Subcu Lovenox Admission and Anticipated Discharge Date Admission Date: May 22, 2021 Subjective 05/23/2021 The patient was seen and examined in telemetry unit and in the Covid room She has been feeling much better and has been saturating normally on room air Has minimal cough and weakness Review of Systems Review of Systems: All systems reviewed and are unremarkable except as noted below Physical Exam Physical Exam: Lying in bed comfortably Constitutional: well developed, well nourished, + ill appearing and + obese Eyes: PERRL, conjunctivae normal, anicteric sclerae ENMT: external ear and nose normal, oropharynx normal Neck: trachea midline, no thyromegaly Respiratory: no respiratory distress Auscultation: + diminished lung sounds and + crackles (Minimal crackles at the bases); no wheezes Cardiovascular: Rate/Rhythm: regular rate and regular rhythm; not tachycardic Heart Sounds: normal S1 and normal S2; no murmur Extremities: + edema (Trace edema bilaterally) Gastrointestinal (Abdomen): Inspection/Auscultation: normal bowel sounds; abdomen not distended Percussion/Palpation: abdomen soft; abdomen nontender Musculoskeletal: No acute arthritis in any joint Neurologic: Alert, awake and oriented x3. Generally weak Results & Data Results & Data ([facility]) Vital Signs (Past 12 Hours) Vital Signs Temp Pulse Pulse Resp BP Pulse Ox Pulse Ox 05/23/21 15:02 36.4 C L 80 20 124/80 94 09/17/21 11:32 36.4 C L 92 H 18 101/57 L 97 05/23/21 10:59 94 05/23/21 07:54 36.3 C L 89 19 95/56 L 97 05/23/21 07:00 87 Laboratory Results Short CBC 05/23/21 Range/Units 05:40 WBC 4.72 L (4.8-10.8) K/uL Hgb 9.3 L (12.0-16.0) g/dL Hct 28.1 L (37-47) % Plt Count 213 (130-400) K/uL BMP 05/22/21 05/23/21 20:54 05:40 Sodium 142 Potassium 4.2 D 4.1 Chloride 115 H Carbon Dioxide 24 BUN 9 Creatinine 0.78 D Glucose 137 H Calcium 7.4 L Liver Function 05/23/21 Range/Units 05:40 Total Bilirubin 0.3 (0.2-1) mg/dl AST 69 H (15-37) U/L ALT 45 (12-78) U/L Alkaline Phosphatase 127 H (45-117) U/L Albumin 2.7 L (3.4-5.0) gm/dl Medications Administered Current Inpatient Medications Acetaminophen (Acetaminophen 325 Mg Tab) 650 mg PO Q4H PRN PRN Reason: Pain or Fever Stop: 06/21/21 10:58 Albuterol (Albuterol Hfa 8 Gm Inhaler) 2 puffs INH Q4H PRN PRN Reason: Shortness Of Breath Or Wheezing Stop: 06/21/21 11:14 Enoxaparin Sodium (Enoxaparin Inj 40 Mg/0.4 Ml Syr) 40 mg SQ QAM GABI Stop: 06/22/21 08:59 Last Admin: 05/23/21 08:19 Dose: 40 mg Documented by: Fluticasone Furoate (Fluticasone Furoate 100mcg 14 Puffs/Inhaler) 1 puffs INH DAILY GABI Stop: 06/21/21 11:59 Last Admin: 05/23/21 10:46 Dose: 1 puffs Documented by: Guaifenesin/Dextromethorphan (Guaifenesin/Dextrom Syrup 200mg/20mg 10ml Udc) 10 ml PO Q6H PRN PRN Reason: Cough Stop: 06/22/21 11:51 Remdesivir 100 mg/ Sodium (Chloride) 250 mls @ 250 mls/hr IV Q24H [facility]; Protocol Stop: 05/26/21 12:59 Last Infusion: 05/23/21 12:53 Dose: Infused Documented by: Dexamethasone 6 mg/ Syringe 1.5 mls @ 1 mls/min IV DAILY GABI Stop: 06/02/21 08:59 Last Admin: 05/23/21 08:18 Dose: 1 mls/min Documented by: Lamotrigine (Lamotrigine 100 Mg Tab) 150 mg PO BID [facility] Stop: 06/21/21 11:59 Last Admin: 05/23/21 08:17 Dose: 150 mg Documented by: Levalbuterol HCl (Levalbuterol 1.25mg/0.5ml Neb) 1.25 mg NEB Q4H PRN PRN Reason: Shortness Of Breath Or Wheezing Stop: 06/21/21 11:14 Levothyroxine Sodium (Levothyroxine Sodium 25 Mcg Tablet) 37.5 mcg PO DAILYBB [facility] Stop: 06/22/21 06:29 Last Admin: 05/23/21 05:27 Dose: 37.5 mcg Documented by: Magnesium Oxide (Magnesium Oxide 400 Mg Tab) 400 mg PO BID [facility] Stop: 06/21/21 20:59 Last Admin: 05/23/21 08:18 Dose: 400 mg Documented by: Megestrol Acetate (Megestrol Acetate 40 Mg Tab) 20 mg PO QAM [facility] Stop: 06/22/21 08:59 Last Admin: 05/23/21 08:19 Dose: 20 mg Documented by: Nitroglycerin (Nitroglycerin Sl 0.4 Mg/Tab Tab) 0.4 mg SL UD PRN PRN Reason: Chest Pain Stop: 06/21/21 10:58 Ondansetron HCl (Ondansetron Inj 2 Mg/Ml 2 Ml Vial) 4 mg IV Q6H PRN PRN Reason: Nausea And Vomiting Stop: 06/21/21 11:16 Polysaccharide Iron Complex (Iron Polysaccharide Complex 150 Mg Capsule) 150 mg PO DAILY [facility] Stop: 06/22/21 08:59 Last Admin: 05/23/21 08:17 Dose: 150 mg Documented by: Sodium Chloride (Sodium Chloride 0.9% 10ml Flush) 30 ml IV Q24H [facility] Stop: 05/26/21 12:01 Last Admin: 05/23/21 12:53 Dose: 30 ml Documented by: Sodium Chloride (Sodium Chloride 1 Gm Tablet) 1 gm PO TID GABI Stop: 06/21/21 13:59 Last Admin: 05/23/21 13:25 Dose: 1 gm Documented by: Thiamine HCl (Thiamine Hcl 100 Mg Tab) 100 mg PO QAM GABI Stop: 06/22/21 08:59 Last Admin: 05/23/21 08:18 Dose: 100 mg Documented by:
[2021-05-24] MEDS: ACETAMINOPHEN 325 MG TAB PO PRN (02:23)
[2021-05-24] MEDS: guaiFENesin/DEXTROM SYRUP 200MG/20MG 10ML UDC PO PRN ×3 (02:25→20:51)
[2021-05-24] MEDS: LEVOTHYROXINE SODIUM 25 MCG TABLET PO SCH (05:58)
[2021-05-24 07:10] LABS: Bilirubin Direct 0.1 mg/dl (0-0.2); Bilirubin,Total 0.4 mg/dl (0.2-1); Calcium 7.5 mg/dl (8.5-10.1); Creatinine Clr Calc Pharmacy 44.8 ml/min; Est GFR (African American) 102.3 ml/min; Est GFR (Non-African American) 88.3 ml/min; Magnesium 2.1 mg/dl (1.8-2.4); Phosphorus 2.5 mg/dl (2.5-4.9); Potassium 3.3 mmol/L (3.5-5.1); Total Protein 6.3 gm/dl (6.4-8.2)
[2021-05-24] MEDS ORDERED: POTASSIUM CHLORIDE CRTAB 20 MEQ TABCR PO STA ×2 (08:15→11:07)
[2021-05-24] MEDS: THIAMINE HCL 100 MG TAB PO SCH (10:24)
[2021-05-24] MEDS: SODIUM CHLORIDE 1 GM TABLET PO SCH ×3 (10:24→20:55)
[2021-05-24] MEDS: MAGNESIUM OXIDE 400 MG TAB PO SCH ×2 (10:25→20:52)
[2021-05-24] MEDS: MEGESTROL ACETATE 40 MG TAB PO SCH (10:25)
[2021-05-24] MEDS: lamoTRIgine 100 MG TAB PO SCH ×2 (10:25→20:52)
[2021-05-24] MEDS: IRON POLYSACCHARIDE COMPLEX 150 MG CAPSULE PO SCH (10:27)
[2021-05-24] MEDS: ENOXAPARIN INJ 40 MG/0.4 ML SYR SQ SCH (10:28)
[2021-05-24] MEDS: FLUTICASONE FUROATE 100MCG 14 PUFFS/INHALER INH SCH (10:28)
[2021-05-24] MEDS: dexAMETHasone 6 MG in SYRINGE 0 ML IV SCH (10:31)
[2021-05-24] MEDS: REMDESIVIR 100 MG in SODIUM CHLORIDE 0.9% 230 ML IV SCH (13:09)
[2021-05-24] MEDS: SODIUM CHLORIDE 0.9% 10ML FLUSH IV SCH (14:42)
--- NOTE | 2021-05-24 14:44 | Hospitalist Progress Note ---
Date of Service May 24, 2021 Assessment & Plan (1) Pneumonia due to COVID-19 virus: Plan: She is not vaccinated Presented with cough and shortness of breath for the last couple of days and noted to have COVID-19 infection with pneumonia Presented with respiratory distress and desaturation Has been getting intravenous dexamethasone and remdesivir Clinically better today and is saturating normally on room air Asymptomatic Covid infection Severe electrolyte abnormality Noted to have very low phosphate Supplemented and corrected Initial lactic acid is high at 7.3 likely secondary to hypoxia Subsequently normalized Noted to have UTI secondary to E. coli Pansensitive Likely the cause for weakness and tiredness We will start intravenous ceftriaxone (2) Acute respiratory distress: Plan: Secondary to COVID-19 pneumonia (3) Hyponatremia: Plan: History of SIADH with hyponatremia Sodium level has been normal during this admission (4) Ambulatory dysfunction: Plan: Chronic problem (5) Seizure disorder: Plan: Continue her current antiseizure medication (6) Cognitive developmental delay: Plan: No acute impairment History of childhood astrocytoma Status post surgery, chemo and radiation No acute issues DVT prophylaxis Subcu Lovenox Admission and Anticipated Discharge Date Admission Date: May 22, 2021 Subjective 05/23/2021 The patient was seen and examined in telemetry unit and in the Covid room She has been feeling much better and has been saturating normally on room air Has minimal cough and weakness 05/24/2021 The patient was seen and examined in medical telemetry unit and in the Covid room She has been feeling a lot better denies any cough and no shortness of breath Has been saturating normally on room air Noted to have UTI Review of Systems Review of Systems: All systems reviewed and are unremarkable except as noted below Respiratory: No shortness of breath and no cough at rest Physical Exam Physical Exam: Lying in bed comfortably Constitutional: well developed, well nourished, + ill appearing and + obese Eyes: PERRL, conjunctivae normal, anicteric sclerae ENMT: external ear and nose normal, oropharynx normal Neck: trachea midline, no thyromegaly Respiratory: no respiratory distress Auscultation: + diminished lung sounds and + crackles (Minimal crackles at the bases); no wheezes Cardiovascular: Rate/Rhythm: regular rate and regular rhythm; not tachycardic Heart Sounds: normal S1 and normal S2; no murmur Extremities: + edema (Trace edema bilaterally) Gastrointestinal (Abdomen): Inspection/Auscultation: normal bowel sounds; abdomen not distended Percussion/Palpation: abdomen soft; abdomen nontender Musculoskeletal: No acute arthritis in any joint Neurologic: She is mentally challenged. Generally weak but no focal neuro deficit Results & Data Results & Data ([facility]) Vital Signs (Past 12 Hours) Vital Signs Temp Pulse Resp BP Pulse Ox 05/24/21 12:21 36.3 C L 77 16 116/68 99 05/24/21 08:28 36.1 C L 89 16 141/74 H 97 Laboratory Results [facility] 05/24/21 05:51 Sodium 140 Potassium 3.3 L D Chloride 109 H Carbon Dioxide 25 BUN 13 Creatinine 0.82 Glucose 133 H Calcium 7.5 L Liver Function 05/24/21 Range/Units 05:51 Total Bilirubin 0.4 (0.2-1) mg/dl Direct Bilirubin 0.1 (0-0.2) mg/dl AST 49 H (15-37) U/L ALT 43 (12-78) U/L Alkaline Phosphatase 121 H (45-117) U/L Albumin 3.0 L (3.4-5.0) gm/dl Medications Administered Current Inpatient Medications Acetaminophen (Acetaminophen 325 Mg Tab) 650 mg PO Q4H PRN PRN Reason: Pain or Fever Stop: 06/21/21 10:58 Last Admin: 05/24/21 02:23 Dose: 650 mg Documented by: Albuterol (Albuterol Hfa 8 Gm Inhaler) 2 puffs INH Q4H PRN PRN Reason: Shortness Of Breath Or Wheezing Stop: 06/21/21 11:14 Enoxaparin Sodium (Enoxaparin Inj 40 Mg/0.4 Ml Syr) 40 mg SQ QAM [facility] Stop: 06/22/21 08:59 Last Admin: 05/24/21 10:28 Dose: 40 mg Documented by: Fluticasone Furoate (Fluticasone Furoate 100mcg 14 Puffs/Inhaler) 1 puffs INH DAILY [facility]I Stop: 06/21/21 11:59 Last Admin: 05/24/21 10:28 Dose: 1 puffs Documented by: Guaifenesin/Dextromethorphan (Guaifenesin/Dextrom Syrup 200mg/20mg 10ml Udc) 10 ml PO Q6H PRN PRN Reason: Cough Stop: 10/17/21 11:51 Last Admin: 05/24/21 13:20 Dose: 10 ml Documented by: Heparin Sodium (Beef Lung) (Heparin 10 Unit/Ml 5 Ml Flush) 5 ml FLUSH PRN PRN PRN Reason: Flush Stop: 06/23/21 11:58 Remdesivir 100 mg/ Sodium (Chloride) 250 mls @ 250 mls/hr IV Q24H [facility]; Protocol Stop: 05/26/21 12:59 Last Admin: 05/24/21 13:09 Dose: 250 mls/hr Documented by: Dexamethasone 6 mg/ Syringe 1.5 mls @ 1 mls/min IV DAILY [facility] Stop: 06/02/21 08:59 Last Admin: 05/24/21 10:31 Dose: 1 mls/min Documented by: Lamotrigine (Lamotrigine 100 Mg Tab) 150 mg PO BID [facility] Stop: 06/21/21 11:59 Last Admin: 05/24/21 10:25 Dose: 150 mg Documented by: Levalbuterol HCl (Levalbuterol 1.25mg/0.5ml Neb) 1.25 mg NEB Q4H PRN PRN Reason: Shortness Of Breath Or Wheezing Stop: 06/21/21 11:14 Levothyroxine Sodium (Levothyroxine Sodium 25 Mcg Tablet) 37.5 mcg PO DAILYBB [facility] Stop: 06/22/21 06:29 Last Admin: 05/24/21 05:58 Dose: 37.5 mcg Documented by: Magnesium Oxide (Magnesium Oxide 400 Mg Tab) 400 mg PO BID [facility] Stop: 06/21/21 20:59 Last Admin: 05/24/21 10:25 Dose: 400 mg Documented by: Megestrol Acetate (Megestrol Acetate 40 Mg Tab) 20 mg PO QAM [facility] Stop: 06/22/21 08:59 Last Admin: 05/24/21 10:25 Dose: 20 mg Documented by: Nitroglycerin (Nitroglycerin Sl 0.4 Mg/Tab Tab) 0.4 mg SL UD PRN PRN Reason: Chest Pain Stop: 06/21/21 10:58 Ondansetron HCl (Ondansetron Inj 2 Mg/Ml 2 Ml Vial) 4 mg IV Q6H PRN PRN Reason: Nausea And Vomiting Stop: 06/21/21 11:16 Polysaccharide Iron Complex (Iron Polysaccharide Complex 150 Mg Capsule) 150 mg PO DAILY [facility] Stop: 06/22/21 08:59 Last Admin: 05/24/21 10:27 Dose: 150 mg Documented by: Sodium Chloride (Sodium Chloride 0.9% 10ml Flush) 30 ml IV Q24H [facility] Stop: 05/26/21 12:01 Last Admin: 05/24/21 14:42 Dose: 30 ml Documented by: Sodium Chloride (Sodium Chloride 1 Gm Tablet) 1 gm PO TID [facility] Stop: 06/21/21 13:59 Last Admin: 05/24/21 10:24 Dose: 1 gm Documented by: Thiamine HCl (Thiamine Hcl 100 Mg Tab) 100 mg PO QAM [facility] Stop: 06/22/21 08:59 Last Admin: 05/24/21 10:24 Dose: 100 mg Documented by:
[2021-05-24] MEDS: cefTRIAXone SODIUM 1,000 MG in DEXTROSE 5% 50 ML IV SCH (16:07)
[2021-05-25] MEDS: LEVOTHYROXINE SODIUM 25 MCG TABLET PO SCH (05:48)
[2021-05-25] MEDS: FLUTICASONE FUROATE 100MCG 14 PUFFS/INHALER INH SCH (08:53)
[2021-05-25] MEDS: THIAMINE HCL 100 MG TAB PO SCH (08:54)
[2021-05-25] MEDS: SODIUM CHLORIDE 1 GM TABLET PO SCH ×3 (08:55→20:52)
[2021-05-25] MEDS: MEGESTROL ACETATE 40 MG TAB PO SCH (08:55)
[2021-05-25] MEDS: lamoTRIgine 100 MG TAB PO SCH ×2 (08:56→20:51)
[2021-05-25] MEDS: MAGNESIUM OXIDE 400 MG TAB PO SCH ×2 (08:56→20:52)
[2021-05-25] MEDS: IRON POLYSACCHARIDE COMPLEX 150 MG CAPSULE PO SCH (08:56)
[2021-05-25] MEDS: dexAMETHasone 6 MG in SYRINGE 0 ML IV SCH (08:57)
[2021-05-25] MEDS: ENOXAPARIN INJ 40 MG/0.4 ML SYR SQ SCH (08:57)
[2021-05-25] MEDS: REMDESIVIR 100 MG in SODIUM CHLORIDE 0.9% 230 ML IV SCH (12:40)
[2021-05-25] MEDS: SODIUM CHLORIDE 0.9% 10ML FLUSH IV SCH (13:43)
[2021-05-25] MEDS: cefTRIAXone SODIUM 1,000 MG in DEXTROSE 5% 50 ML IV SCH (13:43)
--- NOTE | 2021-05-25 13:51 | Hospitalist Progress Note ---
Date of Service May 25, 2021 Assessment & Plan (1) Pneumonia due to COVID-19 virus: Plan: She is not vaccinated Presented with cough and shortness of breath for the last couple of days and noted to have COVID-19 infection with pneumonia Presented with respiratory distress and desaturation Has been getting intravenous dexamethasone and remdesivir Clinically better today and is saturating normally on room air Asymptomatic Covid infection and remains asymptomatic in the hospital Severe electrolyte abnormality Noted to have very low phosphate Supplemented and corrected We will monitor electrolytes Initial lactic acid is high at 7.3 likely secondary to hypoxia Subsequently normalized Noted to have UTI secondary to E. coli Pansensitive Likely the cause for weakness and tiredness We will start intravenous ceftriaxone We will continue IV antibiotic for now (2) Acute respiratory distress: Plan: Secondary to COVID-19 pneumonia (3) Hyponatremia: Plan: History of SIADH with hyponatremia Sodium level has been normal during this admission (4) Ambulatory dysfunction: Plan: Chronic problem (5) Seizure disorder: Plan: Continue her current antiseizure medication (6) Cognitive developmental delay: Plan: No acute impairment History of childhood astrocytoma Status post surgery, chemo and radiation No acute issues DVT prophylaxis Subcu Lovenox Admission and Anticipated Discharge Date Admission Date: May 22, 2021 Subjective 05/23/2021 The patient was seen and examined in telemetry unit and in the Covid room She has been feeling much better and has been saturating normally on room air Has minimal cough and weakness 05/24/2021 The patient was seen and examined in medical telemetry unit and in the Covid room She has been feeling a lot better denies any cough and no shortness of breath Has been saturating normally on room air Noted to have UTI 05/25/2021 The patient was seen and examined in medical telemetry unit and in the Covid room She has noted to be quiet this morning and was morning at times She communicated with me but any movement of her body she was morning Remains hemodynamically stable and denies any shortness of Review of Systems Review of Systems: All systems reviewed and are unremarkable except as noted below Respiratory: No shortness of breath and no cough at rest Physical Exam Physical Exam: Lying in bed comfortably but any movement in bed she moans Constitutional: well developed, well nourished, + ill appearing and + obese Eyes: PERRL, conjunctivae normal, anicteric sclerae ENMT: external ear and nose normal, oropharynx normal Neck: trachea midline, no thyromegaly Respiratory: no respiratory distress Auscultation: + diminished lung sounds and + crackles (Minimal crackles at the bases); no wheezes Cardiovascular: Rate/Rhythm: regular rate and regular rhythm; not tachycardic Heart Sounds: normal S1 and normal S2; no murmur Extremities: + edema (Trace edema bilaterally) Gastrointestinal (Abdomen): Inspection/Auscultation: normal bowel sounds; abdomen not distended Percussion/Palpation: abdomen soft; abdomen nontender Musculoskeletal: No acute arthritis in any joint Neurologic: Alert and awake. Communicates with simple words and sentences Results & Data Results & Data ([facility]) Vital Signs (Past 12 Hours) Vital Signs Temp Pulse Pulse Resp BP Pulse Ox 05/25/21 12:12 36.8 C 86 16 123/76 95 05/25/21 08:21 37.3 C 85 16 114/74 97 05/25/21 07:31 86 05/25/21 04:00 81 05/25/21 01:58 81 Medications Administered Current Inpatient Medications Acetaminophen (Acetaminophen 325 Mg Tab) 650 mg PO Q4H PRN PRN Reason: Pain or Fever Stop: 06/21/21 10:58 Last Admin: 05/24/21 02:23 Dose: 650 mg Documented by: Albuterol (Albuterol Hfa 8 Gm Inhaler) 2 puffs INH Q4H PRN PRN Reason: Shortness Of Breath Or Wheezing Stop: 06/21/21 11:14 Enoxaparin Sodium (Enoxaparin Inj 40 Mg/0.4 Ml Syr) 40 mg SQ QAM GABI Stop: 06/22/21 08:59 Last Admin: 05/25/21 08:57 Dose: 40 mg Documented by: Fluticasone Furoate (Fluticasone Furoate 100mcg 14 Puffs/Inhaler) 1 puffs INH DAILY [facility]I Stop: 06/21/21 11:59 Last Admin: 05/25/21 08:53 Dose: 1 puffs Documented by: Guaifenesin/Dextromethorphan (Guaifenesin/Dextrom Syrup 200mg/20mg 10ml Udc) 10 ml PO Q6H PRN PRN Reason: Cough Stop: 06/22/21 11:51 Last Admin: 05/24/21 20:51 Dose: 10 ml Documented by: Heparin Sodium (Beef Lung) (Heparin 10 Unit/Ml 5 Ml Flush) 5 ml FLUSH PRN PRN PRN Reason: Flush Stop: 06/23/21 11:58 Remdesivir 100 mg/ Sodium (Chloride) 250 mls @ 250 mls/hr IV Q24H [facility]; Protocol Stop: 05/26/21 12:59 Last Infusion: 05/25/21 13:45 Dose: Infused Documented by: Dexamethasone 6 mg/ Syringe 1.5 mls @ 1 mls/min IV DAILY [facility]I Stop: 06/02/21 08:59 Last Admin: 05/25/21 08:57 Dose: 1 mls/min Documented by: Ceftriaxone Sodium 1,000 mg/ (Dextrose) 50 mls @ 100 mls/hr IV DAILY@1400 [facility]; Protocol Stop: 05/29/21 14:44 Last Admin: 05/25/21 13:43 Dose: 100 mls/hr Documented by: Lamotrigine (Lamotrigine 100 Mg Tab) 150 mg PO BID [facility] Stop: 06/21/21 11:59 Last Admin: 05/25/21 08:56 Dose: 150 mg Documented by: Levalbuterol HCl (Levalbuterol 1.25mg/0.5ml Neb) 1.25 mg NEB Q4H PRN PRN Reason: Shortness Of Breath Or Wheezing Stop: 06/21/21 11:14 Levothyroxine Sodium (Levothyroxine Sodium 25 Mcg Tablet) 37.5 mcg PO DAILYBB [facility] Stop: 06/22/21 06:29 Last Admin: 05/25/21 05:48 Dose: 37.5 mcg Documented by: Magnesium Oxide (Magnesium Oxide 400 Mg Tab) 400 mg PO BID [facility] Stop: 06/21/21 20:59 Last Admin: 05/25/21 08:56 Dose: 400 mg Documented by: Megestrol Acetate (Megestrol Acetate 40 Mg Tab) 20 mg PO QAM [facility] Stop: 06/22/21 08:59 Last Admin: 05/25/21 08:55 Dose: 20 mg Documented by: Nitroglycerin (Nitroglycerin Sl 0.4 Mg/Tab Tab) 0.4 mg SL UD PRN PRN Reason: Chest Pain Stop: 06/21/21 10:58 Ondansetron HCl (Ondansetron Inj 2 Mg/Ml 2 Ml Vial) 4 mg IV Q6H PRN PRN Reason: Nausea And Vomiting Stop: 06/21/21 11:16 Polysaccharide Iron Complex (Iron Polysaccharide Complex 150 Mg Capsule) 150 mg PO DAILY [facility] Stop: 06/22/21 08:59 Last Admin: 05/25/21 08:56 Dose: 150 mg Documented by: Sodium Chloride (Sodium Chloride 0.9% 10ml Flush) 30 ml IV Q24H [facility] Stop: 05/26/21 12:01 Last Admin: 05/25/21 13:43 Dose: 30 ml Documented by: Sodium Chloride (Sodium Chloride 1 Gm Tablet) 1 gm PO TID [facility] Stop: 06/21/21 13:59 Last Admin: 05/25/21 08:55 Dose: 1 gm Documented by: Thiamine HCl (Thiamine Hcl 100 Mg Tab) 100 mg PO QAM [facility] Stop: 06/22/21 08:59 Last Admin: 05/25/21 08:54 Dose: 100 mg Documented by:
[2021-05-25] MEDS: ACETAMINOPHEN 325 MG TAB PO PRN (18:09)
--- NOTE | 2021-05-25 18:30 | CT Scan Report ---
CT head/brain wo con CLINICAL HISTORY: R/O Stroke COMPARISON STUDY: May 12, 2021 TECHNIQUE: Axial CT of the brain is performed from the vertex to the skull base. IV contrast was not administered for this examination. A dose lowering technique was utilized adhering to the principles of ALARA. CT DOSE: 537.48 mGy.cm FINDINGS: Redemonstration of the right temporal encephalomalacia which is unchanged since prior and likely repr esent sequela from remote insult. No acute intracranial hemorrhage, no midline shift or space occupying lesions are seen. Engle-white matter differentiation is preserved. Chronic lacunar infarct is seen within right internal capsular and the left centrum semiovale, unchan ged since prior. Extensive mineralization is again seen within bilateral basal ganglia and bilateral cerebellar lobes. Chronic subdural collection is unchanged since prior study, measuring approximately 10 mm on the left and 6 mm on the right which is unchanged since prior study. Mild beam hardening artifact is seen and limits evaluation No acute depressed skull fractures are seen. Post craniotomy changes are seen within the right tempor al bone. Aplastic bilateral frontal sinuses. Mild mucosal thickening within anterior ethmoid air cell s. Hypoplastic right mastoid air cells, partial opacification of the bilateral mastoid air cells, unc hanged since prior. IMPRESSION: 1. No acute intracranial hemorrhage, no midline shift or space occupying lesions. 2. Stable bilateral subdural collection which is seen bilaterally and unchanged since prior study 3. Partial opacification of bilateral mastoid and ethmoid air cells, could represent inflammatory pr ocess in appropriate clinical settings. 4. Stable atrophic changes of brain parenchyma, right temporal encephalomalacia, bilateral parenchym al mineralization and few areas of lacunar infarct as detailed above. 5. The rest of findings as above. ACT 112: Negative or not required by law. The above report was generated using voice recognition software. It may contain grammatical, syntax o r spelling errors. Electronically signed by: Mireya Forte DO 05/25/2021 6:28 PM
[2021-05-25] MEDS ORDERED: PIPERACILL/TAZOBAC CONSULT ACTIVE PRN (19:06)
[2021-05-25] MEDS ORDERED: PIPERACILLIN/TAZOBACTAM 4.5 GM in DEXTROSE 5% 100 ML IV ONE (19:30)
[2021-05-25] MEDS: guaiFENesin/DEXTROM SYRUP 200MG/20MG 10ML UDC PO PRN (20:53)
[2021-05-26] MEDS: PIPERACILLIN/TAZOBACTAM 3.375 GM in DEXTROSE 5% 100 ML IV SCH ×4 (00:26→23:39)
[2021-05-26] MEDS: LEVOTHYROXINE SODIUM 25 MCG TABLET PO SCH (05:43)
[2021-05-26] MEDS: MAGNESIUM OXIDE 400 MG TAB PO SCH ×2 (08:06→20:52)
[2021-05-26] MEDS: ENOXAPARIN INJ 40 MG/0.4 ML SYR SQ SCH (08:06)
[2021-05-26] MEDS: SODIUM CHLORIDE 1 GM TABLET PO SCH ×3 (08:07→20:52)
[2021-05-26] MEDS: IRON POLYSACCHARIDE COMPLEX 150 MG CAPSULE PO SCH (08:07)
[2021-05-26] MEDS: THIAMINE HCL 100 MG TAB PO SCH (08:07)
[2021-05-26] MEDS: MEGESTROL ACETATE 40 MG TAB PO SCH (08:07)
[2021-05-26] MEDS: lamoTRIgine 100 MG TAB PO SCH (08:08)
[2021-05-26] MEDS: FLUTICASONE FUROATE 100MCG 14 PUFFS/INHALER INH SCH (08:08)
[2021-05-26 08:18] LABS: Hematocrit (blood only) 31.5 % (37-47); Hemoglobin 10.6 g/dL (12.0-16.0); Mean Corpuscular Hgb Conc 33.7 g/dL (32-36); Mean Corpuscular Volume 86.3 fL (80-100); Nucleated RBC # (auto) 0.04 K/uL (0-0); Nucleated RBC % (auto) 0.5 %; Platelet Count 365 K/uL (130-400); RDW Coefficient of Variation 15.5 % (11.5-14.5); RDW Standard Deviation 48.9 fL (36.4-46.3); Red Blood Count 3.65 M/uL (4.2-5.4); White Blood Count 8.89 K/uL (4.8-10.8)
[2021-05-26 08:37] LABS: Basophils # (auto) 0.03 K/uL (0-0.2); Basophils % (auto) 0.3 %; Immature Granulocytes % (auto) 7.9 %; Lymphocytes # (auto) 2.02 K/uL (1.2-3.4); Lymphocytes % (auto) 22.7 %; Monocytes # (auto) 0.79 K/uL (0.11-0.59); Monocytes % (auto) 8.9 %; Neutrophils # (auto) 5.35 K/uL (1.4-6.5); Neutrophils % (auto) 60.2 %
[2021-05-26 08:50] LABS: BUN Creatinine Ratio 21.6 (10-20); Calcium 8.1 mg/dl (8.5-10.1); Creatinine Clr Calc Pharmacy 35.9 ml/min; Est GFR (African American) 80.5 ml/min; Est GFR (Non-African American) 69.4 ml/min; Magnesium 2.8 mg/dl (1.8-2.4); Potassium 3.6 mmol/L (3.5-5.1)
[2021-05-26 08:51] LABS: C Reactive Protein 0.53 mg/dl (0-0.29); Phosphorus 2.6 mg/dl (2.5-4.9)
[2021-05-26] MEDS ORDERED: FUROSEMIDE 20 MG in SYRINGE 0 ML IV ONE (13:00)
[2021-05-26] MEDS: SODIUM CHLORIDE 0.9% 10ML FLUSH IV SCH (13:06)
[2021-05-26] MEDS: SODIUM CHLORIDE 0.9% 1000ML 1,000 ML IV SCH (16:59)
--- NOTE | 2021-05-26 17:10 | Hospitalist Progress Note ---
Date of Service May 26, 2021 Assessment & Plan (1) Pneumonia due to COVID-19 virus: Plan: She is not vaccinated Presented with cough and shortness of breath for the last couple of days and noted to have COVID-19 infection with pneumonia Presented with respiratory distress and desaturation Has been getting intravenous dexamethasone and remdesivir Clinically better today and is saturating normally on room air Asymptomatic Covid infection and remains asymptomatic in the hospital Severe electrolyte abnormality Noted to have very low phosphate Supplemented and corrected We will monitor electrolytes Initial lactic acid is high at 7.3 likely secondary to hypoxia Subsequently normalized Noted to have UTI secondary to E. coli Pansensitive Likely the cause for weakness and tiredness We will start intravenous ceftriaxone We will continue IV antibiotic for now Decreased responsiveness with change in mental status CT scan of the head did not show any new findings Chest [id number] pneumonia/fluid Discussed with the mom who feels this may be due to antiseizure medications which were reduced to 75 mg twice daily instead of 150 mg twice daily as she is getting in the hospital Her remdesivir and dexamethasone were discontinued as she does not have any respiratory symptoms since admission and does have change in mental status We will hold Lamictal dose tonight and Lamictal doses have been decreased to 75 mg twice daily This was clearly discussed with the mother in the room Low blood pressure She received a very small dose of Lasix this morning because of observed shortness of breath Now she will receive intravenous normal saline to improve blood pressure (2) Acute respiratory distress: Plan: Secondary to COVID-19 pneumonia (3) Hyponatremia: Plan: History of SIADH with hyponatremia Sodium level has been normal during this admission (4) Ambulatory dysfunction: Plan: Chronic problem (5) Seizure disorder: Plan: Continue her current antiseizure medication (6) Cognitive developmental delay: Plan: No acute impairment History of childhood astrocytoma Status post surgery, chemo and radiation No acute issues DVT prophylaxis Subcu Lovenox Her GFR has been low and Lovenox has been changed to subcu heparin Admission and Anticipated Discharge Date Admission Date: May 22, 2021 Subjective 05/23/2021 The patient was seen and examined in telemetry unit and in the Covid room She has been feeling much better and has been saturating normally on room air Has minimal cough and weakness 05/24/2021 The patient was seen and examined in medical telemetry unit and in the Covid room She has been feeling a lot better denies any cough and no shortness of breath Has been saturating normally on room air Noted to have UTI 05/25/2021 The patient was seen and examined in medical telemetry unit and in the Covnm room She has noted to be quiet this morning and was morning at times She communicated with me but any movement of her body she was morning Remains hemodynamically stable and denies any shortness of May 26, 2021 The patient was seen and examined in medical telemetry unit and in the Covnm room She remains free of any respiratory symptoms and saturating well on room air She has been very lethargic with minimal communication since yesterday This morning her blood pressure was noted to be low as well Review of Systems Review of Systems: All systems reviewed and are unremarkable except as noted below Respiratory: No shortness of breath and no cough at rest Physical Exam Physical Exam: Lying in bed comfortably but any movement in bed she moans and has been very weak and lethargic Constitutional: well developed, well nourished and + ill appearing Eyes: PERRL, conjunctivae normal, anicteric sclerae ENMT: external ear and nose normal, oropharynx normal Neck: trachea midline, no thyromegaly Respiratory: no respiratory distress Auscultation: + diminished lung sounds and + crackles (Minimal crackles at the bases); no wheezes Cardiovascular: Rate/Rhythm: regular rate and regular rhythm; not tachycardic Heart Sounds: normal S1 and normal S2; no murmur Extremities: + edema (Trace edema bilaterally) Gastrointestinal (Abdomen): Inspection/Auscultation: normal bowel sounds; abdomen not distended Percussion/Palpation: abdomen soft; abdomen nontender Musculoskeletal: No acute arthritis in any joint Neurologic: Alert and awake. Less responsive. Moans at times. Results & Data Results & Data ([facility]) Vital Signs (Past 12 Hours) Vital Signs Temp Pulse Pulse Resp BP Pulse Ox 05/26/21 15:21 36.8 C 84 18 87/56 L 98 05/26/21 11:46 36.5 C 79 18 119/69 95 05/26/21 09:31 56 L Laboratory Results Short CBC 05/26/21 Range/Units 07:45 WBC 8.89 (4.8-10.8) K/uL Hgb 10.6 L (12.0-16.0) g/dL Hct 31.5 L (37-47) % Plt Count 365 (130-400) K/uL BMP 05/26/21 07:45 Sodium 137 Potassium 3.6 Chloride 104 Carbon Dioxide 26 BUN 22 H Creatinine 1.00 Glucose 95 Calcium 8.1 L Medications Administered Current Inpatient Medications Acetaminophen (Acetaminophen 325 Mg Tab) 650 mg PO Q4H PRN PRN Reason: Pain or Fever Stop: 06/21/21 10:58 Last Admin: 05/25/21 18:09 Dose: 650 mg Documented by: Albuterol (Albuterol Hfa 8 Gm Inhaler) 2 puffs INH Q4H PRN PRN Reason: Shortness Of Breath Or Wheezing Stop: 06/21/21 11:14 Fluticasone Furoate (Fluticasone Furoate 100mcg 14 Puffs/Inhaler) 1 puffs INH DAILY [facility] Stop: 06/21/21 11:59 Last Admin: 05/26/21 08:08 Dose: 1 puffs Documented by: Guaifenesin/Dextromethorphan (Guaifenesin/Dextrom Syrup 200mg/20mg 10ml Udc) 10 ml PO Q6H PRN PRN Reason: Cough Stop: 06/22/21 11:51 Last Admin: 05/25/21 20:53 Dose: 10 ml Documented by: Heparin Sodium (Beef Lung) (Heparin 10 Unit/Ml 5 Ml Flush) 5 ml FLUSH PRN PRN PRN Reason: Flush Stop: 06/23/21 11:58 Heparin Sodium (Porcine) (Heparin Sod 5,000 Unit/0.5 Ml Vial) 5,000 units SQ Q12 [facility] Stop: 06/26/21 08:59 Remdesivir 100 mg/ Sodium (Chloride) 250 mls @ 250 mls/hr IV Q24H [facility]; Protocol Last Infusion: 05/25/21 13:45 Dose: Infused Documented by: Dexamethasone 6 mg/ Syringe 1.5 mls @ 1 mls/min IV DAILY [facility] Stop: 06/02/21 08:59 Last Admin: 05/25/21 08:57 Dose: 1 mls/min Documented by: Piperacillin Sod/Tazobactam (Sod 3.375 gm/ Dextrose) 115 mls @ 28.75 mls/hr IV Q8H [facility]; Protocol Stop: 06/02/21 00:00 Last Admin: 05/26/21 16:13 Dose: 28.8 mls/hr Documented by: Sodium Chloride (Nss 1000ml) 1,000 mls @ 125 mls/hr IV .Q8H [facility] Stop: 06/25/21 16:29 Last Admin: 05/26/21 16:59 Dose: 125 mls/hr Documented by: Lamotrigine (Lamotrigine 25 Mg Tab) 75 mg PO BID [facility] Stop: 06/25/21 20:59 Levalbuterol HCl (Levalbuterol 1.25mg/0.5ml Neb) 1.25 mg NEB Q4H PRN PRN Reason: Shortness Of Breath Or Wheezing Stop: 06/21/21 11:14 Levothyroxine Sodium (Levothyroxine Sodium 25 Mcg Tablet) 37.5 mcg PO DAILYBB [facility] Stop: 06/22/21 06:29 Last Admin: 05/26/21 05:43 Dose: Not Given Documented by: Magnesium Oxide (Magnesium Oxide 400 Mg Tab) 400 mg PO BID [facility] Stop: 06/21/21 20:59 Last Admin: 05/26/21 08:06 Dose: 400 mg Documented by: Megestrol Acetate (Megestrol Acetate 40 Mg Tab) 20 mg PO QAM [facility] Stop: 06/22/21 08:59 Last Admin: 05/26/21 08:07 Dose: 20 mg Documented by: Miscellaneous Information (Piperacill/Tazobac Consult Active) 1 ea N/A UD PRN PRN Reason: Consult Stop: 06/24/21 19:05 Nitroglycerin (Nitroglycerin Sl 0.4 Mg/Tab Tab) 0.4 mg SL UD PRN PRN Reason: Chest Pain Stop: 06/21/21 10:58 Ondansetron HCl (Ondansetron Inj 2 Mg/Ml 2 Ml Vial) 4 mg IV Q6H PRN PRN Reason: Nausea And Vomiting Stop: 06/21/21 11:16 Polysaccharide Iron Complex (Iron Polysaccharide Complex 150 Mg Capsule) 150 mg PO DAILY [facility] Stop: 06/22/21 08:59 Last Admin: 05/26/21 08:07 Dose: 150 mg Documented by: Sodium Chloride (Sodium Chloride 1 Gm Tablet) 1 gm PO TID [facility] Stop: 06/21/21 13:59 Last Admin: 05/26/21 13:36 Dose: 1 gm Documented by: Thiamine HCl (Thiamine Hcl 100 Mg Tab) 100 mg PO QAM [facility] Stop: 06/22/21 08:59 Last Admin: 05/26/21 08:07 Dose: 100 mg Documented by:
[2021-05-26] MEDS ORDERED: lamoTRIgine 100 MG TAB PO SCH (21:00)
[2021-05-27] MEDS: SODIUM CHLORIDE 0.9% 1000ML 1,000 ML IV SCH ×2 (00:07→09:26)
[2021-05-27] MEDS: LEVOTHYROXINE SODIUM 25 MCG TABLET PO SCH ×2 (06:10→08:13)
[2021-05-27 06:36] LABS: Hematocrit (blood only) 28.5 % (37-47); Hemoglobin 9.5 g/dL (12.0-16.0); Mean Corpuscular Hemoglobin 29.2 pg (25-34); Mean Corpuscular Hgb Conc 33.3 g/dL (32-36); Mean Corpuscular Volume 87.7 fL (80-100); Mean Platelet Volume 9.6 fL (7.4-10.4); Platelet Count 289 K/uL (130-400); RDW Coefficient of Variation 15.3 % (11.5-14.5); RDW Standard Deviation 49.7 fL (36.4-46.3); Red Blood Count 3.25 M/uL (4.2-5.4); White Blood Count 6.34 K/uL (4.8-10.8)
[2021-05-27 06:55] LABS: Basophils # (auto) 0.02 K/uL (0-0.2); Basophils % (auto) 0.3 %; Eosinophils # (auto) 0.05 K/uL (0-0.5); Eosinophils % (auto) 0.8 %; Immature Granulocytes # (auto) 0.48 K/uL (0.00-0.02); Immature Granulocytes % (auto) 7.6 %; Lymphocytes # (auto) 1.91 K/uL (1.2-3.4); Lymphocytes % (auto) 30.1 %; Monocytes # (auto) 0.44 K/uL (0.11-0.59); Monocytes % (auto) 6.9 %; Neutrophils # (auto) 3.44 K/uL (1.4-6.5); Neutrophils % (auto) 54.3 %
[2021-05-27 07:26] LABS: BUN Creatinine Ratio 19.7 (10-20); Calcium 7.1 mg/dl (8.5-10.1); Creatinine Clr Calc Pharmacy 37.1 ml/min; Est GFR (African American) 83.5 ml/min
[2021-05-27] MEDS ORDERED: POTASSIUM CHLORIDE CRTAB 20 MEQ TABCR PO STA (07:38)
[2021-05-27] MEDS: PIPERACILLIN/TAZOBACTAM 3.375 GM in DEXTROSE 5% 100 ML IV SCH ×3 (08:11→23:51)
[2021-05-27] MEDS: THIAMINE HCL 100 MG TAB PO SCH (08:11)
[2021-05-27] MEDS: MEGESTROL ACETATE 40 MG TAB PO SCH (08:11)
[2021-05-27] MEDS: IRON POLYSACCHARIDE COMPLEX 150 MG CAPSULE PO SCH (08:11)
[2021-05-27] MEDS: SODIUM CHLORIDE 1 GM TABLET PO SCH ×3 (08:12→21:03)
[2021-05-27] MEDS: HEPARIN SOD 5,000 UNIT/0.5 ML VIAL SQ SCH ×2 (08:12→21:04)
[2021-05-27] MEDS: FLUTICASONE FUROATE 100MCG 14 PUFFS/INHALER INH SCH (08:12)
[2021-05-27] MEDS: MAGNESIUM OXIDE 400 MG TAB PO SCH ×2 (08:12→21:03)
[2021-05-27] MEDS: lamoTRIgine 25 MG TAB PO SCH ×2 (09:11→21:03)
--- NOTE | 2021-05-27 14:31 | Hospitalist Progress Note ---
Date of Service May 27, 2021 Assessment & Plan (1) Pneumonia due to COVID-19 virus: Plan: She is not vaccinated Presented with cough and shortness of breath for the last couple of days and noted to have COVID-19 infection with pneumonia Presented with respiratory distress and desaturation Has been getting intravenous dexamethasone and remdesivir Clinically better today and is saturating normally on room air Asymptomatic Covid infection and remains asymptomatic in the hospital Severe electrolyte abnormality Noted to have very low phosphate Supplemented and corrected We will monitor electrolytes Initial lactic acid is high at 7.3 likely secondary to hypoxia Subsequently normalized Noted to have UTI secondary to E. coli Pansensitive Likely the cause for weakness and tiredness We will start intravenous ceftriaxone That are changed to Zosyn with worsening of general condition Can be changed to oral Keflex on discharge Decreased responsiveness with change in mental status CT scan of the head did not show any new findings Chest [id number] pneumonia/fluid Discussed with the mom who feels this may be due to antiseizure medications which were reduced to 75 mg twice daily instead of 150 mg twice daily as she is getting in the hospital Her remdesivir and dexamethasone were discontinued as she does not have any respiratory symptoms since admission and does have change in mental status We will hold Lamictal dose tonight and Lamictal doses have been decreased to 75 mg twice daily Her Lamictal doses have been decreased to 75 twice daily and she has been much alert and awake today If she seems to be at her baseline tomorrow may be discharged home with isolation precaution for Covid 10 days from the date of diagnosis Low blood pressure She received a very small dose of Lasix this morning because of observed shortness of breath Now she will receive intravenous normal saline to improve blood pressure Her blood pressure is improved (2) Acute respiratory distress: Plan: Secondary to COVID-19 pneumonia (3) Hyponatremia: Plan: History of SIADH with hyponatremia Sodium level has been normal during this admission (4) Ambulatory dysfunction: Plan: Chronic problem (5) Seizure disorder: Plan: Continue her current antiseizure medication (6) Cognitive developmental delay: Plan: No acute impairment History of childhood astrocytoma Status post surgery, chemo and radiation No acute issues DVT prophylaxis Subcu Lovenox Her GFR has been low and Lovenox has been changed to subcu heparin Admission and Anticipated Discharge Date Admission Date: May 22, 2021 Subjective 05/23/2021 The patient was seen and examined in telemetry unit and in the Covid room She has been feeling much better and has been saturating normally on room air Has minimal cough and weakness 05/24/2021 The patient was seen and examined in medical telemetry unit and in the Covid room She has been feeling a lot better denies any cough and no shortness of breath Has been saturating normally on room air Noted to have UTI 05/25/2021 The patient was seen and examined in medical telemetry unit and in the Covid room She has noted to be quiet this morning and was morning at times She communicated with me but any movement of her body she was morning Remains hemodynamically stable and denies any shortness of May 26, 2021 The patient was seen and examined in medical telemetry unit and in the Covid room She remains free of any respiratory symptoms and saturating well on room air She has been very lethargic with minimal communication since yesterday This morning her blood pressure was noted to be low as well 05/27/2021 The patient was seen and examined in medical telemetry unit and in the Covid room She does not have any respiratory symptoms and has been saturating well on room air Her mental status has improved a lot with reducing the dose of Lamictal She is getting towards her baseline Review of Systems Review of Systems: All systems reviewed and are unremarkable except as noted below Respiratory: No shortness of breath and no cough at rest Physical Exam Physical Exam: Lying in bed comfortably and responding to commands as before but he still remains weak Constitutional: well developed, well nourished and + ill appearing Eyes: PERRL, conjunctivae normal, anicteric sclerae ENMT: external ear and nose normal, oropharynx normal Neck: trachea midline, no thyromegaly Respiratory: no respiratory distress Auscultation: + diminished lung sounds and + crackles (Minimal crackles at the bases); no wheezes Cardiovascular: Rate/Rhythm: regular rate and regular rhythm; not tachycardic Heart Sounds: normal S1 and normal S2; no murmur Extremities: + edema (Trace edema bilaterally) Gastrointestinal (Abdomen): Inspection/Auscultation: normal bowel sounds; abdomen not distended Percussion/Palpation: abdomen soft; abdomen nontender Neurologic: Alert and awake. Responsive only by saying "I am fine and thank you" Results & Data Results & Data ([facility]) Vital Signs (Past 12 Hours) Vital Signs Temp Pulse Pulse Resp BP BP Pulse Ox 05/27/21 11:03 66 18 109/62 98 05/27/21 09:47 72 05/27/21 07:00 36.6 C 64 20 137/84 100 05/27/21 03:43 36.4 C L 74 20 125/79 92 Laboratory Results Short CBC 05/27/21 Range/Units 05:58 WBC 6.34 (4.8-10.8) K/uL Hgb 9.5 L (12.0-16.0) g/dL Hct 28.5 L (37-47) % Plt Count 289 (130-400) K/uL BMP 05/27/21 05:58 Sodium 135 L Potassium 3.0 L D Chloride 103 Carbon Dioxide 24 BUN 19 H Creatinine 0.97 Glucose 76 Calcium 7.1 L Medications Administered Current Inpatient Medications Acetaminophen (Acetaminophen 325 Mg Tab) 650 mg PO Q4H PRN PRN Reason: Pain or Fever Stop: 06/21/21 10:58 Last Admin: 05/25/21 18:09 Dose: 650 mg Documented by: Albuterol (Albuterol Hfa 8 Gm Inhaler) 2 puffs INH Q4H PRN PRN Reason: Shortness Of Breath Or Wheezing Stop: 06/21/21 11:14 Fluticasone Furoate (Fluticasone Furoate 100mcg 14 Puffs/Inhaler) 1 puffs INH DAILY GABI Stop: 06/21/21 11:59 Last Admin: 05/27/21 08:12 Dose: 1 puffs Documented by: Guaifenesin/Dextromethorphan (Guaifenesin/Dextrom Syrup 200mg/20mg 10ml Udc) 10 ml PO Q6H PRN PRN Reason: Cough Stop: 06/22/21 11:51 Last Admin: 05/25/21 20:53 Dose: 10 ml Documented by: Heparin Sodium (Beef Lung) (Heparin 10 Unit/Ml 5 Ml Flush) 5 ml FLUSH PRN PRN PRN Reason: Flush Stop: 06/23/21 11:58 Heparin Sodium (Porcine) (Heparin Sod 5,000 Unit/0.5 Ml Vial) 5,000 units SQ Q12 GABI Stop: 06/26/21 08:59 Last Admin: 05/27/21 08:12 Dose: 5,000 units Documented by: Remdesivir 100 mg/ Sodium (Chloride) 250 mls @ 250 mls/hr IV Q24H [facility]; Protocol Last Infusion: 05/25/21 13:45 Dose: Infused Documented by: Dexamethasone 6 mg/ Syringe 1.5 mls @ 1 mls/min IV DAILY [facility] Stop: 06/02/21 08:59 Last Admin: 05/25/21 08:57 Dose: 1 mls/min Documented by: Piperacillin Sod/Tazobactam (Sod 3.375 gm/ Dextrose) 115 mls @ 28.75 mls/hr IV Q8H [facility]; Protocol Stop: 06/02/21 00:00 Last Infusion: 05/27/21 13:08 Dose: Infused Documented by: Lamotrigine (Lamotrigine 25 Mg Tab) 75 mg PO BID [facility] Stop: 06/25/21 20:59 Last Admin: 05/27/21 09:11 Dose: 75 mg Documented by: Levalbuterol HCl (Levalbuterol 1.25mg/0.5ml Neb) 1.25 mg NEB Q4H PRN PRN Reason: Shortness Of Breath Or Wheezing Stop: 06/21/21 11:14 Levothyroxine Sodium (Levothyroxine Sodium 25 Mcg Tablet) 37.5 mcg PO DAILYBB [facility] Stop: 06/22/21 06:29 Last Admin: 05/27/21 08:13 Dose: 37.5 mcg Documented by: Magnesium Oxide (Magnesium Oxide 400 Mg Tab) 400 mg PO BID [facility] Stop: 06/21/21 20:59 Last Admin: 05/27/21 08:12 Dose: 400 mg Documented by: Megestrol Acetate (Megestrol Acetate 40 Mg Tab) 20 mg PO QAM [facility] Stop: 06/22/21 08:59 Last Admin: 05/27/21 08:11 Dose: 20 mg Documented by: Miscellaneous Information (Piperacill/Tazobac Consult Active) 1 ea N/A UD PRN PRN Reason: Consult Stop: 06/24/21 19:05 Nitroglycerin (Nitroglycerin Sl 0.4 Mg/Tab Tab) 0.4 mg SL UD PRN PRN Reason: Chest Pain Stop: 06/21/21 10:58 Ondansetron HCl (Ondansetron Inj 2 Mg/Ml 2 Ml Vial) 4 mg IV Q6H PRN PRN Reason: Nausea And Vomiting Stop: 06/21/21 11:16 Polysaccharide Iron Complex (Iron Polysaccharide Complex 150 Mg Capsule) 150 mg PO DAILY [facility] Stop: 06/22/21 08:59 Last Admin: 05/27/21 08:11 Dose: 150 mg Documented by: Sodium Chloride (Sodium Chloride 1 Gm Tablet) 1 gm PO TID [facility] Stop: 06/21/21 13:59 Last Admin: 05/27/21 13:08 Dose: 1 gm Documented by: Thiamine HCl (Thiamine Hcl 100 Mg Tab) 100 mg PO QAM [facility] Stop: 06/22/21 08:59 Last Admin: 05/27/21 08:11 Dose: 100 mg Documented by:
[2021-05-28] MEDS: LEVOTHYROXINE SODIUM 25 MCG TABLET PO SCH (05:37)
[2021-05-28 07:56] LABS: Hematocrit (blood only) 31.7 % (37-47); Hemoglobin 10.8 g/dL (12.0-16.0); Mean Corpuscular Hemoglobin 29.1 pg (25-34); Mean Corpuscular Hgb Conc 34.1 g/dL (32-36); Mean Corpuscular Volume 85.4 fL (80-100); Mean Platelet Volume 9.8 fL (7.4-10.4); Platelet Count 353 K/uL (130-400); RDW Coefficient of Variation 15.3 % (11.5-14.5); RDW Standard Deviation 47.3 fL (36.4-46.3); Red Blood Count 3.71 M/uL (4.2-5.4); White Blood Count 8.39 K/uL (4.8-10.8)
[2021-05-28 08:29] LABS: Basophils # (auto) 0.02 K/uL (0-0.2); Basophils % (auto) 0.2 %; Eosinophils # (auto) 0.25 K/uL (0-0.5); Immature Granulocytes # (auto) 0.75 K/uL (0.00-0.02); Immature Granulocytes % (auto) 8.9 %; Lymphocytes # (auto) 2.05 K/uL (1.2-3.4); Lymphocytes % (auto) 24.4 %; Monocytes # (auto) 0.62 K/uL (0.11-0.59); Monocytes % (auto) 7.4 %; Neutrophils % (auto) 56.1 %; Polychromasia 1+
[2021-05-28 08:36] LABS: BUN Creatinine Ratio 20.4 (10-20); Calcium 8.3 mg/dl (8.5-10.1); Est GFR (African American) 91.4 ml/min; Est GFR (Non-African American) 78.9 ml/min; Potassium 3.8 mmol/L (3.5-5.1)
[2021-05-28] MEDS: PIPERACILLIN/TAZOBACTAM 3.375 GM in DEXTROSE 5% 100 ML IV SCH ×2 (08:53→16:13)
[2021-05-28] MEDS: MEGESTROL ACETATE 40 MG TAB PO SCH (08:54)
[2021-05-28] MEDS: FLUTICASONE FUROATE 100MCG 14 PUFFS/INHALER INH SCH (08:54)
[2021-05-28] MEDS: lamoTRIgine 25 MG TAB PO SCH ×2 (08:54→21:08)
[2021-05-28] MEDS: HEPARIN SOD 5,000 UNIT/0.5 ML VIAL SQ SCH ×2 (08:54→21:08)
[2021-05-28] MEDS: IRON POLYSACCHARIDE COMPLEX 150 MG CAPSULE PO SCH (08:55)
[2021-05-28] MEDS: SODIUM CHLORIDE 1 GM TABLET PO SCH ×3 (08:55→21:09)
[2021-05-28] MEDS: MAGNESIUM OXIDE 400 MG TAB PO SCH ×2 (08:55→21:09)
[2021-05-28] MEDS: THIAMINE HCL 100 MG TAB PO SCH (08:55)
--- NOTE | 2021-05-28 18:17 | Hospitalist Progress Note ---
Date of Service May 28, 2021 Assessment & Plan (1) Pneumonia due to COVID-19 virus: (2) COVID-19: (3) UTI (urinary tract infection): Plan: #. Pneumonia due to COVID-19 virus She is not vaccinated, came in with shortness of breath and cough for few days P TA. Found to be Covid positive in the ED. Initially put in dexamethasone and anticipated, later discontinued as she was not having any respiratory signs and symptoms. Currently on room air. Continue to monitor Covid precautions for 10 days from the time of diagnosis. #. Hyponatremia History of SIADH on salt tablets and fluid restriction Continue with fluid restriction and salt tablets Continue to monitor sodium daily #. UTI Urine cultureE. coli, pansensitive Currently Zosyn, changed to oral Keflex on discharge. #. Weak/Tired/Lethargic Her Lamictal dose was decreased to 75 twice daily instead of 150 mg twice daily as she was getting in the hospital. Patient more alert. #. Low blood pressure Stable, per her mother she runs low blood pressure. #. Ambulatory dysfunction: Chronic problem. PT/OT #. Cognitive developmental delay: No acute impairment #. Seizure disorder: History of childhood astrocytoma No acute issues use Continue current antiseizure medication #. DVT prophylaxis: Heparin subcu. Admission and Anticipated Discharge Date Admission Date: May 22, 2021 Subjective The patient was seen and examined in the coverage room. She is lying in the bed, room air, NAD, no issues overnight. She answers in yes, no and thank you. Denies any pain. Difficult to assess other review of symptoms. No issues overnight per RN. Per RN, she is eating and moving bowels okay. Physical Exam Physical Exam: GENERAL: Alert. NAD, on RA. HEENT: No pallor, no icterus. Pupils equal, round and reactive to light. Oral mucosa moist. NECK: No JVD, no neck masses. HEART: S1 and S2 heard. Regular rate and rhythm. No murmur, no gallop. RESPIRATORY SYSTEM: Normal AP diameter. No accessory muscle use. No wheezing, no crackles. ABDOMEN: Soft, bowel sounds present, nontender, no distention. CENTRAL NERVOUS SYSTEM: No facial droop. Speech is clear. Obeys simple commands. Moves extremities. EXTREMITIES: No edema, no erythema seen. Results & Data Results & Data ([facility]) Vital Signs (Past 12 Hours) Vital Signs Temp Pulse Pulse Resp BP BP Pulse Ox 05/28/21 17:00 61 05/28/21 15:11 37.3 C 62 18 101/59 L 97 05/28/21 10:58 58 L 05/28/21 07:50 77 18 133/70
[2021-05-29] MEDS: PIPERACILLIN/TAZOBACTAM 3.375 GM in DEXTROSE 5% 100 ML IV SCH ×2 (00:40→08:17)
[2021-05-29] MEDS: LEVOTHYROXINE SODIUM 25 MCG TABLET PO SCH (06:18)
[2021-05-29] MEDS: FLUTICASONE FUROATE 100MCG 14 PUFFS/INHALER INH SCH (08:28)
[2021-05-29] MEDS: IRON POLYSACCHARIDE COMPLEX 150 MG CAPSULE PO SCH (08:28)
[2021-05-29] MEDS: lamoTRIgine 25 MG TAB PO SCH ×3 (08:28→23:10)
[2021-05-29] MEDS: HEPARIN SOD 5,000 UNIT/0.5 ML VIAL SQ SCH ×3 (08:28→23:10)
[2021-05-29] MEDS: MEGESTROL ACETATE 40 MG TAB PO SCH (08:29)
[2021-05-29] MEDS: MAGNESIUM OXIDE 400 MG TAB PO SCH ×3 (08:29→23:10)
[2021-05-29] MEDS: SODIUM CHLORIDE 1 GM TABLET PO SCH ×4 (08:29→23:08)
[2021-05-29] MEDS: THIAMINE HCL 100 MG TAB PO SCH (08:29)
[2021-05-29 09:18] LABS: BUN Creatinine Ratio 15.6 (10-20); Creatinine Clr Calc Pharmacy 39.5 ml/min; Est GFR (African American) 90.2 ml/min; Est GFR (Non-African American) 77.8 ml/min; Potassium 3.7 mmol/L (3.5-5.1)
[2021-05-29] MEDS ORDERED: KETAMINE HCL INJ 50 MG/ML 10 ML VIAL IV ONE (14:24)
[2021-05-29] MEDS ORDERED: fentaNYL citrate 100 MCG/2 ML VIAL IV ONE (14:24)
[2021-05-29] MEDS ORDERED: MIDAZOLAM HCL 1 MG/ML 2ML VIAL IV ONE (14:24)
--- NOTE | 2021-05-29 14:28 | Hospitalist Progress Note ---
Date of Service May 29, 2021 Assessment & Plan (1) Pneumonia due to COVID-19 virus: (2) COVID-19: (3) UTI (urinary tract infection): Plan: #. Pneumonia due to COVID-19 virus She is not vaccinated, came in with shortness of breath and cough for few days [employer]. Found to be Covid positive in the ED. Initially put in dexamethasone and anticipated, later discontinued as she was not having any respiratory signs and symptoms. Currently on room air. Continue to monitor Covid precautions for 10 days from the time of diagnosis. #. 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 #. UTI Urine cultureE. coli, pansensitive Dosing 05/26 switched to Keflex 05/29 #. Weak/Tired/Lethargic Her Lamictal dose was decreased to 75 twice daily instead of 150 mg twice daily as she was getting in the hospital. Patient more alert. Move patient out of bed and within room every 3-4 hours. #. Low blood pressure Stable, per her mother she runs low blood pressure. #. Ambulatory dysfunction: Chronic problem. PT/OT #. Cognitive developmental delay: No acute impairment #. Seizure disorder: History of childhood astrocytoma No acute issues use Continue current antiseizure medication #. DVT prophylaxis: Heparin subcu. Admission and Anticipated Discharge Date Admission Date: May 22, 2021 Subjective The patient was seen and examined in the COVID room. She was sitting up in chair, room air, NAD, no issues overnight. She answers in yes, no and thank you. Denies any pain. Difficult to assess other review of symptoms. No issues overnight per RN. Per RN, she is eating and moving bowels okay. She worked with physical therapy okay today who recommends moving her every so often. Talked with RN for moving her every 3 to 4 hours out of bed and walk as able. Physical Exam Physical Exam: GENERAL: Alert. NAD, on RA. HEENT: No pallor, no icterus. Pupils equal, round and reactive to light. Oral mucosa moist. NECK: No JVD, no neck masses. HEART: S1 and S2 heard. Regular rate and rhythm. No murmur, no gallop. RESPIRATORY SYSTEM: Normal AP diameter. No accessory muscle use. No wheezing, no crackles. ABDOMEN: Soft, bowel sounds present, nontender, no distention. CENTRAL NERVOUS SYSTEM: No facial droop. Speech is clear. Obeys simple commands. Moves extremities. EXTREMITIES: No edema, no erythema seen. Results & Data Results & Data ([facility]) Vital Signs (Past 12 Hours) Vital Signs Temp Pulse Pulse Resp BP Pulse Ox 05/29/21 12:17 36.6 C 73 20 137/78 99 05/29/21 08:04 36.8 C 80 20 138/84 98 05/29/21 07:22 61
[2021-05-29] MEDS: guaiFENesin/DEXTROM SYRUP 200MG/20MG 10ML UDC PO PRN (17:11)
[2021-05-29] MEDS ORDERED: cephALEXin 500 MG CAP PO SCH (18:00)
[2021-05-29] MEDS: ACETAMINOPHEN 325 MG TAB PO PRN (21:08)
[2021-05-29] MEDS ORDERED: methylPREDNISolone 40 MG in SYRINGE 0 ML IV STA ×2 (21:40→21:41)
[2021-05-29] MEDS ORDERED: LEVALBUTEROL TARTRATE 15 GM HFA.AER.AD INH STA (21:42)
--- NOTE | 2021-05-29 21:42 | Communication Note ---
Date of Service: May 29, 2021 Code nathan called around 9:30 PM. As per RN account, patient noted to be moaning with decreased responsiveness. Patient covered with emesis. O2 sats noted to be 60s. PPE Respiratory distress Lethargic O2 mask in place Bilateral rhonchi, expiratory wheezes Chest x-ray as per my interpretation bilateral opacities AP Acute hypoxemic respiratory failure likely secondary to aspiration pneumonia Supplemental O2 Baseline ABG Solu-Medrol 1 dose, MDI for bronchospasm Unasyn for aspiration pneumonia (DC ongoing Keflex for UTI) May need transfer to ICU if without improvement. ADDENDUM : No improvement in respiratory status following Solu-Medrol, subsequent hypotension noted. Levophed initiated by ICU provider union organizer present at [employer] Patient transferred to ICU for further management. Will relay to AM provider.
[2021-05-29 22:06] LABS: Hematocrit (blood only) 32.8 % (37-47); Hemoglobin 11.2 g/dL (12.0-16.0); Mean Corpuscular Hemoglobin 29.2 pg (25-34); Mean Corpuscular Hgb Conc 34.1 g/dL (32-36); Mean Corpuscular Volume 85.6 fL (80-100); Mean Platelet Volume 9.7 fL (7.4-10.4); Platelet Count 392 K/uL (130-400); RDW Coefficient of Variation 15.3 % (11.5-14.5); RDW Standard Deviation 46.9 fL (36.4-46.3); Red Blood Count 3.83 M/uL (4.2-5.4); White Blood Count 13.55 K/uL (4.8-10.8)
[2021-05-29] MEDS ORDERED: Standard Conc 16mcg/mL; 8mg in 500mL IV SCH (22:15)
[2021-05-29 22:23] LABS: BUN Creatinine Ratio 11.3 (10-20); Creatinine Clr Calc Pharmacy 25.7 ml/min; Est GFR (African American) 53.6 ml/min; Est GFR (Non-African American) 46.2 ml/min; Magnesium 1.7 mg/dl (1.8-2.4)
[2021-05-29 22:31] LABS: Partial Thromboplastin Ratio 1.1; Partial Thromboplastin Time 30.2 Seconds (21.0-31.0)
[2021-05-29] MEDS ORDERED: RAPID SEQUENCE INDUCTION BAG ONE (22:32)
[2021-05-29 22:42] LABS: Basophilic Stippling Occasional; Basophils # (auto) 0.01 K/uL (0-0.2); Basophils % (auto) 0.1 %; Eosinophils # (auto) 0.16 K/uL (0-0.5); Eosinophils % (auto) 1.2 %; Immature Granulocytes # (auto) 0.23 K/uL (0.00-0.02); Immature Granulocytes % (auto) 1.7 %; Lymphocytes # (auto) 0.85 K/uL (1.2-3.4); Lymphocytes % (auto) 6.3 %; Monocytes # (auto) 0.35 K/uL (0.11-0.59); Monocytes % (auto) 2.6 %; Neutrophils # (auto) 11.95 K/uL (1.4-6.5); Neutrophils % (auto) 88.1 %; Polychromasia 1+
[2021-05-29] MEDS ORDERED: VECURONIUM BROMIDE 10 MG VIAL IV ONE (22:45)
[2021-05-29] MEDS ORDERED: cefTRIAXone SODIUM 1,000 MG in DEXTROSE 5% 50 ML IV SCH (23:00)
[2021-05-29] MEDS ORDERED: AMPICILLIN/SULBACTAM SOD 3,000 MG in 0.9 % SODIUM CHLORIDE 100 ML IV SCH (23:00)
[2021-05-29] MEDS ORDERED: ICU PROTOCOL FOR HYPERGLYCEMIA PRN (23:09)
[2021-05-29] MEDS ORDERED: STAT IV Infusion **Titration per Protocol STA (23:10)
--- NOTE | 2021-05-29 23:14 | Procedure Note ---
Procedure Note Date of Service May 29, 2021 Note Procedure Date: Noted above Procedure: Endotracheal intubation Pre-procedure Diagnosis: Aspiration, acute hypoxic respiratory failure, history difficult airway Post-procedure Diagnosis: same as above Prior to Procedure: Informed Consent: emergent Attending Staff: Gemma Michael DO The identity of the patient was confirmed and a bedside time out was performed. Description of Procedure: Patient was evaluated and required intubation for impending respiratory failure. The patient was prepared in the usual fashion. A fiberoptic bronchoscope was used. A 6 mm inner diameter endotrachial tube was placed endotracheally to 21 cm at the teeth and retracted to 20 cm after positioning via bronchoscopy. Chest rise was bilateral. Bilateral breath sounds were heard without air sounds in the abdomen. Mist was noted in the endotracheal tube. End-tidal CO2 measurement was positive. Bronchoscopic evaluation demonstrated the tube was then appropriate position. Complications: None Findings: Not applicable Specimens: Not applicable Estimated blood loss: Zero Coding CPT Codes Resuscitation - Resuscitation: 32306 Endotracheal Intubation, emergency ([id number]) [facility] [place] Procedure Codes (Charges) Resuscitation Resuscitation: [id number] Endotracheal Intubation, emergency
[2021-05-29] MEDS ORDERED: fentaNYL DRIP 1,250 MCG/250 ML BAG IV SCH (23:15)
--- NOTE | 2021-05-29 23:17 | Procedure Note ---
Procedure Note Date of Service May 29, 2021 Note Procedure date: Noted above Procedure: fiberoptic bronchoscopy Pre-procedure indication: Aspiration into airway Post-procedure Diagnosis: same as above Prior to Procedure: Informed Consent: Emergent consent implied. Attending Staff: Gemma Michael DO Resident/APC: Bud STEIN Skin Prep: Not applicable Anesthesia: 75 mg ketamine, 2 mg Versed, 50 mcg fentanyl The identity of the patient was confirmed and a bedside time out was performed. Description of Procedure: Fiberoptic bronchoscopy was performed via endotracheal tube. Bronchioalveolar wash of the right lower lobe was performed. Findings included: Foreign material which appeared to be gastric contents was suctioned from bilateral airways no obvious mucous plugging airways were hyperemic consistent with pneumonitis Complications: None Specimens: Bronchial washings sent for culture and Gram stain, fungal elements, AFB stain and culture, cell count differential. Estimated blood loss: Zero Coding CPT Codes Pulmonary/Thoracic - Pulmonary and Thoracic: 54652 Dx bronchoscopy/wash ([id number]) [facility] [place] Procedure Codes (Charges) Pulmonary/Thoracic Procedure 1: Pulmonary and Thoracic: 87162 Dx bronchoscopy/wash
--- NOTE | 2021-05-29 23:51 | Critical Care Consultation ---
Date of Consultation May 29, 2021 Assessment & Plan (1) Acute respiratory failure with hypoxia: Reason Critically Ill: 41-year-old female presents to the ICU with acute hypoxic respiratory failure following a aspiration event and requiring emergent intubation and mechanical ventilation. Neuro - Sedation: Fentanyl drip, Versed push prn Seizure disordercontinue Lamictal Cardiac - Hypotensionsuspect distributive shock following aspiration event/pneumonitis -Echo 2019EF 55 to 60%, mild valvular aortic stenosis, mild mitral regurg -Levophed to maintain maps greater than 65 -Continue with fluid resuscitation -Continuous monitoring on telemetry Respiratory - Acute hypoxic respiratory failurelikely multifactorial as patient was treated for COVID-19 pneumonia however she is on room air prior to the aspiration event this evening and suspect aspiration pneumonitis to be culprit -Patient is difficult airway and required laparoscopic intubation, was successfully intubated with 6.0 ET tube as she has a narrow trachea -Bronc findings consistent with aspiration, BAL pending -Started on broad-spectrum antibiotics -Continue dexamethasone -Follow-up a.m. ABG and wean vent as tolerated, follow-up CXR in a.m. -Continuous ET CO2 and pulse ox monitoring GI - N.p.o., NG tube to intermittent low wall suction RENAL/LYTES - AKIsuspect dehydration and poor oral intake may be playing a role, however cannot rule out possible ATN in setting of hypotension -Continue with IV fluid resuscitation -Maintain maps greater than 65 -Monitor routine BMPs -Avoid nephrotoxins and renally adjust meds Hyponatremiasodium 124, has been downtrending past 3 days. Patient appears to be hypovolemic on exam and labs are hemoconcentrated -Bolus with isotonic saline, will continue with Normosol infusion -Trend BMPs every 6 hours with goal sodium 8 mEq per 24-hour increase - Foleystrict I's and O's ENDO - History of diabetes, ICU hyperglycemic protocol Hypothyroidcontinue Synthroid HEME - H&H stable, monitor routine CBCs ID - Pneumonia?Patient with WBC 19 and elevated pro-Leonel following aspiration event -Bronc culture/BAL pending -Continue empiric ceftriaxone and Flagyl for now -Positive COVID-19 05/21. Continue dexamethasone. Remdesivir on hold UTIpatient was previously undergoing treatment for uncomplicated UTI with Bactrim -Urine culture grew nonresistant E. coli -Continue with ceftriaxone LINES/IV ACCESS - CVC left IJ DVT PROPHYLAXIS - SCDs, heparin I have personally spent 70 minutes of critical care time in the direct management of this patient. This is a life/limb threatening event. This includes time spent evaluating patient, direct bedside care, chart review, placing orders, interpretation of diagnostic studies, discussion with consultants, patient, and family members, as well as other required patient management activities. This time is exclusive of all separately billable procedures, and teaching time and separate from and in addition to any other critical care service time. Thank you for allowing us to participate in the care of this patient. Please refer to my attending physician's documentation for any further recommendations. (2) Difficult airway for intubation: (3) Aspiration into airway: (4) UTI (urinary tract infection): (5) Cognitive developmental delay: (6) Seizure disorder: (7) Pneumonia due to COVID-19 virus: (8) COVID-19: (9) Lactic acidosis: (10) Hypokalemia: (11) Acute respiratory distress: (12) DVT prophylaxis: (13) Ambulatory dysfunction: (14) Hyponatremia: History of Present Illness Attending Physician: Rashmi Curtis MD History of Present Illness The patient is a 41 old female with past medical history significant for cognitive development delay, seizure disorder, SDH from fall who presented to the emergency department on 05/21 with acute hypoxic respiratory failure and was diagnosed with COVID-19 pneumonia. She underwent treatment with dexamethasone and remdesivir. She is also being treated for UTI on Bactrim. As of earlier today the patient was weaned to room air and discharged tomorrow was being considered. However, patient began to have severe respiratory distress after an episode of vomiting and code purple was called. Chest x-ray was unchanged from previous study and consistent with viral pneumonia. ABG revealed that the patient was severely hypoxic on 100% nonrebreather and she was also significantly tachypneic with respiratory rate in the 40s and she became verbally unresponsive. She was initially tried on BiPAP, but desaturated and this was discontinued. She was transferred to ICU bed in the Covid unit and underwent emergent intubation via laparoscopic intubation as she is a known difficult airway. Oxygen saturation did improve following intubation and she is currently sedated and mechanically ventilated. She also underwent bronchoscopy following intubation which appeared to show stomach contents/bile in the lungs consistent with aspiration. I did update the patient's father and mother (who is also admitted for COVID-19 pneumonia). Patient will remain in ICU for further management at this time. Allergies Allergy/AdvReac Type Severity Reaction Status Date / Time phenobarbital Allergy Mild Unknown Verified 05/22/21 10:17 omeprazole AdvReac Unknown red face Verified 05/22/21 10:17 Home Medications Medication Instructions Recorded Confirmed Type lamotrigine 150 mg tablet 150 mg PO Q12H 04/22/19 05/22/21 History levothyroxine 25 mcg tablet 37.5 mcg PO QAM 04/22/19 05/22/21 History megestrol 20 mg tablet 20 mg PO QAM 02/08/20 05/22/21 History polysaccharide iron complex 150 mg 150 mg PO DAILY 02/08/20 05/22/21 History iron capsule (iFerex 150) magnesium oxide 400 mg PO BID 12/02/20 05/22/21 History sodium chloride 1 gram tablet 1 g PO TID 12/26/20 05/22/21 History Patient History Medical History (Updated 05/29/21 @ 23:15 by Lobo Michael DO) Brain tumor C. difficile diarrhea Cognitive developmental delay H/O astrocytoma Laceration of trachea Seizure disorder Subdural hematoma Weakness Surgical History H/O brain surgery History of umbilical hernia repair S/P cholecystectomy Family History Mother Diabetes Grandfather (Paternal) Coronary heart disease Uncle Coronary heart disease Social History Smoking Status: Never smoker Hx Alcohol Use: No Hx Substance Use: No Preferred Language: Ecuadorean Communication Ability: Effective Hearing Ability: Normal Parking Garage Manager Required: No Beliefs That Will Affect Care: None marital status: Single Current Living Situation: Family Current Living Situation Comment: Lives with mother who is caregiver How many Children do You have: 0 Other Information That Helps Us Care for You: No Feels Safe at Home: Yes Safety Concerns: Feels Safe At This Time Assistive Devices: Oxygen - Continuous Assistive Devices Comment: Per father, patient is fall risk but walks independently. Review of Systems Review of Systems: Unobtainable due to cognitive status and Unobtainable due to endotracheal tube Physical Exam Constitutional: + altered mental status and + mechanically ventilated Eyes: PERRL, conjunctivae normal, anicteric sclerae ENMT: external ear and nose normal, oropharynx normal Neck: trachea midline, no thyromegaly Respiratory: + respiratory distress, + labored breathing, + uses accessory muscles, + tachypneic and symmetric chest movement Rales auscultated bilaterally in all lung polk Cardiovascular: RRR, no murmur, no edema Heart Sounds: normal S1 and normal S2 Extremities: normal capillary refill; no edema Gastrointestinal (Abdomen): normal bowel sounds, soft, nontender, no hepatosplenomegaly Skin: no rashes, warm and dry Neurologic: Obtunded, PERRLA Psychiatric: Unable to assess as patient is currently obtunded Genitourinary: Indwelling Freeman catheter present Results & Data Results & Data ([facility]) Vital Signs (Past 12 Hours) Vital Signs Temp Pulse Pulse Resp BP BP Pulse Ox 05/29/21 23:31 93 H 16 96 05/29/21 22:29 105 H 45 H 85/65 L 100 05/29/21 22:00 80 30 H 93 05/29/21 17:36 37.1 C 05/29/21 17:25 93 05/29/21 16:39 36.7 C 80 20 119/82 91 05/29/21 14:49 90 05/29/21 14:18 108 H 05/29/21 12:17 36.6 C 73 20 137/78 99 Coding Level of Care Code Critical Care 1st 30-74 mins Diagnoses Difficult airway for intubation T88.4XXA Acute respiratory failure with hypoxia J96.01 Aspiration into airway T17.908A UTI (urinary tract infection) N39.0 Cognitive developmental delay F81.9 Seizure disorder G40.909 Pneumonia due to COVID-19 virus U07.1; J12.82 COVID-19 U07.1 Lactic acidosis E87.2 Hypokalemia E87.6 Acute respiratory distress R06.03 DVT prophylaxis Z29.9 Ambulatory dysfunction R26.2 Hyponatremia E87.1
--- NOTE | 2021-05-29 23:51 | Procedure Note ---
Procedure Note Date of Service May 29, 2021 Note INTERNAL JUGULAR CENTRAL LINE PROCEDURE NOTE: Procedure: Internal Jugular Central Line Placement Attending: Dr. Lobo Michael Provider: EMIL Potter Indication: Central Drug Administration, Poor Venous Access, Multiple Lab Draws Necessary. Anesthesia: Lidocaine 1% Consent was signed previously on admission. Indication, risks, and benefits were explained at length. A time-out was completed verifying correct patient, procedure, site, positioning, and implants(s) or special equipment if applicable. Patients left neck was cleansed and draped in the typical sterile fashion using Chloraprep. The Internal Jugular Vein and Carotid Artery were identified using ultrasound. The superficial tissue was anesthetized using 5 mL of 1% lidocaine without epinephrine under direct visualization with the ultrasound. After adequate anesthetization was achieved, the Internal Jugular vein was cannulated under direct ultrasound guidance using an introducer needle on a syringe. Good venous blood return was maintained prior to removal of syringe from introducer needle. Using Seldinger Technique, a guide wire was advanced through the introducer needle without resistance. The introducer needle was removed and ultrasound images were obtained of the guide wire within the Internal Jugular Vein and saved to the patients medical record. A small incision was made in penetrating fashion at the guide wire insertion site utilizing an 11 blade scalpel. The dilator was advanced to the vessel without resistance. The dilator was exchanged for the triple lumen catheter which was advanced into the vessel without resistance. The guide wire was removed intact from the catheter without issue. Claves were placed on each catheter tip with confirmation of good blood flow from each lumen. Each port was easily flushed with sterile saline. The catheter was placed at 14 cm and sut[address] in place. BioPatch was applied to the catheter and a sterile Tegaderm dressing was applied over the catheter with careful attention to sterility. Patient tolerated procedure well. No immediate complications were met. Post procedure x-ray was completed, placement was appropriate and no pneumothorax was noted. Images obtained are saved for permanent record Procedural Ultrasound Guidance: Procedure Date: 05/30/2021 Indication: Central venous catheter insertion Attending: Dr. Lobo Michael Provider: EMIL Potter Artery AND Vein visualized: Yes Compressible Vein: Yes Guidewire or Short Catheter seen in vein prior to dilation: Yes Line confirmed in Vein with ultrasound: Yes Images obtained are saved for permanent record. Coding CPT Codes Tubes, Drains, and Vasc Access - Tubes, Drains, and Vasc Access: [id number] Place catheter in vein superior or inferior vena cava ([id number]) Tubes, Drains, and Vasc Access - Tubes, Drains, and Vasc Access: [id number] Ultrasound Guidance For Vascular ([id number]) [facility] Procedure Codes (Charges) Tubes, Drains, and Vasc Access Procedure 3: Tubes, Drains, and Vasc Access: [id number] Place catheter in vein superior or inferior vena cava Procedure 4: Tubes, Drains, and Vasc Access: [id number] Ultrasound Guidance For Vascular
[2021-05-30] MEDS: NORMOSOL-R 1,000 ML IV SCH ×3 (00:06→22:37)
[2021-05-30 00:25] LABS: iSTAT Allen Test Pass; iSTAT Art Bld Gas pCO2 Correct 32 mmHg (35-46); iSTAT Art Bld Gas pH Corrected 7.373 (7.35-7.45); iSTAT Arterial Blood Gas HCO3 18 meg/L (19-24); iSTAT Arterial Blood Gas pCO2 32 mmHg (35-46); iSTAT Arterial Blood Gas pH 7.37 (7.35-7.45); iSTAT Arterial Blood Gas pO2 291 mmHg (80-95); iSTAT Arterial Blood Gas pO2 C 291; iSTAT Carbon Dioxide 19 mmol/L (24-31); iSTAT Hematocrit 31 % (37-47); iSTAT Hemoglobin 10.5 g/dl (12.0-16.0); iSTAT Potassium 3.4 mmol/L (3.3-5.0); iSTAT Site L Radial; iSTAT Sodium 125 mmol/L (135-144)
[2021-05-30] MEDS: MAGNESIUM SULFATE / D5W 1 GM/100 ML BAG IV SCH ×2 (00:47→02:19)
[2021-05-30] MEDS: MIDAZOLAM HCL 1 MG/ML 2ML VIAL IV PRN ×3 (02:18→22:35)
[2021-05-30] MEDS: metroNIDAZOLE 500 MG/100 ML BAG IV SCH ×4 (02:24→23:18)
[2021-05-30] MEDS ORDERED: cefTRIAXone SODIUM 1,000 MG in DEXTROSE 5% 50 ML IV ONE (03:30)
[2021-05-30 03:50] LABS: Mean Corpuscular Hemoglobin 29.4 pg (25-34); Mean Corpuscular Hgb Conc 35.7 g/dL (32-36); Mean Corpuscular Volume 82.4 fL (80-100); Mean Platelet Volume 9.7 fL (7.4-10.4); Platelet Count 292 K/uL (130-400); RDW Coefficient of Variation 15.2 % (11.5-14.5); RDW Standard Deviation 44.7 fL (36.4-46.3); White Blood Count 19.89 K/uL (4.8-10.8)
[2021-05-30 04:09] LABS: Calcium 8.3 mg/dl (8.5-10.1); Est GFR (African American) 64.6 ml/min; Est GFR (Non-African American) 55.7 ml/min; Magnesium 3.1 mg/dl (1.8-2.4); Phosphorus 2.7 mg/dl (2.5-4.9); Potassium 3.8 mmol/L (3.5-5.1)
[2021-05-30 04:14] LABS: Basophils # (auto) 0.01 K/uL (0-0.2); Basophils % (auto) 0.1 %; Eosinophils # (auto) 0.04 K/uL (0-0.5); Eosinophils % (auto) 0.2 %; Immature Granulocytes # (auto) 0.27 K/uL (0.00-0.02); Immature Granulocytes % (auto) 1.4 %; Lymphocytes # (auto) 0.58 K/uL (1.2-3.4); Lymphocytes % (auto) 2.9 %; Monocytes # (auto) 0.43 K/uL (0.11-0.59); Monocytes % (auto) 2.2 %; Neutrophils # (auto) 18.56 K/uL (1.4-6.5); Neutrophils % (auto) 93.2 %
[2021-05-30] MEDS: LEVALBUTEROL TARTRATE 15 GM HFA.AER.AD INH SCH (05:19)
[2021-05-30 05:39] LABS: iSTAT Allen Test Pass; iSTAT Art Bld Gas pCO2 Correct 28 mmHg (35-46); iSTAT Art Bld Gas pH Corrected 7.411 (7.35-7.45); iSTAT Arterial Blood Gas HCO3 18 meg/L (19-24); iSTAT Arterial Blood Gas pCO2 28 mmHg (35-46); iSTAT Arterial Blood Gas pH 7.41 (7.35-7.45); iSTAT Arterial Blood Gas pO2 66 mmHg (80-95); iSTAT Arterial Blood Gas pO2 C 66; iSTAT Carbon Dioxide 19 mmol/L (24-31); iSTAT Hematocrit 30 % (37-47); iSTAT Hemoglobin 10.2 g/dl (12.0-16.0); iSTAT Potassium 4.2 mmol/L (3.3-5.0); iSTAT Site L Radial; iSTAT Sodium 127 mmol/L (135-144)
[2021-05-30] MEDS: LEVOTHYROXINE SODIUM 25 MCG TABLET PO SCH (06:53)
--- NOTE | 2021-05-30 07:16 | XRay Report ---
XR chest 1V portable CLINICAL HISTORY: aspiration COMPARISON STUDY: May 22, 2021 FINDINGS: No definite pneumothorax is seen however evaluation is limited because right lung apex is partially o bscured by patient's chin.. No pleural effusion. Previously seen patchy airspace opacities within left lower lung appeared to be improved at its infer ior lateral aspect and become denser within the hilar region. Nodular opacity at the mid aspect of the left lung is again seen. Reticular nodular opacities at the inferior aspect of the right lung appear worse since recent prior study. Cardiomediastinal silhouette is within normal limits in size. No significant pulmonary vascular congestion.. Osseous structures: unremarkable Stable position of right-sided central venous line with tip terminating within the anatomical region of the right atrium. Subcutaneous emphysema of the inferior right chest wall is seen. Overall evaluation is limited due to rotation. IMPRESSION: 1. Interval increase in attenuation of the left perihilar opacity might be seen in aspiration versus other etiology. 2. Interval worsening of reticular nodular opacities at the right lower lung which could be due to a spiration, pneumonia or pulmonary edema. 3. Right chest wall subcutaneous emphysema, appear more conspicuous since prior. Please correlate th is findings with direct inspection. 4. The rest of findings as above. ACT 112: Negative or not required by law. The above report was generated using voice recognition software. It may contain grammatical, syntax o r spelling errors. Electronically signed by: Mireya Forte DO 05/30/2021 7:14 AM
[2021-05-30] MEDS: FLUTICASONE FUROATE 100MCG 14 PUFFS/INHALER INH SCH (07:34)
[2021-05-30] MEDS: dexAMETHasone 6 MG in SYRINGE 0 ML IV SCH (07:34)
[2021-05-30] MEDS: IRON POLYSACCHARIDE COMPLEX 150 MG CAPSULE PO SCH (07:35)
[2021-05-30] MEDS: HEPARIN SOD 5,000 UNIT/0.5 ML VIAL SQ SCH ×2 (07:35→20:25)
[2021-05-30] MEDS: MAGNESIUM OXIDE 400 MG TAB PO SCH ×2 (07:36→20:24)
[2021-05-30] MEDS: MEGESTROL ACETATE 40 MG TAB PO SCH (07:36)
[2021-05-30] MEDS: lamoTRIgine 25 MG TAB PO SCH ×2 (07:36→20:24)
[2021-05-30] MEDS: SODIUM CHLORIDE 1 GM TABLET PO SCH ×3 (07:37→20:24)
[2021-05-30] MEDS: THIAMINE HCL 100 MG TAB PO SCH (07:38)
--- NOTE | 2021-05-30 08:10 | XRay Report ---
XR chest 1V portable INDICATION: MN ^Resp failure . TECHNIQUE: Single frontal radiograph of the chest was obtained. Comparison: Comparison is made to chest one view 05/29/2021 FINDINGS: Endotracheal tube is stable. The cardiomediastinal silhouette is normal. The lungs are clear. No evid ence of pleural effusion or pneumothorax. Old healed rib fractures seen on the right. IMPRESSION: No acute chest disease. ACT 112: Negative or not required by law. Electronically signed by: Chris Dow M.D. 05/30/2021 8:08 AM
--- NOTE | 2021-05-30 08:21 | XRay Report ---
XR chest 1V portable CLINICAL HISTORY: cvc insertion COMPARISON STUDY: May 29, 2021 at 09:25 p.M. FINDINGS: No pneumothorax. No pleural effusion. Lung volumes are decreased. Patchy opacities are seen bilaterally not significantly changed since rec ent prior study performed 2 hours prior. Cardiomediastinal silhouette is stable. Pulmonary vasculature is obscured.. Osseous structures: unremarkable Stable position of right-sided central venous catheter. Interval placement of endotracheal tube with tip seen approximately 8mm above c[place]etano. Distal aspect of the tube is partially obscured by overlying EKG leads. Interval placement of additional left IJ central venous catheter with tip seen in anatomical region o f a atriocaval junction. Interval placement of gastric tube with tip and fenestrated side-port below level of hemidiaphragm. IMPRESSION: 1. Interval placement of endotracheal tube with tip projecting 0.8 cm above c[place]etano. Evaluation of th e tip of ET tube is limited due to overlying EKG leads. Repeat exam and repositioning is recommended. Please note that expected position for ET tube tip is 3 to 5 cm above cayetano. 2. Interval placement of left IJ central venous catheter and gastric tube. 3. Bilateral opacities, unchanged since prior. 4. The rest of findings as above. ACT 112: Negative or not required by law. The above report was generated using voice recognition software. It may contain grammatical, syntax o r spelling errors. Electronically signed by: Mireya Forte DO 05/30/2021 8:19 AM
[2021-05-30] MEDS ORDERED: fentaNYL citrate 100 MCG/2 ML VIAL IV PRN ×2 (08:44)
--- NOTE | 2021-05-30 08:46 | Critical Care Progress Note ---
Date of Service May 30, 2021 Assessment & Plan (1) Acute respiratory failure with hypoxia: Plan: Reason Critically Ill: 41-year-old female presents to the ICU with acute hypoxic respiratory failure following a aspiration event and requiring emergent intubation and mechanical ventilation. Neuro - Sedation: Fentanyl drip, Versed push prn Seizure disordercontinue Lamictal Cardiac - Hypotensionsuspect distributive shock following aspiration event/pneumonitis -Echo 2019EF 55 to 60%, mild valvular aortic stenosis, mild mitral regurg -Levophed to maintain maps greater than 65 -Continue with fluid resuscitation -Continuous monitoring on telemetry Respiratory - Acute hypoxic respiratory failurelikely multifactorial as patient was treated for COVID-19 pneumonia however she is on room air prior to the aspiration event this evening and suspect aspiration pneumonitis to be culprit -Patient is difficult airway and required bronchoscopic intubation, was successfully intubated with 6.0 ET tube as she has a narrow trachea -Bronc findings consistent with aspiration, BAL pending -Started on broad-spectrum antibiotics -Continue dexamethasone -Follow-up a.m. ABG and wean vent as tolerated, follow-up CXR in a.m. -Continuous ET CO2 and pulse ox monitoring GI - N.p.o., NG tube to intermittent low wall suction RENAL/LYTES - AKIimproved Hyponatremiaimproved - Foleystrict I's and O's ENDO - History of diabetes, ICU hyperglycemic protocol Hypothyroidcontinue Synthroid HEME - H&H stable, monitor routine CBCs ID - Pneumonia?Patient with WBC 19 and elevated pro-Leonel following aspiration event -Bronc culture/BAL pending -Continue empiric ceftriaxone and Flagyl for now -Positive COVID-19 05/21. Continue dexamethasone. Remdesivir on hold UTIpatient was previously undergoing treatment for uncomplicated UTI with Bactrim -Urine culture grew nonresistant E. coli -Continue with ceftriaxone LINES/IV ACCESS - CVC left IJ DVT PROPHYLAXIS - SCDs, heparin I have personally spent 50 minutes of critical care time in the direct management of this patient. This is a life/limb threatening event. This includes time spent evaluating patient, direct bedside care, chart review, placing orders, interpretation of diagnostic studies, discussion with consultants, patient, and family members, as well as other required patient management activities. This time is exclusive of all separately billable procedures, and teaching time and separate from and in addition to any other critical care service time. (2) Difficult airway for intubation: (3) Aspiration into airway: (4) UTI (urinary tract infection): (5) Cognitive developmental delay: (6) Seizure disorder: (7) Pneumonia due to COVID-19 virus: (8) COVID-19: (9) Lactic acidosis: (10) Hypokalemia: (11) Acute respiratory distress: (12) DVT prophylaxis: (13) Ambulatory dysfunction: (14) Hyponatremia: Admission and Anticipated Discharge Date Admission Date: May 22, 2021 Subjective No overnight events since intubation Physical Exam Physical Exam: General: Sedated. nontoxic. Skin: Warm, dry, Head: Atraumatic Ears, nose, mouth and throat: airway obscured by endotracheal tube Cardiovascular: Normal peripheral perfusion Respiratory: no respiratory distress, ventilator settings reviewed on pressure support Gastrointestinal: Non distended Musculoskeletal: No deformity Results & Data Results & Data ([facility]) Vital Signs (Past 12 Hours) Vital Signs Temp Pulse Pulse Resp BP BP Pulse Ox 05/30/21 08:07 90 27 H 97 05/30/21 08:00 37 C 88 26 H 111/62 97 05/30/21 06:45 68 16 128/71 98 05/30/21 06:30 73 16 119/64 98 05/30/21 06:15 89 16 115/72 98 05/30/21 06:00 67 16 118/63 98 05/30/21 05:45 73 16 135/73 99 05/30/21 05:30 68 16 116/68 98 05/30/21 05:15 69 16 132/80 98 05/30/21 05:00 73 16 132/71 99 05/30/21 04:54 73 17 99 05/30/21 04:45 92 H 16 140/75 99 05/30/21 04:30 67 16 137/72 99 05/30/21 04:15 65 16 128/67 98 05/30/21 04:00 37 C 69 16 76/44 L 98 05/30/21 03:45 74 16 99/51 L 99 05/30/21 03:30 76 16 102/53 L 98 05/30/21 03:15 84 16 106/64 98 05/30/21 03:00 78 16 87/46 L 97 05/30/21 02:45 79 16 107/49 L 97 05/30/21 02:30 78 16 90/53 L 96 05/30/21 02:00 71 16 123/61 98 05/30/21 01:30 73 16 103/59 L 98 05/30/21 01:00 36.5 C 71 16 127/62 100 05/30/21 00:30 74 16 152/74 H 100 05/30/21 00:15 81 16 137/71 99 05/30/21 00:00 90 16 126/63 98 05/29/21 23:31 93 H 16 96 05/29/21 23:30 82 16 132/64 96 05/29/21 23:15 83 16 127/60 97 05/29/21 23:00 98 H 23 123/77 88 L 05/29/21 22:53 106 H 21 145/68 H 91 05/29/21 22:50 111 H 25 H 114/80 94 05/29/21 22:29 105 H 45 H 85/65 L 100 05/29/21 22:00 80 30 H 93 05/29/21 21:00 38.0 C H 118 H 38 H 98/64 L 65 L Laboratory Results 05/30/21 05/30/21 05/30/21 Range/Units Unknown 04:51 03:40 WBC 19.89 H (4.8-10.8) K/uL RBC 3.40 L (4.2-5.4) M/uL Hgb 10.0 L (12.0-16.0) g/dL POC Hgb 10.2 L (12.0-16.0) g/dl Hct 28.0 L (37-47) % POC Hct 30 L (37-47) % MCV 82.4 (80-100) fL MCH 29.4 (25-34) pg MCHC 35.7 (32-36) g/dL RDW Std Deviation 44.7 (36.4-46.3) fL RDW Coeff of [place] 15.2 H (11.5-14.5) % Plt Count 292 (130-400) K/uL MPV 9.7 (7.4-10.4) fL Immature Gran % (Auto) 1.4 % Neut % (Auto) 93.2 % Lymph % (Auto) 2.9 % Sampson % (Auto) 2.2 % Eos % (Auto) 0.2 % Baso % (Auto) 0.1 % Neut # (Auto) 18.56 H (1.4-6.5) K/uL Lymph # (Auto) 0.58 L (1.2-3.4) K/uL Sampson # (Auto) 0.43 (0.11-0.59) K/uL Eos # (Auto) 0.04 (0-0.5) K/uL Baso # (Auto) 0.01 (0-0.2) K/uL Immature Gran # (Auto) 0.27 H (0.00-0.02) K/uL Polychromasia Basophilic Stippling APTT (21.0-31.0) Seconds PTT Ratio Sample Site L Radial POC pH 7.41 (7.35-7.45) POC pCO2 28 L (35-46) mmHg POC pO2 66 L (80-95) mmHg POC HCO3 18 L (19-24) galilea/L POC Total CO2 19 L (24-31) mmol/L POC Base Excess -7.0 (-9-1.8) galilea/L ABG pH (Temp Correct) 7.411 (7.35-7.45) ABG pCO2 (Temp Corrct 28 L (35-46) mmHg POC ABG pO2 at Pt Temp 66 POC ABG O2 Sat 93.0 (90-95) % Temo Test Pass O2 Delivery Device Ventilator POC O2 Rate 16 Tidal Volume 350 PEEP 5 POC Sodium 127 L (135-144) mmol/L Sodium (136-145) mmol/L POC Potassium 4.2 (3.3-5.0) mmol/L Potassium (3.5-5.1) mmol/L Chloride (98-107) mmol/L Carbon Dioxide (21-32) mmol/L Anion Gap (3-11) BUN (7-18) mg/dl Creatinine (0.6-1.2) mg/dl Est Cr Clr Drug Dosing ml/min Est GFR ( Amer) ml/min Est GFR (Non-Af Amer) ml/min BUN/Creatinine Ratio (10-20) Glucose (70-99) mg/dl POC Glucose (70-99) mg/dl Calcium (8.5-10.1) mg/dl Phosphorus (2.5-4.9) mg/dl Magnesium (1.8-2.4) mg/dl Lactate Dehydrogenase (84-246) U/L Procalcitonin (0-0.5) ng/ml Nasal Screen MRSA (PCR) Negative (Negative) 05/30/21 05/30/21 05/29/21 Range/Units 03:40 00:09 21:49 WBC (4.8-10.8) K/uL RBC (4.2-5.4) M/uL Hgb (12.0-16.0) g/dL POC Hgb 10.5 L (12.0-16.0) g/dl Hct (37-47) % POC Hct 31 L (37-47) % MCV (80-100) fL MCH (25-34) pg MCHC (32-36) g/dL RDW Std Deviation (36.4-46.3) fL RDW Coeff of [place] (11.5-14.5) % Plt Count (130-400) K/uL MPV (7.4-10.4) fL Immature Gran % (Auto) % Neut % (Auto) % Lymph % (Auto) % Sampson % (Auto) % Eos % (Auto) % Baso % (Auto) % Neut # (Auto) (1.4-6.5) K/uL Lymph # (Auto) (1.2-3.4) K/uL Sampson # (Auto) (0.11-0.59) K/uL Eos # (Auto) (0-0.5) K/uL Baso # (Auto) (0-0.2) K/uL Immature Gran # (Auto) (0.00-0.02) K/uL Polychromasia Basophilic Stippling APTT (21.0-31.0) Seconds PTT Ratio Sample Site L Radial POC pH 7.37 (7.35-7.45) POC pCO2 32 L (35-46) mmHg POC pO2 291 H (80-95) mmHg POC HCO3 18 L (19-24) galilea/L POC Total CO2 19 L (24-31) mmol/L POC Base Excess -7.0 (-9-1.8) galilea/L ABG pH (Temp Correct) 7.373 (7.35-7.45) ABG pCO2 (Temp Corrct 32 L (35-46) mmHg POC ABG pO2 at Pt Temp 291 POC ABG O2 Sat 100.0 H (90-95) % Temo Test Pass O2 Delivery Device Ventilator POC O2 Rate 16 Tidal Volume 350 PEEP 5 POC Sodium 125 L (135-144) mmol/L Sodium 126 L (136-145) mmol/L POC Potassium 3.4 (3.3-5.0) mmol/L Potassium 3.8 (3.5-5.1) mmol/L Chloride 97 L (98-107) mmol/L Carbon Dioxide 19 L (21-32) mmol/L Anion Gap 10.0 (3-11) BUN 12 (7-18) mg/dl Creatinine 1.20 (0.6-1.2) mg/dl Est Cr Clr Drug Dosing 30.0 ml/min Est GFR ( Amer) 64.6 ml/min Est GFR (Non-Af Amer) 55.7 ml/min BUN/Creatinine Ratio 10.0 (10-20) Glucose 180 H (70-99) mg/dl POC Glucose (70-99) mg/dl Calcium 8.3 L (8.5-10.1) mg/dl Phosphorus 2.7 (2.5-4.9) mg/dl Magnesium 3.1 H (1.8-2.4) mg/dl Lactate Dehydrogenase (84-246) U/L Procalcitonin 2.73 H (0-0.5) ng/ml Nasal Screen MRSA (PCR) (Negative) 05/29/21 05/29/21 05/29/21 Range/Units 21:49 21:49 21:49 WBC (4.8-10.8) K/uL RBC (4.2-5.4) M/uL Hgb (12.0-16.0) g/dL POC Hgb (12.0-16.0) g/dl Hct (37-47) % POC Hct (37-47) % MCV (80-100) fL MCH (25-34) pg MCHC (32-36) g/dL RDW Std Deviation (36.4-46.3) fL RDW Coeff of [place] (11.5-14.5) % Plt Count (130-400) K/uL MPV (7.4-10.4) fL Immature Gran % (Auto) % Neut % (Auto) % Lymph % (Auto) % Sampson % (Auto) % Eos % (Auto) % Baso % (Auto) % Neut # (Auto) (1.4-6.5) K/uL Lymph # (Auto) (1.2-3.4) K/uL Sampson # (Auto) (0.11-0.59) K/uL Eos # (Auto) (0-0.5) K/uL Baso # (Auto) (0-0.2) K/uL Immature Gran # (Auto) (0.00-0.02) K/uL Polychromasia Basophilic Stippling APTT 30.2 (21.0-31.0) Seconds PTT Ratio 1.1 Sample Site POC pH (7.35-7.45) POC pCO2 (35-46) mmHg POC pO2 (80-95) mmHg POC HCO3 (19-24) galilea/L POC Total CO2 (24-31) mmol/L POC Base Excess (-9-1.8) galilea/L ABG pH (Temp Correct) (7.35-7.45) ABG pCO2 (Temp Corrct (35-46) mmHg POC ABG pO2 at Pt Temp POC ABG O2 Sat (90-95) % Temo Test O2 Delivery Device POC O2 Rate Tidal Volume PEEP POC Sodium (135-144) mmol/L Sodium 124 L (136-145) mmol/L POC Potassium (3.3-5.0) mmol/L Potassium 4.0 (3.5-5.1) mmol/L Chloride 92 L (98-107) mmol/L Carbon Dioxide 22 (21-32) mmol/L Anion Gap 10.0 (3-11) BUN 16 (7-18) mg/dl Creatinine 1.40 H D (0.6-1.2) mg/dl Est Cr Clr Drug Dosing 25.7 ml/min Est GFR ( Amer) 53.6 ml/min Est GFR (Non-Af Amer) 46.2 ml/min BUN/Creatinine Ratio 11.3 (10-20) Glucose 98 (70-99) mg/dl POC Glucose (70-99) mg/dl Calcium 9.0 (8.5-10.1) mg/dl Phosphorus (2.5-4.9) mg/dl Magnesium 1.7 L (1.8-2.4) mg/dl Lactate Dehydrogenase 222 (84-246) U/L Procalcitonin (0-0.5) ng/ml Nasal Screen MRSA (PCR) (Negative) 05/29/21 05/29/21 05/29/21 Range/Units 21:49 21:27 08:21 WBC 13.55 H (4.8-10.8) K/uL RBC 3.83 L (4.2-5.4) M/uL Hgb 11.2 L (12.0-16.0) g/dL POC Hgb (12.0-16.0) g/dl Hct 32.8 L (37-47) % POC Hct (37-47) % MCV 85.6 (80-100) fL MCH 29.2 (25-34) pg MCHC 34.1 (32-36) g/dL RDW Std Deviation 46.9 H (36.4-46.3) fL RDW Coeff of [place] 15.3 H (11.5-14.5) % Plt Count 392 (130-400) K/uL MPV 9.7 (7.4-10.4) fL Immature Gran % (Auto) 1.7 % Neut % (Auto) 88.1 % Lymph % (Auto) 6.3 % Sampson % (Auto) 2.6 % Eos % (Auto) 1.2 % Baso % (Auto) 0.1 % Neut # (Auto) 11.95 H (1.4-6.5) K/uL Lymph # (Auto) 0.85 L (1.2-3.4) K/uL Sampson # (Auto) 0.35 (0.11-0.59) K/uL Eos # (Auto) 0.16 (0-0.5) K/uL Baso # (Auto) 0.01 (0-0.2) K/uL Immature Gran # (Auto) 0.23 H (0.00-0.02) K/uL Polychromasia 1+ Basophilic Stippling Occasional APTT (21.0-31.0) Seconds PTT Ratio Sample Site POC pH (7.35-7.45) POC pCO2 (35-46) mmHg POC pO2 (80-95) mmHg POC HCO3 (19-24) galilea/L POC Total CO2 (24-31) mmol/L POC Base Excess (-9-1.8) galilea/L ABG pH (Temp Correct) (7.35-7.45) ABG pCO2 (Temp Corrct (35-46) mmHg POC ABG pO2 at Pt Temp POC ABG O2 Sat (90-95) % Temo Test O2 Delivery Device POC O2 Rate Tidal Volume PEEP POC Sodium (135-144) mmol/L Sodium 126 L (136-145) mmol/L POC Potassium (3.3-5.0) mmol/L Potassium 3.7 (3.5-5.1) mmol/L Chloride 92 L (98-107) mmol/L Carbon Dioxide 24 (21-32) mmol/L Anion Gap 9.0 (3-11) BUN 14 (7-18) mg/dl Creatinine 0.91 (0.6-1.2) mg/dl Est Cr Clr Drug Dosing 39.5 ml/min Est GFR ( Amer) 90.2 ml/min Est GFR (Non-Af Amer) 77.8 ml/min BUN/Creatinine Ratio 15.6 (10-20) Glucose 76 (70-99) mg/dl POC Glucose 87 (70-99) mg/dl Calcium 9.0 (8.5-10.1) mg/dl Phosphorus (2.5-4.9) mg/dl Magnesium 2.0 (1.8-2.4) mg/dl Lactate Dehydrogenase (84-246) U/L Procalcitonin (0-0.5) ng/ml Nasal Screen MRSA (PCR) (Negative) Coding Level of Care Code Critical Care 1st 30-74 mins Diagnoses Acute respiratory failure with hypoxia J96.01 Difficult airway for intubation T88.4XXA Aspiration into airway T17.908A UTI (urinary tract infection) N39.0 Cognitive developmental delay F81.9 Seizure disorder G40.909 Pneumonia due to COVID-19 virus U07.1; J12.82 COVID-19 U07.1 Lactic acidosis E87.2 Hypokalemia E87.6 Acute respiratory distress R06.03 DVT prophylaxis Z29.9 Ambulatory dysfunction R26.2 Hyponatremia E87.1
[2021-05-30] MEDS ORDERED: AMPICILLIN/SULBACTAM CONSULT ACTIVE PRN (09:00)
[2021-05-30] MEDS ORDERED: DEXTROSE 50% 50 ML SYRINGE IV PRN (10:45)
[2021-05-30] MEDS ORDERED: GLUCOSE 10 TABS/TUBE PO PRN (10:45)
[2021-05-30] MEDS ORDERED: GLUCAGON FOR INJ 1 MG VIAL IM PRN (10:45)
[2021-05-30] MEDS ORDERED: GLUCOSE 40% GEL 15 GM TUBE PO PRN (10:45)
[2021-05-30] MEDS ORDERED: CARBOHYDRATES FOR HYPOGLYCEMIA PO PRN (10:45)
[2021-05-30 11:06] LABS: BUN Creatinine Ratio 8.2 (10-20); Calcium 8.6 mg/dl (8.5-10.1); Creatinine Clr Calc Pharmacy 31.7 ml/min; Est GFR (African American) 69.4 ml/min; Est GFR (Non-African American) 59.9 ml/min; Potassium 4.3 mmol/L (3.5-5.1)
[2021-05-30] MEDS ORDERED: PEPTAMEN 1.5 CAL 1,000 ML BAG OG SCH (11:45)
[2021-05-30] MEDS: INSULIN ASPART 100 UNITS/ML 3 ML PEN SC SCH ×4 (11:49→23:51)
[2021-05-30] MEDS: TUBE FEEDING WATER FLUSH OG SCH ×4 (13:01→23:51)
[2021-05-30] MEDS: FAMOTIDINE 20 MG in SYRINGE 3 ML IV SCH (13:01)
--- NOTE | 2021-05-30 14:50 | Hospitalist Progress Note ---
Date of Service May 30, 2021 Assessment & Plan (1) Pneumonia due to COVID-19 virus: (2) COVID-19: (3) UTI (urinary tract infection): Plan: #. Aspiration pneumonia #. Acute hypoxic respiratory failure - 2/2 above 05/29 patient vomited and aspirated, desaturated requiring mechanical ventilation Patient also developed low blood pressure and temperature on the same evening. Patient's WBC was elevated and had temperature of 38C. Patient was transferred to ICU, mechanically ventilated, put on IV antibiotic 05/29 Rocephin and metronidazole, required pressors. Patient on spontaneous trial today morning, calm, good RSBI at bedside. Continue with IV antibiotics, management per critical care. Await 05/29 bronchial wash studies -taper down antibiotics when able. #. Pneumonia due to COVID-19 virus She is not vaccinated, came in with shortness of breath and cough for few days [employer]. Found to be Covid positive in the ED. Initially put in dexamethasone and anticipated, later discontinued as she was not having any respiratory signs and symptoms. Covid precautions for 10 days from the time of diagnosis. Currently mechanically ventilated for aspiration pneumonia and acute hypoxic respiratory failure #. 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 #. UTI Urine cultureE. coli, pansensitive Currently on antibiotic for respiratory coverage #. Weak/Tired/Lethargic Continue with home dose of Lamictal. Currently intubated. #. Low blood pressure per her mother she runs low blood pressure. #. Ambulatory dysfunction: Chronic problem. PT/OT #. Cognitive developmental delay: No acute impairment #. Seizure disorder: History of childhood astrocytoma No acute issues use Continue current antiseizure medication #. DVT prophylaxis: Heparin subcu. Admission and Anticipated Discharge Date Admission Date: May 22, 2021 Subjective Patient was lying in bed, mechanically ventilated, undergoing spontaneous trial at bedside exam. Patient opens eyes to voice. Patient was calm. ROS not accessible. Physical Exam Physical Exam: GENERAL: Alert. NAD, mechanical ventilationspontaneous trial. HEENT: No pallor, no icterus. Pupils equal, round and reactive to light. Oral mucosa moist. NECK: No JVD, no neck masses. HEART: S1 and S2 heard. Regular rate and rhythm. No murmur, no gallop. RESPIRATORY SYSTEM: Normal AP diameter. No accessory muscle use. No wheezing, diffuse and bilateral crackles ABDOMEN: Soft, bowel sounds present, nontender, no distention. CENTRAL NERVOUS SYSTEM: N/A EXTREMITIES: No edema, no erythema seen. Results & Data Results & Data ([facility]) Vital Signs (Past 12 Hours) Vital Signs Temp Pulse Pulse Resp BP BP Pulse Ox 05/30/21 13:30 81 112/62 99 05/30/21 13:00 77 110/61 99 05/30/21 12:30 72 104/60 98 05/30/21 12:00 37 C 78 126/56 L 99 05/30/21 11:30 89 22 110/72 98 05/30/21 11:00 82 21 103/64 97 05/30/21 10:30 82 121/67 95 05/30/21 10:28 78 19 96 05/30/21 10:00 83 127/75 99 05/30/21 09:30 76 138/81 97 05/30/21 09:00 69 20 112/72 98 05/30/21 08:30 69 20 140/76 97 05/30/21 08:07 90 27 H 97 05/30/21 08:00 37 C 88 26 H 111/62 97 05/30/21 06:45 68 16 128/71 98 05/30/21 06:30 73 16 119/64 98 05/30/21 06:15 89 16 115/72 98 05/30/21 06:00 67 16 118/63 98 05/30/21 05:45 73 16 135/73 99 05/30/21 05:30 68 16 116/68 98 05/30/21 05:15 69 16 132/80 98 05/30/21 05:00 73 16 132/71 99 05/30/21 04:54 73 17 99 05/30/21 04:45 92 H 16 140/75 99 05/30/21 04:30 67 16 137/72 99 05/30/21 04:15 65 16 128/67 98 05/30/21 04:00 37 C 69 16 76/44 L 98 05/30/21 03:45 74 16 99/51 L 99 05/30/21 03:30 76 16 102/53 L 98 05/30/21 03:15 84 16 106/64 98 05/30/21 03:00 78 16 87/46 L 97
[2021-05-30 15:42] LABS: Calcium 8.7 mg/dl (8.5-10.1); Creatinine Clr Calc Pharmacy 36.2 ml/min; Est GFR (African American) 81.5 ml/min; Est GFR (Non-African American) 70.3 ml/min; Potassium 4.2 mmol/L (3.5-5.1)
[2021-05-30 21:48] LABS: BUN Creatinine Ratio 10.2 (10-20); Calcium 8.4 mg/dl (8.5-10.1); Creatinine Clr Calc Pharmacy 36.2 ml/min; Est GFR (African American) 81.5 ml/min; Est GFR (Non-African American) 70.3 ml/min; Potassium 4.1 mmol/L (3.5-5.1)
[2021-05-30] MEDS ORDERED: cefTRIAXone SODIUM 2,000 MG in DEXTROSE 5% 50 ML IV SCH (23:00)
[2021-05-31] MEDS: MIDAZOLAM HCL 1 MG/ML 2ML VIAL IV PRN ×2 (00:43→03:18)
[2021-05-31 03:23] LABS: iSTAT Allen Test Pass; iSTAT Art Bld Gas pCO2 Correct 36 mmHg (35-46); iSTAT Arterial Blood Gas HCO3 24 meg/L (19-24); iSTAT Arterial Blood Gas pCO2 36 mmHg (35-46); iSTAT Arterial Blood Gas pH 7.43 (7.35-7.45); iSTAT Arterial Blood Gas pO2 69 mmHg (80-95); iSTAT Arterial Blood Gas pO2 C 68; iSTAT Carbon Dioxide 25 mmol/L (24-31); iSTAT FiO2 30 %; iSTAT Hematocrit 23 % (37-47); iSTAT Hemoglobin 7.8 g/dl (12.0-16.0); iSTAT Potassium 4.1 mmol/L (3.3-5.0); iSTAT Site L Radial; iSTAT Sodium 137 mmol/L (135-144)
[2021-05-31] MEDS: TUBE FEEDING WATER FLUSH OG SCH ×3 (03:28→12:17)
[2021-05-31] MEDS: INSULIN ASPART 100 UNITS/ML 3 ML PEN SC SCH ×5 (04:03→21:52)
[2021-05-31 04:16] LABS: Hematocrit (blood only) 24.2 % (37-47); Hemoglobin 8.2 g/dL (12.0-16.0); Mean Corpuscular Hemoglobin 29.3 pg (25-34); Mean Corpuscular Hgb Conc 33.9 g/dL (32-36); Mean Corpuscular Volume 86.4 fL (80-100); Platelet Count 246 K/uL (130-400); RDW Coefficient of Variation 16.3 % (11.5-14.5); RDW Standard Deviation 51.4 fL (36.4-46.3); White Blood Count 22.42 K/uL (4.8-10.8)
[2021-05-31 04:36] LABS: BUN Creatinine Ratio 10.1 (10-20); Calcium 8.2 mg/dl (8.5-10.1); Creatinine Clr Calc Pharmacy 38.1 ml/min; Est GFR (African American) 86.7 ml/min; Est GFR (Non-African American) 74.8 ml/min; Magnesium 2.9 mg/dl (1.8-2.4); Potassium 3.9 mmol/L (3.5-5.1)
[2021-05-31 04:52] LABS: Phosphorus 1.2 mg/dl (2.5-4.9)
[2021-05-31 05:11] LABS: Basophils # (auto) 0.01 K/uL (0-0.2); Immature Granulocytes % (auto) 0.4 %; Lymphocytes # (auto) 0.58 K/uL (1.2-3.4); Lymphocytes % (auto) 2.6 %; Monocytes # (auto) 0.91 K/uL (0.11-0.59); Monocytes % (auto) 4.1 %; Neutrophils # (auto) 20.82 K/uL (1.4-6.5); Neutrophils % (auto) 92.9 %; RBC Morphology Unremarkable
[2021-05-31] MEDS: LEVOTHYROXINE SODIUM 25 MCG TABLET PO SCH (05:51)
[2021-05-31] MEDS: metroNIDAZOLE 500 MG/100 ML BAG IV SCH ×2 (07:34→16:05)
[2021-05-31] MEDS ORDERED: SODIUM PHOSPHATE 3 MMOL/1 ML INFUSION IV STA (07:58)
[2021-05-31] MEDS ORDERED: SODIUM PHOSPHATE 30 MMOL in SODIUM CHLORIDE 0.9% 500 ML IV ONE (08:15)
[2021-05-31] MEDS: dexAMETHasone 6 MG in SYRINGE 0 ML IV SCH (08:43)
[2021-05-31] MEDS: HEPARIN SOD 5,000 UNIT/0.5 ML VIAL SQ SCH ×3 (08:44→21:38)
[2021-05-31] MEDS: lamoTRIgine 25 MG TAB PO SCH ×3 (08:46→21:33)
--- NOTE | 2021-05-31 08:46 | XRay Report ---
XR chest 1V portable HISTORY: 41 years-old Female Resp failure acute respiratory failure COMPARISON: Chest radiograph 05/30/2021 TECHNIQUE: Portable AP view of the chest FINDINGS: Cardiac silhouette is upper limits of normal in size. Pulmonary vascular congestion. The distal tip o f the endotracheal tube is suboptimally visualized secondary to positioning. Enteric tube courses int o the stomach with distal tip outside the [id number]. Left IJ central venous catheter distal tip p rojects over the mid SVC. No pneumothorax. Suspected trace pleural effusions. New patchy airspace opa cities of the right lung. Degenerative changes of the shoulders and spine. Surgical clips project ove r the abdominal right upper quadrant. IMPRESSION: 1. Suboptimal visualization of the distal endotracheal tube secondary to positioning. The remaining l herrera and tubes appear to be in satisfactory positioning. Consider repeat film. 2. Progressively worsened pulmonary opacities, right greater than left. 3. Trace pleural effusions. ACT 112: Negative or not required by law. The above report was generated using voice recognition software. It may contain grammatical, syntax o r spelling errors. Electronically signed by: Akil Figueroa M.D. 05/31/2021 8:45 AM
[2021-05-31] MEDS: MEGESTROL ACETATE 40 MG TAB PO SCH (08:47)
[2021-05-31] MEDS: THIAMINE HCL 100 MG TAB PO SCH (08:48)
[2021-05-31] MEDS: SODIUM CHLORIDE 1 GM TABLET PO SCH ×3 (08:48→21:33)
--- NOTE | 2021-05-31 10:11 | Critical Care Progress Note ---
Date of Service May 31, 2021 Assessment & Plan (1) Acute respiratory failure with hypoxia: Plan: Reason Critically Ill: 41-year-old female presents to the ICU with acute hypoxic respiratory failure following a aspiration event and requiring emergent intubation and mechanical ventilation. Neuro - Sedation: Fentanyl drip, Versed push prn -Discontinue sedation following extubation Seizure disordercontinue Lamictal Cardiac - Hypotensionresolved -Discontinue Levophed Respiratory - Acute hypoxic respiratory failurelikely multifactorial as patient was treated for COVID-19 pneumonia however she is on room air prior to the aspiration event this evening and suspect aspiration pneumonitis to be culprit -Patient is difficult airway and required bronchoscopic intubation, was successfully intubated with 6.0 ET tube as she has a narrow trachea -Bronc findings consistent with aspiration, BAL pending -Started on broad-spectrum antibiotics -Continue dexamethasone -Extubate today GI - N.p.o. RENAL/LYTES - AKIimproved Hyponatremiaimproved - Foleystrict I's and O's ENDO - History of diabetes, ICU hyperglycemic protocol Hypothyroidcontinue Synthroid HEME - H&H stable, monitor routine CBCs ID - Aspiration pneumonitis Possible pneumoniaPatient with WBC 19 and elevated pro-Leonel following aspiration event -Bronc culture/BAL pending -Continue empiric ceftriaxone and Flagyl for now -Positive COVID-19 05/21. Continue dexamethasone. Remdesivir on hold UTIpatient was previously undergoing treatment for uncomplicated UTI with Bactrim -Urine culture grew nonresistant E. coli -Continue with ceftriaxone LINES/IV ACCESS - CVC left IJ DVT PROPHYLAXIS - SCDs, heparin I have personally spent 40 minutes of critical care time in the direct management of this patient. This is a life/limb threatening event. This includes time spent evaluating patient, direct bedside care, chart review, placing orders, interpretation of diagnostic studies, discussion with consultants, patient, and family members, as well as other required patient management activities. This time is exclusive of all separately billable procedures, and teaching time and separate from and in addition to any other critical care service time. (2) Difficult airway for intubation: (3) Aspiration into airway: (4) UTI (urinary tract infection): (5) Cognitive developmental delay: (6) Seizure disorder: (7) Pneumonia due to COVID-19 virus: (8) COVID-19: (9) Lactic acidosis: (10) Hypokalemia: (11) Acute respiratory distress: (12) DVT prophylaxis: (13) Ambulatory dysfunction: (14) Hyponatremia: Admission and Anticipated Discharge Date Admission Date: May 22, 2021 Subjective No overnight events Physical Exam Physical Exam: General: Somnolent. nontoxic. Skin: Warm, dry, Head: Atraumatic Ears, nose, mouth and throat: airway obscured by endotracheal tube Cardiovascular: Normal peripheral perfusion Respiratory: no respiratory distress, ventilator settings reviewed on pressure support Gastrointestinal: Non distended Musculoskeletal: No deformity Results & Data Results & Data ([facility]) Vital Signs (Past 12 Hours) Vital Signs Temp Pulse Pulse Pulse Resp BP BP 05/31/21 09:18 90 05/31/21 09:16 85 22 129/68 05/31/21 08:58 92 H 33 H 05/31/21 08:30 97 H 22 146/79 H 05/31/21 07:12 36.0 C L 82 22 132/69 05/31/21 06:03 85 27 H 119/71 05/31/21 05:03 85 27 H 104/56 L 05/31/21 04:00 36.9 C 80 23 118/71 05/31/21 03:00 83 26 H 111/61 05/31/21 02:59 100 H 22 05/31/21 01:31 101/62 05/31/21 01:00 68 21 89/53 L 05/31/21 00:00 36.9 C 73 20 105/54 L 05/30/21 23:44 85 05/30/21 23:33 99/58 L 05/30/21 23:24 75 20 05/30/21 23:04 67 19 89/52 L Pulse Ox 05/31/21 09:18 05/31/21 09:16 95 05/31/21 08:58 94 05/31/21 08:30 92 05/31/21 07:12 99 05/31/21 06:03 97 05/31/21 05:03 98 05/31/21 04:00 98 05/31/21 03:00 98 05/31/21 02:59 95 05/31/21 01:31 05/31/21 01:00 95 05/31/21 00:00 97 05/30/21 23:44 05/30/21 23:33 97 05/30/21 23:24 97 05/30/21 23:04 98 Laboratory Results 05/31/21 05/31/21 05/31/21 Range/Units 08:01 07:45 07:44 WBC (4.8-10.8) K/uL RBC (4.2-5.4) M/uL Hgb (12.0-16.0) g/dL POC Hgb (12.0-16.0) g/dl Hct (37-47) % POC Hct (37-47) % MCV (80-100) fL MCH (25-34) pg MCHC (32-36) g/dL RDW Std Deviation (36.4-46.3) fL RDW Coeff of [place] (11.5-14.5) % Plt Count (130-400) K/uL MPV (7.4-10.4) fL Immature Gran % (Auto) % Neut % (Auto) % Lymph % (Auto) % Beckham % (Auto) % Eos % (Auto) % Baso % (Auto) % Neut # (Auto) (1.4-6.5) K/uL Lymph # (Auto) (1.2-3.4) K/uL Beckham # (Auto) (0.11-0.59) K/uL Eos # (Auto) (0-0.5) K/uL Baso # (Auto) (0-0.2) K/uL Immature Gran # (Auto) (0.00-0.02) K/uL RBC Morphology Sample Site POC pH (7.35-7.45) POC pCO2 (35-46) mmHg POC pO2 (80-95) mmHg POC HCO3 (19-24) galilea/L POC Total CO2 (24-31) mmol/L POC Base Excess (-9-1.8) galilea/L ABG pH (Temp Correct) (7.35-7.45) ABG pCO2 (Temp Corrct (35-46) mmHg POC ABG pO2 at Pt Temp POC ABG O2 Sat (90-95) % Temo Test O2 Delivery Device POC FiO2 % PEEP POC Sodium (135-144) mmol/L Sodium (136-145) mmol/L POC Potassium (3.3-5.0) mmol/L Potassium (3.5-5.1) mmol/L Chloride (98-107) mmol/L Carbon Dioxide (21-32) mmol/L Anion Gap (3-11) BUN (7-18) mg/dl Creatinine (0.6-1.2) mg/dl Est Cr Clr Drug Dosing ml/min Est GFR ( Amer) ml/min Est GFR (Non-Af Amer) ml/min BUN/Creatinine Ratio (10-20) Glucose (70-99) mg/dl POC Glucose 125 H (70-99) mg/dl Lactate (0.4-2.0) mmol/L Calcium (8.5-10.1) mg/dl Phosphorus (2.5-4.9) mg/dl Magnesium (1.8-2.4) mg/dl Iron Pending TIBC Pending Transferrin Pending Transferrin % Sat Pending Ferritin Pending Vitamin B12 Pending Folate Pending 05/31/21 05/31/21 05/31/21 Range/Units 03:55 03:50 03:50 WBC 22.42 H (4.8-10.8) K/uL RBC 2.80 L (4.2-5.4) M/uL Hgb 8.2 L (12.0-16.0) g/dL POC Hgb (12.0-16.0) g/dl Hct 24.2 L (37-47) % POC Hct (37-47) % MCV 86.4 (80-100) fL MCH 29.3 (25-34) pg MCHC 33.9 (32-36) g/dL RDW Std Deviation 51.4 H (36.4-46.3) fL RDW Coeff of [place] 16.3 H (11.5-14.5) % Plt Count 246 (130-400) K/uL MPV 10.0 (7.4-10.4) fL Immature Gran % (Auto) 0.4 % Neut % (Auto) 92.9 % Lymph % (Auto) 2.6 % Beckham % (Auto) 4.1 % Eos % (Auto) 0.0 % Baso % (Auto) 0.0 % Neut # (Auto) 20.82 H (1.4-6.5) K/uL Lymph # (Auto) 0.58 L (1.2-3.4) K/uL Beckham # (Auto) 0.91 H (0.11-0.59) K/uL Eos # (Auto) 0.00 (0-0.5) K/uL Baso # (Auto) 0.01 (0-0.2) K/uL Immature Gran # (Auto) 0.10 H (0.00-0.02) K/uL RBC Morphology Unremarkable Sample Site POC pH (7.35-7.45) POC pCO2 (35-46) mmHg POC pO2 (80-95) mmHg POC HCO3 (19-24) galilea/L POC Total CO2 (24-31) mmol/L POC Base Excess (-9-1.8) galilea/L ABG pH (Temp Correct) (7.35-7.45) ABG pCO2 (Temp Corrct (35-46) mmHg POC ABG pO2 at Pt Temp POC ABG O2 Sat (90-95) % Temo Test O2 Delivery Device POC FiO2 % PEEP POC Sodium (135-144) mmol/L Sodium 137 (136-145) mmol/L POC Potassium (3.3-5.0) mmol/L Potassium 3.9 (3.5-5.1) mmol/L Chloride 105 (98-107) mmol/L Carbon Dioxide 25 (21-32) mmol/L Anion Gap 7.0 (3-11) BUN 10 (7-18) mg/dl Creatinine 0.94 (0.6-1.2) mg/dl Est Cr Clr Drug Dosing 38.1 ml/min Est GFR ( Amer) 86.7 ml/min Est GFR (Non-Af Amer) 74.8 ml/min BUN/Creatinine Ratio 10.1 (10-20) Glucose 145 H (70-99) mg/dl POC Glucose 134 H (70-99) mg/dl Lactate (0.4-2.0) mmol/L Calcium 8.2 L (8.5-10.1) mg/dl Phosphorus 1.2 L* D (2.5-4.9) mg/dl Magnesium 2.9 H (1.8-2.4) mg/dl Iron TIBC Transferrin Transferrin % Sat Ferritin Vitamin B12 Folate 05/31/21 05/30/21 05/30/21 Range/Units 03:08 23:32 21:09 WBC (4.8-10.8) K/uL RBC (4.2-5.4) M/uL Hgb (12.0-16.0) g/dL POC Hgb 7.8 L (12.0-16.0) g/dl Hct (37-47) % POC Hct 23 L (37-47) % MCV (80-100) fL MCH (25-34) pg MCHC (32-36) g/dL RDW Std Deviation (36.4-46.3) fL RDW Coeff of [place] (11.5-14.5) % Plt Count (130-400) K/uL MPV (7.4-10.4) fL Immature Gran % (Auto) % Neut % (Auto) % Lymph % (Auto) % Beckham % (Auto) % Eos % (Auto) % Baso % (Auto) % Neut # (Auto) (1.4-6.5) K/uL Lymph # (Auto) (1.2-3.4) K/uL Beckham # (Auto) (0.11-0.59) K/uL Eos # (Auto) (0-0.5) K/uL Baso # (Auto) (0-0.2) K/uL Immature Gran # (Auto) (0.00-0.02) K/uL RBC Morphology Sample Site L Radial POC pH 7.43 (7.35-7.45) POC pCO2 36 (35-46) mmHg POC pO2 69 L (80-95) mmHg POC HCO3 24 (19-24) galilea/L POC Total CO2 25 (24-31) mmol/L POC Base Excess 0.0 (-9-1.8) galilea/L ABG pH (Temp Correct) 7.430 (7.35-7.45) ABG pCO2 (Temp Corrct 36 (35-46) mmHg POC ABG pO2 at Pt Temp 68 POC ABG O2 Sat 94.0 (90-95) % Temo Test Pass O2 Delivery Device Ventilator POC FiO2 30 % PEEP 5 POC Sodium 137 (135-144) mmol/L Sodium 134 L (136-145) mmol/L POC Potassium 4.1 (3.3-5.0) mmol/L Potassium 4.1 (3.5-5.1) mmol/L Chloride 105 (98-107) mmol/L Carbon Dioxide 23 (21-32) mmol/L Anion Gap 6.0 (3-11) BUN 10 (7-18) mg/dl Creatinine 0.99 (0.6-1.2) mg/dl Est Cr Clr Drug Dosing 36.2 ml/min Est GFR ( Amer) 81.5 ml/min Est GFR (Non-Af Amer) 70.3 ml/min BUN/Creatinine Ratio 10.2 (10-20) Glucose 196 H (70-99) mg/dl POC Glucose 193 H (70-99) mg/dl Lactate (0.4-2.0) mmol/L Calcium 8.4 L (8.5-10.1) mg/dl Phosphorus (2.5-4.9) mg/dl Magnesium (1.8-2.4) mg/dl Iron TIBC Transferrin Transferrin % Sat Ferritin Vitamin B12 Folate 05/30/21 05/30/21 05/30/21 Range/Units 20:07 16:27 14:58 WBC (4.8-10.8) K/uL RBC (4.2-5.4) M/uL Hgb (12.0-16.0) g/dL POC Hgb (12.0-16.0) g/dl Hct (37-47) % POC Hct (37-47) % MCV (80-100) fL MCH (25-34) pg MCHC (32-36) g/dL RDW Std Deviation (36.4-46.3) fL RDW Coeff of [place] (11.5-14.5) % Plt Count (130-400) K/uL MPV (7.4-10.4) fL Immature Gran % (Auto) % Neut % (Auto) % Lymph % (Auto) % Beckham % (Auto) % Eos % (Auto) % Baso % (Auto) % Neut # (Auto) (1.4-6.5) K/uL Lymph # (Auto) (1.2-3.4) K/uL Beckham # (Auto) (0.11-0.59) K/uL Eos # (Auto) (0-0.5) K/uL Baso # (Auto) (0-0.2) K/uL Immature Gran # (Auto) (0.00-0.02) K/uL RBC Morphology Sample Site POC pH (7.35-7.45) POC pCO2 (35-46) mmHg POC pO2 (80-95) mmHg POC HCO3 (19-24) galilea/L POC Total CO2 (24-31) mmol/L POC Base Excess (-9-1.8) galilea/L ABG pH (Temp Correct) (7.35-7.45) ABG pCO2 (Temp Corrct (35-46) mmHg POC ABG pO2 at Pt Temp POC ABG O2 Sat (90-95) % Temo Test O2 Delivery Device POC FiO2 % PEEP POC Sodium (135-144) mmol/L Sodium 136 (136-145) mmol/L POC Potassium (3.3-5.0) mmol/L Potassium 4.2 (3.5-5.1) mmol/L Chloride 105 (98-107) mmol/L Carbon Dioxide 24 (21-32) mmol/L Anion Gap 7.0 (3-11) BUN 9 (7-18) mg/dl Creatinine 0.99 (0.6-1.2) mg/dl Est Cr Clr Drug Dosing 36.2 ml/min Est GFR ( Amer) 81.5 ml/min Est GFR (Non-Af Amer) 70.3 ml/min BUN/Creatinine Ratio 9.0 L (10-20) Glucose 149 H (70-99) mg/dl POC Glucose 180 H 126 H (70-99) mg/dl Lactate (0.4-2.0) mmol/L Calcium 8.7 (8.5-10.1) mg/dl Phosphorus (2.5-4.9) mg/dl Magnesium (1.8-2.4) mg/dl Iron TIBC Transferrin Transferrin % Sat Ferritin Vitamin B12 Folate 05/30/21 05/30/21 05/30/21 Range/Units 11:34 10:23 10:23 WBC (4.8-10.8) K/uL RBC (4.2-5.4) M/uL Hgb (12.0-16.0) g/dL POC Hgb (12.0-16.0) g/dl Hct (37-47) % POC Hct (37-47) % MCV (80-100) fL MCH (25-34) pg MCHC (32-36) g/dL RDW Std Deviation (36.4-46.3) fL RDW Coeff of [place] (11.5-14.5) % Plt Count (130-400) K/uL MPV (7.4-10.4) fL Immature Gran % (Auto) % Neut % (Auto) % Lymph % (Auto) % Beckham % (Auto) % Eos % (Auto) % Baso % (Auto) % Neut # (Auto) (1.4-6.5) K/uL Lymph # (Auto) (1.2-3.4) K/uL Beckham # (Auto) (0.11-0.59) K/uL Eos # (Auto) (0-0.5) K/uL Baso # (Auto) (0-0.2) K/uL Immature Gran # (Auto) (0.00-0.02) K/uL RBC Morphology Sample Site POC pH (7.35-7.45) POC pCO2 (35-46) mmHg POC pO2 (80-95) mmHg POC HCO3 (19-24) galilea/L POC Total CO2 (24-31) mmol/L POC Base Excess (-9-1.8) galilea/L ABG pH (Temp Correct) (7.35-7.45) ABG pCO2 (Temp Corrct (35-46) mmHg POC ABG pO2 at Pt Temp POC ABG O2 Sat (90-95) % Temo Test O2 Delivery Device POC FiO2 % PEEP POC Sodium (135-144) mmol/L Sodium 133 L D (136-145) mmol/L POC Potassium (3.3-5.0) mmol/L Potassium 4.3 (3.5-5.1) mmol/L Chloride 104 (98-107) mmol/L Carbon Dioxide 22 (21-32) mmol/L Anion Gap 7.0 (3-11) BUN 9 (7-18) mg/dl Creatinine 1.13 (0.6-1.2) mg/dl Est Cr Clr Drug Dosing 31.7 ml/min Est GFR ( Amer) 69.4 ml/min Est GFR (Non-Af Amer) 59.9 ml/min BUN/Creatinine Ratio 8.2 L (10-20) Glucose 181 H (70-99) mg/dl POC Glucose 138 H (70-99) mg/dl Lactate 2.1 H* (0.4-2.0) mmol/L Calcium 8.6 (8.5-10.1) mg/dl Phosphorus (2.5-4.9) mg/dl Magnesium (1.8-2.4) mg/dl Iron TIBC Transferrin Transferrin % Sat Ferritin Vitamin B12 Folate Coding Level of Care Code Critical Care 1st 30-74 mins Diagnoses Acute respiratory failure with hypoxia J96.01 Difficult airway for intubation T88.4XXA Aspiration into airway T17.908A UTI (urinary tract infection) N39.0 Cognitive developmental delay F81.9 Seizure disorder G40.909 Pneumonia due to COVID-19 virus U07.1; J12.82 COVID-19 U07.1 Lactic acidosis E87.2 Hypokalemia E87.6 Acute respiratory distress R06.03 DVT prophylaxis Z29.9 Ambulatory dysfunction R26.2 Hyponatremia E87.1
[2021-05-31 10:26] LABS: Ferritin 178.5 ng/ml (8-388)
[2021-05-31] MEDS ORDERED: Nursing to Pharmacy Communication SCH (10:30)
[2021-05-31] MEDS: MAGNESIUM OXIDE 400 MG TAB PO SCH ×2 (10:39→21:33)
[2021-05-31] MEDS ORDERED: INSULIN ASPART 100 UNITS/ML 3 ML PEN SC SCH (11:32)
--- NOTE | 2021-05-31 12:12 | Hospitalist Progress Note ---
Date of Service May 31, 2021 Assessment & Plan (1) Pneumonia due to COVID-19 virus: (2) COVID-19: (3) UTI (urinary tract infection): Plan: #. Aspiration pneumonia #. Acute hypoxic respiratory failure - 2/2 above 05/29 patient vomited and aspirated, desaturated requiring mechanical ventilation Patient also developed low blood pressure and temperature on the same evening. Patient's WBC was elevated and had temperature of 38C. Patient was transferred to ICU, mechanically ventilated, put on IV antibiotic 05/29 Rocephin and metronidazole, required pressors ----> 05/31 patient extubated to oxygen mask Continue with IV antibiotics, management per critical care. Await 05/29 bronchial wash studies -taper down antibiotics when able. #. Pneumonia due to COVID-19 virus She is not vaccinated, came in with shortness of breath and cough for few days [employer]. Found to be Covid positive in the ED. Initially put in dexamethasone and Remdesivir, later discontinued as she was not having any respiratory signs and symptoms. Covid precautions for 10 days from the time of diagnosis. currently extubated on Oxymask 3L. #. 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 #. Low phosphorus Critically low, replace Monitor daily #. UTI Urine cultureE. coli, pansensitive Currently on antibiotic for respiratory coverage #. Weak/Tired/Lethargic Continue with home dose of Lamictal. PT/OT. #. Low blood pressure per her mother she runs low blood pressure. #. Ambulatory dysfunction: Chronic problem. PT/OT #. Cognitive developmental delay: No acute impairment #. Seizure disorder: History of childhood astrocytoma No acute issues use Continue current antiseizure medication #. DVT prophylaxis: Heparin subcu. Admission and Anticipated Discharge Date Admission Date: May 22, 2021 Subjective Patient was lying in bed, NAD, extubated in the morning, no acute events overnight per RN. ROS was not accessible due to patient's reluctance to talk and mental condition. Physical Exam Physical Exam: GENERAL: Alert. NAD, extubated and on 3 L oxygen mask. HEENT: No pallor, no icterus. Pupils equal, round and reactive to light. Oral mucosa moist. NECK: No JVD, no neck masses. HEART: S1 and S2 heard. Regular rate and rhythm. No murmur, no gallop. RESPIRATORY SYSTEM: Normal AP diameter. No accessory muscle use. No wheezing, diffuse and bilateral crackles ABDOMEN: Soft, bowel sounds present, nontender, no distention. CENTRAL NERVOUS SYSTEM: Moving extremities, N/A EXTREMITIES: No edema, no erythema seen. Results & Data Results & Data ([facility]) Vital Signs (Past 12 Hours) Vital Signs Temp Pulse Pulse Pulse Resp BP BP 05/31/21 11:00 90 18 118/75 05/31/21 10:00 88 20 116/76 05/31/21 09:18 90 05/31/21 09:16 85 22 129/68 05/31/21 08:58 92 H 33 H 05/31/21 08:30 97 H 22 146/79 H 05/31/21 07:12 36.0 C L 82 22 132/69 05/31/21 06:03 85 27 H 119/71 05/31/21 05:03 85 27 H 104/56 L 05/31/21 04:00 36.9 C 80 23 118/71 05/31/21 03:00 83 26 H 111/61 05/31/21 02:59 100 H 22 05/31/21 01:31 101/62 05/31/21 01:00 68 21 89/53 L Pulse Ox 05/31/21 11:00 98 05/31/21 10:00 94 05/31/21 09:18 05/31/21 09:16 95 05/31/21 08:58 94 05/31/21 08:30 92 05/31/21 07:12 99 05/31/21 06:03 97 05/31/21 05:03 98 05/31/21 04:00 98 05/31/21 03:00 98 05/31/21 02:59 95 05/31/21 01:31 05/31/21 01:00 95
[2021-05-31] MEDS: FAMOTIDINE 20 MG in SYRINGE 3 ML IV SCH (12:32)
[2021-05-31] MEDS ORDERED: FOLIC ACID 1 MG in SYRINGE 9.8 ML IV ONE (12:45)
[2021-05-31] MEDS: LEVALBUTEROL 1.25MG/0.5ML NEB NEB PRN ×2 (13:03→18:23)
[2021-05-31] MEDS ORDERED: XOPENEX/ATROVENT 1.25mg/0.5MG NEB COMBO NEB STA (20:46)
[2021-05-31] MEDS ORDERED: methylPREDNISolone 40 MG in SYRINGE 0 ML IV STA (20:47)
[2021-05-31] MEDS ORDERED: LEVALBUTEROL 1.25MG/0.5ML NEB INH STA (20:54)
[2021-05-31] MEDS ORDERED: IPRATROPIUM BROMIDE NEB SOLN 0.02% 2.5 ML VIAL INH STA (20:54)
[2021-05-31] MEDS ORDERED: AMPICILLIN/SULBACTAM SOD 3,000 MG in 0.9 % SODIUM CHLORIDE 100 ML IV SCH (21:00)
--- NOTE | 2021-05-31 21:00 | Communication Note ---
Date of Service: May 31, 2021 Made aware by RN of patient refusal of care and medications. Patient refusing to wear nasal cannula. O2 sats 88 to 90% on room air. Patient with weak, moist cough, and course lung sounds with expiratory wheezing as per RN. CXR 1. Interval extubation with removal of the enteric tube. 2. Right lung predominant airspace opacities have mildly progressed within the right lung base. 3. Cardiomegaly. AP Respiratory failure Worsening HCAP/aspiration pneumonia Supplemental O2 Check ABG Solu-Medrol, nebs Change Ceftriaxone, Flagyl to IV Zosyn Will relay to AM provider.
[2021-05-31] MEDS ORDERED: AMPICILLIN/SULBACTAM CONSULT ACTIVE PRN (21:02)
[2021-05-31] MEDS ORDERED: PIPERACILL/TAZOBAC CONSULT ACTIVE PRN (21:27)
--- NOTE | 2021-05-31 21:30 | XRay Report ---
XR chest 1V portable HISTORY: 41 years-old Female low o2 acute hypoxia COMPARISON: Chest radiograph of same day at 6:59 AM TECHNIQUE: Supine AP view of the chest FINDINGS: Status post extubation with removal of the enteric tube. Left IJ central venous catheter is unchanged . The cardiac silhouette is enlarged. Interstitial coarsening with multifocal airspace opacities thro ughout the right lung redemonstrated, mildly progressed the right lung base. Possible trace pleural e ffusions. No pneumothorax. Degenerative changes of the shoulders and spine. Gaseous distention of the stomach. Surgical clips of the abdominal right upper quadrant. IMPRESSION: 1. Interval extubation with removal of the enteric tube. 2. Right lung predominant airspace opacities have mildly progressed within the right lung base. 3. Cardiomegaly. ACT 112: Negative or not required by law. The above report was generated using voice recognition software. It may contain grammatical, syntax o r spelling errors. Electronically signed by: Akil Figueroa M.D. 05/31/2021 9:28 PM
[2021-05-31] MEDS ORDERED: PIPERACILLIN/TAZOBACTAM 4.5 GM in DEXTROSE 5% 100 ML IV ONE (22:00)
[2021-05-31] MEDS ORDERED: FUROSEMIDE 20 MG in SYRINGE 0 ML IV ONE (22:33)
[2021-05-31] MEDS ORDERED: FUROSEMIDE 40 MG/4 ML VIAL IV ONE (22:45)
[2021-06-01] MEDS: PIPERACILLIN/TAZOBACTAM 3.375 GM in DEXTROSE 5% 100 ML IV SCH ×3 (04:39→19:37)
[2021-06-01] MEDS: LEVALBUTEROL 1.25MG/0.5ML NEB NEB PRN (06:26)
[2021-06-01] MEDS: LEVOTHYROXINE SODIUM 25 MCG TABLET PO SCH (06:37)
[2021-06-01 07:06] LABS: Basophils # (auto) 0.02 K/uL (0-0.2); Basophils % (auto) 0.1 %; Hematocrit (blood only) 23.9 % (37-47); Hemoglobin 8.1 g/dL (12.0-16.0); Immature Granulocytes # (auto) 0.21 K/uL (0.00-0.02); Immature Granulocytes % (auto) 1.1 %; Lymphocytes # (auto) 0.96 K/uL (1.2-3.4); Lymphocytes % (auto) 5.1 %; Mean Corpuscular Hemoglobin 29.6 pg (25-34); Mean Corpuscular Hgb Conc 33.9 g/dL (32-36); Mean Corpuscular Volume 87.2 fL (80-100); Mean Platelet Volume 10.2 fL (7.4-10.4); Monocytes # (auto) 0.57 K/uL (0.11-0.59); Neutrophils # (auto) 17.21 K/uL (1.4-6.5); Neutrophils % (auto) 90.7 %; Platelet Count 257 K/uL (130-400); RDW Coefficient of Variation 17.7 % (11.5-14.5); RDW Standard Deviation 55.8 fL (36.4-46.3); Red Blood Count 2.74 M/uL (4.2-5.4); White Blood Count 18.97 K/uL (4.8-10.8)
[2021-06-01 07:40] LABS: Magnesium 2.3 mg/dl (1.8-2.4); Phosphorus 3.2 mg/dl (2.5-4.9)
[2021-06-01] MEDS: INSULIN ASPART 100 UNITS/ML 3 ML PEN SC SCH ×4 (07:57→20:52)
[2021-06-01] MEDS: lamoTRIgine 25 MG TAB PO SCH ×2 (08:03→20:09)
[2021-06-01] MEDS: FOLIC ACID 1 MG TAB PO SCH (08:07)
[2021-06-01] MEDS: THIAMINE HCL 100 MG TAB PO SCH (08:07)
[2021-06-01] MEDS: FERROUS SULFATE 325 MG TAB PO SCH (08:07)
[2021-06-01] MEDS: SODIUM CHLORIDE 1 GM TABLET PO SCH ×3 (08:07→20:33)
[2021-06-01] MEDS: MEGESTROL ACETATE 40 MG TAB PO SCH (08:07)
[2021-06-01] MEDS: dexAMETHasone 6 MG in SYRINGE 0 ML IV SCH (08:19)
[2021-06-01] MEDS: HEPARIN SOD 5,000 UNIT/0.5 ML VIAL SQ SCH ×2 (08:19→20:33)
[2021-06-01] MEDS: MAGNESIUM OXIDE 400 MG TAB PO SCH ×2 (08:19→20:33)
[2021-06-01] MEDS: FAMOTIDINE 20 MG in SYRINGE 3 ML IV SCH (11:20)
--- NOTE | 2021-06-01 12:05 | Hospitalist Progress Note ---
Date of Service June 01, 2021 Assessment & Plan (1) Pneumonia due to COVID-19 virus: (2) COVID-19: (3) UTI (urinary tract infection): Plan: #. Aspiration pneumonia #. Acute hypoxic respiratory failure - 2/2 above 05/29 patient vomited and aspirated, desaturated requiring mechanical ventilation Patient also developed low blood pressure and temperature on the same evening. Patient's WBC was elevated and had temperature of 38C. Patient was transferred to ICU, mechanically ventilated, put on IV antibiotic 05/29 Rocephin and metronidazole, required pressors ----> 05/31 patient extubated to oxygen mask 05/31 ATB changed to Zosyn d/t acute desaturation, will c/w Zosyn for now. Continue with IV antibiotics, plan to downgrade to med telemetry tomorrow if no further issues. WBC trending down, patient afebrile. Await 05/29 bronchial wash studies ~Bacterial culturepreliminary report [Klebsiella, Laura, yeast not Laura albicans], follow final results. Follow-up C/S on Laura. ~Fungal culture and AFB culture pending Tailor antimicrobials as able. Continue with Decadron until patient stable on r oom air. #. Elevated BNP 05/26 5 AM patient extubated to Oxy Mask 3L, later stabilized on room air, had acute desaturation 06/04 evening requiring 2 L. BMP drawn 05/31 evening elevated in 4400. Patient received 1 dose of Lasix, currently on 2 L oxygen, clinically lung sounds better. Get EKG, cardiac consult for further recommendation #. Pneumonia due to COVID-19 virus She is not vaccinated, came in with shortness of breath and cough for few days [employer]. Found to be Covid positive in the ED. Initially put in dexamethasone and Remdesivir, later discontinued as she was not having any respiratory signs and symptoms. Covid precautions for 10 days from the time of diagnosis. #. 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 #. Low phosphorus Critically low, replace Monitor daily #. UTI Urine cultureE. coli, pansensitive Currently on antibiotic for respiratory coverage #. Weak/Tired/Lethargic Continue with home dose of Lamictal. PT/OT. #. Low blood pressure per her mother she runs low blood pressure. #. Ambulatory dysfunction: Chronic problem. PT/OT #. Cognitive developmental delay: No acute impairment #. Seizure disorder: History of childhood astrocytoma No acute issues use Continue current antiseizure medication #. DVT prophylaxis: Heparin subcu. Admission and Anticipated Discharge Date Admission Date: May 22, 2021 Subjective Patient was lying in bed, NAD, AOx3, on 2 L nasal cannula. Overnight, patient saturation dropped and required 2 L oxygen. Her BNP was elevated at 4486. No past BNP in the EMR. Patient received 20 mg IV Lasix. Patient had been doing fine on 2 L since then. Per RN she is AOx3 and has been stable. She still rem ains n.p.o., FEES to be done tomorrow. She is very hard of hearing, reports no pain, other ROS were difficult to assess. RN updating her mom over the phone frequently about her status. Physical Exam Physical Exam: GENERAL: Alert. NAD, 2 L NC HEENT: No pallor, no icterus. Pupils equal, round and reactive to light. Oral mucosa moist. NECK: No JVD, no neck masses. HEART: S1 and S2 heard. Regular rate and rhythm. No murmur, no gallop. RESPIRATORY SYSTEM: Normal AP diameter. No accessory muscle use. No wheezing, diffuse and bilateral cracklesimproving ABDOMEN: Soft, bowel sounds present, nontender, no distention. CENTRAL NERVOUS SYSTEM: Moving extremities, WNL power and sensory functions. EXTREMITIES: No edema, no erythema seen. Results & Data Results & Data ([facility]) Vital Signs (Past 12 Hours) Vital Signs Temp Pulse Pulse Resp BP BP Pulse Ox 06/01/21 11:17 36.8 C 85 18 145/84 H 98 06/01/21 08:01 87 20 135/72 98 06/01/21 07:21 94 H 06/01/21 07:12 37.0 C 91 H 20 150/68 H 97 06/01/21 06:26 91 H 20 91 06/01/21 02:35 37.3 C 77 16 119/77 98 06/01/21 00:37 93 H
--- NOTE | 2021-06-01 15:51 | Cardiology Consultation ---
Date of Consultation June 01, 2021 Assessment & Plan (1) Acute respiratory failure with hypoxia: Patient with multifactorial respiratory insufficiency including SARS-CoV-2 pneumonia, aspiration, superimposed volume overload. She received IV corticosteroids, normal saline, and IV antibiotics over the course of 24 hours due to respiratory insufficiency and hypotension. She was subsequently extubated, but had recurrent hypoxia improved status post furosemide. Proceed with another dose of furosemide 20 mg x 1 now. Depending upon clinical course, will likely need to administer another dose of 20 mg tomorrow, and as needed, with plans to keep her intake and output closer to being even, with noted ongoing treatment including dexamethasone and Zosyn. I agree with subcutaneous heparin for DVT prophylaxis. History of Present Illness Attending Physician: Rashmi Curtis MD History of Present Illness Eliane Martinez is a 41-year-old female seen in cardiology consultation per the request of Dr. Romulo Curtis for the evaluation of volume overload. History of and from review of chart. Subjective input of the patient is in a month, only complains of being "cold "during my assessment. 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 She presented on 05/22/2021 with findings of hypoxia, oxygen saturation 89% and was diagnosed with SARS-CoV-2 pneumonia. Her course progressed, and on 05/30/2021 she underwent endotracheal tube intubation, subsequently extubated on 05/31/2021, with clinical concerns of a possible aspiration event, details unclear. Transient retention noted on 05/30/2025, with several systolic blood pressures in the 80s and 90s recorded. This is since resolved, most recent blood pressure 151/78. Serial chest x-ray images as suggested right-sided infiltrate as well as superimposed interstitial edema. Last night the hospitalist on-call assessed her for recurrent hypoxia which improved after a dose of furosemide 20 mg IV x1 administered last evening 05/31/2021 at 2255 hrs. Oxygen saturation currently 99% on 2 L nasal cannula. Per review of the intake and output flowsheet, patient received 2.6 L of intake on 05/31 with positive fluid balance having received 1.7 L of normal saline, as well as IV antibiotics. Allergies Allergy/AdvReac Type Severity Reaction Status Date / Time phenobarbital Allergy Mild Unknown Verified 05/22/21 10:17 omeprazole AdvReac Unknown red face Verified 05/22/21 10:17 Home Medications Medication Instructions Recorded Confirmed Type lamotrigine 150 mg tablet 150 mg PO Q12H 04/22/19 05/22/21 History levothyroxine 25 mcg tablet 37.5 mcg PO QAM 04/22/19 05/22/21 History megestrol 20 mg tablet 20 mg PO QAM 02/08/20 05/22/21 History polysaccharide iron complex 150 mg 150 mg PO DAILY 02/08/20 05/22/21 History iron capsule (iFerex 150) magnesium oxide 400 mg PO BID 12/02/20 05/22/21 History sodium chloride 1 gram tablet 1 g PO TID 12/26/20 05/22/21 History Patient History Medical History Brain tumor C. difficile diarrhea Cognitive developmental delay H/O astrocytoma Laceration of trachea Seizure disorder Subdural hematoma Weakness Surgical History H/O brain surgery History of umbilical hernia repair S/P cholecystectomy Family History Mother Diabetes Grandfather (Paternal) Coronary heart disease Uncle Coronary heart disease Social History Smoking Status: Never smoker Hx Alcohol Use: No Hx Substance Use: No Preferred Language: Estonian Communication Ability: Effective Hearing Ability: Normal Agronomy Instructor Required: No Beliefs That Will Affect Care: None marital status: Single Current Living Situation: Family Current Living Situation Comment: Lives with mother who is caregiver How many Children do You have: 0 Other Information That Helps Us Care for You: No Feels Safe at Home: Yes Safety Concerns: Feels Safe At This Time Assistive Devices: Oxygen - Continuous Assistive Devices Comment: Per father, patient is fall risk but walks independently. Review of Systems Review of Systems: Unobtainable due to cognitive status Physical Exam Physical Exam: Temp Pulse Resp BP Pulse Ox 36.7 C 77 18 151/78 H 99 06/01/21 14:46 06/01/21 14:46 06/01/21 14:46 06/01/21 14:46 06/01/21 14:46 Constitutional: No acute distress Respiratory: Decreased breath sounds the bases Cardiovascular: Rate/Rhythm: regular rate No murmur detected on technically limited evaluation with isolation stethoscope. No edema. Results & Data ([facility]) Vital Signs (Past 12 Hours) Vital Signs Temp Pulse Pulse Resp BP Pulse Ox 06/01/21 14:46 36.7 C 77 18 151/78 H 99 06/01/21 11:17 36.8 C 85 18 145/84 H 98 06/01/21 08:01 87 20 135/72 98 06/01/21 07:21 94 H 06/01/21 07:12 37.0 C 91 H 20 150/68 H 97 06/01/21 06:26 91 H 20 91 Laboratory Results CBC 06/01/21 Range/Units 06:12 WBC 18.97 H (4.8-10.8) K/uL RBC 2.74 L (4.2-5.4) M/uL Hgb 8.1 L (12.0-16.0) g/dL Hct 23.9 L (37-47) % Plt Count 257 (130-400) K/uL Neut # (Auto) 17.21 H (1.4-6.5) K/uL Lymph # (Auto) 0.96 L (1.2-3.4) K/uL Lipscomb # (Auto) 0.57 (0.11-0.59) K/uL Eos # (Auto) 0.00 (0-0.5) K/uL Baso # (Auto) 0.02 (0-0.2) K/uL Intake and Output 06/01/21 06/01/21 06/01/21 06:59 14:59 22:59 Intake Total 120 / 1830 115 / 230 115 / 230 Output Total 850 / 2225 250 / 250 Balance -730 / -395 -135 / -20 115 / -20 Intake: IV 120 / 1830 115 / 230 115 / 230 Piperacillin/Tazobactam 3.375 115 / 230 115 / 230 gm In Dextrose 5% 100 ml @ 28. 75 mls/hr IV Q8H [facility] Rx#: [id number] Piperacillin/Tazobactam 4.5 gm 120 / 120 In Dextrose 5% 100 ml @ 200 mls /hr IV NOW ONE Rx#:[id number] Output: Urine Amount (Catheter) 850 / 2225 250 / 250 Freeman/Indwelling 850 / 1125 250 / 250 Other: Weight 45.6 kg Weight Measurement Method Built in [facility] Diagnostic Findings EKG performed 06/01/2021 revealed normal sinus rhythm 87 bpm, normal EKG
[2021-06-01 17:05] LABS: BUN Creatinine Ratio 15.4 (10-20); Calcium 8.5 mg/dl (8.5-10.1); Creatinine Clr Calc Pharmacy 32.2 ml/min; Est GFR (African American) 68.7 ml/min; Est GFR (Non-African American) 59.3 ml/min; Potassium 3.6 mmol/L (3.5-5.1)
[2021-06-01] MEDS ORDERED: FUROSEMIDE 10 MG in SYRINGE 0 ML IV ONE (17:14)
--- NOTE | 2021-06-01 17:17 | Communication Note ---
Date of Service: June 01, 2021 BMP results include Potassium of 3.6., creatinine stable. She is only 4 feet 2 inches tall, BSA 1.27. Per nurse, pt has not been adherent to taking oral medications well. Will proceed with KCL 20 galilea x 1 dose via her central line, and furosemide 10 mg IV x 1 .
[2021-06-01] MEDS ORDERED: POTASSIUM CHLORIDE / WTR 20 MEQ/100 ML PLCT IV ONE (17:30)
[2021-06-01] MEDS ORDERED: FUROSEMIDE 40 MG/4 ML VIAL IV ONE (17:30)
[2021-06-02] MEDS: PIPERACILLIN/TAZOBACTAM 3.375 GM in DEXTROSE 5% 100 ML IV SCH ×3 (03:24→20:01)
[2021-06-02 06:15] LABS: Hematocrit (blood only) 24.4 % (37-47); Mean Corpuscular Hemoglobin 29.1 pg (25-34); Mean Corpuscular Hgb Conc 32.8 g/dL (32-36); Mean Corpuscular Volume 88.7 fL (80-100); Mean Platelet Volume 10.3 fL (7.4-10.4); Platelet Count 242 K/uL (130-400); RDW Coefficient of Variation 17.4 % (11.5-14.5); RDW Standard Deviation 55.7 fL (36.4-46.3); Red Blood Count 2.75 M/uL (4.2-5.4); White Blood Count 15.09 K/uL (4.8-10.8)
[2021-06-02] MEDS: LEVOTHYROXINE SODIUM 25 MCG TABLET PO SCH (06:36)
[2021-06-02 06:52] LABS: BUN Creatinine Ratio 17.9 (10-20); Calcium 8.7 mg/dl (8.5-10.1); Creatinine Clr Calc Pharmacy 29.1 ml/min; Est GFR (Non-African American) 53.5 ml/min; Phosphorus 2.7 mg/dl (2.5-4.9); Potassium 3.6 mmol/L (3.5-5.1)
[2021-06-02] MEDS: INSULIN ASPART 100 UNITS/ML 3 ML PEN SC SCH ×4 (08:52→21:07)
[2021-06-02] MEDS: lamoTRIgine 25 MG TAB PO SCH ×2 (08:59→20:05)
[2021-06-02] MEDS: HEPARIN SOD 5,000 UNIT/0.5 ML VIAL SQ SCH ×2 (08:59→20:04)
[2021-06-02] MEDS: THIAMINE HCL 100 MG TAB PO SCH (08:59)
[2021-06-02] MEDS: SODIUM CHLORIDE 1 GM TABLET PO SCH ×3 (08:59→20:05)
[2021-06-02] MEDS: FOLIC ACID 1 MG TAB PO SCH (09:00)
[2021-06-02] MEDS: MAGNESIUM OXIDE 400 MG TAB PO SCH ×2 (09:00→20:06)
[2021-06-02] MEDS: MEGESTROL ACETATE 40 MG TAB PO SCH (09:00)
[2021-06-02] MEDS: FERROUS SULFATE 325 MG TAB PO SCH (09:00)
[2021-06-02] MEDS: FAMOTIDINE 20 MG in SYRINGE 3 ML IV SCH (12:29)
--- NOTE | 2021-06-02 13:04 | Cardiology Progress Note ---
Date of Service June 02, 2021 Assessment & Plan (1) Acute respiratory failure with hypoxia: Plan: SARS-CoV-2 pneumonia, also possible aspiration event, subsequent iatrogenic volume overload. Fluid balance negative yesterday and today thus far, having received 2 doses of IV furosemide, most recent of which was in the afternoon of 06/01/2021. Continue to follow intake/output summary. May need an occasional dose of furosemide to keep her intake and output at least even especially given IV antibiotic administration, as noted, she is only 4 feet 2 inches tall, BSA of 1.25m. Nursing notes some degree of difficulty with getting her to adhere to taking oral medications. Continue subcutaneous heparin for DVT prophylaxis. Admission and Anticipated Discharge Date Admission Date: May 22, 2021 Subjective Patient seen in cardiology follow-up. No subjective complaints other than being "cold ". Oxygen saturation improved, pulse oximetry 99% on 1 L nasal cannula early this morning, 92% on room air most recently. Telemetry reveals sinus bradycardia in the 50s. Review of Systems Review of Systems: Unobtainable due to cognitive status Physical Exam Physical Exam: Temp Pulse Resp BP Pulse Ox 37.6 C H 61 20 120/63 92 06/02/21 11:10 06/02/21 11:18 06/02/21 11:10 06/02/21 11:10 06/02/21 11:10 Constitutional: No acute distress Respiratory: Mildly decreased breath sounds the bases Cardiovascular: Rate/Rhythm: regular rate Heart Sounds: no murmur Extremities: no edema Neurologic: Follows commands Results & Data ([facility]) Vital Signs (Past 12 Hours) Vital Signs Temp Pulse Pulse Pulse Resp BP BP 06/02/21 11:18 61 06/02/21 11:10 37.6 C H 68 20 120/63 06/02/21 10:47 06/02/21 07:49 36.9 C 63 18 132/77 06/02/21 03:25 37.4 C 70 18 135/67 Pulse Ox 06/02/21 11:18 06/02/21 11:10 92 06/02/21 10:47 95 06/02/21 07:49 98 06/02/21 03:25 98 Laboratory Results CBC 06/02/21 Range/Units 05:36 WBC 15.09 H (4.8-10.8) K/uL RBC 2.75 L (4.2-5.4) M/uL Hgb 8.0 L (12.0-16.0) g/dL Hct 24.4 L (37-47) % Plt Count 242 (130-400) K/uL Comprehensive Metabolic Panel 06/01/21 06/02/21 Range/Units 16:28 05:36 Sodium 137 135 L (136-145) mmol/L Potassium 3.6 3.6 (3.5-5.1) mmol/L Chloride 101 100 (98-107) mmol/L Carbon Dioxide 28 30 (21-32) mmol/L BUN 18 D 22 H (7-18) mg/dl Creatinine 1.14 1.24 H (0.6-1.2) mg/dl Glucose 147 H 116 H (70-99) mg/dl Calcium 8.5 8.7 (8.5-10.1) mg/dl Intake and Output 06/01/21 06/02/21 06/02/21 22:59 06:59 14:59 Intake Total 215 / 445 115 / 445 115 / 115 Output Total 800 / 1200 150 / 1200 Balance -585 / -755 -35 / -755 115 / 115 Intake: IV 215 / 445 115 / 445 115 / 115 Piperacillin/Tazobactam 3.375 115 / 345 115 / 345 115 / 115 gm In Dextrose 5% 100 ml @ 28. 75 mls/hr IV Q8H [facility] Rx#: [id number] Potassium Chloride / Wtr 20 meq 100 / 100 In 100 ml @ 50 mls/hr IV ONE ONE Rx#:[id number] Output: Urine Amount (Catheter) 800 / 1200 150 / 1200 Freeman/Indwelling 800 / 1200 150 / 1200 Other: Weight 44.3 kg Weight Measurement Method Built in [facility]
--- NOTE | 2021-06-02 14:56 | Hospitalist Progress Note ---
Date of Service June 02, 2021 Assessment & Plan (1) Pneumonia due to COVID-19 virus: (2) Aspiration pneumonia: (3) COVID-19: (4) UTI (urinary tract infection): Plan: #. Aspiration pneumonia #. Acute hypoxic respiratory failure - 2/2 above 05/29 patient vomited and aspirated, desaturated requiring mechanical ventilation Patient also developed low blood pressure and temperature on the same evening. Patient's WBC was elevated and had temperature of 38C. Patient was transferred to ICU, mechanically ventilated, put on IV antibiotic 05/29 Rocephin and metronidazole, required pressors ----> 05/31 patient extubated to oxygen mask 05/31 ATB changed to Zosyn d/t acute desaturation, will c/w Zosyn for now. Stop date 06/05. Continue with IV ATB, transfer to [facility] telemetry WBC trending down, occasional spikes of temperature while inpatient despite being on appropriate antibiotic per culture and sensitivity. For occasional spikes of temperature, talked with pulmonology 06/02 to see if we have to cover for Laura growing on bronchial wash culture, recommended it is likely colonization and does not need treatment.Occasional spikes is likely secondary to Covid. Await 05/29 bronchial wash studies ~Bacterial cultureKlebsiella, Laura, yeast not Laura albicans. Follow- up C/S on Laura. ~Fungal culture and AFB culture pending Tailor antimicrobials as able. DC Decadron 06/02. #. Elevated BNP 05/31 AM patient extubated to Oxy Mask 3L, later stabilized on room air, had acute desaturation 06/04 evening requiring 2 L. BMP drawn 05/31 evening elevated in 4400s. Patient went down to room air. Cardiology on board: use as needed Lasix low-dose. No need for echo for now. #. Pneumonia due to COVID-19 virus She is not vaccinated, came in with shortness of breath and cough for few days [employer]. Found to be Covid positive in the ED. Initially put in dexamethasone and Remdesivir, later discontinued as she was not having any respiratory signs and symptoms. Covid precautions for 20 days from the time of diagnosis. #. 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 #. Low phosphorus Critically low, replace Monitor daily #. UTI Urine cultureE. coli, pansensitive Currently on antibiotic for respiratory coverage #. Mild CYNTHIA At [age] 1.24 up from 1.14 yesterday Likely secondary to Lasix use on the background of volume overload surrounding IV fluids during intubation. Continue to monitor #. Weak/Tired/Lethargic Continue with home dose of Lamictal. PT/OT. #. Low blood pressure per her mother she runs low blood pressure. #. Ambulatory dysfunction: Chronic problem. PT/OT #. Cognitive developmental delay: No acute impairment #. Seizure disorder: History of childhood astrocytoma No acute issues use Continue current antiseizure medication #. DVT prophylaxis: Heparin subcu. Admission and Anticipated Discharge Date Admission Date: May 22, 2021 Subjective Patient in bed, NAD, 1 L nasal cannula oxygen. No acute events overnight. Patient AOx3, calm, hard to hear, denies any pain, other ROS not assessable. Physical Exam Physical Exam: GENERAL: Alert. NAD, 1 L NC HEENT: No pallor, no icterus. Pupils equal, round and reactive to light. Oral mucosa moist. NECK: No JVD, no neck masses. HEART: S1 and S2 heard. Regular rate and rhythm. No murmur, no gallop. RESPIRATORY SYSTEM: Normal AP diameter. No accessory muscle use. No wheezing, diffuse and bilateral cracklesimproving ABDOMEN: Soft, bowel sounds present, nontender, no distention. CENTRAL NERVOUS SYSTEM: Moving extremities, WNL power and sensory functions. EXTREMITIES: No edema, no erythema seen. Results & Data Results & Data ([facility]) Vital Signs (Past 12 Hours) Vital Signs Temp Pulse Pulse Pulse Resp BP BP 06/02/21 11:18 61 06/02/21 11:10 37.6 C H 68 20 120/63 06/02/21 10:47 06/02/21 07:49 36.9 C 63 18 132/77 06/02/21 03:25 37.4 C 70 18 135/67 Pulse Ox 06/02/21 11:18 06/02/21 11:10 92 06/02/21 10:47 95 06/02/21 07:49 98 06/02/21 03:25 98
--- NOTE | 2021-06-02 15:10 | Fluoroscopy Report ---
FL video swallow CLINICAL HISTORY: 41 years-old Female with assess for aspiration. Dysphasia with possible aspiration TECHNIQUE: Video fluoroscopic evaluation of swallowing was performed in the AP and lateral projection s by the speech pathology staff. The patient is fed nectar-thick and thin liquid barium, a barium coa norberto wafer, and barium pudding. FLUOROSCOPY TIME: 1.3 minutes. COMPARISON STUDY: Chest radiograph of same day FINDINGS: There is normal hyoid excursion and epiglottic deflection. When the patient swallowed the c racker with paste consistency, there was reportedly no significant mastication which reportedly resul norberto in the patient coughing No significant penetration or aspiration identified. Swallowing function is within normal limits. IMPRESSION: 1. No aspiration identified. 2. Please see the speech pathologist report for detailed findings and recommendations. ACT 112: Negative or not required by law. Electronically signed by: Akil Figueroa M.D. 06/02/2021 3:09 PM
--- NOTE | 2021-06-02 15:28 | Electrocardiogram Report ---
Test Reason : Blood Pressure : / mmHG Vent. Rate : 087 BPM Atrial Rate : 087 BPM P-R Int : 146 ms QRS Dur : 082 ms QT Int : 344 ms P-R-T Axes : 037 026 027 degrees QTc Int : 413 ms Normal sinus rhythm Normal ECG When compared with ECG of 21-MAY-2021 23:31, No significant change was found Confirmed by Aba Felipe ([id number]) on 06/02/2021 3:28:23 PM Referred By: REFERRED SELF Confirmed By:Aba Felipe
[2021-06-03] MEDS: PIPERACILLIN/TAZOBACTAM 3.375 GM in DEXTROSE 5% 100 ML IV SCH ×3 (03:53→20:14)
[2021-06-03] MEDS: LEVOTHYROXINE SODIUM 25 MCG TABLET PO SCH (06:01)
[2021-06-03 07:16] LABS: Hemoglobin 8.2 g/dL (12.0-16.0); Mean Corpuscular Hemoglobin 29.6 pg (25-34); Mean Corpuscular Hgb Conc 32.8 g/dL (32-36); Mean Corpuscular Volume 90.3 fL (80-100); Mean Platelet Volume 9.9 fL (7.4-10.4); Platelet Count 252 K/uL (130-400); RDW Coefficient of Variation 16.6 % (11.5-14.5); Red Blood Count 2.77 M/uL (4.2-5.4); White Blood Count 8.89 K/uL (4.8-10.8)
[2021-06-03 07:39] LABS: BUN Creatinine Ratio 21.8 (10-20); Calcium 8.4 mg/dl (8.5-10.1); Creatinine Clr Calc Pharmacy 31.2 ml/min; Est GFR (African American) 65.2 ml/min; Est GFR (Non-African American) 56.3 ml/min; Magnesium 1.6 mg/dl (1.8-2.4); Phosphorus 2.6 mg/dl (2.5-4.9); Potassium 3.3 mmol/L (3.5-5.1)
[2021-06-03] MEDS: lamoTRIgine 25 MG TAB PO SCH ×2 (08:54→20:13)
[2021-06-03] MEDS: MAGNESIUM OXIDE 400 MG TAB PO SCH ×2 (08:54→20:12)
[2021-06-03] MEDS: FLUTICASONE FUROATE 100MCG 14 PUFFS/INHALER INH SCH (08:54)
[2021-06-03] MEDS: SODIUM CHLORIDE 1 GM TABLET PO SCH ×3 (08:54→20:13)
[2021-06-03] MEDS: FERROUS SULFATE 325 MG TAB PO SCH (08:55)
[2021-06-03] MEDS: INSULIN ASPART 100 UNITS/ML 3 ML PEN SC SCH ×4 (08:55→21:02)
[2021-06-03] MEDS: THIAMINE HCL 100 MG TAB PO SCH (08:55)
[2021-06-03] MEDS: FOLIC ACID 1 MG TAB PO SCH (08:55)
[2021-06-03] MEDS: HEPARIN SOD 5,000 UNIT/0.5 ML VIAL SQ SCH ×2 (08:56→20:13)
[2021-06-03] MEDS: MEGESTROL ACETATE 40 MG TAB PO SCH (08:56)
[2021-06-03] MEDS: IRON POLYSACCHARIDE COMPLEX 150 MG CAPSULE PO SCH (08:57)
[2021-06-03] MEDS ORDERED: MAGNESIUM SULFATE / D5W 1 GM/100 ML BAG IV ONE (09:00)
[2021-06-03] MEDS: POTASSIUM CHLORIDE / WTR 10 MEQ/100 ML PLCT IV SCH ×3 (09:06→11:42)
--- NOTE | 2021-06-03 11:08 | Communication Note ---
Date of Service: June 03, 2021 Chart reviewed. Telemetry reveals sinus rhythm in the range of 6070 bpm. Intake and output summary from 06/02/2021, negative fluid balance 755 mL, 06/03, negative fluid balance of 282 mL thus far. Oxygen saturation stable, 96% on 1 L nasal cannula per vital signs. Recommendations: Keep intake and output even or slightly negative, given ongoing administration of IV medications. Replace magnesium and potassium intravenously given difficulty with patient adhering to oral medications. Recommend maximum concentration of electrolyte replacement fluids to allow as little volume administration as possible to avoid recurrent volume overload.
[2021-06-03] MEDS: FAMOTIDINE 20 MG in SYRINGE 3 ML IV SCH (12:42)
--- NOTE | 2021-06-03 14:42 | Hospitalist Progress Note ---
Date of Service June 03, 2021 Assessment & Plan (1) Pneumonia due to COVID-19 virus: (2) Aspiration pneumonia: (3) COVID-19: (4) UTI (urinary tract infection): Plan: #. Aspiration pneumonia #. Acute hypoxic respiratory failure - 2/2 above 05/29 patient vomited and aspirated, desaturated requiring mechanical ventilation Patient also developed low blood pressure and temperature on the same evening. Patient's WBC was elevated and had temperature of 38C. Patient was transferred to ICU, mechanically ventilated, put on IV antibiotic 05/29 Rocephin and metronidazole, required pressors ----> 05/31 patient extubated to oxygen mask 05/31 ATB changed to Zosyn d/t acute desaturation, will c/w Zosyn for now. Stop date 06/05. Continue with IV ATB, transfer to [facility] telemetry WBC trending down, occasional spikes of temperature while inpatient despite being on appropriate antibiotic per culture and sensitivity. For occasional spikes of temperature, talked with pulmonology 06/02 to see if we have to cover for Laura growing on bronchial wash culture, recommended it is likely colonization and does not need treatment.Occasional spikes is likely secondary to Covid. Await 05/29 bronchial wash studies ~Bacterial cultureKlebsiella, Laura, yeast not Laura albicans. Follow- up C/S on Laura. ~Fungal culture and AFB culture pending Tailor antimicrobials as able. DC Decadron 06/02. #. Elevated BNP 05/31 AM patient extubated to Oxy Mask 3L, later stabilized on room air, had acute desaturation 06/04 evening requiring 2 L. BMP drawn 05/31 evening elevated in 4400s. Patient went down to room air. Cardiology on board: use as needed Lasix low-dose. No need for echo for now. #. Pneumonia due to COVID-19 virus She is not vaccinated, came in with shortness of breath and cough for few days [employer]IC[employer]. Found to be Covid positive in the ED. Initially put in dexamethasone and Remdesivir, later discontinued as she was not having any respiratory signs and symptoms. Covid precautions for 20 days from the time of diagnosis. #. 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 #. Low phosphorus Monitor daily, replace as able. #. UTI Completed course of antibiotic #. Mild CYNTHIA Resolved #. Weak/Tired/Lethargic Continue with home dose of Lamictal. PT/OT. #. Low blood pressure per her mother she runs low blood pressure. #. Ambulatory dysfunction: Chronic problem. PT/OT #. Cognitive developmental delay: No acute impairment #. Seizure disorder: History of childhood astrocytoma No acute issues use Continue current antiseizure medication #. DVT prophylaxis: Heparin subcu. Disposition: Likely can be discharged but might require placement due to the nature of care she requires. Her mother was usually taking care of her but she is in the hospital due to Covid. Admission and Anticipated Discharge Date Admission Date: May 22, 2021 Subjective Patient in bed, NAD, 1 L nasal cannula oxygen. No acute events overnight. Patient AOx3, calm, hard to hear, denies any pain, other ROS not assessable. Physical Exam Physical Exam: GENERAL: Alert. NAD, 1 L NC HEENT: No pallor, no icterus. Pupils equal, round and reactive to light. Oral mucosa moist. NECK: No JVD, no neck masses. HEART: S1 and S2 heard. Regular rate and rhythm. No murmur, no gallop. RESPIRATORY SYSTEM: Normal AP diameter. No accessory muscle use. No wheezing, diffuse and bilateral cracklesimproving ABDOMEN: Soft, bowel sounds present, nontender, no distention. CENTRAL NERVOUS SYSTEM: Moving extremities, WNL power and sensory functions. EXTREMITIES: No edema, no erythema seen. Results & Data Results & Data ([facility]) Vital Signs (Past 12 Hours) Vital Signs Temp Pulse Resp BP Pulse Ox 06/03/21 12:11 37.0 C 70 20 119/51 L 97 06/03/21 08:04 36.8 C 67 18 118/65 96 06/03/21 04:10 36.9 C 76 19 122/59 L 94
[2021-06-04] MEDS: PIPERACILLIN/TAZOBACTAM 3.375 GM in DEXTROSE 5% 100 ML IV SCH ×3 (04:10→20:21)
[2021-06-04] MEDS: LEVOTHYROXINE SODIUM 25 MCG TABLET PO SCH (05:52)
[2021-06-04 06:40] LABS: Hematocrit (blood only) 27.5 % (37-47); Mean Corpuscular Hemoglobin 29.6 pg (25-34); Mean Corpuscular Hgb Conc 32.7 g/dL (32-36); Mean Corpuscular Volume 90.5 fL (80-100); Mean Platelet Volume 9.8 fL (7.4-10.4); Platelet Count 265 K/uL (130-400); RDW Coefficient of Variation 16.3 % (11.5-14.5); RDW Standard Deviation 52.9 fL (36.4-46.3); Red Blood Count 3.04 M/uL (4.2-5.4); White Blood Count 9.13 K/uL (4.8-10.8)
[2021-06-04 07:23] LABS: BUN Creatinine Ratio 20.5 (10-20); Calcium 8.6 mg/dl (8.5-10.1); Creatinine Clr Calc Pharmacy 42.2 ml/min; Est GFR (African American) 70.2 ml/min; Est GFR (Non-African American) 60.5 ml/min; Phosphorus 3.1 mg/dl (2.5-4.9); Potassium 3.7 mmol/L (3.5-5.1)
[2021-06-04] MEDS: FLUTICASONE FUROATE 100MCG 14 PUFFS/INHALER INH SCH (08:15)
[2021-06-04] MEDS: HEPARIN SOD 5,000 UNIT/0.5 ML VIAL SQ SCH ×2 (08:16→20:22)
[2021-06-04] MEDS: THIAMINE HCL 100 MG TAB PO SCH (08:16)
[2021-06-04] MEDS: lamoTRIgine 25 MG TAB PO SCH ×2 (08:16→20:23)
[2021-06-04] MEDS: MAGNESIUM OXIDE 400 MG TAB PO SCH ×2 (08:16→20:23)
[2021-06-04] MEDS: FERROUS SULFATE 325 MG TAB PO SCH (08:16)
[2021-06-04] MEDS: IRON POLYSACCHARIDE COMPLEX 150 MG CAPSULE PO SCH (08:16)
[2021-06-04] MEDS: SODIUM CHLORIDE 1 GM TABLET PO SCH ×3 (08:16→20:23)
[2021-06-04] MEDS: FOLIC ACID 1 MG TAB PO SCH (08:16)
[2021-06-04] MEDS: INSULIN ASPART 100 UNITS/ML 3 ML PEN SC SCH ×4 (08:30→21:55)
[2021-06-04] MEDS ORDERED: SODIUM CHLORIDE 1 GM TABLET PO SCH (09:00)
[2021-06-04] MEDS: FAMOTIDINE 20 MG in SYRINGE 3 ML IV SCH (13:04)
--- NOTE | 2021-06-04 15:59 | Hospitalist Progress Note ---
Date of Service June 04, 2021 Assessment & Plan (1) Pneumonia due to COVID-19 virus: (2) Aspiration pneumonia: (3) COVID-19: (4) UTI (urinary tract infection): Plan: #. Aspiration pneumonia #. Acute hypoxic respiratory failure - 2/2 above 05/29 patient vomited and aspirated, desaturated requiring mechanical ventilation Patient also developed low blood pressure and temperature on the same evening. Patient's WBC was elevated and had temperature of 38C. Patient was transferred to ICU, mechanically ventilated, put on IV antibiotic 05/29 Rocephin and metronidazole, required pressors ----> 05/31 patient extubated to oxygen mask 05/31 ATB changed to Zosyn d/t acute desaturation, will c/w Zosyn for now. Stop date 06/05. Continue with IV ATB, transfer to [facility] telemetry WBC trending down, occasional spikes of temperature while inpatient despite being on appropriate antibiotic per culture and sensitivity. For occasional spikes of temperature, talked with pulmonology 06/02 to see if we have to cover for Lar[place] growing on bronchial wash culture, recommended it is likely colonization and does not need treatment.Occasional spikes is likely secondary to Covid. Await 05/29 bronchial wash studies ~Bacterial cultureKlebsiella, Laura, yeast not Laura albicans. Follow- up C/S on Laura. ~Fungal culture and AFB culture pending Remains very lethargic and not yet ready to be discharged Denies any significant symptoms We will get PT and OT evaluation and possible discharge on Wednesday #. Elevated BNP 05/31 AM patient extubated to Oxy Mask 3L, later stabilized on room air, had acute desaturation 06/04 evening requiring 2 L. BMP drawn 05/31 evening elevated in 4400s. Patient went down to room air. Cardiology on board: use as needed Lasix low-dose. No need for echo for now. #. Pneumonia due to COVID-19 virus She is not vaccinated, came in with shortness of breath and cough for few days [employer]. Found to be Covid positive in the ED. Initially put in dexamethasone and Remdesivir, later discontinued as she was not having any respiratory signs and symptoms. Covid precautions for 20 days from the time of diagnosis. #. 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 Low phosphorus Monitor daily, replace as able. #. UTI Completed course of antibiotic #. Mild CYNTHIA Resolved #. Weak/Tired/Lethargic Continue with home dose of Lamictal. PT/OT. Will need to continue PT and OT in the hospital before discharge #. Low blood pressure per her mother she runs low blood pressure. Blood pressure remains stable at 111/60 #. Ambulatory dysfunction: Chronic problem. PT/OT #. Cognitive developmental delay: No acute impairment #. Seizure disorder: We will continue current medications History of childhood astrocytoma No acute issues use Continue current antiseizure medication #. DVT prophylaxis: Heparin subcu. Disposition: Likely can be discharged but might require placement due to the nature of care she requires. Her mother was usually taking care of her but she is in the hospital due to Covid. Caregivers are not comfortable that the patient should go home today We will get PT and OT evaluation and possible discharge on Wednesday Admission and Anticipated Discharge Date Admission Date: May 22, 2021 Subjective 06/04/2021 The patient was seen and examined in telemetry unit and in the Covid room She remains asymptomatic but extremely tired and lethargic She has not been participating in physical therapy and even does not want to take her medications Review of Systems Review of Systems: Unobtainable due to cognitive status Physical Exam Physical Exam: Lying in bed comfortably Constitutional: + ill appearing and + thin Eyes: PERRL, conjunctivae normal, anicteric sclerae ENMT: external ear and nose normal, oropharynx normal Neck: trachea midline, no thyromegaly Respiratory: + cough (Minimal cough); no respiratory distress Auscultation: + diminished lung sounds and + crackles (Minimal crackles at the bases) Cardiovascular: Rate/Rhythm: regular rate and regular rhythm; not tachycardic Heart Sounds: normal S1 and normal S2; no murmur Extremities: no edema Gastrointestinal (Abdomen): Inspection/Auscultation: normal bowel sounds; abdomen not distended Percussion/Palpation: abdomen soft; abdomen nontender Musculoskeletal: No acute arthritis in any joint Neurologic: Alert and awake. Has significant mental impairment with very limited conversation. Generally weak and lethargic Results & Data Results & Data ([facility]) Vital Signs (Past 12 Hours) Vital Signs Temp Pulse Pulse Resp BP Pulse Ox 06/04/21 15:50 36.4 C L 109 H 20 111/60 94 06/04/21 12:27 36.8 C 75 20 116/79 90 06/04/21 08:14 37.4 C 86 18 100/52 L 90 06/04/21 08:00 64 Laboratory Results Short CBC 06/04/21 Range/Units 05:47 WBC 9.13 (4.8-10.8) K/uL Hgb 9.0 L (12.0-16.0) g/dL Hct 27.5 L (37-47) % Plt Count 265 (130-400) K/uL BMP 06/04/21 05:47 Sodium 127 L Potassium 3.7 Chloride 97 L Carbon Dioxide 26 BUN 23 H Creatinine 1.12 Glucose 81 Calcium 8.6 Medications Administered Current Inpatient Medications Acetaminophen (Acetaminophen 325 Mg Tab) 650 mg PO Q4H PRN PRN Reason: Pain or Fever Stop: 06/21/21 10:58 Last Admin: 05/25/21 18:09 Dose: 650 mg Documented by: Albuterol (Albuterol Hfa 8 Gm Inhaler) 2 puffs INH Q4H PRN PRN Reason: Shortness Of Breath Or Wheezing Stop: 06/21/21 11:14 Dextrose (Dextrose 50% 50 Ml Syringe) 25 - 50 ml IV UD PRN; Protocol PRN Reason: Hypoglycemia Protocol Stop: 06/29/21 10:44 Ferrous Sulfate (Ferrous Sulfate 325 Mg Tab) 325 mg PO QAM GABI Stop: 07/01/21 08:59 Last Admin: 06/04/21 08:16 Dose: 325 mg Documented by: Fluticasone Furoate (Fluticasone Furoate 100mcg 14 Puffs/Inhaler) 1 puffs INH DAILY [facility] Stop: 06/21/21 11:59 Last Admin: 06/04/21 08:15 Dose: 1 puffs Documented by: Folic Acid (Folic Acid 1 Mg Tab) 1 mg PO QAM GABI Stop: 07/01/21 08:59 Last Admin: 06/04/21 08:16 Dose: 1 mg Documented by: Glucagon (Glucagon For Inj 1 Mg Vial) 1 mg IM UD PRN; Protocol PRN Reason: Hypoglycemia Protocol Stop: 06/29/21 10:44 Glucose (Glucose 40% Gel 15 Gm Tube) 15 - 30 gm PO UD PRN; Protocol PRN Reason: Hypoglycemia Protocol Stop: 06/29/21 10:44 Glucose (Glucose 10 Tabs/Tube) 4 - 8 tabs PO UD PRN; Protocol PRN Reason: Hypoglycemia Protocol Stop: 06/29/21 10:44 Guaifenesin/Dextromethorphan (Guaifenesin/Dextrom Syrup 200mg/20mg 10ml Udc) 10 ml PO Q6H PRN PRN Reason: Cough Stop: 06/22/21 11:51 Last Admin: 05/29/21 17:11 Dose: 10 ml Documented by: Heparin Sodium (Beef Lung) (Heparin 10 Unit/Ml 5 Ml Flush) 5 ml FLUSH PRN PRN PRN Reason: Flush Stop: 06/23/21 11:58 Last Admin: 06/02/21 08:58 Dose: 5 ml Documented by: Heparin Sodium (Porcine) (Heparin Sod 5,000 Unit/0.5 Ml Vial) 5,000 units SQ Q12 GABI Stop: 06/26/21 08:59 Last Admin: 06/04/21 08:16 Dose: 5,000 units Documented by: Famotidine 20 mg/ Syringe 5 mls @ 2.5 mls/min IV Q24H GABI Stop: 06/29/21 11:59 Last Admin: 06/04/21 13:04 Dose: 2.5 mls/min Documented by: Piperacillin Sod/Tazobactam (Sod 3.375 gm/ Dextrose) 115 mls @ 28.75 mls/hr IV Q8H GABI; Protocol Stop: 06/05/21 23:59 Last Admin: 06/04/21 13:04 Dose: 28.8 mls/hr Documented by: Insulin Aspart (Insulin Aspart 100 Units/Ml 3 Ml Pen) 0 units SC ACHS GABI Stop: 06/30/21 11:29 Last Admin: 06/04/21 13:02 Dose: Not Given Documented by: Lamotrigine (Lamotrigine 25 Mg Tab) 75 mg PO BID GABI Stop: 06/25/21 20:59 Last Admin: 06/04/21 08:16 Dose: 75 mg Documented by: Levalbuterol HCl (Levalbuterol 1.25mg/0.5ml Neb) 1.25 mg NEB Q4H PRN PRN Reason: Shortness Of Breath Or Wheezing Stop: 06/21/21 11:14 Last Admin: 06/01/21 06:26 Dose: 1.25 mg Documented by: Levothyroxine Sodium (Levothyroxine Sodium 25 Mcg Tablet) 37.5 mcg PO DAILYBB [facility] Stop: 06/22/21 06:29 Last Admin: 06/04/21 05:52 Dose: 37.5 mcg Documented by: Magnesium Oxide (Magnesium Oxide 400 Mg Tab) 400 mg PO BID [facility] Stop: 06/21/21 20:59 Last Admin: 06/04/21 08:16 Dose: 400 mg Documented by: Megestrol Acetate (Megestrol Acetate 40 Mg Tab) 20 mg PO QAM [facility] Stop: 06/22/21 08:59 Last Admin: 06/03/21 08:56 Dose: 20 mg Documented by: Miscellaneous (Carbohydrates For Hypoglycemia ) 15 - 30 gm PO UD PRN PRN Reason: Hypoglycemia Treatment Stop: 06/29/21 10:44 Miscellaneous Information (Piperacill/Tazobac Consult Active) 1 ea N/A UD PRN PRN Reason: Consult Stop: 06/05/21 23:59 Ondansetron HCl (Ondansetron Inj 2 Mg/Ml 2 Ml Vial) 4 mg IV Q6H PRN PRN Reason: Nausea And Vomiting Stop: 06/21/21 11:16 Last Admin: 05/29/21 17:35 Dose: 4 mg Documented by: Polysaccharide Iron Complex (Iron Polysaccharide Complex 150 Mg Capsule) 150 mg PO DAILY [facility] Stop: 06/22/21 08:59 Last Admin: 06/04/21 08:16 Dose: 150 mg Documented by: Sodium Chloride (Sodium Chloride 1 Gm Tablet) 1 gm PO TID [facility] Stop: 06/21/21 13:59 Last Admin: 06/04/21 13:05 Dose: 1 gm Documented by: Thiamine HCl (Thiamine Hcl 100 Mg Tab) 100 mg PO QAM [facility] Stop: 06/22/21 08:59 Last Admin: 06/04/21 08:16 Dose: 100 mg Documented by:
[2021-06-05] MEDS: PIPERACILLIN/TAZOBACTAM 3.375 GM in DEXTROSE 5% 100 ML IV SCH ×3 (03:54→20:25)
[2021-06-05] MEDS: LEVOTHYROXINE SODIUM 25 MCG TABLET PO SCH (05:53)
[2021-06-05 07:18] LABS: BUN Creatinine Ratio 15.9 (10-20); Calcium 8.6 mg/dl (8.5-10.1); Creatinine Clr Calc Pharmacy 41.9 ml/min; Est GFR (African American) 69.4 ml/min; Est GFR (Non-African American) 59.9 ml/min; Potassium 3.7 mmol/L (3.5-5.1)
[2021-06-05] MEDS: INSULIN ASPART 100 UNITS/ML 3 ML PEN SC SCH ×4 (08:00→21:00)
[2021-06-05] MEDS: SODIUM CHLORIDE 1 GM TABLET PO SCH ×3 (09:41→20:26)
[2021-06-05] MEDS: lamoTRIgine 25 MG TAB PO SCH ×2 (09:41→20:25)
[2021-06-05] MEDS: FOLIC ACID 1 MG TAB PO SCH (09:42)
[2021-06-05] MEDS: IRON POLYSACCHARIDE COMPLEX 150 MG CAPSULE PO SCH (09:42)
[2021-06-05] MEDS: MAGNESIUM OXIDE 400 MG TAB PO SCH ×2 (09:42→20:25)
[2021-06-05] MEDS: THIAMINE HCL 100 MG TAB PO SCH (09:42)
[2021-06-05] MEDS: FERROUS SULFATE 325 MG TAB PO SCH (09:42)
[2021-06-05] MEDS: HEPARIN SOD 5,000 UNIT/0.5 ML VIAL SQ SCH ×2 (09:42→20:26)
[2021-06-05] MEDS: FLUTICASONE FUROATE 100MCG 14 PUFFS/INHALER INH SCH (09:43)
[2021-06-05] MEDS: FAMOTIDINE 20 MG in SYRINGE 3 ML IV SCH (11:36)
--- NOTE | 2021-06-05 19:02 | Hospitalist Progress Note ---
Date of Service June 05, 2021 Assessment & Plan (1) Pneumonia due to COVID-19 virus: (2) Aspiration pneumonia: (3) COVID-19: (4) UTI (urinary tract infection): Plan: #. Aspiration pneumonia #. Acute hypoxic respiratory failure - 2/2 above 05/29 patient vomited and aspirated, desaturated requiring mechanical ventilation Patient also developed low blood pressure and temperature on the same evening. Patient's WBC was elevated and had temperature of 38C. Patient was transferred to ICU, mechanically ventilated, put on IV antibiotic 05/29 Rocephin and metronidazole, required pressors ----> 05/31 patient extubated to oxygen mask 05/31 ATB changed to Zosyn d/t acute desaturation, will c/w Zosyn for now. Stop date 06/05. Continue with IV ATB, transfer to [facility] telemetry WBC trending down, occasional spikes of temperature while inpatient despite being on appropriate antibiotic per culture and sensitivity. For occasional spikes of temperature, talked with pulmonology 06/02 to see if we have to cover for Laura growing on bronchial wash culture, recommended it is likely colonization and does not need treatment.Occasional spikes is likely secondary to Covid. Await 05/29 bronchial wash studies ~Bacterial cultureKlebsiella, Laura, yeast not Laura albicans. Follow- up C/S on Laura. ~Fungal culture and AFB culture pending Remains very lethargic and not yet ready to be discharged Denies any significant symptoms We will get PT and OT evaluation and possible discharge on Wednesday Little bit better today She has been taken out of isolation and will be transferred to medical floor Likely discharge tomorrow #. Elevated BNP 05/31 AM patient extubated to Oxy Mask 3L, later stabilized on room air, had acute desaturation 06/04 evening requiring 2 L. BMP drawn 05/31 evening elevated in 4400s. Patient went down to room air. Cardiology on board: use as needed Lasix low-dose. No need for echo for now. We will try to give a small dose of Lasix tomorrow if the blood pressure is fine #. Pneumonia due to COVID-19 virus She is not vaccinated, came in with shortness of breath and cough for few days [employer]. Found to be Covid positive in the ED. Initially put in dexamethasone and Remdesivir, later discontinued as she was not having any respiratory signs and symptoms. Covid precautions for 20 days from the time of diagnosis. No more isolation #. 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 Low phosphorus Monitor daily, replace as able. #. UTI Completed course of antibiotic #. Mild CYNTHIA Resolved #. Weak/Tired/Lethargic Continue with home dose of Lamictal. PT/OT. Will need to continue PT and OT in the hospital before discharge #. Low blood pressure per her mother she runs low blood pressure. Blood pressure remains stable at 111/60 #. Ambulatory dysfunction: Chronic problem. PT/OT #. Cognitive developmental delay: No acute impairment #. Seizure disorder: We will continue current medications History of childhood astrocytoma No acute issues use Continue current antiseizure medication #. DVT prophylaxis: Heparin subcu. Disposition: Likely can be discharged but might require placement due to the nature of care she requires. Her mother was usually taking care of her but she is in the hospital due to Covid. Caregivers are not comfortable that the patient should go home today We will get PT and OT evaluation and possible discharge on Wednesday Admission and Anticipated Discharge Date Admission Date: May 22, 2021 Subjective 06/04/2021 The patient was seen and examined in telemetry unit and in the Covid room She remains asymptomatic but extremely tired and lethargic She has not been participating in physical therapy and even does not want to take her medications 06/05/2021 The patient was seen and examined in the Covid room She has been much better Was out of bed on a chair and ate a little bit today Review of Systems Review of Systems: Unobtainable due to cognitive status Physical Exam Physical Exam: Lying in bed comfortably Constitutional: well developed, well nourished, + ill appearing and + thin Eyes: PERRL, conjunctivae normal, anicteric sclerae ENMT: external ear and nose normal, oropharynx normal Neck: trachea midline, no thyromegaly Respiratory: no respiratory distress and no cough (Minimal cough) Auscultation: + diminished lung sounds and + crackles (Minimal crackles at the bases); no wheezes Transmitted sounds from tracheal secretion Cardiovascular: Rate/Rhythm: regular rate and regular rhythm; not tachycardic Heart Sounds: normal S1 and normal S2; no murmur Extremities: no edema Gastrointestinal (Abdomen): Inspection/Auscultation: normal bowel sounds; abdomen not distended Percussion/Palpation: abdomen soft; abdomen nontender Musculoskeletal: No acute arthritis in any joint Neurologic: Alert alert and awake Results & Data Results & Data ([facility]) Vital Signs (Past 12 Hours) Vital Signs Temp Pulse Pulse Pulse Resp BP BP 06/05/21 16:40 36.5 C 70 18 110/80 06/05/21 12:06 37.1 C 73 18 97/51 L 06/05/21 08:00 61 06/05/21 07:58 36.6 C 65 18 120/55 L Pulse Ox 06/05/21 16:40 94 06/05/21 12:06 90 06/05/21 08:00 06/05/21 07:58 92 Laboratory Results BMP 06/05/21 05:41 Sodium 128 L Potassium 3.7 Chloride 95 L Carbon Dioxide 27 BUN 18 Creatinine 1.13 Glucose 74 Calcium 8.6 Medications Administered Current Inpatient Medications Acetaminophen (Acetaminophen 325 Mg Tab) 650 mg PO Q4H PRN PRN Reason: Pain or Fever Stop: 06/21/21 10:58 Last Admin: 05/25/21 18:09 Dose: 650 mg Documented by: Albuterol (Albuterol Hfa 8 Gm Inhaler) 2 puffs INH Q4H PRN PRN Reason: Shortness Of Breath Or Wheezing Stop: 06/21/21 11:14 Dextrose (Dextrose 50% 50 Ml Syringe) 25 - 50 ml IV UD PRN; Protocol PRN Reason: Hypoglycemia Protocol Stop: 06/29/21 10:44 Ferrous Sulfate (Ferrous Sulfate 325 Mg Tab) 325 mg PO QAM [facility] Stop: 07/01/21 08:59 Last Admin: 06/05/21 09:42 Dose: 325 mg Documented by: Fluticasone Furoate (Fluticasone Furoate 100mcg 14 Puffs/Inhaler) 1 puffs INH DAILY [facility] Stop: 06/21/21 11:59 Last Admin: 06/05/21 09:43 Dose: Not Given Documented by: Folic Acid (Folic Acid 1 Mg Tab) 1 mg PO QAM GABI Stop: 07/01/21 08:59 Last Admin: 06/05/21 09:42 Dose: 1 mg Documented by: Glucagon (Glucagon For Inj 1 Mg Vial) 1 mg IM UD PRN; Protocol PRN Reason: Hypoglycemia Protocol Stop: 06/29/21 10:44 Glucose (Glucose 40% Gel 15 Gm Tube) 15 - 30 gm PO UD PRN; Protocol PRN Reason: Hypoglycemia Protocol Stop: 06/29/21 10:44 Glucose (Glucose 10 Tabs/Tube) 4 - 8 tabs PO UD PRN; Protocol PRN Reason: Hypoglycemia Protocol Stop: 06/29/21 10:44 Guaifenesin/Dextromethorphan (Guaifenesin/Dextrom Syrup 200mg/20mg 10ml Udc) 10 ml PO Q6H PRN PRN Reason: Cough Stop: 06/22/21 11:51 Last Admin: 05/29/21 17:11 Dose: 10 ml Documented by: Heparin Sodium (Beef Lung) (Heparin 10 Unit/Ml 5 Ml Flush) 5 ml FLUSH PRN PRN PRN Reason: Flush Stop: 06/23/21 11:58 Last Admin: 06/05/21 13:53 Dose: 15 ml Documented by: Heparin Sodium (Porcine) (Heparin Sod 5,000 Unit/0.5 Ml Vial) 5,000 units SQ Q12 GABI Stop: 06/26/21 08:59 Last Admin: 06/05/21 09:42 Dose: 5,000 units Documented by: Famotidine 20 mg/ Syringe 5 mls @ 2.5 mls/min IV Q24H GABI Stop: 06/29/21 11:59 Last Admin: 06/05/21 11:36 Dose: 2.5 mls/min Documented by: Piperacillin Sod/Tazobactam (Sod 3.375 gm/ Dextrose) 115 mls @ 28.75 mls/hr IV Q8H GABI; Protocol Stop: 06/05/21 23:59 Last Infusion: 06/05/21 15:36 Dose: Infused Documented by: Insulin Aspart (Insulin Aspart 100 Units/Ml 3 Ml Pen) 0 units SC ACHS GABI Stop: 06/30/21 11:29 Last Admin: 06/05/21 17:42 Dose: Not Given Documented by: Lamotrigine (Lamotrigine 25 Mg Tab) 75 mg PO BID GABI Stop: 06/25/21 20:59 Last Admin: 06/05/21 09:41 Dose: 75 mg Documented by: Levalbuterol HCl (Levalbuterol 1.25mg/0.5ml Neb) 1.25 mg NEB Q4H PRN PRN Reason: Shortness Of Breath Or Wheezing Stop: 06/21/21 11:14 Last Admin: 06/01/21 06:26 Dose: 1.25 mg Documented by: Levothyroxine Sodium (Levothyroxine Sodium 25 Mcg Tablet) 37.5 mcg PO DAILYBB [facility] Stop: 06/22/21 06:29 Last Admin: 06/05/21 05:53 Dose: 37.5 mcg Documented by: Magnesium Oxide (Magnesium Oxide 400 Mg Tab) 400 mg PO BID [facility]I Stop: 06/21/21 20:59 Last Admin: 06/05/21 09:42 Dose: 400 mg Documented by: Megestrol Acetate (Megestrol Acetate 40 Mg Tab) 20 mg PO QAM [facility] Stop: 06/22/21 08:59 Last Admin: 06/03/21 08:56 Dose: 20 mg Documented by: Miscellaneous (Carbohydrates For Hypoglycemia ) 15 - 30 gm PO UD PRN PRN Reason: Hypoglycemia Treatment Stop: 06/29/21 10:44 Miscellaneous Information (Piperacill/Tazobac Consult Active) 1 ea N/A UD PRN PRN Reason: Consult Stop: 06/05/21 23:59 Ondansetron HCl (Ondansetron Inj 2 Mg/Ml 2 Ml Vial) 4 mg IV Q6H PRN PRN Reason: Nausea And Vomiting Stop: 06/21/21 11:16 Last Admin: 05/29/21 17:35 Dose: 4 mg Documented by: Polysaccharide Iron Complex (Iron Polysaccharide Complex 150 Mg Capsule) 150 mg PO DAILY [facility] Stop: 06/22/21 08:59 Last Admin: 06/05/21 09:42 Dose: 150 mg Documented by: Sodium Chloride (Sodium Chloride 1 Gm Tablet) 1 gm PO TID [facility] Stop: 06/21/21 13:59 Last Admin: 06/05/21 14:10 Dose: 1 gm Documented by: Thiamine HCl (Thiamine Hcl 100 Mg Tab) 100 mg PO QAM [facility] Stop: 06/22/21 08:59 Last Admin: 06/05/21 09:42 Dose: 100 mg Documented by:
[2021-06-06] MEDS: LEVOTHYROXINE SODIUM 25 MCG TABLET PO SCH (05:40)
[2021-06-06 08:45] LABS: Hematocrit (blood only) 26.8 % (37-47); Mean Corpuscular Hemoglobin 29.1 pg (25-34); Mean Corpuscular Hgb Conc 33.6 g/dL (32-36); Mean Corpuscular Volume 86.7 fL (80-100); Mean Platelet Volume 9.6 fL (7.4-10.4); Platelet Count 293 K/uL (130-400); RDW Coefficient of Variation 16.4 % (11.5-14.5); Red Blood Count 3.09 M/uL (4.2-5.4); White Blood Count 9.81 K/uL (4.8-10.8)
[2021-06-06 09:06] LABS: BUN Creatinine Ratio 12.8 (10-20); Calcium 8.8 mg/dl (8.5-10.1); Creatinine Clr Calc Pharmacy 44.2 ml/min; Est GFR (African American) 74.2 ml/min; Magnesium 1.9 mg/dl (1.8-2.4)
[2021-06-06 09:07] LABS: Phosphorus 2.6 mg/dl (2.5-4.9)
[2021-06-06 09:15] LABS: Basophils # (auto) 0.01 K/uL (0-0.2); Basophils % (auto) 0.1 %; Eosinophils % (auto) 3.1 %; Immature Granulocytes # (auto) 0.51 K/uL (0.00-0.02); Immature Granulocytes % (auto) 5.2 %; Lymphocytes # (auto) 1.82 K/uL (1.2-3.4); Lymphocytes % (auto) 18.6 %; Monocytes # (auto) 0.37 K/uL (0.11-0.59); Monocytes % (auto) 3.8 %; Neutrophils % (auto) 69.2 %; Polychromasia 1+
[2021-06-06] MEDS: SODIUM CHLORIDE 1 GM TABLET PO SCH ×2 (10:04→13:46)
[2021-06-06] MEDS: THIAMINE HCL 100 MG TAB PO SCH (10:04)
[2021-06-06] MEDS: HEPARIN SOD 5,000 UNIT/0.5 ML VIAL SQ SCH (10:04)
[2021-06-06] MEDS: MAGNESIUM OXIDE 400 MG TAB PO SCH (10:05)
[2021-06-06] MEDS: lamoTRIgine 25 MG TAB PO SCH (10:05)
[2021-06-06] MEDS: FOLIC ACID 1 MG TAB PO SCH (10:06)
[2021-06-06] MEDS: FERROUS SULFATE 325 MG TAB PO SCH (10:06)
[2021-06-06] MEDS: IRON POLYSACCHARIDE COMPLEX 150 MG CAPSULE PO SCH (10:06)
[2021-06-06] MEDS: FLUTICASONE FUROATE 100MCG 14 PUFFS/INHALER INH SCH (10:07)
[2021-06-06] MEDS: INSULIN ASPART 100 UNITS/ML 3 ML PEN SC SCH ×3 (11:12→17:30)
[2021-06-06] MEDS: MEGESTROL ACETATE 40 MG TAB PO SCH (12:32)
--- NOTE | 2021-06-06 12:53 | Hospitalist Progress Note ---
Date of Service June 06, 2021 Assessment & Plan (1) Pneumonia due to COVID-19 virus: (2) Aspiration pneumonia: (3) COVID-19: (4) UTI (urinary tract infection): Plan: #. Aspiration pneumonia #. Acute hypoxic respiratory failure - 2/2 above 05/29 patient vomited and aspirated, desaturated requiring mechanical ventilation Patient also developed low blood pressure and temperature on the same evening. Patient's WBC was elevated and had temperature of 38C. Patient was transferred to ICU, mechanically ventilated, put on IV antibiotic 05/29 Rocephin and metronidazole, required pressors ----> 05/31 patient extubated to oxygen mask 05/31 ATB changed to Zosyn d/t acute desaturation, will c/w Zosyn for now. Stop date 06/05. Continue with IV ATB, transfer to [facility] telemetry WBC trending down, occasional spikes of temperature while inpatient despite being on appropriate antibiotic per culture and sensitivity. For occasional spikes of temperature, talked with pulmonology 06/02 to see if we have to cover for Laura growing on bronchial wash culture, recommended it is likely colonization and does not need treatment.Occasional spikes is likely secondary to Covid. Await 05/29 bronchial wash studies ~Bacterial cultureKlebsiella, Laura, yeast not Laura albicans. Follow- up C/S on Laura. ~Fungal culture and AFB culture pending Remains very lethargic and not yet ready to be discharged Denies any significant symptoms Minimal cough without any shortness of breath Generally weak but otherwise stable to be discharged home this afternoon Discussed with the father and was given an update about Eliane #. Elevated BNP 05/31 AM patient extubated to Oxy Mask 3L, later stabilized on room air, had acute desaturation 06/04 evening requiring 2 L. BMP drawn 05/31 evening elevated in 4400s. Patient went down to room air. Cardiology on board: use as needed Lasix low-dose. No need for echo for now. We will try to give a small dose of Lasix tomorrow if the blood pressure is fine #. Pneumonia due to COVID-19 virus She is not vaccinated, came in with shortness of breath and cough for few days [employer]. Found to be Covid positive in the ED. Initially put in dexamethasone and Remdesivir, later discontinued as she was not having any respiratory signs and symptoms. Covid precautions for 20 days from the time of diagnosis. No more isolation #. 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 Low phosphorus Monitor daily, replace as able. #. UTI Completed course of antibiotic #. Mild CYNTHIA Resolved #. Weak/Tired/Lethargic Continue with home dose of Lamictal. PT/OT. Will need to continue PT and OT in the hospital before discharge #. Low blood pressure per her mother she runs low blood pressure. Blood pressure remains stable at 111/60 #. Ambulatory dysfunction: Chronic problem. PT/OT #. Cognitive developmental delay: No acute impairment #. Seizure disorder: We will continue current medications History of childhood astrocytoma No acute issues use Continue current antiseizure medication #. DVT prophylaxis: Heparin subcu. Disposition: Likely can be discharged but might require placement due to the nature of care she requires. Her mother was usually taking care of her but she is in the hospital due to Covid. Seems to be back at her baseline Discussed with the father and the mother and she will be discharged home this afternoon Admission and Anticipated Discharge Date Admission Date: May 22, 2021 Subjective 06/04/2021 The patient was seen and examined in telemetry unit and in the Covid room She remains asymptomatic but extremely tired and lethargic She has not been participating in physical therapy and even does not want to take her medications 06/05/2021 The patient was seen and examined in the Covid room She has been much better Was out of bed on a chair and ate a little bit today 06/06/2021 The patient was seen and examined in medical floor She has been feeling much better but remains very weak and lethargic She does not have any acute distress and wants to go home She has been out of her respiratory isolation Review of Systems Review of Systems: Unobtainable due to cognitive status Physical Exam Physical Exam: Lying in bed comfortably Constitutional: well developed, well nourished, + ill appearing and + thin Eyes: PERRL, conjunctivae normal, anicteric sclerae ENMT: external ear and nose normal, oropharynx normal Neck: trachea midline, no thyromegaly Respiratory: no respiratory distress and no cough (Minimal cough) Auscultation: + diminished lung sounds and + crackles (Minimal crackles at the bases); no wheezes Cardiovascular: Rate/Rhythm: regular rate and regular rhythm; not tachycardic Heart Sounds: normal S1 and normal S2; no murmur Extremities: no edema Gastrointestinal (Abdomen): Inspection/Auscultation: normal bowel sounds; abdomen not distended Percussion/Palpation: abdomen soft; abdomen nontender Musculoskeletal: No acute arthritis in any joint Neurologic: Alert, awake. Has moderate mental impairment. Minimal verbal communication Results & Data Results & Data ([facility]) Vital Signs (Past 12 Hours) Vital Signs Temp Pulse Resp BP Pulse Ox 06/06/21 07:31 36.8 C 80 18 101/70 95 Laboratory Results Short CBC 06/06/21 Range/Units 08:08 WBC 9.81 (4.8-10.8) K/uL Hgb 9.0 L (12.0-16.0) g/dL Hct 26.8 L (37-47) % Plt Count 293 (130-400) K/uL BMP 06/06/21 08:08 Sodium 128 L Potassium 4.0 Chloride 96 L Carbon Dioxide 24 BUN 14 Creatinine 1.07 Glucose 71 Calcium 8.8 Medications Administered Current Inpatient Medications Acetaminophen (Acetaminophen 325 Mg Tab) 650 mg PO Q4H PRN PRN Reason: Pain or Fever Stop: 06/21/21 10:58 Last Admin: 05/25/21 18:09 Dose: 650 mg Documented by: Albuterol (Albuterol Hfa 8 Gm Inhaler) 2 puffs INH Q4H PRN PRN Reason: Shortness Of Breath Or Wheezing Stop: 06/21/21 11:14 Dextrose (Dextrose 50% 50 Ml Syringe) 25 - 50 ml IV UD PRN; Protocol PRN Reason: Hypoglycemia Protocol Stop: 06/29/21 10:44 Ferrous Sulfate (Ferrous Sulfate 325 Mg Tab) 325 mg PO QAM GABI Stop: 07/01/21 08:59 Last Admin: 06/06/21 10:06 Dose: 325 mg Documented by: Fluticasone Furoate (Fluticasone Furoate 100mcg 14 Puffs/Inhaler) 1 puffs INH DAILY GABI Stop: 06/21/21 11:59 Last Admin: 06/06/21 10:07 Dose: 1 puffs Documented by: Folic Acid (Folic Acid 1 Mg Tab) 1 mg PO QAM GABI Stop: 07/01/21 08:59 Last Admin: 06/06/21 10:06 Dose: 1 mg Documented by: Glucagon (Glucagon For Inj 1 Mg Vial) 1 mg IM UD PRN; Protocol PRN Reason: Hypoglycemia Protocol Stop: 06/29/21 10:44 Glucose (Glucose 40% Gel 15 Gm Tube) 15 - 30 gm PO UD PRN; Protocol PRN Reason: Hypoglycemia Protocol Stop: 06/29/21 10:44 Glucose (Glucose 10 Tabs/Tube) 4 - 8 tabs PO UD PRN; Protocol PRN Reason: Hypoglycemia Protocol Stop: 06/29/21 10:44 Guaifenesin/Dextromethorphan (Guaifenesin/Dextrom Syrup 200mg/20mg 10ml Udc) 10 ml PO Q6H PRN PRN Reason: Cough Stop: 06/22/21 11:51 Last Admin: 05/29/21 17:11 Dose: 10 ml Documented by: Heparin Sodium (Beef Lung) (Heparin 10 Unit/Ml 5 Ml Flush) 5 ml FLUSH PRN PRN PRN Reason: Flush Stop: 06/23/21 11:58 Last Admin: 06/05/21 13:53 Dose: 15 ml Documented by: Heparin Sodium (Porcine) (Heparin Sod 5,000 Unit/0.5 Ml Vial) 5,000 units SQ Q12 GABI Stop: 06/26/21 08:59 Last Admin: 06/06/21 10:04 Dose: 5,000 units Documented by: Famotidine 20 mg/ Syringe 5 mls @ 2.5 mls/min IV Q24H GABI Stop: 06/29/21 11:59 Last Admin: 06/05/21 11:36 Dose: 2.5 mls/min Documented by: Insulin Aspart (Insulin Aspart 100 Units/Ml 3 Ml Pen) 0 units SC ACHS GABI Stop: 06/30/21 11:29 Last Admin: 06/06/21 11:12 Dose: Not Given Documented by: Lamotrigine (Lamotrigine 25 Mg Tab) 75 mg PO BID GABI Stop: 06/25/21 20:59 Last Admin: 06/06/21 10:05 Dose: 75 mg Documented by: Levalbuterol HCl (Levalbuterol 1.25mg/0.5ml Neb) 1.25 mg NEB Q4H PRN PRN Reason: Shortness Of Breath Or Wheezing Stop: 06/21/21 11:14 Last Admin: 06/01/21 06:26 Dose: 1.25 mg Documented by: Levothyroxine Sodium (Levothyroxine Sodium 25 Mcg Tablet) 37.5 mcg PO DAILYBB [facility] Stop: 06/22/21 06:29 Last Admin: 06/06/21 05:40 Dose: 37.5 mcg Documented by: Magnesium Oxide (Magnesium Oxide 400 Mg Tab) 400 mg PO BID [facility] Stop: 06/21/21 20:59 Last Admin: 06/06/21 10:05 Dose: 400 mg Documented by: Megestrol Acetate (Megestrol Acetate 40 Mg Tab) 20 mg PO QAM [facility] Stop: 06/22/21 08:59 Last Admin: 06/06/21 12:32 Dose: 20 mg Documented by: Miscellaneous (Carbohydrates For Hypoglycemia ) 15 - 30 gm PO UD PRN PRN Reason: Hypoglycemia Treatment Stop: 06/29/21 10:44 Ondansetron HCl (Ondansetron Inj 2 Mg/Ml 2 Ml Vial) 4 mg IV Q6H PRN PRN Reason: Nausea And Vomiting Stop: 06/21/21 11:16 Last Admin: 05/29/21 17:35 Dose: 4 mg Documented by: Polysaccharide Iron Complex (Iron Polysaccharide Complex 150 Mg Capsule) 150 mg PO DAILY [facility] Stop: 06/22/21 08:59 Last Admin: 06/06/21 10:06 Dose: 150 mg Documented by: Sodium Chloride (Sodium Chloride 1 Gm Tablet) 1 gm PO TID [facility] Stop: 06/21/21 13:59 Last Admin: 06/06/21 10:04 Dose: 1 gm Documented by: Thiamine HCl (Thiamine Hcl 100 Mg Tab) 100 mg PO QAM [facility] Stop: 06/22/21 08:59 Last Admin: 06/06/21 10:04 Dose: 100 mg Documented by:
[2021-06-06] MEDS: FAMOTIDINE 20 MG in SYRINGE 3 ML IV SCH (13:46)
[2021-06-06] MEDS ORDERED: FUROSEMIDE 20 MG TAB PO ONE (14:30)
--- NOTE | 2021-06-07 07:26 | Discharge Summary ---
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 History obtained patient's mother only, patient unable to provide any meaningful history She was admitted with symptoms secondary to COVID-19 infection. Admission Exam Per Admitting Provider Physical Exam: Lying in bed comfortably Constitutional: well developed, well nourished, + ill appearing and + obese Eyes: PERRL, conjunctivae normal, anicteric sclerae ENMT: external ear and nose normal, oropharynx normal Neck: trachea midline, no thyromegaly Respiratory: no respiratory distress Auscultation: + diminished lung sounds and + crackles (Minimal crackles at the bases); no wheezes Cardiovascular: Rate/Rhythm: regular rate and regular rhythm; not tachycardic Heart Sounds: normal S1 and normal S2; no murmur Extremities: + edema (Trace edema bilaterally) Gastrointestinal (Abdomen): Inspection/Auscultation: normal bowel sounds; abdomen not distended Percussion/Palpation: abdomen soft; abdomen nontender Musculoskeletal: No acute arthritis in any joint Neurologic: Alert, awake and oriented x3. Generally weak Principal Diagnosis Pneumonia due to COVID-19 virus, aspiration pneumonia, UTI, chronic hyponatremia, cognitive developmental delay, seizure disorder Discharge Exam Constitutional well developed, well nourished, + ill appearing and + thin Eyes PERRL, conjunctivae normal, anicteric sclerae ENMT external ear and nose normal, oropharynx normal Neck trachea midline, no thyromegaly Respiratory no respiratory distress and no cough (Minimal cough) Auscultation: + diminished lung sounds and + crackles (Minimal crackles at the bases); no wheezes Cardiovascular Rate/Rhythm: regular rate and regular rhythm; not tachycardic Heart Sounds: normal S1 and normal S2; no murmur Extremities: no edema Gastrointestinal (Abdomen) Inspection/Auscultation: normal bowel sounds; abdomen not distended Percussion/Palpation: abdomen soft; abdomen nontender Discharge Data Allergies Allergy/AdvReac Type Severity Reaction Status Date / Time phenobarbital Allergy Mild Unknown Verified 05/22/21 10:17 omeprazole AdvReac Unknown red face Verified 05/22/21 10:17 Consultations 05/29/21 23:09 Consult Public Policy Manager Routine 06/01/21 12:00 Consult Cardiology Routine Ordered Studies 05/25/21 17:26 CT head/brain wo con Urgent 06/02/21 14:30 FL video swallow Routine Hospital Course (1) Pneumonia due to COVID-19 virus: (2) Aspiration pneumonia: (3) COVID-19: (4) UTI (urinary tract infection): #. Aspiration pneumonia #. Acute hypoxic respiratory failure - 2/2 above 05/29 patient vomited and aspirated, desaturated requiring mechanical ventilation Patient also developed low blood pressure and temperature on the same evening. Patient's WBC was elevated and had temperature of 38C. Patient was transferred to ICU, mechanically ventilated, put on IV antibiotic 05/29 Rocephin and metronidazole, required pressors ----> 05/31 patient extubated to oxygen mask 05/31 ATB changed to Zosyn d/t acute desaturation, will c/w Zosyn for now. Stop date 06/05. Continue with IV ATB, transfer to med telemetry WBC trending down, occasional spikes of temperature while inpatient despite being on appropriate antibiotic per culture and sensitivity. For occasional spikes of temperature, talked with pulmonology 06/02 to see if we have to cover for Laura growing on bronchial wash culture, recommended it is likely colonization and does not need treatment.Occasional spikes is likely secondary to Covid. Await 05/29 bronchial wash studies ~Bacterial cultureKlebsiella, Laura, yeast not Laura albicans. Follow- up C/S on Laura. ~Fungal culture and AFB culture pending Remains very lethargic and not yet ready to be discharged Denies any significant symptoms Minimal cough without any shortness of breath Generally weak but otherwise stable to be discharged home this afternoon Discussed with the father and was given an update about Eliane #. Elevated BNP 05/31 AM patient extubated to Oxy Mask 3L, later stabilized on room air, had acute desaturation 06/04 evening requiring 2 L. BMP drawn 05/31 evening elevated in 4400s. Patient went down to room air. Cardiology on board: use as needed Lasix low-dose. No need for echo for now. We will try to give a small dose of Lasix tomorrow if the blood pressure is fine #. Pneumonia due to COVID-19 virus She is not vaccinated, came in with shortness of breath and cough for few days [employer]. Found to be Covid positive in the ED. Initially put in dexamethasone and Remdesivir, later discontinued as she was not having any respiratory signs and symptoms. Covid precautions for 20 days from the time of diagnosis. No more isolation #. 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 Low phosphorus Monitor daily, replace as able. #. UTI Completed course of antibiotic #. Mild CYNTHIA Resolved #. Weak/Tired/Lethargic Continue with home dose of Lamictal. PT/OT. Will need to continue PT and OT in the hospital before discharge #. Low blood pressure per her mother she runs low blood pressure. Blood pressure remains stable at 111/60 #. Ambulatory dysfunction: Chronic problem. PT/OT #. Cognitive developmental delay: No acute impairment #. Seizure disorder: We will continue current medications History of childhood astrocytoma No acute issues use Continue current antiseizure medication #. DVT prophylaxis: Heparin subcu. Disposition: Likely can be discharged but might require placement due to the nature of care she requires. Her mother was usually taking care of her but she is in the hospital due to Covid. Seems to be back at her baseline Discussed with the father and the mother and she will be discharged home this afternoon Total Time Total Time Spent Total Time Spent (In Minutes): 35 minutes Discharge Plan Discharge Items Patient Disposition: Home - Home Health Services Reason For Visit: ILLNESS Discharge Diagnosis: Pneumonia due to COVID-19 virus, aspiration pneumonia, UTI, chronic hyponatremia, cognitive developmental delay, seizure disorder Condition on Discharge: Fair Activity: As commented below Activity Comment: Requires assistance in ADL S Non-emergency contact: Primary Care Provider Call non-emergency contact if: you have any medication questions and your symptoms worsen Follow-up/Referrals: Randy Begum [Primary Care Provider] - 06/10/21 1:00 pm (PLEASE NOTE THAT THIS IS A TELEPHONE CALL APPOINTMENT. DR BEGUM'S OFFICE WILL CALL YOU AT THE APPOINTMENT TIME.) Diet: Regular Fluids: 1500ml (6 cups) Diet Texture: Pureed (blended smooth) Addtl Attending Provider Instructions: Please take extreme precautions to avoid fall Take extreme precautions during feeding to avoid any aspiration No change in her medications and she should be taking Lamictal 75 mg twice daily Pending Studies at Discharge: No Stand-Alone Forms: My [facility], Opioid Pain Management, Work/School Release, Smoking Cessation Medications and DC Order Prescriptions: Continued levothyroxine 25 mcg Tablet 37.5 mcg PO QAM RF: 0 polysaccharide iron complex [iFerex 150] 150 mg iron capsule 150 mg PO DAILY RF: 0 megestrol 20 mg tablet 20 mg PO QAM RF: 0 sodium chloride 1 gram tablet 1 g PO TID RF: 0 magnesium oxide 400 mg magnesium tablet 400 mg PO BID RF: 0 Changed lamotrigine 150 mg tablet 75 mg PO Q12H Qty: 0 RF: 0 Discharge Orders: Discharge Order (Routine); Ordered 06/06/21 Ordered By: Neyda Almaraz/Other Patient Handouts: Soft Diet Ch Dc, Dysphagia Aspiration, ED Soft Diet Admission Data Admit Date/Time: 05/22/21 10:59 Attending Provider: Neyda Stuart Admit Provider: Wil Antonio Primary Care Provider: Randy Begum Other Providers: Rashmi Curtis ; [facility],Home [facility] ; Lobo Michael ; Shaka Haddad Other Interventions: Discharge Summary Assessment (RN) Last Done: 06/06/21 17:18
== END 2021-06-06 19:18 | disposition home health service (06) | DRG 208 ==
LOC: ED 19:56 → SUATTDRO 05-22 03:36 → EDINP 05-22 03:36 → 2S 05-22 10:15 → SUATTDRO 05-22 10:59 → 2S 05-22 20:06 → 2N 05-24 00:02 → 2E 05-29 22:35 → 2S 06-02 07:13 → 3N 06-05 12:59
DX: Z79.899 Other long term (current) drug therapy; E86.0 Dehydration; E87.2 Acidosis; Z51.81 Encounter for therapeutic drug level monitoring; E03.9 Hypothyroidism, unspecified; T50.1X5A Adverse effect of loop [high-ceiling] diuretics, initial encounter; J69.0 Pneumonitis due to inhalation of food and vomit; E87.6 Hypokalemia; R79.89 Other specified abnormal findings of blood chemistry; Z88.8 Allergy status to other drugs, medicaments and biological substances; E83.39 Other disorders of phosphorus metabolism; E22.2 Syndrome of inappropriate secretion of antidiuretic hormone; J96.01 Acute respiratory failure with hypoxia; Z85.841 Personal history of malignant neoplasm of brain; N39.0 Urinary tract infection, site not specified; U07.1 COVID-19; R57.8 Other shock; B96.20 Unspecified Escherichia coli [E. coli] as the cause of diseases classified elsewhere; Z22.8 Carrier of other infectious diseases; E87.79 Other fluid overload; G40.909 Epilepsy, unspecified, not intractable, without status epilepticus; R62.59 Other lack of expected normal physiological development in childhood; R26.2 Difficulty in walking, not elsewhere classified; N17.0 Acute kidney failure with tubular necrosis; Z79.890 Hormone replacement therapy; I95.9 Hypotension, unspecified; J12.82 Pneumonia due to coronavirus disease 2019